=== PATIENT | male | born 1930 ===

== ENCOUNTER 2017-10-15 14:21 | Inpatient (IN) | payer MEDICARE ==
[2017-10-15 14:31] VITALS: BMI 28.7
[2017-10-15] MEDS ORDERED: Sodium Chloride 0.9% 500 ML IV ONE (14:47)
--- NOTE | 2017-10-15 14:53 | C.PDOC ---
History Of Present Illness 87 yr old male with PMhx of HTN and diabetes, brought in via EMS, presents to the ER for evaluation of abdominal pain worsening for the past 3 days. Patient states the pain is diffuse and associated with nausea. Denies fever, vomiting, diarrhea, constipation, dysuria, weakness or numbness. Time Seen by Provider: 10/15/17 14:37 Chief Complaint (Nursing): Abdominal Pain History Per: Patient History/Exam Limitations: no limitations Onset/Duration Of Symptoms: Days (3) Past Medical History Reviewed: Historical Data, Nursing Documentation, Vital Signs Vital Signs: Last Vital Signs Temp 97.7 F 10/15/17 20:09 Pulse 68 10/15/17 20:09 Resp 20 10/15/17 20:09 BP 118/74 10/15/17 20:09 Pulse Ox 95 10/15/17 20:09 - Medical History PMH: Anemia, Arthritis (l knee jt), Benign Prostatic Hyperplasia, Diabetes, HTN , Hypercholesterolemia, Peripheral Edema Surgical History: Endoscopy, Hernia Repair - [facility] Procedures CYSTOSCOPY NEC (02/08/15) ING HERNIA REP-GRAFT NOS (06/16/14) INSERT INDWELLING CATH (02/05/15) TRANSURETHRAL PROSTATECTOMY ([place]) (03/30/15) Family History: States: No Known Family Hx - Social History Hx Tobacco Use: No Hx Alcohol Use: No Hx Substance Use: No - Immunization History Hx Tetanus Toxoid Vaccination: Yes Hx Influenza Vaccination: Yes Hx Pneumococcal Vaccination: Yes Review Of Systems Except As Marked, All Systems Reviewed And Found Negative. Constitutional: Negative for: Fever Gastrointestinal: Positive for: Nausea, Abdominal Pain (diffuse). Negative for : Vomiting, Diarrhea, Constipation Genitourinary: Negative for: Dysuria Neurological: Negative for: Weakness, Numbness Physical Exam - Physical Exam Appears: Non-toxic, No Acute Distress Skin: Warm, Dry, No Rash Head: Atraumatic, Normacephalic Oral Mucosa: Moist Respiratory: Normal Breath Sounds, No Rales, No Rhonchi, No Stridor, No Wheezing Gastrointestinal/Abdominal: Soft, Tenderness (mild non focal tenderness), No Guarding, No Rebound Extremity: Normal ROM, No Swelling Neurological/Psych: Oriented x3, Normal Speech, Normal Motor ED Course And Treatment - Laboratory Results Result Diagrams: 10/15/17 14:50 10/15/17 14:50 O2 Sat by Pulse Oximetry: 98 (RA) Pulse Ox Interpretation: Normal Medical Decision Making Medical Decision Making: ro colitis, gastrits, obstruciotn PLAN: * EKG * Troponin * CBC * CMP * Urinalsysi * Protonix IVP * Zofran IVP * Sodium Chloride IV ekg nsr [address] t wave changes normal interval.s 630 ct shows large right sided effusion and retrocrural mass. cxr later shows large right sided opacity ?mass vs infiltrate. will cover emprically although infectious etiology less likely given hsitory. discussed with dr ambrose, accepts for admission. Disposition - Disposition Disposition: HOSPITALIZED Disposition Time: 07:00 Condition: FAIR - Clinical Impression Clinical Impression: Pleural effusion, Opacity of lung on imaging study - Scribe Statement The provider has reviewed the documentation as recorded by the Scribe Sanna Farias Provider Attestation: All medical record entries made by the Scribe were at my direction and personally dictated by me. I have reviewed the chart and agree that the record accurately reflects my personal performance of the history, physical exam, medical decision making, and the department course for this patient. I have also personally directed, reviewed, and agree with the discharge instructions and disposition. Decision To Admit - Pt Status Changed To: Hospital Disposition Of: Inpatient - Admit Certification Admit to Inpatient:: After my assessment, the patient will require hospitalization for at least two midnights. This is because of the severity of symptoms shown, intensity of services needed, and/or the medical risk in this patient being treated as an outpatient. - InPatient: Physician Admission Certification:: pleural effusion, needs tap. - . Bed Request Type: Regular Admitting Physician: Fausto Tilley Patient Diagnosis: Pleural effusion, Opacity of lung on imaging study
[2017-10-15 15:06] LABS: BASO # 0.1 K/uL (0.0-0.2); BASO % 1.4 % (0.0-2.0); EOS # 0.5 K/uL (0.0-0.7); EOS % 6.3 % (0.0-4.0); HEMOGLOBIN 11.7 g/dL (12.0-18.0); LYMPH # 1.2 K/uL (1.0-4.3); LYMPH % 17.1 % (20.0-40.0); MEAN CELL VOLUME 84.5 fL (80.0-94.0); MEAN CORPUSCULAR HEMOGLOBIN 28.4 pg (27.0-31.0); MEAN CORPUSCULAR HGB CONC 33.7 g/dL (33.0-37.0); MEAN PLATELET VOLUME 7.6 fL (7.2-11.7); MONO # 0.7 K/uL (0.0-0.8); MONO % 10.4 % (0.0-10.0); NEUT # 4.6 K/uL (1.8-7.0); NEUT % 64.8 % (50.0-75.0); RBC 4.1 Mil/uL (4.40-5.90); RED CELL DISTRIBUTION WIDTH 14.2 % (11.5-14.5); WHITE BLOOD COUNT 7.1 K/uL (4.8-10.8)
[2017-10-15 15:14] LABS: ALB/GLOB RATIO 0.9 (1.0-2.1); ALBUMIN 3.5 g/dL (3.5-5.0); ALT/SGPT 33 U/L (21-72); AST/SGOT 33 U/L (17-59); BLOOD UREA NITROGEN 28 mg/dL (9-20); CALCIUM 10.1 mg/dl (8.6-10.4); GFR AFRICAN-AMERICAN 41; GFR NON-AFRICAN AMERICAN 34; LIPASE 188 U/L (23-300)
[2017-10-15 15:16] LABS: INR 1.3
[2017-10-15] MEDS ORDERED: Iohexol 240 (50 ml) PO STA (15:23)
[2017-10-15] MEDS ORDERED: Iohexol 240 (50 ml) ONE (15:46)
--- NOTE | 2017-10-15 17:37 | CT ---
PROCEDURE: CT Abdomen and Pelvis with contrast HISTORY: abd pain COMPARISON: 02/10/2015. TECHNIQUE: Contrast dose: Oral contrast only. Radiation dose: Total exam DLP = 876.41 mGy-cm. This CT exam was performed using one or more of the following dose reduction techniques: Automated exposure control, adjustment of the mA and/or kV according to patient size, and/or use of iterative reconstruction technique. FINDINGS: LOWER THORAX: Large right pleural effusion incompletely visualize. Fluid tracks along the minor fissure. Compressive atelectasis identified right lower lobe. Subcentimeter pulmonary nodule right middle lobe 5 x 6 mm. LIVER: Unremarkable. No gross lesion or ductal dilatation. GALLBLADDER AND BILE DUCTS: Unremarkable. PANCREAS: Unremarkable. No gross lesion or ductal dilatation. SPLEEN: Unremarkable. ADRENALS: Unremarkable. No mass. KIDNEYS AND URETERS: Unremarkable. No hydronephrosis. No solid mass. VASCULATURE: Unremarkable. No aortic aneurysm. BOWEL: Constipation without fecal impaction or obstruction. APPENDIX: Normal appendix. PERITONEUM: Unremarkable. No free fluid. No free air. LYMPH NODES: Retrocrural soft tissue mass or masses the confluence measures 3.3 x 6.3 cm. Please refer to series 3, image 29. BLADDER: No focal bladder abnormalities. Multiple small bladder diverticulum. REPRODUCTIVE: Unremarkable. BONES: No acute fracture. OTHER FINDINGS: Stable postoperative findings related to left herniorrhaphy. IMPRESSION: 1. Large right pleural effusion which is incompletely visualized, compressive atelectasis right lower lobe. 2. 5 x 6 mm solid nodule right middle lobe. Follow-up recommendations: CT scan of the entire thorax to determine the presence or absence of additional pulmonary nodules. 3. Retrocrural soft tissue mass or masses perhaps lymphadenopathy. This appears separate from the adjacent liver, aorta, IVC which may be compressing. Contiguity with pericardium also noted. Follow-up CT scan of the thorax for assessment of pulmonary nodules should also included upper abdomen for further clarification of this finding and I would recommend a study be performed with intravenous contrast.
[2017-10-15] MEDS ORDERED: Azithromycin 500 MG in Sodium Chloride 0.9% 250 ML IVPB STA (17:59)
[2017-10-15] MEDS ORDERED: cefTRIAXone 2 GM in Sodium Chloride 0.9% 100 ML IVPB STA (17:59)
--- NOTE | 2017-10-15 19:09 | CP.PCM.HP ---
<Sarai Marcelino - Last Filed: 10/15/17 21:35> History of Present Illness - History of Present Illness History of Present Illness: Medicine Note for Hospitalist Service CC: abdominal pain HPI: 87 yo M with PMHx of HTN, T2DM, HLD, Alzheimer's Dementia, CKD ( baseline creatine 2.0s), BPH, and urinary incontinence (wears diapers) presents to the ED with abdominal pain x 3 days. History retrieved from Daughter, Seven. Patient was seen per patient's urologist in September for UTI symptoms. was placed on Cipro initially, this was changed to Bactrim (7 day course) after the results of urine culture sensitivities. Bactrim was started on 10/11/17. Patient started to have abdominal pain x 3 days ago. He has a decrease in appetite, only tolerating liquids. Patient is a poor historian and cannot recall his last bowel movement but as per daughter he does not suffer from constipation. Last BM as per daughter was 3-5 days ago. Patient admitted to abdominal pain, nausea , constipation, and urinary frequency. Denied fever, chills, cough, or chest pain. As per daughter, patient was seen by PMD in September for routine follow up - patient was fine at the time. Patient ambulates with walker but needs assistance with ADLs and requires diapers due to urinary incontinence. Person of contact: Daughter - SEVEN ([phone]) - should be called to update on patient's progress and for consent PMHx: HTN, T2DM, HLD, Alzheimer's Dementia, CKD (baseline creatine 2.0s), BPH PSHx: TURP 1996, work related accident amputated 2.5 fingers of left hand, bilateral eye cataract surgery, inguinal hernia repair Meds: As per NOV. Reviewed and confirmed All: NKDA SHx: Smoked 1 PPD for 40 years, quit 20 years ago, used to drink heavily during his youth, denied any illicit drug use FHx: Unremarkable, patient at the age 89, 89 HCM: received flu and pneumonia shot PMD: Jonathon URO: Chantell Present on Admission - Present on Admission Any Indicators Present on Admission: No History of Uncontrolled Diabetes: No Past Patient History - Infectious Disease Hx of Infectious Diseases: None - Past Medical History & Family History Past Medical History?: Yes - Past Social History Smoking Status: Never Smoked - CARDIAC Hx Hypercholesterolemia: Yes Hx Hypertension: Yes Hx Peripheral Edema: Yes - PULMONARY Hx Respiratory Disorders: No - NEUROLOGICAL Hx Neurological Disorder: No - HEENT Hx HEENT Problems: Yes Hx Cataracts: Yes (bilat iol) - RENAL Hx Chronic Kidney Disease: No - ENDOCRINE/METABOLIC Hx Endocrine Disorders: Yes Hx Diabetes Mellitus Type 2: Yes - HEMATOLOGICAL/ONCOLOGICAL Hx Anemia: Yes - INTEGUMENTARY Hx Dermatological Problems: No - MUSCULOSKELETAL/RHEUMATOLOGICAL Hx Arthritis: Yes (l knee j) - GASTROINTESTINAL Hx Gastrointestinal Disorders: No - GENITOURINARY/GYNECOLOGICAL Hx Genitourinary Disorders: Yes Hx Prostate Problems: Yes (tur1996) - PSYCHIATRIC Hx Substance Use: No - SURGICAL HISTORY Hx Surgeries: Yes Hx Amputation: Yes (fingers left hand work related) Hx Arthroscopy: Yes (left knee) Hx Cataract Extraction: Yes (bilat) Hx Herniorrhaphy: Yes (LEFT INGUINAL HERNIA REPAIR 06/2014) Other/Comment: LEFT HAND 3 DIGIT AMPUTATION( ACCIDENT ) - ANESTHESIA Hx Anesthesia: Yes Hx Anesthesia Reactions: No Hx Malignant Hyperthermia: No Meds Allergies/Adverse Reactions: Allergies Allergy/AdvReac Type Severity Reaction Status Date / Time No Known Allergies Allergy Verified 10/15/17 14:30 Physical Exam - Constitutional Appears: No Acute Distress - Head Exam Head Exam: NORMAL INSPECTION, NORMOCEPHALIC - Eye Exam Eye Exam: EOMI, Normal appearance, PERRL Pupil Exam: NORMAL ACCOMODATION - ENT Exam ENT Exam: Mucous Membranes Moist - Neck Exam Neck exam: Positive for: Normal Inspection - Respiratory Exam Respiratory Exam: Decreased Breath Sounds, NORMAL BREATHING PATTERN. absent: Rales, Rhonchi, Wheezes, Respiratory Distress, Stridor - Cardiovascular Exam Cardiovascular Exam: REGULAR RHYTHM, RRR, +S1, +S2 - GI/Abdominal Exam GI & Abdominal Exam: Normal Bowel Sounds, Soft, Tenderness (Tender to deep Palpation LUQ, RLQ, LLQ) - Extremities Exam Extremities exam: Positive for: normal inspection, pedal pulses present. Negative for: pedal edema, tenderness Additional comments: left hand missing 3 digits - Back Exam Back exam: NORMAL INSPECTION - Neurological Exam Neurological exam: Alert - Psychiatric Exam Psychiatric exam: Normal Affect, Normal Mood - Skin Skin Exam: Dry, Intact, Normal Color, Warm Results - Vital Signs Recent Vital Signs: Last Vital Signs Temp 98.4 F 10/15/17 14:36 Pulse 78 10/15/17 14:36 Resp 20 10/15/17 14:36 BP 117/68 10/15/17 14:36 Pulse Ox 98 10/15/17 18:34 - Labs Result Diagrams: 10/15/17 14:50 10/15/17 14:50 Labs: Laboratory Results - last 24 hr 10/15/17 10/15/17 10/15/17 14:50 14:50 14:50 WBC 7.1 RBC 4.10 L Hgb 11.7 L D Hct 34.6 L MCV 84.5 D MCH 28.4 MCHC 33.7 RDW 14.2 Plt Count 431 H D MPV 7.6 Neut % (Auto) 64.8 Lymph % (Auto) 17.1 L Clare % (Auto) 10.4 H Eos % (Auto) 6.3 H Baso % (Auto) 1.4 Neut # 4.6 Lymph # 1.2 Clare # 0.7 Eos # 0.5 Baso # 0.1 PT 15.0 H INR 1.3 APTT 28 Sodium 127 L Potassium 4.4 Chloride 92 L Carbon Dioxide 29 Anion Gap 11 BUN 28 H Creatinine 1.9 H Est GFR ( Amer) 41 Est GFR (Non-Af Amer) 34 Random Glucose 186 H Calcium 10.1 Total Bilirubin 0.7 AST 33 ALT 33 Alkaline Phosphatase 78 Troponin I < 0.0120 Total Protein 7.4 Albumin 3.5 D Globulin 3.8 Albumin/Globulin Ratio 0.9 L Lipase 188 Influenza Typ A,B (EIA) 10/15/17 18:10 WBC RBC Hgb Hct MCV MCH MCHC RDW Plt Count MPV Neut % (Auto) Lymph % (Auto) Clare % (Auto) Eos % (Auto) Baso % (Auto) Neut # Lymph # Clare # Eos # Baso # PT INR APTT Sodium Potassium Chloride Carbon Dioxide Anion Gap BUN Creatinine Est GFR ( Amer) Est GFR (Non-Af Amer) Random Glucose Calcium Total Bilirubin AST ALT Alkaline Phosphatase Troponin I Total Protein Albumin Globulin Albumin/Globulin Ratio Lipase Influenza Typ A,B (EIA) Negative for flu a/b Assessment & Plan - Assessment and Plan (Free Text) Assessment: 87 yo M with PMHx of HTN, T2DM, HLD, Alzheimer's Dementia, CKD ( baseline creatine 2.0s), BPH, and urinary incontinence (wears diapers) with abdominal pain, with incidental finding of RLL lung mass - being worked up for malignancy. Plan: RLL Mass, pleural effusion History of Tobacco Use Unlikely Pneumonia Vitals stable, no leukocytosis, clinically patient does not appear toxic - will refrain from ABX at this time Pulmonology consulted- Dr. Richmond - help appreciated IR consulted - for CT guided biopsy - Dr. Lin - help appreciated Pending path results - Heme/Onc will need to be consulted Imaging: Pending CT Chest w/o Contrast CT Scan abdomen, pelvis with PO: Large right pleural effusion which is incompletely visualized, compressive atelectasis right lower lobe. 5 x 6 mm solid nodule right middle lobe. Follow-up recommendations: CT scan of the entire thorax to determine the presence or absence of additional pulmonary nodules. Retrocrural soft tissue mass or masses perhaps lymphadenopathy. This appears separate from the adjacent liver, aorta, IVC which may be compressing. Contiguity with pericardium also noted. Follow-up CT scan of the thorax for assessment of pulmonary nodules should also included upper abdomen for further clarification of this finding and I would recommend a study be performed with intravenous contrast. 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) Baseline BUN/ CRE: 30-40s/2 -2.5 On Admission: 28/1.9 Started on gentle fluids NS @ 80cc/hr - clinically patient does not appear dehydrated Continue to monitor UTI Patient was being treated as outpatient with Bactrim 7 day course -Labs UA, UC -Meds Bactrim Q12 last dose 10/18/17 to complete 7 day course HTN Coreg 6.25mg PO BID T2DM Accuchecks Consistent Carb Diet -Labs F/U A1C Last A1C - 5.6 (2014) -Meds: Held home medications of Metformin and Januvia ISS- low HLD F/U Lipid panel Alzheimer's Dementia Aricept 10mg PO QHS BPH Hx of TURP (1996) Urinary Incontinence Informed nurses to place patient on diapers Prophylactic Measures GI PPX: Pepcid 20mg PO BID DVT PPX: SCDs, Heparin Q12 PT EVAL - patient ambulates with walker at baseline Case Management - for home 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 Pending Reccs from Pulm and IR for possible biopsy. Person of contact: Daughter - SEVEN ([phone]) - should be called to update on patient's progress and for any consent DW Sarai King DO, PGY-1 <Fausto Tilley P - Last Filed: 10/16/17 06:49> Results - Vital Signs Recent Vital Signs: Last Vital Signs Temp 98.8 F 10/16/17 04:45 Pulse 69 10/16/17 04:45 Resp 20 10/16/17 04:45 BP 119/73 10/16/17 04:45 Pulse Ox 96 10/16/17 04:45 - Labs Result Diagrams: 10/16/17 06:10 10/16/17 06:10 Labs: Laboratory Results - last 24 hr 10/15/17 10/15/17 10/15/17 14:50 14:50 14:50 WBC 7.1 RBC 4.10 L Hgb 11.7 L D Hct 34.6 L MCV 84.5 D MCH 28.4 MCHC 33.7 RDW 14.2 Plt Count 431 H D MPV 7.6 Neut % (Auto) 64.8 Lymph % (Auto) 17.1 L Clare % (Auto) 10.4 H Eos % (Auto) 6.3 H Baso % (Auto) 1.4 Neut # 4.6 Lymph # 1.2 Clare # 0.7 Eos # 0.5 Baso # 0.1 PT 15.0 H INR 1.3 APTT 28 Sodium 127 L Potassium 4.4 Chloride 92 L Carbon Dioxide 29 Anion Gap 11 BUN 28 H Creatinine 1.9 H Est GFR ( Amer) 41 Est GFR (Non-Af Amer) 34 POC Glucose (mg/dL) Random Glucose 186 H Calcium 10.1 Total Bilirubin 0.7 AST 33 ALT 33 Alkaline Phosphatase 78 Troponin I < 0.0120 NT-Pro-B Natriuret Pep Total Protein 7.4 Albumin 3.5 D Globulin 3.8 Albumin/Globulin Ratio 0.9 L Triglycerides Cholesterol HDL Cholesterol Lipase 188 Influenza Typ A,B (EIA) 10/15/17 10/15/17 10/15/17 18:10 18:35 22:38 WBC RBC Hgb Hct MCV MCH MCHC RDW Plt Count MPV Neut % (Auto) Lymph % (Auto) Clare % (Auto) Eos % (Auto) Baso % (Auto) Neut # Lymph # Clare # Eos # Baso # PT INR APTT Sodium Potassium Chloride Carbon Dioxide Anion Gap BUN Creatinine Est GFR ( Amer) Est GFR (Non-Af Amer) POC Glucose (mg/dL) 123 H Random Glucose Calcium Total Bilirubin AST ALT Alkaline Phosphatase Troponin I NT-Pro-B Natriuret Pep 493 Total Protein Albumin Globulin Albumin/Globulin Ratio Triglycerides Cholesterol HDL Cholesterol Lipase Influenza Typ A,B (EIA) Negative for flu a/b 10/16/17 10/16/17 06:10 06:10 WBC 7.1 RBC 3.69 L Hgb 10.7 L Hct 31.1 L MCV 84.4 MCH 29.0 MCHC 34.4 RDW 14.2 Plt Count 404 H MPV 7.6 Neut % (Auto) 63.1 Lymph % (Auto) 20.8 Clare % (Auto) 9.1 Eos % (Auto) 6.1 H Baso % (Auto) 0.9 Neut # 4.5 Lymph # 1.5 Clare # 0.6 Eos # 0.4 Baso # 0.1 PT INR APTT Sodium 126 L Potassium 4.4 Chloride 93 L Carbon Dioxide 28 Anion Gap 10 BUN 24 H Creatinine 1.8 H Est GFR ( Amer) 43 Est GFR (Non-Af Amer) 36 POC Glucose (mg/dL) Random Glucose 125 H Calcium 9.5 Total Bilirubin 0.7 AST 32 ALT 26 Alkaline Phosphatase 76 Troponin I NT-Pro-B Natriuret Pep Total Protein 6.8 Albumin 3.3 L Globulin 3.6 Albumin/Globulin Ratio 0.9 L Triglycerides 184 H Cholesterol 147 HDL Cholesterol 25 L Lipase Influenza Typ A,B (EIA) Attending/Attestation - Attestation I have personally seen and examined this patient.: Yes I have fully participated in the care of the patient.: Yes I have reviewed all pertinent clinical information: Yes Notes (Text): Assessment * Right malignant effusion, 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
[2017-10-15] MEDS ORDERED: Sodium Chloride 0.9% 1,000 ML ONE (21:40)
[2017-10-15] MEDS: Sodium Chloride 0.9% 1,000 ML IV SCH (21:41)
--- NOTE | 2017-10-15 21:51 | CT ---
EXAM: CT Chest Without Intravenous Contrast CLINICAL HISTORY: 87 years old, male; Signs and symptoms; Mass, lump, or swelling in the chest; Additional info: Questionable lung mass rll TECHNIQUE: Axial computed tomography images of the chest without intravenous contrast. All CT scans at this facility use one or more dose reduction techniques, viz.: automated exposure control; ma/kV adjustment per patient size (including targeted exams where dose is matched to indication; i.e. head); or iterative reconstruction technique. Coronal and sagittal reformatted images were created and reviewed. COMPARISON: No relevant prior studies available. FINDINGS: Lungs: Mild to moderate centrilobular emphysema. Multiple right lung masses. Thick walled cavitary lesion right upper lobe measuring 5.5 x 5.3 CM. Right lower lobe consolidation. Left lung is unremarkable. Pleural space: Multiple right sided pleural based soft tissue masses. Partially loculated right pleural effusion. No pneumothorax. Heart: No cardiomegaly. No significant pericardial effusion. Bones/joints: Kyphosis. Diffuse spinal degenerative changes. No acute fracture. No dislocation. Soft tissues: Unremarkable. Vasculature: Atherosclerotic vascular disease. No thoracic aortic aneurysm. Lymph nodes: Mediastinal adenopathy. Right paratracheal lymph node measures 2.5 CM. IMPRESSION: 1. Multiple right lung masses, multiple right-sided pleural-based masses, and probable malignant effusion. 2. Mediastinal adenopathy. 3. Remainder of findings as above.
[2017-10-15] MEDS: (Novolin R) Insulin Human Regular 100 units/ml vial SC SCH (22:42)
[2017-10-16 06:18] LABS: BASO # 0.1 K/uL (0.0-0.2); BASO % 0.9 % (0.0-2.0); EOS # 0.4 K/uL (0.0-0.7); EOS % 6.1 % (0.0-4.0); HEMOGLOBIN 10.7 g/dL (12.0-18.0); LYMPH # 1.5 K/uL (1.0-4.3); LYMPH % 20.8 % (20.0-40.0); MEAN CELL VOLUME 84.4 fL (80.0-94.0); MEAN CORPUSCULAR HGB CONC 34.4 g/dL (33.0-37.0); MEAN PLATELET VOLUME 7.6 fL (7.2-11.7); MONO # 0.6 K/uL (0.0-0.8); MONO % 9.1 % (0.0-10.0); NEUT # 4.5 K/uL (1.8-7.0); NEUT % 63.1 % (50.0-75.0); RBC 3.69 Mil/uL (4.40-5.90); RED CELL DISTRIBUTION WIDTH 14.2 % (11.5-14.5); WHITE BLOOD COUNT 7.1 K/uL (4.8-10.8)
[2017-10-16 06:42] LABS: ALB/GLOB RATIO 0.9 (1.0-2.1); ALBUMIN 3.3 g/dL (3.5-5.0); CALCIUM 9.5 mg/dl (8.6-10.4)
[2017-10-16 08:26] LABS: SQUAMOUS EPITHIAL < 1 /hpf (0-5); URINE BACTERIA RARE (<OCC); URINE BILIRUBIN NEGATIVE (NEGATIVE); URINE BLOOD NEGATIVE (NEGATIVE); URINE CLARITY Clear (Clear); URINE COLOR Yellow (YELLOW); URINE GLUCOSE (UA) NORMAL (Normal); URINE LEUKOCYTE ESTERASE TRACE Leu/uL (Negative); URINE NITRATE NEGATIVE (NEGATIVE); URINE PROTEIN NEGATIVE (NEGATIVE); URINE UROBILINOGEN NORMAL mg/dL (0.2-1.0)
[2017-10-16] MEDS: (Novolin R) Insulin Human Regular 100 units/ml vial SC SCH ×4 (08:27→21:45)
--- NOTE | 2017-10-16 08:50 | RAD ---
Chest x-ray two views History: Chest pain Comparison: None available. Findings: Large masslike consolidative changes seen within the right mid to lower lung zone with additional lobular masslike opacities seen more inferiorly in the right lung. Right hilar prominence. Tortuous aorta. Degenerative changes in the spine with paravertebral osteophytes. Impression: Large masslike consolidative changes seen within the right mid to lower lung zone with additional lobular masslike opacities seen more inferiorly in the right lung. Underlying neoplasm cannot be excluded. Right hilar prominence. Correlation with chest CT is recommended for further evaluation if clinically indicated.
--- NOTE | 2017-10-16 08:53 | CP.PCM.PN ---
<Gayle Canales - Last Filed: 10/16/17 15:56> Subjective - Date & Time of Evaluation Date of Evaluation: 10/16/17 Time of Evaluation: 07:00 - Subjective Subjective: Medicine Progress Note: Patient was seen and examined at bedside in the AM. Patient denies shortness of breath, chest pain, palpitations, nausea, vomiting, fever, or other complaints at this time. Objective - Vital Signs/Intake and Output Vital Signs (last 24 hours): Temp Pulse Resp BP Pulse Ox 98.1 F 73 20 134/64 96 10/16/17 08:03 10/16/17 08:03 10/16/17 08:03 10/16/17 08:03 10/16/17 08:03 Intake and Output: 10/16/17 10/16/17 06:59 18:59 Intake Total 0 Balance 0 - Medications Medications: Current Medications Bisacodyl (Dulcolax) 5 mg PO DAILY [facility] Stop: 10/16/17 10:01 Carvedilol (Coreg) 6.25 mg PO BID [facility] Docusate Sodium (Colace) 100 mg PO TID [facility] Donepezil HCl (Aricept) 10 mg PO HS [facility] Last Admin: 10/15/17 22:24 Dose: 10 mg Famotidine (Pepcid) 20 mg PO BID [facility] Heparin Sodium (Porcine) (Heparin) 5,000 units SC Q12 [facility] Last Admin: 10/15/17 22:24 Dose: 5,000 units Sodium Chloride (Sodium Chloride 0.9%) 1,000 mls @ 80 mls/hr IV .[id number] [facility] Last Admin: 10/15/17 21:41 Dose: 80 mls/hr Insulin Human Regular (Novolin R) 0 unit SC ACHS [facility] PRN Reason: Protocol Last Admin: 10/16/17 08:27 Dose: Not Given Ondansetron HCl (Zofran Inj) 4 mg IVP Q6 PRN PRN Reason: Nausea/Vomiting Trimethoprim/Sulfamethoxazole (Bactrim Ss Tab) 1 tab PO Q12H [facility] Stop: 10/19/17 10:01 - Labs Labs: 10/16/17 06:10 10/16/17 06:10 PT 15.0 SECONDS (9.7-12.2) H 01/14/18 14:50 INR 1.3 10/15/17 14:50 APTT 28 SECONDS (21-34) 10/15/17 14:50 - Constitutional Appears: No Acute Distress - Head Exam Head Exam: ATRAUMATIC, NORMAL INSPECTION - Eye Exam Eye Exam: EOMI, Normal appearance - ENT Exam ENT Exam: Mucous Membranes Moist - Respiratory Exam Respiratory Exam: Clear to Ausculation Bilateral, NORMAL BREATHING PATTERN - Cardiovascular Exam Cardiovascular Exam: REGULAR RHYTHM, +S1, +S2 - GI/Abdominal Exam GI & Abdominal Exam: Soft, Normal Bowel Sounds. absent: Tenderness - Extremities Exam Extremities Exam: Normal Inspection - Neurological Exam Neurological Exam: Alert, Awake. absent: Oriented x3 (oriented to person and place) - Psychiatric Exam Psychiatric exam: Normal Affect, Normal Mood - Skin Skin Exam: Normal Color, Warm Assessment and Plan - Assessment and Plan (Free Text) Assessment: 87 yo M with PMHx of HTN, T2DM, HLD, Alzheimer's Dementia, CKD ( baseline creatine 2.0s), BPH, and urinary incontinence (wears diapers) with abdominal pain, with incidental finding of RLL lung mass. 1.) RLL Mass, pleural effusion - History of Tobacco Use - Unlikely Pneumonia - Vitals stable, no leukocytosis - Pulmonology consulted- Dr. Deutsch --> help appreciated - IR consulted: Dr. Lin --> help appreciated - CT guided core biopsy of right lung pleural-based mass - f/u pathology results - f/u chest x-ray s/p right lung mass biopsy - US guided right thoracentesis: 600cc serosanguinous fluid removed - Imaging: - CT Chest w/o Contrast: Multiple right lung masses, multiple right-sided pleural-based masses, and probable malignant effusion. Mediastinal adenopathy. Thick walled cavitary lesion right upper lobe measuring 5.5 x 5.3 CM. - CT Scan abdomen, pelvis with PO: Large right pleural effusion which is incompletely visualized, compressive atelectasis right lower lobe. 5 x 6 mm solid nodule right middle lobe. Follow-up recommendations: CT scan of the entire thorax to determine the presence or absence of additional pulmonary nodules. Retrocrural soft tissue mass or masses perhaps lymphadenopathy. This appears separate from the adjacent liver, aorta, IVC which may be compressing. Contiguity with pericardium also noted. Follow-up CT scan of the thorax for assessment of pulmonary nodules should also included upper abdomen for further clarification of this finding and I would recommend a study be performed with intravenous contrast. 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) - Baseline BUN/ Cre: 30-40s/2 -2.5 - On Admission: 28/1.9 - Started on gentle fluids NS @ 80cc/hr - Continue to monitor 4.) History of UTI - Patient was being treated as outpatient with Bactrim 7 day course - UA: Negative - f/u urine culture - Continue Bactrim Q12 last dose until 10/18/17 (to complete 7 day course) 5.) History of Hypertension - Coreg 6.25mg PO BID 6.) History of Type 2 Diabetes - Accuchecks - ISS - Consistent Carb Diet - Last A1C - 5.6 (2014) - A1C: 7.5 7.) History of Hyperlipidemia - Total Cholesterol 147; LDL 66; HDL 25 8.) History of Alzheimer's Dementia - Aricept 10mg PO QHS 9.) History of BPH - Hx of TURP (1996) 10.) History of Urinary Incontinence - Nursing communication: To place patient on diapers 11.) Prophylaxis - GI PPX: Pepcid 20mg PO BID - DVT PPX: SCDs, Heparin Q12 (hold for procedure; will restart 10/17/17) Case Management - 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 Aliza Canales PGY-1 <Maura Abrams - Last Filed: 10/16/17 17:50> Objective - Vital Signs/Intake and Output Vital Signs (last 24 hours): Temp Pulse Resp BP Pulse Ox 98.0 F 71 20 144/70 95 10/16/17 15:00 10/16/17 15:00 10/16/17 15:00 10/16/17 15:00 10/16/17 15:00 Intake and Output: 10/16/17 10/16/17 06:59 18:59 Intake Total 0 Balance 0 - Medications Medications: Current Medications Acetaminophen (Tylenol 325mg Tab) 650 mg PO Q6 PRN PRN Reason: Pain, moderate (4-7) Carvedilol (Coreg) 6.25 mg PO BID [facility] Last Admin: 10/16/17 09:46 Dose: 6.25 mg Docusate Sodium (Colace) 100 mg PO TID [facility] Last Admin: 10/16/17 13:32 Dose: Not Given Donepezil HCl (Aricept) 10 mg PO HS [facility] Last Admin: 10/15/17 22:24 Dose: 10 mg Famotidine (Pepcid) 20 mg PO DAILY [facility] Heparin Sodium (Porcine) (Heparin) 5,000 units SC Q12 [facility] Last Admin: 10/15/17 22:24 Dose: 5,000 units Sodium Chloride (Sodium Chloride 0.9%) 1,000 mls @ 80 mls/hr IV .[id number] [facility] Last Admin: 10/16/17 09:47 Dose: Not Given Insulin Human Regular (Novolin R) 0 unit SC ACHS [facility] PRN Reason: Protocol Last Admin: 10/16/17 12:31 Dose: Not Given Ondansetron HCl (Zofran Inj) 4 mg IVP Q6 PRN PRN Reason: Nausea/Vomiting Trimethoprim/Sulfamethoxazole (Bactrim Ss Tab) 1 tab PO Q12H [facility] Stop: 10/19/17 10:01 Last Admin: 10/16/17 09:44 Dose: Not Given - Labs Labs: 10/16/17 06:10 10/16/17 06:10 PT 15.0 SECONDS (9.7-12.2) H 10/15/17 14:50 INR 1.3 10/15/17 14:50 APTT 28 SECONDS (21-34) 10/15/17 14:50 Attending/Attestation - Attestation I have personally seen and examined this patient.: Yes I have fully participated in the care of the patient.: Yes I have reviewed all pertinent clinical information, including history, physical exam and plan: Yes Notes (Text): Patient was seen and examined Lying comfortable ,complaining of right upper quadrant abdominal pain D/W daughter at bedside s/p Right lung biopsy and thoracentesis D/w the day time resident I agree with the documentation of the assessment and plan
[2017-10-16] MEDS: Sodium Chloride 0.9% 1,000 ML IV SCH ×2 (09:47→23:09)
[2017-10-16] MEDS ORDERED: Bisacodyl 5mg EC Tab PO SCH (10:00)
[2017-10-16] MEDS ORDERED: Tmp-Smz 400 mg-80 mg SS Tab PO SCH (10:00)
[2017-10-16] MEDS ORDERED: Midazolam 2 MG/2 ML VIAL ONE (12:46)
[2017-10-16] MEDS ORDERED: Etomidate 20 mg/10ml Inj IV ONE (12:46)
--- NOTE | 2017-10-16 13:31 | PCM.SURG1 ---
Surgeon's Initial Post Op Note - Surgeon's Notes Surgeon: Nahum Lin MD Stone Decorator: NONE Type of Anesthesia: IV Sedation Pre-Operative Diagnosis: Lung masses, pleural effusion Operative Findings: CT showed multiple right lung pleural base mass and a cavitary mass RLL. Also present is moderate pleural effusion. Post-Operative Diagnosis: Lung masses, pleural effusion Operation Performed: CT guided right lung mass biopsy. Two 20 g core specimen removed. US guided right thoracentesis; 600 cc of serosanguinous fluid removed. Specimen/Specimens Removed: 600 cc of slight serosanguinous fluid,. 20 gauge core x 2 from lung mass Estimated Blood Loss: EBL {In ML}: 0 Drains Used: No Drains Post-Op Condition: Fair Date of Surgery/Procedure: 10/16/17 Time of Surgery/Procedure: 13:25
--- NOTE | 2017-10-16 13:51 | CT ---
PROCEDURE: Date of procedure: 10/16/2017 Procedure: 1. CT-guided lung mass biopsy, CPT [address] Guidance for biopsy, [address] Medications: The patient was sedated by anesthesiologist along with physiologic monitoring. HISTORY: Right lung masses, pleural effusion TECHNIQUE: Following informed consent, the Pt's chest was marked. The Pt was placed in a left lateral position on the CT table and procedure time out was performed. A noncontrast CT scan was performed. Noncontrast CT scan confirmed the presence of multiple pleural-based masses along with a moderate effusion. A skin localizer was placed on the patient's right back and a repeat CT scan was performed. The skin was marked, prepped, and draped in the usual sterile fashion. After the skin was anesthetized with lidocaine and the patient sedated by the anesthesiologist, a 20 gauge core needle was advanced percutaneously under direct CT guidance into the mass. Upon confirmation of needle position, two 20-gauge core specimens were obtained and sent for routine pathology. The needle was removed and a xeroform dressing was applied. A post biopsy CT scan showed no pneumothorax. IMPRESSION: CT guided core biopsy right lung pleural-based mass.
--- NOTE | 2017-10-16 14:08 | US ---
PROCEDURE: Date of procedure: 10/16/2017 Procedure: 1. Ultrasound-guided Right thoracentesis, CPT 44569 Medications: 6cc 1% Lidocaine HISTORY: Right pleural effusion, lung masses TECHNIQUE: Following informed consent ,the Patients' right chest was marked. Procedure time-out was called, and the patient was placed in a left lateral position and limited ultrasound showed a moderate right effusion. The patient's right back was prepped and draped in the usual sterile fashion. After the skin was anesthetized with lidocaine, a drainage catheter was advanced under ultrasound guidance into the pleural space. Ultrasound-guided thoracentesis was performed. A total of 600 cubic centimeters of serosanguinous-colored fluid removed without complication. A Xeroform dressing was applied. IMPRESSION: Ultrasound guided Right thoracentesis. There were no immediate complications.
--- NOTE | 2017-10-16 15:32 | CP.PCM.PCO ---
Physician Communication Note - Physician Communication Note Physician Communication Note: Unable to reach daughter X 4,for fam. meeting. number is not working
--- NOTE | 2017-10-16 17:04 | RAD ---
PROCEDURE: CHEST RADIOGRAPH, 1 VIEW HISTORY: Status post right lung mass biopsy. COMPARISON: 10/15/2017 FINDINGS: LUNGS: Previously identified mass in the mid right lung is again evident. There is increasing opacity at the right lung base. This may be due to consolidation or pleural effusion. There is no pneumothorax. There is no left pleural effusion. PLEURA: Possible right pleural effusion. Pleural-based density is noted along the lateral chest wall in the upper right marcos thorax. CARDIOVASCULAR: Normal. OSSEOUS STRUCTURES: No significant abnormalities. VISUALIZED UPPER ABDOMEN: Normal. OTHER FINDINGS: None. IMPRESSION: No evidence of pneumothorax. Increasing opacity at right lung base status post percutaneous right lung biopsy. Consolidation versus pleural effusion.
--- NOTE | 2017-10-16 17:13 | CP.PCM.CON ---
History of Present Illness - History of Present Illness History of Present Illness: Palliative consult requested for End of life care discussion Patient is a 87 yo male admitted from home with abdominal pain X 3 days. Pain was diffused with nausea. Prior to this patient was treated for UTI with Bactrim. The CT abdomen and pelvis was significant for right lung mass . The CT chest confirmed multiple masses to right lung. patient is S/P thoracentesis today and lung Bx as well. 600 cc of fluid taken out. PMH: HTN, dementia, anemia, DM, Alzheimer's, incontinent, uses diappers, knee pain, in WC Soc. Hx: , 18 years ago from DM complications, lives with daughter at home Fam. hx: DM runs in family Review of Systems - Review of Systems All systems: reviewed and no additional remarkable complaints except Review of Systems: ROS obtained from nursing. patient is post IR procedure in no acute distress. Past Patient History - Infectious Disease Hx of Infectious Diseases: None - Past Medical History & Family History Past Medical History?: Yes - Past Social History Smoking Status: Never Smoked - CARDIAC Hx Hypercholesterolemia: Yes Hx Hypertension: Yes - PULMONARY Hx Respiratory Disorders: No - NEUROLOGICAL Hx Neurological Disorder: No - HEENT Hx HEENT Problems: Yes Hx Cataracts: Yes (bilateral) - RENAL Hx Chronic Kidney Disease: No - ENDOCRINE/METABOLIC Hx Diabetes Mellitus Type 2: Yes - HEMATOLOGICAL/ONCOLOGICAL Hx Blood Disorders: Yes Hx Anemia: Yes - INTEGUMENTARY Hx Dermatological Problems: No - MUSCULOSKELETAL/RHEUMATOLOGICAL Hx Arthritis: Yes - GASTROINTESTINAL Hx Gastrointestinal Disorders: No - GENITOURINARY/GYNECOLOGICAL Hx Genitourinary Disorders: Yes Hx Prostate Problems: Yes (TURP 1996) - PSYCHIATRIC Hx Psychophysiologic Disorder: No Hx Substance Use: No - SURGICAL HISTORY Hx Surgeries: Yes Hx Amputation: Yes (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- work related) Hx Arthroscopy: Yes (left knee) Hx Cataract Extraction: Yes (bilat) Hx Herniorrhaphy: Yes (LEFT INGUINAL HERNIA REPAIR 06/2014) Other/Comment: LEFT HAND 3 DIGIT AMPUTATION( ACCIDENT ) - ANESTHESIA Hx Anesthesia: Yes Hx Anesthesia Reactions: No Hx Malignant Hyperthermia: No Meds Allergies/Adverse Reactions: Allergies Allergy/AdvReac Type Severity Reaction Status Date / Time No Known Allergies Allergy Verified 10/15/17 14:30 - Medications Medications: Current Medications Carvedilol (Coreg) 6.25 mg PO BID [facility] Last Admin: 10/16/17 09:46 Dose: 6.25 mg Docusate Sodium (Colace) 100 mg PO TID [facility] Last Admin: 10/16/17 13:32 Dose: Not Given Donepezil HCl (Aricept) 10 mg PO HS [facility] Last Admin: 10/15/17 22:24 Dose: 10 mg Famotidine (Pepcid) 20 mg PO DAILY [facility] Heparin Sodium (Porcine) (Heparin) 5,000 units SC Q12 [facility] Last Admin: 10/15/17 22:24 Dose: 5,000 units Sodium Chloride (Sodium Chloride 0.9%) 1,000 mls @ 80 mls/hr IV .[id number] [facility] Last Admin: 10/16/17 09:47 Dose: Not Given Insulin Human Regular (Novolin R) 0 unit SC ACHS [facility] PRN Reason: Protocol Last Admin: 10/16/17 12:31 Dose: Not Given Ondansetron HCl (Zofran Inj) 4 mg IVP Q6 PRN PRN Reason: Nausea/Vomiting Trimethoprim/Sulfamethoxazole (Bactrim Ss Tab) 1 tab PO Q12H [facility] Stop: 10/19/17 10:01 Last Admin: 10/16/17 09:44 Dose: Not Given Physical Exam - Constitutional Appears: No Acute Distress - Head Exam Head Exam: ATRAUMATIC, NORMAL INSPECTION, NORMOCEPHALIC - Eye Exam Eye Exam: EOMI, Normal appearance, PERRL Pupil Exam: NORMAL ACCOMODATION, PERRL - ENT Exam ENT Exam: Mucous Membranes Moist, Normal Exam - Neck Exam Neck exam: Positive for: Normal Inspection - Respiratory Exam Respiratory Exam: Decreased Breath Sounds, NORMAL BREATHING PATTERN - Cardiovascular Exam Cardiovascular Exam: REGULAR RHYTHM - GI/Abdominal Exam GI & Abdominal Exam: Diminished Bowel Sounds, Soft - Rectal Exam Rectal Exam: Deferred - Exam Exam: absent: Circumcision, NORMAL INSPECTION, Scrotal Swelling, Testicular Tenderness, Uretheral Discharge, Testicular Vertical Lie, Bladder Distension External exam: NORMAL EXTERNAL EXAM - Extremities Exam Extremities exam: Positive for: normal inspection - Back Exam Back exam: NORMAL INSPECTION - Neurological Exam Neurological exam: Alert, Altered - Psychiatric Exam Psychiatric exam: Flat Affect - Skin Skin Exam: Dry, Intact, Normal Color, Warm Results - Vital Signs Recent Vital Signs: Last Vital Signs Temp 98.0 F 10/16/17 15:00 Pulse 71 10/16/17 15:00 Resp 20 10/16/17 15:00 BP 144/70 10/16/17 15:00 Pulse Ox 95 10/16/17 15:00 - Labs Result Diagrams: 10/16/17 06:10 10/16/17 06:10 Labs: Laboratory Results - last 24 hr 10/15/17 10/15/17 10/15/17 18:10 18:35 22:38 WBC RBC Hgb Hct MCV MCH MCHC RDW Plt Count MPV Neut % (Auto) Lymph % (Auto) [place] % (Auto) Eos % (Auto) Baso % (Auto) Neut # Lymph # [place] # Eos # Baso # Sodium Potassium Chloride Carbon Dioxide Anion Gap BUN Creatinine Est GFR ( Amer) Est GFR (Non-Af Amer) POC Glucose (mg/dL) 123 H Random Glucose Hemoglobin A1c Calcium Total Bilirubin AST ALT Alkaline Phosphatase NT-Pro-B Natriuret Pep 493 Total Protein Albumin Globulin Albumin/Globulin Ratio Triglycerides Cholesterol LDL Cholesterol Direct HDL Cholesterol Urine Color Urine Clarity Urine pH Ur Specific [place] Urine Protein Urine Glucose (UA) Urine Ketones Urine Blood Urine Nitrate Urine Bilirubin Urine Urobilinogen Ur Leukocyte Esterase Urine WBC (Auto) Urine RBC (Auto) Ur Squamous Epith Cells Urine Bacteria Influenza Typ A,B (EIA) Negative for flu a/b 10/16/17 10/16/17 10/16/17 06:10 06:10 06:10 WBC 7.1 RBC 3.69 L Hgb 10.7 L Hct 31.1 L MCV 84.4 MCH 29.0 MCHC 34.4 RDW 14.2 Plt Count 404 H MPV 7.6 Neut % (Auto) 63.1 Lymph % (Auto) 20.8 [place] % (Auto) 9.1 Eos % (Auto) 6.1 H Baso % (Auto) 0.9 Neut # 4.5 Lymph # 1.5 [place] # 0.6 Eos # 0.4 Baso # 0.1 Sodium 126 L Potassium 4.4 Chloride 93 L Carbon Dioxide 28 Anion Gap 10 BUN 24 H Creatinine 1.8 H Est GFR ( Amer) 43 Est GFR (Non-Af Amer) 36 POC Glucose (mg/dL) Random Glucose 125 H Hemoglobin A1c 7.5 H D Calcium 9.5 Total Bilirubin 0.7 AST 32 ALT 26 Alkaline Phosphatase 76 NT-Pro-B Natriuret Pep Total Protein 6.8 Albumin 3.3 L Globulin 3.6 Albumin/Globulin Ratio 0.9 L Triglycerides 184 H Cholesterol 147 LDL Cholesterol Direct 66 HDL Cholesterol 25 L Urine Color Urine Clarity Urine pH Ur Specific [place] Urine Protein Urine Glucose (UA) Urine Ketones Urine Blood Urine Nitrate Urine Bilirubin Urine Urobilinogen Ur Leukocyte Esterase Urine WBC (Auto) Urine RBC (Auto) Ur Squamous Epith Cells Urine Bacteria Influenza Typ A,B (EIA) 10/16/17 10/16/17 10/16/17 06:13 07:26 16:16 WBC RBC Hgb Hct MCV MCH MCHC RDW Plt Count MPV Neut % (Auto) Lymph % (Auto) [place] % (Auto) Eos % (Auto) Baso % (Auto) Neut # Lymph # [place] # Eos # Baso # Sodium Potassium Chloride Carbon Dioxide Anion Gap BUN Creatinine Est GFR ( Amer) Est GFR (Non-Af Amer) POC Glucose (mg/dL) 115 H 134 H Random Glucose Hemoglobin A1c Calcium Total Bilirubin AST ALT Alkaline Phosphatase NT-Pro-B Natriuret Pep Total Protein Albumin Globulin Albumin/Globulin Ratio Triglycerides Cholesterol LDL Cholesterol Direct HDL Cholesterol Urine Color Yellow Urine Clarity Clear Urine pH 5.0 Ur Specific [place] 1.012 Urine Protein Negative Urine Glucose (UA) Normal Urine Ketones Negative Urine Blood Negative Urine Nitrate Negative Urine Bilirubin Negative Urine Urobilinogen Normal Ur Leukocyte Esterase Trace Urine WBC (Auto) 8 H Urine RBC (Auto) 1 Ur Squamous Epith Cells < 1 Urine Bacteria Rare Influenza Typ A,B (EIA) Assessment & Plan - Assessment and Plan (Free Text) Assessment: Palliative consult There was no Advanced directive on the chart, PPS 30%. I reviewed medical records, all diagnostic studies, examined patient in the bed. Goals of care discussed with pineda Nair Patient is alert, post thoracentesis, in no acute distress. Patient able to fallow simple commends in [place]. Breath sounds regular, non labored. No cough noted. Post thoracentesis site intact. Denies pain. Abdomen large and soft. Patient unable to provide info on bowel routine, incontinent of bladder, uses diaper. Assisted with lunch and tolerated it well. BP 144/70, HR 71, O2Sat 95 % RA. Hb 10.7, WBC 7.1, Na 126, BUN 24, Architectural Design Professor 1.8. Goals of care discussed with daughter Mrs. Nair . She could be reached at [phone] or [phone]. She admitted being made aware last night of her father's studies result. Mrs. Nair talked very emotionally about the way her mother . Now, when her father was given the terminal diagnosis, she is expressing the flash backs. Mrs. Nair understands the severity of diagnosis and poor prognosis and was very clear that she would not want her father to suffer. She would want all ordinary measures to be applied to promote comfort and quality of life for her father. The daughter discussed [facility] insurance status with Michelle DASILVA and was instructed on further steps. We discussed possible side effects of chemo, if it becomes suggested Tx. She understood. Code status discussed. POLST reviewed. Mrs. Nair choose DNR/DNI with limited interventions to antibiotics, IV fluids, non invasive G2mmodvspeks and chemo Tx. I supported her decision. This was shared with Doctor Denisse. Impression * Newly diagnosed lung cancer, staging is pending * Elderly man with need for max assistance at home even prior to diagnosis * Patient unable to advocate for him self due to confusion , secondary to dementia and Alzheimer's * Patient's daughter advocates for him * Daughter is concerned with comfort and quality of life and would only go for chemo tx if offered * Daughter choose DNR/DNI * Daughter prefers discharge home when stable Suggestion * Agree with DNR/DNI * Assist patient with ADLs * Discharge planing to home Time spent in Advance Care discussion is 45 min. I will fallow up with this patient as needed. Thank you for consulting Palliative care
--- NOTE | 2017-10-16 18:49 | CARD ---
APPROVED REPORT EXAM: Two-dimensional and M-mode echocardiogram with Doppler and color Doppler. Other Information Quality : GoodRhythm : Technically limited study due to UNCOOPERATIVE INDICATION CARDIAC EVALUATION 2D DIMENSIONS IVSd0.9 (0.7-1.1cm)LVDd4.4 (3.9-5.9cm) PWd0.9 (0.7-1.1cm)LVDs3.0 (2.5-4.0cm) FS (%) 31.7 %LVEF (%)59.9 (>50%) M-Mode DIMENSIONS Left Atrium (MM)3.20 (2.5-4.0cm)Aortic Root3.44 (2.2-3.7cm) Aortic Cusp Exc.2.27 (1.5-2.0cm) Mitral Valve MV E Ehkuhats03.0cm/sMV A Pqfnzrvk98.8cm/sE/A ratio0.6 TDI E/Lateral E'0.0E/Medial E'0.0 Tricuspid Valve TR Peak [id number]/sTR Peak [id number] LEFT VENTRICLE The left ventricular systolic function is normal. The left ventricular ejection fraction is within the normal range. There is normal LV segmental wall motion. Transmitral Doppler flow pattern is Grade I-abnormal relaxation pattern. RIGHT VENTRICLE The right ventricular systolic function is normal. AORTIC VALVE The aortic valve is not well visualized. MITRAL VALVE The mitral valve is normal in structure. TRICUSPID VALVE The tricuspid valve is not well visualized. There is mild tricuspid regurgitation. Right ventricular systolic pressure is estimated at - 37 mmHg. PULMONIC VALVE The pulmonic valve is not well visualized. GREAT VESSELS The IVC is normal in size and collapses >50% with inspiration. PERICARDIAL EFFUSION There is a trace pericardial effusion. <Conclusion> SUBOPTIMAL STUDY DUE TO POOR ACOUSTIC WINDOWS The left ventricular systolic function is normal. Diastolic dysfunction Grade I-abnormal relaxation pattern. The right ventricular systolic function is normal. There is mild tricuspid regurgitation. Right ventricular systolic pressure is estimated at - 37 mmHg. There is a trace pericardial effusion.
[2017-10-16] MEDS ORDERED: Azithromycin 500 MG in Sodium Chloride 0.9% 250 ML IVPB SCH (19:00)
[2017-10-16] MEDS: Azithromycin 500mg/250ML NS 500 MG/250 ML BAG IVPB SCH (19:57)
--- NOTE | 2017-10-16 22:32 | CARD ---
APPROVED REPORT EKG Measurement Heart [id number] <Conclusion> Normal sinus rhythm Normal ECG BASELINE ARTIFACT-LIMB LEADS
[2017-10-17 06:48] LABS: ALB/GLOB RATIO 0.9 (1.0-2.1); ALBUMIN 3.1 g/dL (3.5-5.0); CALCIUM 9.3 mg/dl (8.6-10.4); MAGNESIUM 1.7 mg/dL (1.6-2.3)
--- NOTE | 2017-10-17 06:56 | CP.PCM.PN ---
Subjective - Date & Time of Evaluation Date of Evaluation: 10/17/17 Time of Evaluation: 07:00 - Subjective Subjective: Medicine Progress Note: Patient was seen and examined at bedside in the AM. Patient denies shortness of breath, chest pain, palpitations, nausea, vomiting, fever, or other complaints at this time. Objective - Vital Signs/Intake and Output Vital Signs (last 24 hours): Temp Pulse Resp BP Pulse Ox 98.4 F 68 20 136/75 95 10/16/17 23:10 10/16/17 23:10 10/16/17 23:10 10/16/17 23:10 10/16/17 23:10 Intake and Output: 10/16/17 10/17/17 18:59 06:59 Intake Total 690 Balance 690 - Medications Medications: Current Medications Acetaminophen (Tylenol 325mg Tab) 650 mg PO Q6 PRN PRN Reason: Pain, moderate (4-7) Last Admin: 10/16/17 18:27 Dose: 650 mg Carvedilol (Coreg) 6.25 mg PO BID [facility] Last Admin: 10/16/17 17:50 Dose: 6.25 mg Docusate Sodium (Colace) 100 mg PO TID [facility] Last Admin: 10/16/17 17:50 Dose: 100 mg Donepezil HCl (Aricept) 10 mg PO HS [facility] Last Admin: 10/16/17 21:16 Dose: 10 mg Famotidine (Pepcid) 20 mg PO DAILY [facility] Heparin Sodium (Porcine) (Heparin) 5,000 units SC Q12 [facility] Last Admin: 10/15/17 22:24 Dose: 5,000 units Sodium Chloride (Sodium Chloride 0.9%) 1,000 mls @ 80 mls/hr IV .[id number] [facility] Last Admin: 10/16/17 23:09 Dose: 80 mls/hr Ceftriaxone Sodium 1 gm/ (Sodium Chloride) 100 mls @ 100 mls/hr IVPB DAILY@ 1800 [facility] Last Admin: 10/16/17 18:53 Dose: 100 mls/hr Azithromycin (Zithromax 500mg In Ns Addvantage) 500 mg in 250 mls @ 167 mls/hr IVPB Q24H [facility] Last Admin: 10/16/17 19:57 Dose: 167 mls/hr Insulin Human Regular (Novolin R) 0 unit SC ACHS [facility] PRN Reason: Protocol Last Admin: 10/16/17 21:45 Dose: Not Given Ondansetron HCl (Zofran Inj) 4 mg IVP Q6 PRN PRN Reason: Nausea/Vomiting - Labs Labs: 10/16/17 06:10 10/17/17 06:11 PT 15.0 SECONDS (9.7-12.2) H 10/15/17 14:50 INR 1.3 10/15/17 14:50 APTT 28 SECONDS (21-34) 10/15/17 14:50 - Constitutional Appears: No Acute Distress, Confused - Head Exam Head Exam: ATRAUMATIC, NORMAL INSPECTION - Eye Exam Eye Exam: EOMI, Normal appearance - ENT Exam ENT Exam: Mucous Membranes Moist - Respiratory Exam Respiratory Exam: Clear to Ausculation Bilateral, NORMAL BREATHING PATTERN - Cardiovascular Exam Cardiovascular Exam: REGULAR RHYTHM, +S1, +S2 - GI/Abdominal Exam GI & Abdominal Exam: Soft, Normal Bowel Sounds. absent: Tenderness - Extremities Exam Extremities Exam: Normal Inspection - Neurological Exam Neurological Exam: Alert, Awake - Psychiatric Exam Psychiatric exam: Normal Affect - Skin Skin Exam: Normal Color, Warm Assessment and Plan - Assessment and Plan (Free Text) Assessment: 87 yo M with PMHx of HTN, T2DM, HLD, Alzheimer's Dementia, CKD ( baseline creatine 2.0s), BPH, and urinary incontinence (wears diapers) with abdominal pain, with incidental finding of RLL lung mass. 1.) RLL Mass, pleural effusion - History of Tobacco Use - Unlikely Pneumonia - Vitals stable, no leukocytosis - Pulmonology consulted- Dr. Deutsch --> help appreciated - Hem/Onc Consult: Dr. Green --> help appreciated - IR consulted: Dr. Lin --> help appreciated - CT guided core biopsy of right lung pleural-based mass - f/u pathology results - f/u chest x-ray s/p right lung mass biopsy - US guided right thoracentesis: 600cc serosanguinous fluid removed - Imaging: - CT Chest w/o Contrast: Multiple right lung masses, multiple right-sided pleural-based masses, and probable malignant effusion. Mediastinal adenopathy. Thick walled cavitary lesion right upper lobe measuring 5.5 x 5.3 CM. - CT Scan abdomen, pelvis with PO: Large right pleural effusion which is incompletely visualized, compressive atelectasis right lower lobe. 5 x 6 mm solid nodule right middle lobe. Follow-up recommendations: CT scan of the entire thorax to determine the presence or absence of additional pulmonary nodules. Retrocrural soft tissue mass or masses perhaps lymphadenopathy. This appears separate from the adjacent liver, aorta, IVC which may be compressing. Contiguity with pericardium also noted. Follow-up CT scan of the thorax for assessment of pulmonary nodules should also included upper abdomen for further clarification of this finding and I would recommend a study be performed with intravenous contrast. 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) - Baseline BUN/ Cre: 30-40s/2 -2.5 - On Admission: 28/1.9 - Started on gentle fluids NS @ 80cc/hr - Continue to monitor 4.) History of UTI - Patient was being treated as outpatient with Bactrim 7 day course - UA: Negative - Urine culture: No growth - Bactrim Discontinued 10/17/17 5.) History of Hypertension - Coreg 6.25mg PO BID 6.) History of Type 2 Diabetes - Accuchecks - ISS - Consistent Carb Diet - Last A1C - 5.6 (2014) - A1C: 7.5 7.) History of Hyperlipidemia - Total Cholesterol 147; LDL 66; HDL 25 8.) History of Alzheimer's Dementia - Aricept 10mg PO QHS 9.) History of BPH - Hx of TURP (1996) 10.) History of Urinary Incontinence - Nursing communication: To place patient on diapers 11.) Prophylaxis - GI PPX: Pepcid 20mg PO BID - DVT PPX: SCDs, Heparin Q12 (hold for procedure; will restart 10/17/17) Case Management - 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 Aliza Canales PGY-1
[2017-10-17] MEDS: (Novolin R) Insulin Human Regular 100 units/ml vial SC SCH ×3 (07:20→17:30)
[2017-10-17 07:26] LABS: HEMOGLOBIN 10.8 g/dL (12.0-18.0); MEAN CELL VOLUME 83.8 fL (80.0-94.0); MEAN CORPUSCULAR HEMOGLOBIN 29.4 pg (27.0-31.0); RBC 3.68 Mil/uL (4.40-5.90); RED CELL DISTRIBUTION WIDTH 13.7 % (11.5-14.5)
[2017-10-17 09:55] LABS: EOS # 0.3 K/uL (0.0-0.7); LYMPH # 1.5 K/uL (1.0-4.3); MONO # 0.7 K/uL (0.0-0.8); NEUT # 6.5 K/uL (1.8-7.0)
--- NOTE | 2017-10-17 11:04 | CP.PCM.CON ---
<Columba Barraza - Last Filed: 10/17/17 15:07> History of Present Illness - History of Present Illness History of Present Illness: Heme/Onc Consult for Dr. Facundo Green Reason for consult: Right lung mass 87 year old male with PMHx of DM, HTN, HLD, CKD, BPH, Alzheimer's dementia admitted on 10/15/17 for abdominal pain. On imaging, patient was found to have large right pleural effusion and right LL soft tissue mass/masses. Patient has a history of tobacco abuse (40 pack years). Quit more than 10 years ago. Patient had thoracentesis done yesterday 10/16/[address] guided lung mass core biopsy. Patient's chief complaint of abdominal pain has resolved since admission. He admits to normal BM's and denies nausea, vomiting. He denies fevers, weight loss, headaches or fatigue. He denies chest pain, RUGGIERO or trouble breathing. Denies prior history of malignancy in him or his family. He lives with his daughter Eden Nair, who patient states is in charge of his care. Past medical history: HTN, DM2, HLD, Alzheimer's Dementia, CKD, BPH Past surgical history: TURP 1996, work related accident amputated 2 and a half fingers of left hand, cataract surgery, inguinal hernia repair, left knee surgery. Family history: questionable Diabetes Social history: Smoked 1 PPD for 40 years, quit 10-20 years ago, denies ETOH, denies any illicit drug use Allergies: NKDA Review of systems: All remaining review of systems including HEENT, cardiovascular, respiratory, gastrointestinal, genitourinary, musculoskeletal, dermatologic, neurologic, and psychiatric are negative unless mentioned in the HPI. Review of Systems - Constitutional Constitutional: absent: Chills, Fatigue, Fever - EENT Eyes: absent: Blurred Vision, Change in Vision - Cardiovascular Cardiovascular: absent: Chest Pain, Dyspnea, Leg Edema, Palpitations - Respiratory Respiratory: absent: Cough, Dyspnea - Gastrointestinal Gastrointestinal: absent: Abdominal Pain, Constipation, Diarrhea, Nausea, Vomiting - Genitourinary Genitourinary: absent: Difficulty Urinating, Dysuria - Musculoskeletal Musculoskeletal: absent: Numbness, Tingling - Integumentary Integumentary: absent: Swelling, Wounds - Neurological Neurological: absent: Dizziness, Numbness, Headaches, Tingling, Weakness - Endocrine Endocrine: absent: Fatigue, Palpitations - Hematologic/Lymphatic Hematologic: absent: Lymphadenopathy Past Patient History - Infectious Disease Hx of Infectious Diseases: None - Past Medical History & Family History Past Medical History?: Yes - Past Social History Smoking Status: Never Smoked - CARDIAC Hx Hypercholesterolemia: Yes Hx Hypertension: Yes - PULMONARY Hx Respiratory Disorders: No - NEUROLOGICAL Hx Neurological Disorder: No - HEENT Hx HEENT Problems: Yes Hx Cataracts: Yes (bilateral) - RENAL Hx Chronic Kidney Disease: No - ENDOCRINE/METABOLIC Hx Diabetes Mellitus Type 2: Yes - HEMATOLOGICAL/ONCOLOGICAL Hx Blood Disorders: Yes Hx Anemia: Yes - INTEGUMENTARY Hx Dermatological Problems: No - MUSCULOSKELETAL/RHEUMATOLOGICAL Hx Arthritis: Yes - GASTROINTESTINAL Hx Gastrointestinal Disorders: No - GENITOURINARY/GYNECOLOGICAL Hx Genitourinary Disorders: Yes Hx Prostate Problems: Yes (TURP 1996) - PSYCHIATRIC Hx Psychophysiologic Disorder: No Hx Substance Use: No - SURGICAL HISTORY Hx Surgeries: Yes Hx Amputation: Yes (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- work related) Hx Arthroscopy: Yes (left knee) Hx Cataract Extraction: Yes (bilat) Hx Herniorrhaphy: Yes (LEFT INGUINAL HERNIA REPAIR 06/2014) Other/Comment: LEFT HAND 3 DIGIT AMPUTATION( ACCIDENT ) - ANESTHESIA Hx Anesthesia: Yes Hx Anesthesia Reactions: No Hx Malignant Hyperthermia: No Meds Allergies/Adverse Reactions: Allergies Allergy/AdvReac Type Severity Reaction Status Date / Time No Known Allergies Allergy Verified 10/15/17 14:30 - Medications Medications: Current Medications Acetaminophen (Tylenol 325mg Tab) 650 mg PO Q6 PRN PRN Reason: Pain, moderate (4-7) Last Admin: 10/16/17 18:27 Dose: 650 mg Carvedilol (Coreg) 6.25 mg PO BID [facility] Last Admin: 10/17/17 09:25 Dose: 6.25 mg Docusate Sodium (Colace) 100 mg PO TID [facility] Last Admin: 10/17/17 09:25 Dose: 100 mg Donepezil HCl (Aricept) 10 mg PO HS [facility] Last Admin: 10/16/17 21:16 Dose: 10 mg Famotidine (Pepcid) 20 mg PO DAILY [facility] Last Admin: 10/17/17 09:25 Dose: 20 mg Heparin Sodium (Porcine) (Heparin) 5,000 units SC Q12 [facility] Last Admin: 10/15/17 22:24 Dose: 5,000 units Sodium Chloride (Sodium Chloride 0.9%) 1,000 mls @ 80 mls/hr IV .[id number] [facility] Last Admin: 10/16/17 23:09 Dose: 80 mls/hr Ceftriaxone Sodium 1 gm/ (Sodium Chloride) 100 mls @ 100 mls/hr IVPB DAILY@ 1800 [facility] Last Admin: 10/16/17 18:53 Dose: 100 mls/hr Azithromycin (Zithromax 500mg In Ns Addvantage) 500 mg in 250 mls @ 167 mls/hr IVPB Q24H [facility] Last Admin: 10/16/17 19:57 Dose: 167 mls/hr Insulin Human Regular (Novolin R) 0 unit SC ACHS [facility] PRN Reason: Protocol Last Admin: 10/17/17 07:20 Dose: Not Given Ondansetron HCl (Zofran Inj) 4 mg IVP Q6 PRN PRN Reason: Nausea/Vomiting Physical Exam - Constitutional Appears: No Acute Distress - Head Exam Head Exam: NORMAL INSPECTION, NORMOCEPHALIC - Eye Exam Eye Exam: EOMI, Normal appearance - ENT Exam ENT Exam: Mucous Membranes Moist - Respiratory Exam Respiratory Exam: Decreased Breath Sounds (on right ), Clear to Auscultation Bilateral, NORMAL BREATHING PATTERN - Cardiovascular Exam Cardiovascular Exam: REGULAR RHYTHM, +S1, +S2 - GI/Abdominal Exam GI & Abdominal Exam: Distended, Normal Bowel Sounds, Soft. absent: Firm, Guarding, Tenderness - Extremities Exam Extremities exam: Positive for: normal inspection. Negative for: pedal edema - Neurological Exam Neurological exam: Alert, Oriented x3 (Able to tell me he's in the hospital, it' s 2018 and full name ) - Psychiatric Exam Psychiatric exam: Normal Affect, Normal Mood - Skin Skin Exam: Normal Color, Warm Results - Vital Signs Recent Vital Signs: Last Vital Signs Temp 98.0 F 10/17/17 07:15 Pulse 76 10/17/17 09:26 Resp 20 10/17/17 07:15 BP 130/78 10/17/17 09:26 Pulse Ox 99 10/17/17 07:15 - Labs Result Diagrams: 10/17/17 06:11 10/17/17 06:11 Labs: Laboratory Results - last 24 hr 10/16/17 10/16/17 10/17/17 16:16 21:32 06:10 WBC RBC Hgb Hct MCV MCH MCHC RDW Plt Count MPV Neut % (Auto) Lymph % (Auto) [place] % (Auto) Eos % (Auto) Baso % (Auto) Neut # Lymph # [place] # Eos # Baso # Sodium Potassium Chloride Carbon Dioxide Anion Gap BUN Creatinine Est GFR ( Amer) Est GFR (Non-Af Amer) POC Glucose (mg/dL) 134 H 167 H 136 H Random Glucose Calcium Phosphorus Magnesium Total Bilirubin AST ALT Alkaline Phosphatase Total Protein Albumin Globulin Albumin/Globulin Ratio 10/17/17 10/17/17 06:11 06:11 WBC 9.0 RBC 3.68 L Hgb 10.8 L Hct 30.9 L MCV 83.8 MCH 29.4 MCHC 35.0 RDW 13.7 Plt Count 387 MPV 8.0 Neut % (Auto) 72.0 Lymph % (Auto) 17.0 L [place] % (Auto) 8.0 Eos % (Auto) 3.0 Baso % (Auto) 0.0 Neut # 6.5 Lymph # 1.5 [place] # 0.7 Eos # 0.3 Baso # 0.0 Sodium 127 L Potassium 4.5 Chloride 96 L Carbon Dioxide 25 Anion Gap 11 BUN 24 H Creatinine 1.5 Est GFR ( Amer) 53 Est GFR (Non-Af Amer) 44 POC Glucose (mg/dL) Random Glucose 131 H Calcium 9.3 Phosphorus 3.2 Magnesium 1.7 Total Bilirubin 0.6 AST 33 ALT 23 Alkaline Phosphatase 70 Total Protein 6.5 Albumin 3.1 L Globulin 3.4 Albumin/Globulin Ratio 0.9 L Assessment & Plan (1) Right lower lobe lung mass Assessment and Plan: Abd/pelvis/chest CT reviewed. Recommend Brain MRI with IV contrast for staging. If patient unable to complete MRI, recommend head CT with IV contrast. s/p right thoracentesis and right lung mass CT guided biopsy F/u fluid studies F/u biopsy report Status: Acute (2) Anemia Assessment and Plan: Patient with low iron and normal ferritin as per 2015 studies. Will check ferritin, retic count, B12, folate and stool OB. Monitor H/H. Status: Acute - Assessment and Plan (Free Text) Assessment: Patient seen during rounds with Dr. Green. Recommendations above as per attending. Charis Barraza DO- PGY 3 <Facundo Green - Last Filed: 10/17/17 17:32> Meds - Medications Medications: Current Medications Acetaminophen (Tylenol 325mg Tab) 650 mg PO Q6 PRN PRN Reason: Pain, moderate (4-7) Last Admin: 10/16/17 18:27 Dose: 650 mg Carvedilol (Coreg) 6.25 mg PO BID [facility] Last Admin: 10/17/17 09:25 Dose: 6.25 mg Docusate Sodium (Colace) 100 mg PO TID [facility] Last Admin: 10/17/17 13:35 Dose: 100 mg Donepezil HCl (Aricept) 10 mg PO HS [facility] Last Admin: 10/16/17 21:16 Dose: 10 mg Famotidine (Pepcid) 20 mg PO DAILY [facility] Last Admin: 10/17/17 09:25 Dose: 20 mg Heparin Sodium (Porcine) (Heparin) 5,000 units SC Q12 [facility] Last Admin: 10/15/17 22:24 Dose: 5,000 units Sodium Chloride (Sodium Chloride 0.9%) 1,000 mls @ 80 mls/hr IV .[id number] [facility] Last Admin: 10/16/17 23:09 Dose: 80 mls/hr Ceftriaxone Sodium 1 gm/ (Sodium Chloride) 100 mls @ 100 mls/hr IVPB DAILY@ 1800 [facility] Last Admin: 10/16/17 18:53 Dose: 100 mls/hr Azithromycin (Zithromax 500mg In Ns Addvantage) 500 mg in 250 mls @ 167 mls/hr IVPB Q24H [facility] Last Admin: 10/16/17 19:57 Dose: 167 mls/hr Insulin Human Regular (Novolin R) 0 unit SC ACHS [facility] PRN Reason: Protocol Last Admin: 10/17/17 12:23 Dose: 1 unit Ondansetron HCl (Zofran Inj) 4 mg IVP Q6 PRN PRN Reason: Nausea/Vomiting Results - Vital Signs Recent Vital Signs: Last Vital Signs Temp 98.4 F 10/17/17 15:00 Pulse 66 10/17/17 15:00 Resp 20 10/17/17 15:00 BP 143/69 10/17/17 15:00 Pulse Ox 99 10/17/17 15:00 - Labs Result Diagrams: 10/17/17 06:11 10/17/17 06:11 Labs: Laboratory Results - last 24 hr 10/16/17 10/17/17 10/17/17 21:32 06:10 06:11 WBC 9.0 RBC 3.68 L Hgb 10.8 L Hct 30.9 L MCV 83.8 MCH 29.4 MCHC 35.0 RDW 13.7 Plt Count 387 MPV 8.0 Neut % (Auto) 72.0 Lymph % (Auto) 17.0 L [place] % (Auto) 8.0 Eos % (Auto) 3.0 Baso % (Auto) 0.0 Neut # 6.5 Lymph # 1.5 [place] # 0.7 Eos # 0.3 Baso # 0.0 Sodium Potassium Chloride Carbon Dioxide Anion Gap BUN Creatinine Est GFR ( Amer) Est GFR (Non-Af Amer) POC Glucose (mg/dL) 167 H 136 H Random Glucose Calcium Phosphorus Magnesium Total Bilirubin AST ALT Alkaline Phosphatase Total Protein Albumin Globulin Albumin/Globulin Ratio 10/17/17 10/17/17 10/17/17 06:11 11:00 16:15 WBC RBC Hgb Hct MCV MCH MCHC RDW Plt Count MPV Neut % (Auto) Lymph % (Auto) [place] % (Auto) Eos % (Auto) Baso % (Auto) Neut # Lymph # [place] # Eos # Baso # Sodium 127 L Potassium 4.5 Chloride 96 L Carbon Dioxide 25 Anion Gap 11 BUN 24 H Creatinine 1.5 Est GFR ( Amer) 53 Est GFR (Non-Af Amer) 44 POC Glucose (mg/dL) 162 H 161 H Random Glucose 131 H Calcium 9.3 Phosphorus 3.2 Magnesium 1.7 Total Bilirubin 0.6 AST 33 ALT 23 Alkaline Phosphatase 70 Total Protein 6.5 Albumin 3.1 L Globulin 3.4 Albumin/Globulin Ratio 0.9 L Assessment & Plan - Assessment and Plan (Free Text) Assessment: Pt seen and examined, agree with Dr. Barraza's consult. 87 year old male with a history of former tobacco abuse, found to have B/L lung lesions, effusion s/p biopsy and thoracentesis, concerning for malignancy. Recommend MRI brain with IV contrast to complete staging and f/u path reports. Further treatment recommendations based on pathology. Thank you for this interesting consult.
--- NOTE | 2017-10-17 18:10 | CP.PCM.CON ---
History of Present Illness - History of Present Illness History of Present Illness: Pt is a 87 year old male with PMHx of HTN, DM2, CKD, arthritis, Alzeimer's Dementia, BPH who presented to the ED on 10/15/17 for R pleural effusion, R lung masses, and abdominal pain. Pt states he presented to the hospital for approximately one week of generalized abdominal pain associated with constipation. Pain worsened with walking and after eating. Not associated with fevers, chills, nausea, vomiting, diarrhea, dysuria, chest pain, shortness of breath. Upon imaging in ED, pt was found to have multiple R lung masses and R pleural effusion and was admitted. Pt is status post Ct guided core biopsy of R lung-pleural mass and thoracentsis of 600cc of fluid performed yesterday (). Today, pt is in NAD. On 3L NC. Afebrile. Has no acute complaints at this time. Denies chest pain, shortness of breath, cough, fever, chills, and abdominal pain. Complains of some chronic R shoulder pain. Pt is a former smoker , admits to smoking 1ppd for nearly 30 years, quit in his 40s Pt notes in the last few years has been experiencing moderate shortness of breath with exertion. Pt does not recall any pulmonary diagnosis or work up. PMHx: HTN, DM2, CKD, HLD, arthritis, Alzeimer's Dementia, Arthritis, BPH PSHx: TURP, 2.5 digits amputated L hand, bilateral cataract surgery, inguinal hernial repair Meds: Metformin 500 mg PO daily, sitagliptin 100mg PO daily, coreg 6.25 mg PO BID, sulfamethoxazole 2 tab PO daily, vascepa 1 gm PO BID, Lasix 20mg PO daily, Donepezil 10mg PO QHS Allergies: NKDA Family Hx: DM Social: former smoker, 1ppd for 30 years, quit in his 40s. Denies alcohol use. Denies illicit drug use. Lives with daughter. . Exam: Diminished breath sounds bilaterally, especially in RLL. A/P: Lung mass and Pleural Effusion Pt s/p biopsy and thoracentesis 10/16/17- R lung biopsy: non-diagnostic, necrotic tissue only. AFB stain is negative for acid fast mycobacteria. Repeat biopsy is recommended if clinically appropriate. Follow up pleural fluid studies -awaiting fuid study result and family wishes prior to considering repeat biopsy Past Patient History - Infectious Disease Hx of Infectious Diseases: None - Past Medical History & Family History Past Medical History?: Yes - Past Social History Smoking Status: Never Smoked - CARDIAC Hx Hypercholesterolemia: Yes Hx Hypertension: Yes - PULMONARY Hx Respiratory Disorders: No - NEUROLOGICAL Hx Neurological Disorder: No - HEENT Hx HEENT Problems: Yes Hx Cataracts: Yes (bilateral) - RENAL Hx Chronic Kidney Disease: No - ENDOCRINE/METABOLIC Hx Diabetes Mellitus Type 2: Yes - HEMATOLOGICAL/ONCOLOGICAL Hx Blood Disorders: Yes Hx Anemia: Yes - INTEGUMENTARY Hx Dermatological Problems: No - MUSCULOSKELETAL/RHEUMATOLOGICAL Hx Arthritis: Yes - GASTROINTESTINAL Hx Gastrointestinal Disorders: No - GENITOURINARY/GYNECOLOGICAL Hx Genitourinary Disorders: Yes Hx Prostate Problems: Yes (TURP 1996) - PSYCHIATRIC Hx Psychophysiologic Disorder: No Hx Substance Use: No - SURGICAL HISTORY Hx Surgeries: Yes Hx Amputation: Yes (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- work related) Hx Arthroscopy: Yes (left knee) Hx Cataract Extraction: Yes (bilat) Hx Herniorrhaphy: Yes (LEFT INGUINAL HERNIA REPAIR 06/2014) Other/Comment: LEFT HAND 3 DIGIT AMPUTATION( ACCIDENT ) - ANESTHESIA Hx Anesthesia: Yes Hx Anesthesia Reactions: No Hx Malignant Hyperthermia: No Meds Allergies/Adverse Reactions: Allergies Allergy/AdvReac Type Severity Reaction Status Date / Time No Known Allergies Allergy Verified 10/15/17 14:30 - Medications Medications: Current Medications Acetaminophen (Tylenol 325mg Tab) 650 mg PO Q6 PRN PRN Reason: Pain, moderate (4-7) Last Admin: 10/16/17 18:27 Dose: 650 mg Carvedilol (Coreg) 6.25 mg PO BID [facility] Last Admin: 10/17/17 17:58 Dose: 6.25 mg Docusate Sodium (Colace) 100 mg PO TID [facility] Last Admin: 10/17/17 17:58 Dose: 100 mg Donepezil HCl (Aricept) 10 mg PO HS [facility] Last Admin: 10/16/17 21:16 Dose: 10 mg Famotidine (Pepcid) 20 mg PO DAILY [facility] Last Admin: 10/17/17 09:25 Dose: 20 mg Heparin Sodium (Porcine) (Heparin) 5,000 units SC Q12 [facility] Last Admin: 10/15/17 22:24 Dose: 5,000 units Sodium Chloride (Sodium Chloride 0.9%) 1,000 mls @ 80 mls/hr IV .[id number] [facility] Last Admin: 10/16/17 23:09 Dose: 80 mls/hr Ceftriaxone Sodium 1 gm/ (Sodium Chloride) 100 mls @ 100 mls/hr IVPB DAILY@ 1800 [facility] Last Admin: 10/17/17 17:57 Dose: 100 mls/hr Azithromycin (Zithromax 500mg In Ns Addvantage) 500 mg in 250 mls @ 167 mls/hr IVPB Q24H [facility] Last Admin: 10/16/17 19:57 Dose: 167 mls/hr Insulin Human Regular (Novolin R) 0 unit SC ACHS [facility] PRN Reason: Protocol Last Admin: 10/17/17 17:30 Dose: 1 unit Ondansetron HCl (Zofran Inj) 4 mg IVP Q6 PRN PRN Reason: Nausea/Vomiting Results - Vital Signs Recent Vital Signs: Last Vital Signs Temp 98.4 F 10/17/17 15:00 Pulse 66 10/17/17 15:00 Resp 20 10/17/17 15:00 BP 143/69 10/17/17 15:00 Pulse Ox 99 10/17/17 15:00 - Labs Result Diagrams: 10/17/17 06:11 10/17/17 06:11 Labs: Laboratory Results - last 24 hr 10/16/17 10/17/17 10/17/17 21:32 06:10 06:11 WBC 9.0 RBC 3.68 L Hgb 10.8 L Hct 30.9 L MCV 83.8 MCH 29.4 MCHC 35.0 RDW 13.7 Plt Count 387 MPV 8.0 Neut % (Auto) 72.0 Lymph % (Auto) 17.0 L [place] % (Auto) 8.0 Eos % (Auto) 3.0 Baso % (Auto) 0.0 Neut # 6.5 Lymph # 1.5 [place] # 0.7 Eos # 0.3 Baso # 0.0 Sodium Potassium Chloride Carbon Dioxide Anion Gap BUN Creatinine Est GFR ( Amer) Est GFR (Non-Af Amer) POC Glucose (mg/dL) 167 H 136 H Random Glucose Calcium Phosphorus Magnesium Total Bilirubin AST ALT Alkaline Phosphatase Total Protein Albumin Globulin Albumin/Globulin Ratio 10/17/17 10/17/1710/17/18 06:11 11:00 16:15 WBC RBC Hgb Hct MCV MCH MCHC RDW Plt Count MPV Neut % (Auto) Lymph % (Auto) [place] % (Auto) Eos % (Auto) Baso % (Auto) Neut # Lymph # [place] # Eos # Baso # Sodium 127 L Potassium 4.5 Chloride 96 L Carbon Dioxide 25 Anion Gap 11 BUN 24 H Creatinine 1.5 Est GFR ( Amer) 53 Est GFR (Non-Af Amer) 44 POC Glucose (mg/dL) 162 H 161 H Random Glucose 131 H Calcium 9.3 Phosphorus 3.2 Magnesium 1.7 Total Bilirubin 0.6 AST 33 ALT 23 Alkaline Phosphatase 70 Total Protein 6.5 Albumin 3.1 L Globulin 3.4 Albumin/Globulin Ratio 0.9 L
[2017-10-17] MEDS: Azithromycin 500mg/250ML NS 500 MG/250 ML BAG IVPB SCH (19:44)
--- NOTE | 2017-10-18 06:53 | CP.PCM.PN ---
<Gayle Canales - Last Filed: 10/18/17 18:03> Subjective - Date & Time of Evaluation Date of Evaluation: 10/18/17 Time of Evaluation: 07:00 - Subjective Subjective: Medicine Progress Note: Patient was seen and examined at bedside in the AM. Per nurse no acute events overnight. Patient states he is feeling well and denies any complaints. The patient was again seen in the afternoon. He then complained of chest pain and difficulty breathing. Objective - Vital Signs/Intake and Output Vital Signs (last 24 hours): Temp Pulse Resp BP Pulse Ox 98.2 F 72 20 138/61 97 10/17/17 23:10 10/17/17 23:10 10/17/17 23:10 10/17/17 23:10 10/17/17 23:10 Intake and Output: 10/17/17 10/18/17 18:59 06:59 Intake Total 790 1330 Output Total 1000 2000 Balance -210 -670 - Medications Medications: Current Medications Acetaminophen (Tylenol 325mg Tab) 650 mg PO Q6 PRN PRN Reason: Pain, moderate (4-7) Last Admin: 10/16/17 18:27 Dose: 650 mg Carvedilol (Coreg) 6.25 mg PO BID [facility] Last Admin: 10/17/17 17:58 Dose: 6.25 mg Docusate Sodium (Colace) 100 mg PO TID [facility] Last Admin: 10/17/17 17:58 Dose: 100 mg Donepezil HCl (Aricept) 10 mg PO HS [facility] Last Admin: 10/17/17 21:32 Dose: 10 mg Famotidine (Pepcid) 20 mg PO DAILY [facility] Last Admin: 10/17/17 09:25 Dose: 20 mg Heparin Sodium (Porcine) (Heparin) 5,000 units SC Q12 [facility] Last Admin: 10/15/17 22:24 Dose: 5,000 units Sodium Chloride (Sodium Chloride 0.9%) 1,000 mls @ 80 mls/hr IV .[id number] [facility] Last Admin: 10/16/17 23:09 Dose: 80 mls/hr Ceftriaxone Sodium 1 gm/ (Sodium Chloride) 100 mls @ 100 mls/hr IVPB DAILY@ 1800 [facility] Last Admin: 10/17/17 17:57 Dose: 100 mls/hr Azithromycin (Zithromax 500mg In Ns Addvantage) 500 mg in 250 mls @ 167 mls/hr IVPB Q24H [facility] Last Admin: 10/17/17 19:44 Dose: 167 mls/hr Insulin Human Regular (Novolin R) 0 unit SC ACHS [facility] PRN Reason: Protocol Last Admin: 10/17/17 17:30 Dose: 1 unit Ondansetron HCl (Zofran Inj) 4 mg IVP Q6 PRN PRN Reason: Nausea/Vomiting - Labs Labs: 10/17/17 06:11 10/17/17 06:11 PT 15.0 SECONDS (9.7-12.2) H 10/15/17 14:50 INR 1.3 10/15/17 14:50 APTT 28 SECONDS (21-34) 10/15/17 14:50 - Constitutional Appears: No Acute Distress - Head Exam Head Exam: ATRAUMATIC, NORMAL INSPECTION - Eye Exam Eye Exam: EOMI, Normal appearance - ENT Exam ENT Exam: Mucous Membranes Moist - Respiratory Exam Respiratory Exam: Clear to Ausculation Bilateral, NORMAL BREATHING PATTERN - Cardiovascular Exam Cardiovascular Exam: REGULAR RHYTHM, +S1, +S2 - GI/Abdominal Exam GI & Abdominal Exam: Soft, Normal Bowel Sounds. absent: Tenderness - Extremities Exam Extremities Exam: Normal Inspection - Neurological Exam Neurological Exam: Alert, Awake. absent: Oriented x3 - Psychiatric Exam Psychiatric exam: Normal Affect, Normal Mood - Skin Skin Exam: Normal Color, Warm Assessment and Plan - Assessment and Plan (Free Text) Assessment: 87 yo M with PMHx of HTN, T2DM, HLD, Alzheimer's Dementia, CKD ( baseline creatine 2.0s), BPH, and urinary incontinence (wears diapers) with abdominal pain, with incidental finding of RLL lung mass. 1.) RLL Mass, pleural effusion - History of Tobacco Use - Unlikely Pneumonia - Vitals stable, no leukocytosis - Pulmonology consulted- Dr. Deutsch --> help appreciated - Hem/Onc Consult: Dr. Green --> help appreciated - IR consulted: Dr. Lin --> help appreciated - CT guided core biopsy of right lung pleural-based mass - pathology results: Non-diagnostic; necrotic tissue only; an AFB stain is negative for acid-fast mycobacteria; a repeat biopsy is recommended if clinically appropriate. - chest x-ray s/p right lung mass biopsy (10/16): No evidence of pneumothroax. Increasing opacity at right lung base s/p percutaneous right lung biopsy. - US guided right thoracentesis: 600cc serosanguinous fluid removed - f/u pleural fluid studies - Imaging: - CT Chest w/o Contrast: Multiple right lung masses, multiple right-sided pleural-based masses, and probable malignant effusion. Mediastinal adenopathy. Thick walled cavitary lesion right upper lobe measuring 5.5 x 5.3 CM. - CT Scan abdomen, pelvis with PO: Large right pleural effusion which is incompletely visualized, compressive atelectasis right lower lobe. 5 x 6 mm solid nodule right middle lobe. Follow-up recommendations: CT scan of the entire thorax to determine the presence or absence of additional pulmonary nodules. Retrocrural soft tissue mass or masses perhaps lymphadenopathy. This appears separate from the adjacent liver, aorta, IVC which may be compressing. Contiguity with pericardium also noted. Follow-up CT scan of the thorax for assessment of pulmonary nodules should also included upper abdomen for further clarification of this finding and I would recommend a study be performed with intravenous contrast. - f/u MRI of brain with contrast 2.) Chest Pain - resolved - Troponin negative x1 - EKG: NSR - Chest X-ray: Right Lung mass re-identified. suspected right layering pleural effusion and or consolidation. 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) - Baseline BUN/ Cre: 30-40s/2 -2.5 - On Admission: 28/1.9 - Started on gentle fluids NS @ 80cc/hr - discontinued 10/18/17 - Continue to monitor 5.) History of UTI - Patient was being treated as outpatient with Bactrim 7 day course - UA: Negative - Urine culture: No growth - Bactrim Discontinued 10/17/17 6.) History of Hypertension - Coreg 6.25mg PO BID - Norvasc 5mg PO daily 7.) History of Type 2 Diabetes - Accuchecks - ISS - Consistent Carb Diet - Last A1C - 5.6 (2014) - A1C: 7.5 8.) History of Hyperlipidemia - Total Cholesterol 147; LDL 66; HDL 25 9.) History of Alzheimer's Dementia - Aricept 10mg PO QHS 10.) History of BPH - Hx of TURP (1996) 11.) History of Urinary Incontinence - Nursing communication: To place patient on diapers 12.) Prophylaxis - GI PPX: Pepcid 20mg PO BID - DVT PPX: SCDs, Heparin Q12 (hold for procedure; will restart 10/17/17) Case Management - 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 Aliza Canales PGY-1 <Maura Abrams - Last Filed: 10/18/17 19:03> Objective - Vital Signs/Intake and Output Vital Signs (last 24 hours): Temp Pulse Resp BP Pulse Ox 97.9 F 71 20 156/78 H 95 10/18/17 15:00 10/18/17 15:00 10/18/17 15:00 10/18/17 15:00 10/18/17 15:00 Intake and Output: 10/18/17 10/18/17 06:59 18:59 Intake Total 1330 Output Total 1999 830 Balance -670 -830 - Medications Medications: Current Medications Acetaminophen (Tylenol 325mg Tab) 650 mg PO Q6 PRN PRN Reason: Pain, moderate (4-7) Last Admin: 10/16/17 18:27 Dose: 650 mg Albuterol/Ipratropium (Duoneb 3 Mg/0.5 Mg (3 Ml) Ud) 3 ml INH RQ6 [facility] Last Admin: 10/18/17 13:13 Dose: 3 ml Amlodipine Besylate (Norvasc) 5 mg PO DAILY [facility] Last Admin: 10/18/17 13:00 Dose: 5 mg Carvedilol (Coreg) 6.25 mg PO BID [facility] Last Admin: 10/18/17 17:25 Dose: 6.25 mg Docusate Sodium (Colace) 100 mg PO TID [facility] Last Admin: 10/18/17 17:25 Dose: 100 mg Donepezil HCl (Aricept) 10 mg PO HS [facility] Last Admin: 10/17/17 21:32 Dose: 10 mg Famotidine (Pepcid) 20 mg PO DAILY [facility] Last Admin: 10/18/17 09:12 Dose: 20 mg Heparin Sodium (Porcine) (Heparin) 5,000 units SC Q12 [facility] Last Admin: 10/18/17 09:12 Dose: 5,000 units Ceftriaxone Sodium 1 gm/ (Sodium Chloride) 100 mls @ 100 mls/hr IVPB DAILY@ 1800 [facility] Last Admin: 10/18/17 17:29 Dose: 100 mls/hr Azithromycin (Zithromax 500mg In Ns Addvantage) 500 mg in 250 mls @ 167 mls/hr IVPB Q24H [facility] Last Admin: 10/17/17 19:44 Dose: 167 mls/hr Insulin Human Regular (Novolin R) 0 unit SC ACHS [facility] PRN Reason: Protocol Last Admin: 10/18/17 16:30 Dose: Not Given Methylprednisolone (Solu-Medrol) 40 mg IVP Q8 [facility] Last Admin: 10/18/17 15:00 Dose: 40 mg Ondansetron HCl (Zofran Inj) 4 mg IVP Q6 PRN PRN Reason: Nausea/Vomiting - Labs Labs: 10/18/17 07:15 10/18/17 07:15 PT 15.0 SECONDS (9.7-12.2) H 10/15/17 14:50 INR 1.3 10/15/17 14:50 APTT 28 SECONDS (21-34) 10/15/17 14:50 Attending/Attestation - Attestation I have personally seen and examined this patient.: Yes I have fully participated in the care of the patient.: Yes I have reviewed all pertinent clinical information, including history, physical exam and plan: Yes Notes (Text): patient was seen this afternoon. No complain.Noted having sob, States that his breathing is getting worse Repeat chest xray done today. Dr Deutsch's f/u appreciated. started on steroid and duoneb I agree with the resident's documentation Biopsy report-necrotic tissue,nondiagnostic and recommended repeat biopsy we will d/w Dr Lin 10/18/17 19:02
[2017-10-18] MEDS: (Novolin R) Insulin Human Regular 100 units/ml vial SC SCH ×4 (07:30→21:56)
[2017-10-18 07:49] LABS: BASO % 0.6 % (0.0-2.0); EOS # 0.4 K/uL (0.0-0.7); EOS % 5.3 % (0.0-4.0); HEMOGLOBIN 10.8 g/dL (12.0-18.0); LYMPH # 1.4 K/uL (1.0-4.3); LYMPH % 18.1 % (20.0-40.0); MEAN CELL VOLUME 83.4 fL (80.0-94.0); MEAN CORPUSCULAR HGB CONC 34.8 g/dL (33.0-37.0); MEAN PLATELET VOLUME 7.6 fL (7.2-11.7); MONO # 0.8 K/uL (0.0-0.8); MONO % 9.9 % (0.0-10.0); NEUT # 5.2 K/uL (1.8-7.0); NEUT % 66.1 % (50.0-75.0); RBC 3.73 Mil/uL (4.40-5.90); RED CELL DISTRIBUTION WIDTH 13.7 % (11.5-14.5); WHITE BLOOD COUNT 7.8 K/uL (4.8-10.8)
[2017-10-18] MEDS: Sodium Chloride 0.9% 1,000 ML IV SCH ×2 (07:59→11:45)
[2017-10-18 08:11] LABS: ALB/GLOB RATIO 0.9 (1.0-2.1); ALBUMIN 3.1 g/dL (3.5-5.0); CALCIUM 9.6 mg/dl (8.6-10.4); MAGNESIUM 1.8 mg/dL (1.6-2.3)
[2017-10-18 09:02] LABS: FOLATE 4.6 ng/mL
[2017-10-18] MEDS: Albuterol-Ipratrop 3 mg / 0.5 (3 ml) UD INH SCH ×2 (13:13→19:31)
[2017-10-18] MEDS: MethylPREDNISolone 40 mg Vial IVP SCH ×2 (15:00→22:01)
--- NOTE | 2017-10-18 15:23 | RAD ---
HISTORY: difficulty breathing COMPARISON: Chest x-ray performed 10/16/17 TECHNIQUE: Chest, one view. FINDINGS: LUNGS: Right lung mass re-identified. Suspect right layering pleural effusion and/or consolidation. No definite pneumothorax. CARDIOVASCULAR: Borderline cardiomegaly. Ectatic aorta. OSSEOUS STRUCTURES: Degenerative changes of the spine. VISUALIZED UPPER ABDOMEN: Unremarkable. OTHER FINDINGS: None. IMPRESSION: Right lung mass re-identified. Suspect right layering pleural effusion and/or consolidation. Cardiomegaly. Ectatic aorta.
--- NOTE | 2017-10-18 17:05 | CP.PCM.PN ---
Subjective - Date & Time of Evaluation Date of Evaluation: 10/18/17 Time of Evaluation: 15:00 - Subjective Subjective: Pt was seen and evaluated at bedside. Pt noted to have labored breathing. SpO2 95% on 3L NC. Afebrile. Complains of increased shortness of breath that began at rest and mild chest pain in the center of his chest. No radiation of pain. Denies dizziness, nausea, vomiting, diaphoresis, fever, chills. Exam: Pt is in mild respiratory distress Lungs: Wheezing and diminsihed breath sounds bilaterally. A/P: Lung mass Pt s/p biopsy and thoracentesis 10/16/17- R lung biopsy: non-diagnostic, necrotic tissue only. AFB stain is negative for acid fast mycobacteria. Repeat biopsy is recommended if clinically appropriate. Follow up pleural fluid studies -awaiting fuid study result and family wishes prior to considering repeat biopsy COPD Stat Duoneb treatment and start scheduled treatment Q6H Start steroids- Methylprednisolone 40mg IVP Q8H Consider PFTs if patient can tolerate 10/16/17 CXR-No evidence of pneumothorax. Increasing opacity at right lung base status post percutaneous right lung biopsy. Consolidation versus pleural effusion. 10/15/17 CT chest without contrast- 1. Multiple right lung masses, multiple right -sided pleural-based masses, and probable malignant effusion. 2. Mediastinal adenopathy. 3. remainder of findings as above. 10/15/17 CXR- Large masslike consolidative changes seen within the right mid to lower lung zone with additional lobular masslike opacities seen more inferiorly in the right lung. Underlying neoplasm cannot be excluded. Right hilar prominence. Correlation with chest CT is recommended for further evaluation if clinically indicated. 10/15/17 Echo- Suboptimal study due to poor acoustic windows. LVEF: 59.9%. Diastolic dysfunction Grade I-abnormal relaxation pattern. RV systolic function is normal. Mild TR. RV systolic pressure estimated at ~37mmgHg. Trace pericardial effusion. Objective - Vital Signs/Intake and Output Vital Signs (last 24 hours): Temp Pulse Resp BP Pulse Ox 97.9 F 71 20 156/78 H 95 10/18/17 15:00 10/18/17 15:00 10/18/17 15:00 10/18/17 15:00 10/18/17 15:00 Intake and Output: 10/18/17 10/18/17 06:59 18:59 Intake Total 1330 Output Total 1999 830 Balance -670 -830 - Medications Medications: Current Medications Acetaminophen (Tylenol 325mg Tab) 650 mg PO Q6 PRN PRN Reason: Pain, moderate (4-7) Last Admin: 10/16/17 18:27 Dose: 650 mg Albuterol/Ipratropium (Duoneb 3 Mg/0.5 Mg (3 Ml) Ud) 3 ml INH RQ6 [facility] Last Admin: 10/18/17 13:13 Dose: 3 ml Amlodipine Besylate (Norvasc) 5 mg PO DAILY [facility] Last Admin: 10/18/17 13:00 Dose: 5 mg Carvedilol (Coreg) 6.25 mg PO BID [facility] Last Admin: 10/18/17 09:12 Dose: 6.25 mg Docusate Sodium (Colace) 100 mg PO TID [facility] Last Admin: 10/18/17 13:00 Dose: 100 mg Donepezil HCl (Aricept) 10 mg PO HS [facility] Last Admin: 10/17/17 21:32 Dose: 10 mg Famotidine (Pepcid) 20 mg PO DAILY [facility] Last Admin: 10/18/17 09:12 Dose: 20 mg Heparin Sodium (Porcine) (Heparin) 5,000 units SC Q12 [facility] Last Admin: 10/18/17 09:12 Dose: 5,000 units Ceftriaxone Sodium 1 gm/ (Sodium Chloride) 100 mls @ 100 mls/hr IVPB DAILY@ 1800 [facility] Last Admin: 10/17/17 17:57 Dose: 100 mls/hr Azithromycin (Zithromax 500mg In Ns Addvantage) 500 mg in 250 mls @ 167 mls/hr IVPB Q24H [facility] Last Admin: 10/17/17 19:44 Dose: 167 mls/hr Insulin Human Regular (Novolin R) 0 unit SC ACHS [facility] PRN Reason: Protocol Last Admin: 10/18/17 16:30 Dose: Not Given Methylprednisolone (Solu-Medrol) 40 mg IVP Q8 [facility] Ondansetron HCl (Zofran Inj) 4 mg IVP Q6 PRN PRN Reason: Nausea/Vomiting - Labs Labs: 10/18/17 07:15 10/18/17 07:15 PT 15.0 SECONDS (9.7-12.2) H 10/15/17 14:50 INR 1.3 10/15/17 14:50 APTT 28 SECONDS (21-34) 10/15/17 14:50
--- NOTE | 2017-10-18 18:33 | MRI ---
PROCEDURE: MRI BRAIN WITHOUT CONTRAST HISTORY: lung malignancy; cancer staging COMPARISON: None. TECHNIQUE: Multiplanar, multisequence MR images of the brain were obtained without intravenous contrast enhancement. Administration gadolinium was withheld due to patient's low GFR. FINDINGS: HEMORRHAGE: None DWI: No evidence of an acute or early subacute infarction. BRAIN PARENCHYMA: Good corticomedullary differentiation is seen. Diffuse expansion of the ventriculosulcal and cisternal spaces is appreciated with white matter signal changes compatible with diffuse cerebral atrophy and chronic microangiopathy. No suspicious extra-axial fluid collection is identified and the midline brain anatomy appears grossly nonfocal as imaged. There is no mass effect throughout. 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 No definite pattern of lobar brain infarction is small chronic lacune is also seen at the right frontal opercular region superiorly. VENTRICLES: Unremarkable. No hydrocephalus. CRANIUM: Unremarkable. ORBITS: Grossly unremarkable. PARANASAL SINUSES/MASTOIDS: Clear VASCULAR SYSTEM: Skull base flow voids intact. OTHER FINDINGS: None. IMPRESSION: Diffuse cerebral atrophy and chronic microangiopathy are identified which appear age-appropriate. The lack images contrast limits the evaluation however the patient's GFR precludes administering gadolinium to this patient intravenously. No large intracranial mass is appreciable at this time.
[2017-10-18] MEDS: Azithromycin 500mg/250ML NS 500 MG/250 ML BAG IVPB SCH (20:30)
[2017-10-19] MEDS: Albuterol-Ipratrop 3 mg / 0.5 (3 ml) UD INH SCH ×4 (02:31→20:15)
[2017-10-19] MEDS: MethylPREDNISolone 40 mg Vial IVP SCH ×3 (05:16→21:33)
--- NOTE | 2017-10-19 06:55 | CP.PCM.PN ---
<Gayle Canales - Last Filed: 10/19/17 20:41> Subjective - Date & Time of Evaluation Date of Evaluation: 10/19/17 Time of Evaluation: 07:00 - Subjective Subjective: Medicine Progress Note: Patient was seen and examined at bedside in the AM. Per nurse no acute events overnight. Patient denies chest pain, shortness of breath, nausea, vomiting, fever, diarrhea or constipation. Objective - Vital Signs/Intake and Output Vital Signs (last 24 hours): Temp Pulse Resp BP Pulse Ox 99.4 F 76 18 159/84 H 96 10/18/17 23:00 10/19/17 05:21 10/19/17 05:21 10/19/17 05:21 10/19/17 05:21 Intake and Output: 10/18/17 10/19/17 18:59 06:59 Intake Total 650 Output Total 830 1100 Balance -830 -450 - Medications Medications: Current Medications Acetaminophen (Tylenol 325mg Tab) 650 mg PO Q6 PRN PRN Reason: Pain, moderate (4-7) Last Admin: 10/16/17 18:27 Dose: 650 mg Albuterol/Ipratropium (Duoneb 3 Mg/0.5 Mg (3 Ml) Ud) 3 ml INH RQ6 [facility] Last Admin: 10/19/17 02:31 Dose: 3 ml Amlodipine Besylate (Norvasc) 5 mg PO DAILY [facility] Last Admin: 10/18/17 13:00 Dose: 5 mg Budesonide (Pulmicort Respules) 0.5 mg INH ONCE ONE Stop: 10/19/17 21:01 Carvedilol (Coreg) 6.25 mg PO BID [facility] Last Admin: 10/18/17 17:25 Dose: 6.25 mg Docusate Sodium (Colace) 100 mg PO TID [facility] Last Admin: 10/18/17 17:25 Dose: 100 mg Donepezil HCl (Aricept) 10 mg PO HS [facility] Last Admin: 10/18/17 22:01 Dose: 10 mg Famotidine (Pepcid) 20 mg PO DAILY [facility] Last Admin: 10/18/17 09:12 Dose: 20 mg Heparin Sodium (Porcine) (Heparin) 5,000 units SC Q12 [facility] Last Admin: 10/18/17 22:01 Dose: 5,000 units Ceftriaxone Sodium 1 gm/ (Sodium Chloride) 100 mls @ 100 mls/hr IVPB DAILY@ 1800 [facility] Last Admin: 10/18/17 17:29 Dose: 100 mls/hr Azithromycin (Zithromax 500mg In Ns Addvantage) 500 mg in 250 mls @ 167 mls/hr IVPB Q24H [facility] Last Admin: 10/18/17 20:30 Dose: 167 mls/hr Insulin Human Regular (Novolin R) 0 unit SC ACHS [facility] PRN Reason: Protocol Last Admin: 10/18/17 21:56 Dose: Not Given Methylprednisolone (Solu-Medrol) 40 mg IVP Q8 [facility] Last Admin: 10/19/17 05:16 Dose: 40 mg Ondansetron HCl (Zofran Inj) 4 mg IVP Q6 PRN PRN Reason: Nausea/Vomiting - Labs Labs: 10/18/17 07:15 10/18/17 07:15 PT 15.0 SECONDS (9.7-12.2) H 10/15/17 14:50 INR 1.3 10/15/17 14:50 APTT 28 SECONDS (21-34) 10/15/17 14:50 - Constitutional Appears: No Acute Distress - Head Exam Head Exam: ATRAUMATIC, NORMAL INSPECTION - Eye Exam Eye Exam: EOMI, Normal appearance - ENT Exam ENT Exam: Mucous Membranes Moist - Respiratory Exam Respiratory Exam: Clear to Ausculation Bilateral, NORMAL BREATHING PATTERN - Cardiovascular Exam Cardiovascular Exam: REGULAR RHYTHM, +S1, +S2 - GI/Abdominal Exam GI & Abdominal Exam: Soft, Normal Bowel Sounds. absent: Tenderness - Extremities Exam Extremities Exam: Normal Inspection - Neurological Exam Neurological Exam: Alert, Awake - Psychiatric Exam Psychiatric exam: Normal Affect, Normal Mood - Skin Skin Exam: Normal Color, Warm Assessment and Plan - Assessment and Plan (Free Text) Assessment: 87 yo M with PMHx of HTN, T2DM, HLD, Alzheimer's Dementia, CKD ( baseline creatine 2.0s), BPH, and urinary incontinence (wears diapers) with abdominal pain, with incidental finding of RLL lung mass. 1.) RLL Mass, pleural effusion - History of Tobacco Use - Unlikely Pneumonia - Vitals stable, no leukocytosis - Pulmonology consulted- Dr. Deutsch --> help appreciated - Hem/Onc Consult: Dr. Green --> help appreciated - IR consulted: Dr. Lin --> help appreciated - CT guided core biopsy of right lung pleural-based mass - pathology results: Non-diagnostic; necrotic tissue only; an AFB stain is negative for acid-fast mycobacteria; a repeat biopsy is recommended if clinically appropriate. - chest x-ray s/p right lung mass biopsy (10/16): No evidence of pneumothroax. Increasing opacity at right lung base s/p percutaneous right lung biopsy. - US guided right thoracentesis: 600cc serosanguinous fluid removed - f/u pleural fluid studies - After my attending Dr. Abrams spoke with the lab and Dr. Lin the sample was not received in the lab - possibility of re-biopsy of the lung mass on Monday 10/23 - Imaging: - CT Chest w/o Contrast: Multiple right lung masses, multiple right-sided pleural-based masses, and probable malignant effusion. Mediastinal adenopathy. Thick walled cavitary lesion right upper lobe measuring 5.5 x 5.3 CM. - CT Scan abdomen, pelvis with PO: Large right pleural effusion which is incompletely visualized, compressive atelectasis right lower lobe. 5 x 6 mm solid nodule right middle lobe. Follow-up recommendations: CT scan of the entire thorax to determine the presence or absence of additional pulmonary nodules. Retrocrural soft tissue mass or masses perhaps lymphadenopathy. This appears separate from the adjacent liver, aorta, IVC which may be compressing. Contiguity with pericardium also noted. Follow-up CT scan of the thorax for assessment of pulmonary nodules should also included upper abdomen for further clarification of this finding and I would recommend a study be performed with intravenous contrast. - MRI of brain with contrast: Diffuse cerebral atrophy and chronic microangiopathy are identified which appear age-appropriate. The lack images contrast limits the evaluation however the patient's GFR precludes administering gadolinium to this patient intravenously. No large intracranial mass is appreciable at this time. - Chest X-ray (10/18/17): Right lung mass re-identified. Suspect right layering pleural effusion and/or consolidation. 2.) Chest Pain - resolved - Troponin negative x1 - EKG: NSR - Chest X-ray: Right Lung mass re-identified. suspected right layering pleural effusion and or consolidation. 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) - Baseline BUN/ Cre: 30-40s/2 -2.5 - On Admission: 1.9 - Started on gentle fluids NS @ 80cc/hr - discontinued 10/18/17 - Continue to monitor 5.) History of UTI - Patient was being treated as outpatient with Bactrim 7 day course - UA: Negative - Urine culture: No growth - Bactrim Discontinued 10/17/17 6.) History of Hypertension - Coreg 6.25mg PO BID - Norvasc 5mg PO daily 7.) History of Type 2 Diabetes - Accuchecks - ISS - Consistent Carb Diet - Last A1C - 5.6 (2014) - A1C: 7.5 8.) History of Hyperlipidemia - Total Cholesterol 147; LDL 66; HDL 25 9.) History of Alzheimer's Dementia - Aricept 10mg PO QHS 10.) History of BPH - Hx of TURP (1996) 11.) History of Urinary Incontinence - Nursing communication: To place patient on diapers 12.) Prophylaxis - GI PPX: Pepcid 20mg PO BID - DVT PPX: SCDs, Heparin Q12 (hold for procedure; will restart 10/17/17) 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 Aliza Canales PGY-1 <Maura Abrams - Last Filed: 10/20/17 19:33> Objective - Vital Signs/Intake and Output Vital Signs (last 24 hours): Temp Pulse Resp BP Pulse Ox 97.8 F 80 20 133/73 98 10/20/17 15:05 10/20/17 15:05 10/20/17 15:05 10/20/17 15:05 10/20/17 15:05 Intake and Output: 10/20/17 10/21/17 18:59 06:59 Intake Total 300 Output Total 400 Balance -100 - Medications Medications: Current Medications Acetaminophen (Tylenol 325mg Tab) 650 mg PO Q6 PRN PRN Reason: Pain, moderate (4-7) Last Admin: 10/16/17 18:27 Dose: 650 mg Albuterol/Ipratropium (Duoneb 3 Mg/0.5 Mg (3 Ml) Ud) 3 ml INH RQ6 [facility] Last Admin: 10/20/17 13:41 Dose: 3 ml Amlodipine Besylate (Norvasc) 5 mg PO DAILY [facility] Last Admin: 10/20/17 09:40 Dose: 5 mg Carvedilol (Coreg) 6.25 mg PO BID [facility] Last Admin: 10/20/17 17:33 Dose: 6.25 mg Docusate Sodium (Colace) 100 mg PO TID PRN PRN Reason: Constipation Donepezil HCl (Aricept) 10 mg PO HS [facility] Last Admin: 10/19/17 23:00 Dose: 10 mg Famotidine (Pepcid) 20 mg PO DAILY [facility] Last Admin: 10/20/17 09:40 Dose: 20 mg Heparin Sodium (Porcine) (Heparin) 5,000 units SC Q12 [facility] Last Admin: 10/20/17 09:40 Dose: 5,000 units Ceftriaxone Sodium 1 gm/ (Sodium Chloride) 100 mls @ 100 mls/hr IVPB DAILY@ 1800 [facility] Last Admin: 10/20/17 17:33 Dose: 100 mls/hr Insulin Human Regular (Novolin R) 0 unit SC ACHS [facility] PRN Reason: Protocol Last Admin: 10/20/17 17:37 Dose: 3 unit Methylprednisolone (Solu-Medrol) 40 mg IVP Q8 [facility] Last Admin: 10/20/17 13:45 Dose: 40 mg Ondansetron HCl (Zofran Inj) 4 mg IVP Q6 PRN PRN Reason: Nausea/Vomiting - Labs Labs: 10/20/17 06:23 10/20/17 06:23 PT 15.0 SECONDS (9.7-12.2) H 10/15/17 14:50 INR 1.3 10/15/17 14:50 APTT 28 SECONDS (21-34) 10/15/17 14:50 Attending/Attestation - Attestation I have personally seen and examined this patient.: Yes I have fully participated in the care of the patient.: Yes I have reviewed all pertinent clinical information, including history, physical exam and plan: Yes Notes (Text): Patient was seen and examined His breathing is better,continue IV solumedrol Patient needs repeat lung biopsy d/w Dr Lin d/w The resident I agree with the documentation of the resident's assessment and the plan
[2017-10-19 07:23] LABS: BASO % 0.3 % (0.0-2.0); EOS % 0.1 % (0.0-4.0); HEMOGLOBIN 11.3 g/dL (12.0-18.0); LYMPH # 0.7 K/uL (1.0-4.3); LYMPH % 11.3 % (20.0-40.0); MEAN CELL VOLUME 82.9 fL (80.0-94.0); MEAN CORPUSCULAR HEMOGLOBIN 29.2 pg (27.0-31.0); MEAN CORPUSCULAR HGB CONC 35.2 g/dL (33.0-37.0); MEAN PLATELET VOLUME 7.4 fL (7.2-11.7); MONO # 0.1 K/uL (0.0-0.8); MONO % 1.3 % (0.0-10.0); NEUT # 5.2 K/uL (1.8-7.0); RBC 3.87 Mil/uL (4.40-5.90); RED CELL DISTRIBUTION WIDTH 13.9 % (11.5-14.5)
[2017-10-19 07:43] LABS: ALBUMIN 3.5 g/dL (3.5-5.0); ALT/SGPT 32 U/L (21-72); AST/SGOT 35 U/L (17-59); BLOOD UREA NITROGEN 22 mg/dL (9-20); CALCIUM 10.3 mg/dl (8.6-10.4); GFR AFRICAN-AMERICAN > 60; GFR NON-AFRICAN AMERICAN 57; MAGNESIUM 1.8 mg/dL (1.6-2.3)
[2017-10-19] MEDS: (Novolin R) Insulin Human Regular 100 units/ml vial SC SCH ×5 (08:02→22:00)
[2017-10-19] MEDS: Budesonide 0.5 mg/2 ml Inhal Susp UD INH ONE ×2 (08:32→20:15)
--- NOTE | 2017-10-19 12:00 | CARD ---
APPROVED REPORT EKG Measurement Heart [id number] <Conclusion> Normal sinus rhythm Normal ECG
--- NOTE | 2017-10-19 17:14 | CP.PCM.PN ---
Subjective - Date & Time of Evaluation Date of Evaluation: 10/18/17 Time of Evaluation: 19:00 - Subjective Subjective: Slightly more short of breath Objective - Vital Signs/Intake and Output Vital Signs (last 24 hours): Temp Pulse Resp BP Pulse Ox 97.5 F L 98 H 20 150/74 97 10/19/17 15:40 10/19/17 15:40 10/19/17 15:40 10/19/17 15:40 10/19/17 15:40 Intake and Output: 10/19/17 10/19/17 06:59 18:59 Intake Total 650 200 Output Total 1100 500 Balance -450 -300 - Medications Medications: Current Medications Acetaminophen (Tylenol 325mg Tab) 650 mg PO Q6 PRN PRN Reason: Pain, moderate (4-7) Last Admin: 10/16/17 18:27 Dose: 650 mg Albuterol/Ipratropium (Duoneb 3 Mg/0.5 Mg (3 Ml) Ud) 3 ml INH RQ6 [facility] Last Admin: 10/19/17 14:16 Dose: 3 ml Amlodipine Besylate (Norvasc) 5 mg PO DAILY [facility] Last Admin: 10/19/17 09:36 Dose: 5 mg Budesonide (Pulmicort Respules) 0.5 mg INH ONCE ONE Stop: 10/19/17 21:01 Last Admin: 10/19/17 08:32 Dose: 0.5 mg Carvedilol (Coreg) 6.25 mg PO BID [facility] Last Admin: 10/19/17 09:36 Dose: 6.25 mg Docusate Sodium (Colace) 100 mg PO TID [facility] Last Admin: 10/19/17 13:54 Dose: 100 mg Donepezil HCl (Aricept) 10 mg PO HS [facility] Last Admin: 10/18/17 22:01 Dose: 10 mg Famotidine (Pepcid) 20 mg PO DAILY [facility] Last Admin: 10/19/17 09:36 Dose: 20 mg Heparin Sodium (Porcine) (Heparin) 5,000 units SC Q12 [facility] Last Admin: 10/19/17 09:36 Dose: 5,000 units Ceftriaxone Sodium 1 gm/ (Sodium Chloride) 100 mls @ 100 mls/hr IVPB DAILY@ 1800 [facility] Last Admin: 10/18/17 17:29 Dose: 100 mls/hr Azithromycin 500 mg/ Dextrose 250 mls @ 167 mls/hr IVPB Q24H [facility] Stop: 10/19/17 20:30 Insulin Human Regular (Novolin R) 0 unit SC ACHS [facility] PRN Reason: Protocol Last Admin: 10/19/17 16:59 Dose: 3 unit Methylprednisolone (Solu-Medrol) 40 mg IVP Q8 [facility] Last Admin: 10/19/17 13:54 Dose: 40 mg Ondansetron HCl (Zofran Inj) 4 mg IVP Q6 PRN PRN Reason: Nausea/Vomiting - Labs Labs: 10/19/17 07:10 10/19/17 07:10 PT 15.0 SECONDS (9.7-12.2) H 10/15/17 14:50 INR 1.3 10/15/17 14:50 APTT 28 SECONDS (21-34) 10/15/17 14:50 - Head Exam Head Exam: ATRAUMATIC - Eye Exam Eye Exam: Normal appearance - ENT Exam ENT Exam: Mucous Membranes Dry - Respiratory Exam Respiratory Exam: Decreased Breath Sounds - Cardiovascular Exam Cardiovascular Exam: +S1, +S2 - GI/Abdominal Exam GI & Abdominal Exam: Normal Bowel Sounds Assessment and Plan (1) Lung mass Assessment & Plan: non diagnostic biopsy f/u pleural fluid cytology will need repeat biopsy if pleural fluid cytology negative Status: Acute
--- NOTE | 2017-10-19 17:15 | CP.PCM.PN ---
Subjective - Date & Time of Evaluation Date of Evaluation: 10/19/17 Time of Evaluation: 16:25 - Subjective Subjective: Breathing better today. Objective - Vital Signs/Intake and Output Vital Signs (last 24 hours): Temp Pulse Resp BP Pulse Ox 97.5 F L 98 H 20 150/74 97 10/19/17 15:40 10/19/17 15:40 10/19/17 15:40 10/19/17 15:40 10/19/17 15:40 Intake and Output: 10/19/17 10/19/17 06:59 18:59 Intake Total 650 200 Output Total 1100 500 Balance -450 -300 - Medications Medications: Current Medications Acetaminophen (Tylenol 325mg Tab) 650 mg PO Q6 PRN PRN Reason: Pain, moderate (4-7) Last Admin: 10/16/17 18:27 Dose: 650 mg Albuterol/Ipratropium (Duoneb 3 Mg/0.5 Mg (3 Ml) Ud) 3 ml INH RQ6 [facility] Last Admin: 10/19/17 14:16 Dose: 3 ml Amlodipine Besylate (Norvasc) 5 mg PO DAILY [facility] Last Admin: 10/19/17 09:36 Dose: 5 mg Budesonide (Pulmicort Respules) 0.5 mg INH ONCE ONE Stop: 10/19/17 21:01 Last Admin: 10/19/17 08:32 Dose: 0.5 mg Carvedilol (Coreg) 6.25 mg PO BID [facility] Last Admin: 10/19/17 09:36 Dose: 6.25 mg Docusate Sodium (Colace) 100 mg PO TID [facility] Last Admin: 10/19/17 13:54 Dose: 100 mg Donepezil HCl (Aricept) 10 mg PO HS [facility] Last Admin: 10/18/17 22:01 Dose: 10 mg Famotidine (Pepcid) 20 mg PO DAILY [facility] Last Admin: 10/19/17 09:36 Dose: 20 mg Heparin Sodium (Porcine) (Heparin) 5,000 units SC Q12 [facility] Last Admin: 10/19/17 09:36 Dose: 5,000 units Ceftriaxone Sodium 1 gm/ (Sodium Chloride) 100 mls @ 100 mls/hr IVPB DAILY@ 1800 [facility] Last Admin: 10/18/17 17:29 Dose: 100 mls/hr Azithromycin 500 mg/ Dextrose 250 mls @ 167 mls/hr IVPB Q24H [facility] Stop: 10/19/17 20:30 Insulin Human Regular (Novolin R) 0 unit SC ACHS [facility] PRN Reason: Protocol Last Admin: 10/19/17 16:59 Dose: 3 unit Methylprednisolone (Solu-Medrol) 40 mg IVP Q8 [facility] Last Admin: 10/19/17 13:54 Dose: 40 mg Ondansetron HCl (Zofran Inj) 4 mg IVP Q6 PRN PRN Reason: Nausea/Vomiting - Labs Labs: 10/19/17 07:10 10/19/17 07:10 PT 15.0 SECONDS (9.7-12.2) H 10/15/17 14:50 INR 1.3 10/15/17 14:50 APTT 28 SECONDS (21-34) 10/15/17 14:50 - Head Exam Head Exam: ATRAUMATIC - Eye Exam Eye Exam: Normal appearance - ENT Exam ENT Exam: Mucous Membranes Dry - Respiratory Exam Respiratory Exam: NORMAL BREATHING PATTERN - Cardiovascular Exam Cardiovascular Exam: +S1, +S2 - GI/Abdominal Exam GI & Abdominal Exam: Normal Bowel Sounds Assessment and Plan (1) Lung mass Assessment & Plan: non diagnostic biopsy awaiting pleural fluid cytology Status: Acute
--- NOTE | 2017-10-19 17:20 | CP.PCM.PN ---
Subjective - Date & Time of Evaluation Date of Evaluation: 10/19/17 Time of Evaluation: 11:00 - Subjective Subjective: Pt was seen and evaluated at bedside. Pt resting comfortably in bed. SpO2 96% on 2L NC. Afebrile. States he feels much better and breathing has improved. No complaints at this time. Denies shortness of breath, cough, hemopytsis, fever, chills. Exam: Pt in NAD Lungs: diminsihed breath sounds RLL. A/P: Lung mass Pt s/p biopsy and thoracentesis 10/16/17- R lung biopsy: non-diagnostic, necrotic tissue only. AFB stain is negative for acid fast mycobacteria. Repeat biopsy is recommended if clinically appropriate. Follow up pleural fluid studies -awaiting fluid study result and family wishes prior to considering repeat biopsy COPD Continue Duoneb treatment Q6H Continue steroids- Methylprednisolone 40mg IVP Q8H Consider PFTs if patient can tolerate 10/18/17 CXR- R lung mass re-identified. Suspected R layering pleural effusion and/ or consolidation. 10/16/17 CXR-No evidence of pneumothorax. Increasing opacity at right lung base status post percutaneous right lung biopsy. Consolidation versus pleural effusion. 10/15/17 CT chest without contrast- 1. Multiple right lung masses, multiple right -sided pleural-based masses, and probable malignant effusion. 2. Mediastinal adenopathy. 3. remainder of findings as above. 10/15/17 CXR- Large masslike consolidative changes seen within the right mid to lower lung zone with additional lobular masslike opacities seen more inferiorly in the right lung. Underlying neoplasm cannot be excluded. Right hilar prominence. Correlation with chest CT is recommended for further evaluation if clinically indicated. 10/15/17 Echo- Suboptimal study due to poor acoustic windows. LVEF: 59.9%. Diastolic dysfunction Grade I-abnormal relaxation pattern. RV systolic function is normal. Mild TR. RV systolic pressure estimated at ~37mmgHg. Trace pericardial effusion. Objective - Vital Signs/Intake and Output Vital Signs (last 24 hours): Temp Pulse Resp BP Pulse Ox 97.5 F L 98 H 20 150/74 97 10/19/17 15:40 10/19/17 15:40 10/19/17 15:40 10/19/17 15:40 01/18/18 15:40 Intake and Output: 10/19/17 10/19/17 06:59 18:59 Intake Total 650 200 Output Total 1100 500 Balance -450 -300 - Medications Medications: Current Medications Acetaminophen (Tylenol 325mg Tab) 650 mg PO Q6 PRN PRN Reason: Pain, moderate (4-7) Last Admin: 10/16/17 18:27 Dose: 650 mg Albuterol/Ipratropium (Duoneb 3 Mg/0.5 Mg (3 Ml) Ud) 3 ml INH RQ6 [facility] Last Admin: 10/19/17 14:16 Dose: 3 ml Amlodipine Besylate (Norvasc) 5 mg PO DAILY [facility] Last Admin: 10/19/17 09:36 Dose: 5 mg Budesonide (Pulmicort Respules) 0.5 mg INH ONCE ONE Stop: 10/19/17 21:01 Last Admin: 10/19/17 08:32 Dose: 0.5 mg Carvedilol (Coreg) 6.25 mg PO BID [facility] Last Admin: 10/19/17 09:36 Dose: 6.25 mg Docusate Sodium (Colace) 100 mg PO TID [facility] Last Admin: 10/19/17 13:54 Dose: 100 mg Donepezil HCl (Aricept) 10 mg PO HS [facility] Last Admin: 10/18/17 22:01 Dose: 10 mg Famotidine (Pepcid) 20 mg PO DAILY [facility] Last Admin: 10/19/17 09:36 Dose: 20 mg Heparin Sodium (Porcine) (Heparin) 5,000 units SC Q12 [facility] Last Admin: 10/19/17 09:36 Dose: 5,000 units Ceftriaxone Sodium 1 gm/ (Sodium Chloride) 100 mls @ 100 mls/hr IVPB DAILY@ 1800 [facility] Last Admin: 10/18/17 17:29 Dose: 100 mls/hr Azithromycin 500 mg/ Dextrose 250 mls @ 167 mls/hr IVPB Q24H [facility] Stop: 10/19/17 20:30 Insulin Human Regular (Novolin R) 0 unit SC ACHS [facility] PRN Reason: Protocol Last Admin: 10/19/17 16:59 Dose: 3 unit Methylprednisolone (Solu-Medrol) 40 mg IVP Q8 [facility] Last Admin: 10/19/17 13:54 Dose: 40 mg Ondansetron HCl (Zofran Inj) 4 mg IVP Q6 PRN PRN Reason: Nausea/Vomiting - Labs Labs: 10/19/17 07:10 10/19/17 07:10 PT 15.0 SECONDS (9.7-12.2) H 10/15/17 14:50 INR 1.3 10/15/17 14:50 APTT 28 SECONDS (21-34) 10/15/17 14:50
[2017-10-19 20:42] LABS: CK-MB 2.85 ng/mL (0.0-3.38)
[2017-10-19 20:45] LABS: TROPONIN I 0.019 ng/mL (0.00-0.120)
[2017-10-20 06:31] LABS: BASO % 0.1 % (0.0-2.0); HEMOGLOBIN 10.9 g/dL (12.0-18.0); LYMPH # 0.8 K/uL (1.0-4.3); LYMPH % 7.4 % (20.0-40.0); MEAN CELL VOLUME 82.7 fL (80.0-94.0); MEAN CORPUSCULAR HEMOGLOBIN 29.1 pg (27.0-31.0); MEAN CORPUSCULAR HGB CONC 35.2 g/dL (33.0-37.0); MEAN PLATELET VOLUME 7.4 fL (7.2-11.7); MONO # 0.4 K/uL (0.0-0.8); MONO % 3.5 % (0.0-10.0); NEUT # 9.2 K/uL (1.8-7.0); PLATELET COUNT 477 K/uL (130-400); RBC 3.72 Mil/uL (4.40-5.90); RED CELL DISTRIBUTION WIDTH 14.1 % (11.5-14.5); WHITE BLOOD COUNT 10.4 K/uL (4.8-10.8)
[2017-10-20] MEDS: MethylPREDNISolone 40 mg Vial IVP SCH ×3 (06:34→21:30)
[2017-10-20] MEDS: (Novolin R) Insulin Human Regular 100 units/ml vial SC SCH ×4 (07:45→21:30)
[2017-10-20 07:48] LABS: ALB/GLOB RATIO 0.9 (1.0-2.1); ALBUMIN 3.3 g/dL (3.5-5.0); CALCIUM 10.2 mg/dl (8.6-10.4); MAGNESIUM 1.9 mg/dL (1.6-2.3)
[2017-10-20] MEDS: Albuterol-Ipratrop 3 mg / 0.5 (3 ml) UD INH SCH ×3 (07:50→21:09)
[2017-10-20 09:19] LABS: ANISOCYTOSIS SLIGHT; BANDS 1 % (0-2); HYPOCHROMIC SLIGHT; LYMPHOCYTE 7 % (20-40); MONOCYTE 3 % (0-10); NEUTROPHIL 89 % (50-75); PLATELET ESTIMATE INCREASED (NORMAL); POLYCHROMIC SLIGHT; TOTAL CELLS COUNTED 100; TOXIC GRANULATION PRESENT
[2017-10-20 09:20] LABS: LARGE PLATELETS PRESENT
--- NOTE | 2017-10-20 11:16 | CARD ---
APPROVED REPORT EKG Measurement Heart [id number] <Conclusion> Normal sinus rhythm Normal ECG
--- NOTE | 2017-10-20 11:24 | CP.PCM.PN ---
<Columba Barraza - Last Filed: 10/20/17 14:02> Subjective - Date & Time of Evaluation Date of Evaluation: 10/20/17 Time of Evaluation: 09:00 - Subjective Subjective: Heme/Onc Progress Note -Dr. Mita Green's Service: Patient seen and examined at bedside this AM. Patient states he is breathing better and is in no acute distress. Denies fevers, chills, cough. This AM is alert and oriented to self and place. Objective - Vital Signs/Intake and Output Vital Signs (last 24 hours): Temp Pulse Resp BP Pulse Ox 97.4 F L 72 20 122/74 94 L 10/20/17 08:23 10/20/17 08:23 10/20/17 08:23 10/20/17 08:23 10/20/17 08:23 Intake and Output: 10/20/17 10/20/17 06:59 18:59 Intake Total 670 Output Total 800 Balance -130 - Medications Medications: Current Medications Acetaminophen (Tylenol 325mg Tab) 650 mg PO Q6 PRN PRN Reason: Pain, moderate (4-7) Last Admin: 10/16/17 18:27 Dose: 650 mg Albuterol/Ipratropium (Duoneb 3 Mg/0.5 Mg (3 Ml) Ud) 3 ml INH RQ6 [facility] Last Admin: 10/20/17 07:50 Dose: 3 ml Amlodipine Besylate (Norvasc) 5 mg PO DAILY [facility] Last Admin: 10/20/17 09:40 Dose: 5 mg Carvedilol (Coreg) 6.25 mg PO BID [facility] Last Admin: 10/20/17 09:40 Dose: 6.25 mg Docusate Sodium (Colace) 100 mg PO TID [facility] Last Admin: 10/20/17 09:40 Dose: 100 mg Donepezil HCl (Aricept) 10 mg PO HS [facility] Last Admin: 10/19/17 23:00 Dose: 10 mg Famotidine (Pepcid) 20 mg PO DAILY [facility] Last Admin: 10/20/17 09:40 Dose: 20 mg Heparin Sodium (Porcine) (Heparin) 5,000 units SC Q12 [facility] Last Admin: 10/20/17 09:40 Dose: 5,000 units Ceftriaxone Sodium 1 gm/ (Sodium Chloride) 100 mls @ 100 mls/hr IVPB DAILY@ 1800 [facility] Last Admin: 10/19/17 17:43 Dose: 100 mls/hr Insulin Human Regular (Novolin R) 0 unit SC ACHS [facility] PRN Reason: Protocol Last Admin: 10/20/17 07:45 Dose: 1 unit Methylprednisolone (Solu-Medrol) 40 mg IVP Q8 [facility] Last Admin: 10/20/17 06:34 Dose: 40 mg Ondansetron HCl (Zofran Inj) 4 mg IVP Q6 PRN PRN Reason: Nausea/Vomiting - Labs Labs: 10/20/17 06:23 10/20/17 06:23 PT 15.0 SECONDS (9.7-12.2) H 10/15/17 14:50 INR 1.3 10/15/17 14:50 APTT 28 SECONDS (21-34) 10/15/17 14:50 - Constitutional Appears: No Acute Distress - Head Exam Head Exam: NORMAL INSPECTION - Eye Exam Eye Exam: EOMI, Normal appearance - ENT Exam ENT Exam: Mucous Membranes Moist - Respiratory Exam Respiratory Exam: Clear to Ausculation Bilateral, NORMAL BREATHING PATTERN - Cardiovascular Exam Cardiovascular Exam: REGULAR RHYTHM, +S1 - GI/Abdominal Exam GI & Abdominal Exam: Distended, Soft. absent: Tenderness - Exam Additional comments: +[place] cath in place - Extremities Exam Extremities Exam: Normal Inspection. absent: Pedal Edema - Back Exam Back Exam: NORMAL INSPECTION - Neurological Exam Neurological Exam: Alert, Awake. absent: Oriented x3 - Psychiatric Exam Psychiatric exam: Normal Affect - Skin Skin Exam: Dry, Normal Color, Warm Assessment and Plan (1) Right lower lobe lung mass Assessment & Plan: Lung biopsy was non diagnostic As per discussion between Dr. Green and pathologist Dr. Mackay today- prelim results of fluid cytology shows atypical cells. Recommend repeat biopsy. Patient for possible re-biopsy on 10/23/17 f/u pathology Status: Acute (2) Anemia Assessment & Plan: Hgb 10.9, Hct 30.8 this AM. retic index 0.7% Ferritin, stool OB, B12, Folate all normal. Likely anemia of chronic disease. Status: Acute - Assessment and Plan (Free Text) Assessment: Patient seen and examined during rounds with Dr. Green. Recommendations above as per attending. <Facundo Green - Last Filed: 10/20/17 21:25> Objective - Vital Signs/Intake and Output Vital Signs (last 24 hours): Temp Pulse Resp BP Pulse Ox 97.8 F 80 20 133/73 98 10/20/17 15:05 10/20/17 15:05 10/20/17 15:05 10/20/17 15:05 10/20/17 15:05 Intake and Output: 10/20/17 10/21/17 18:59 06:59 Intake Total 300 Output Total 400 Balance -100 - Medications Medications: Current Medications Acetaminophen (Tylenol 325mg Tab) 650 mg PO Q6 PRN PRN Reason: Pain, moderate (4-7) Last Admin: 10/16/17 18:27 Dose: 650 mg Albuterol/Ipratropium (Duoneb 3 Mg/0.5 Mg (3 Ml) Ud) 3 ml INH RQ6 [facility] Last Admin: 10/20/17 21:09 Dose: 3 ml Amlodipine Besylate (Norvasc) 5 mg PO DAILY [facility] Last Admin: 10/20/17 09:40 Dose: 5 mg Carvedilol (Coreg) 6.25 mg PO BID [facility] Last Admin: 10/20/17 17:33 Dose: 6.25 mg Docusate Sodium (Colace) 100 mg PO TID PRN PRN Reason: Constipation Donepezil HCl (Aricept) 10 mg PO HS [facility] Last Admin: 10/19/17 23:00 Dose: 10 mg Famotidine (Pepcid) 20 mg PO DAILY [facility] Last Admin: 10/20/17 09:40 Dose: 20 mg Heparin Sodium (Porcine) (Heparin) 5,000 units SC Q12 [facility] Last Admin: 10/20/17 09:40 Dose: 5,000 units Ceftriaxone Sodium 1 gm/ (Sodium Chloride) 100 mls @ 100 mls/hr IVPB DAILY@ 1800 [facility] Last Admin: 10/20/17 17:33 Dose: 100 mls/hr Insulin Human Regular (Novolin R) 0 unit SC ACHS [facility] PRN Reason: Protocol Last Admin: 10/20/17 17:37 Dose: 3 unit Methylprednisolone (Solu-Medrol) 40 mg IVP Q8 [facility] Last Admin: 10/20/17 13:45 Dose: 40 mg Ondansetron HCl (Zofran Inj) 4 mg IVP Q6 PRN PRN Reason: Nausea/Vomiting - Labs Labs: 10/20/17 06:23 01/19/18 06:23 PT 15.0 SECONDS (9.7-12.2) H 10/15/17 14:50 INR 1.3 10/15/17 14:50 APTT 28 SECONDS (21-34) 10/15/17 14:50 Assessment and Plan (1) Lung mass Status: Acute - Assessment and Plan (Free Text) Assessment: Pt seen and examined, agree with residents note.
--- NOTE | 2017-10-20 12:23 | CP.PCM.PN ---
Subjective - Date & Time of Evaluation Date of Evaluation: 10/20/17 Time of Evaluation: 08:30 - Subjective Subjective: The patient seen and examined Lying comfortably breathing much improved Afebrile For repeat lung biopsy On Monday Continue nebulizer treatment Continue IV steroids Objective - Vital Signs/Intake and Output Vital Signs (last 24 hours): Temp Pulse Resp BP Pulse Ox 97.4 F L 72 20 122/74 94 L 10/20/17 08:23 10/20/17 08:23 10/20/17 08:23 10/20/17 08:23 10/20/17 08:23 Intake and Output: 10/20/17 10/20/17 06:59 18:59 Intake Total 670 Output Total 800 Balance -130 - Medications Medications: Current Medications Acetaminophen (Tylenol 325mg Tab) 650 mg PO Q6 PRN PRN Reason: Pain, moderate (4-7) Last Admin: 10/16/17 18:27 Dose: 650 mg Albuterol/Ipratropium (Duoneb 3 Mg/0.5 Mg (3 Ml) Ud) 3 ml INH RQ6 [facility] Last Admin: 10/20/17 07:50 Dose: 3 ml Amlodipine Besylate (Norvasc) 5 mg PO DAILY [facility] Last Admin: 10/20/17 09:40 Dose: 5 mg Carvedilol (Coreg) 6.25 mg PO BID [facility] Last Admin: 10/20/17 09:40 Dose: 6.25 mg Docusate Sodium (Colace) 100 mg PO TID PRN PRN Reason: Constipation Donepezil HCl (Aricept) 10 mg PO HS [facility] Last Admin: 10/19/17 23:00 Dose: 10 mg Famotidine (Pepcid) 20 mg PO DAILY [facility] Last Admin: 10/20/17 09:40 Dose: 20 mg Heparin Sodium (Porcine) (Heparin) 5,000 units SC Q12 [facility] Last Admin: 10/20/17 09:40 Dose: 5,000 units Ceftriaxone Sodium 1 gm/ (Sodium Chloride) 100 mls @ 100 mls/hr IVPB DAILY@ 1800 [facility] Last Admin: 10/19/17 17:43 Dose: 100 mls/hr Insulin Human Regular (Novolin R) 0 unit SC ACHS [facility] PRN Reason: Protocol Last Admin: 10/20/17 12:04 Dose: 4 unit Methylprednisolone (Solu-Medrol) 40 mg IVP Q8 [facility] Last Admin: 10/20/17 06:34 Dose: 40 mg Ondansetron HCl (Zofran Inj) 4 mg IVP Q6 PRN PRN Reason: Nausea/Vomiting - Labs Labs: 10/20/17 06:23 10/20/17 06:23 PT 15.0 SECONDS (9.7-12.2) H 10/15/17 14:50 INR 1.3 10/15/17 14:50 APTT 28 SECONDS (21-34) 10/15/17 14:50
--- NOTE | 2017-10-20 16:22 | CP.PCM.DIS ---
Provider - Provider Date of Admission: 10/15/17 18:24 Attending physician: Maura Abrams MD Time Spent in preparation of Discharge (in minutes): 40 Hospital Course - Lab Results Lab Results: Micro Results 10/15/17 18:50 Blood Blood Culture - Preliminary NO GROWTH AFTER 4 DAYS 10/15/17 18:30 Blood Blood Culture - Preliminary NO GROWTH AFTER 4 DAYS 10/16/17 00:20 Urine,Catheterized Urine Culture - Final No Growth (<1,000 CFU/ML) Most Recent Lab Values WBC 10.4 K/uL (4.8-10.8) D 10/20/17 06:23 RBC 3.72 Mil/uL (4.40-5.90) L 10/20/17 06:23 Hgb 10.9 g/dL (12.0-18.0) L 10/20/17 06:23 Hct 30.8 % (35.0-51.0) L 10/20/17 06:23 MCV 82.7 fL (80.0-94.0) 10/20/17 06:23 MCH 29.1 pg (27.0-31.0) 10/20/17 06:23 MCHC 35.2 g/dL (33.0-37.0) 10/20/17 06:23 RDW 14.1 % (11.5-14.5) 10/20/17 06:23 Plt Count 477 K/uL (130-400) H 10/20/17 06:23 MPV 7.4 fL (7.2-11.7) 10/20/17 06:23 Neut % (Auto) 89.0 % (50.0-75.0) H 10/20/17 06:23 Lymph % (Auto) 7.4 % (20.0-40.0) L 10/20/17 06:23 [place] % (Auto) 3.5 % (0.0-10.0) 10/20/17 06:23 Eos % (Auto) 0.0 % (0.0-4.0) 10/20/17 06:23 Baso % (Auto) 0.1 % (0.0-2.0) 10/20/17 06:23 Neut # 9.2 K/uL (1.8-7.0) H 10/20/17 06:23 Lymph # 0.8 K/uL (1.0-4.3) L 10/20/17 06:23 [place] # 0.4 K/uL (0.0-0.8) 10/20/17 06:23 Eos # 0.0 K/uL (0.0-0.7) 10/20/17 06:23 Baso # 0.0 K/uL (0.0-0.2) 10/20/17 06:23 Neutrophils % (Manual) 89 % (50-75) H 10/20/17 06:23 Band Neutrophils % 1 % (0-2) 10/20/17 06:23 Lymphocytes % (Manual) 7 % (20-40) L 10/20/17 06:23 Monocytes % (Manual) 3 % (0-10) 10/20/17 06:23 Toxic Granulation Present 10/20/17 06:23 Platelet Estimate Increased (NORMAL) H 10/20/17 06:23 Large Platelets Present 10/20/17 06:23 Polychromasia Slight 10/20/17 06:23 Hypochromasia (manual) Slight 10/20/17 06:23 Basophilic Stippling Slight 10/20/17 06:23 Anisocytosis (manual) Slight 10/20/17 06:23 Retic Count 1.6 % (0.5-1.5) H 10/18/17 07:15 PT 15.0 SECONDS (9.7-12.2) H 10/15/17 14:50 INR 1.3 10/15/17 14:50 APTT 28 SECONDS (21-34) 10/15/17 14:50 Sodium 126 mmol/L (132-148) L 10/20/17 06:23 Potassium 4.9 mmol/L (3.6-5.2) 10/20/17 06:23 Chloride 94 mmol/L (98-107) L 10/20/17 06:23 Carbon Dioxide 27 mmol/L (22-30) 10/20/17 06:23 Anion Gap 10 (10-20) 10/20/17 06:23 BUN 31 mg/dL (9-20) H 10/20/17 06:23 Creatinine 1.4 mg/dL (0.8-1.5) 10/20/17 06:23 Est GFR ( Amer) 58 01/19/18 06:23 Est GFR (Non-Af Amer) 48 10/20/17 06:23 POC Glucose (mg/dL) 290 mg/dL (65-110) H 10/20/17 11:04 Random Glucose 187 mg/dL (75-110) H 10/20/17 06:23 Hemoglobin A1c 7.5 % (4.2-6.5) H D 10/16/17 06:10 Calcium 10.2 mg/dl (8.6-10.4) 10/20/17 06:23 Phosphorus 2.8 mg/dL (2.5-4.5) 10/20/17 06:23 Magnesium 1.9 mg/dL (1.6-2.3) 10/20/17 06:23 Total Bilirubin 0.4 mg/dL (0.2-1.3) 10/20/17 06:23 AST 30 U/L (17-59) 10/20/17 06:23 ALT 33 U/L (21-72) 10/20/17 06:23 Alkaline Phosphatase 73 U/L (38-126) 10/20/17 06:23 Total Creatine Kinase 61 U/L (55-170) 10/19/17 20:18 CK-MB (Mass) 2.85 ng/mL (0.0-3.38) 10/19/17 20:18 Troponin I 0.0190 ng/mL (0.00-0.120) 10/19/17 20:18 NT-Pro-B Natriuret Pep 493 pg/mL (0-900) 10/15/17 18:35 Total Protein 6.8 g/dL (6.3-8.3) 10/20/17 06:23 Albumin 3.3 g/dL (3.5-5.0) L 10/20/17 06:23 Globulin 3.6 gm/dL (2.2-3.9) 10/20/17 06:23 Albumin/Globulin Ratio 0.9 (1.0-2.1) L 10/20/17 06:23 Triglycerides 184 mg/dL (0-149) H 10/16/17 06:10 Cholesterol 147 mg/dL (0-199) 10/16/17 06:10 LDL Cholesterol Direct 66 mg/dL (0-129) 10/16/17 06:10 HDL Cholesterol 25 mg/dL (30-70) L 10/16/17 06:10 Lipase 188 U/L (23-300) 10/15/17 14:50 Vitamin B12 399 pg/mL (239-931) 10/18/17 07:15 Folate 4.6 ng/mL 10/18/17 07:15 Urine Color Yellow (YELLOW) 10/16/17 07:26 Urine Clarity Clear (Clear) 10/16/17 07:26 Urine pH 5.0 (5.0-8.0) 10/16/17 07:26 Ur Specific [place] 1.012 (1.003-1.030) 10/16/17 07:26 Urine Protein Negative mg/dL (NEGATIVE) 10/16/17 07:26 Urine Glucose (UA) Normal mg/dL (Normal) 10/16/17 07:26 Urine Ketones Negative mg/dL (NEGATIVE) 10/16/17 07:26 Urine Blood Negative (NEGATIVE) 10/16/17 07:26 Urine Nitrate Negative (NEGATIVE) 10/16/17 07:26 Urine Bilirubin Negative (NEGATIVE) 10/16/17 07:26 Urine Urobilinogen Normal mg/dL (0.2-1.0) 10/16/17 07:26 Ur Leukocyte Esterase Trace Adrián/uL (Negative) 10/16/17 07:26 Urine WBC (Auto) 8 /hpf (0-5) H 10/16/17 07:26 Urine RBC (Auto) 1 /hpf (0-3) 10/16/17 07:26 Ur Squamous Epith Cells < 1 /hpf (0-5) 10/16/17 07:26 Urine Bacteria Rare (<OCC) 10/16/17 07:26 Stool Occult Blood Negative (NEGATIVE) 10/19/17 01:43 Influenza Typ A,B (EIA) Negative for flu a/b (NEGATIVE) 10/15/17 18:10 - Hospital Course Hospital Course: HPI: 87 yo M with PMHx of HTN, T2DM, HLD, Alzheimer's Dementia, CKD ( baseline creatine 2.0s), BPH, and urinary incontinence (wears diapers) presents to the ED with abdominal pain x 3 days. History retrieved from Daughter, Seven. Patient was seen per patient's urologist in September for UTI symptoms. was placed on Cipro initially, this was changed to Bactrim (7 day course) after the results of urine culture sensitivities. Bactrim was started on 10/11/17. Patient started to have abdominal pain x 3 days ago. He has a decrease in appetite, only tolerating liquids. Patient is a poor historian and cannot recall his last bowel movement but as per daughter he does not suffer from constipation. Last BM as per daughter was 3-5 days ago. Patient admitted to abdominal pain, nausea , constipation, and urinary frequency. Denied fever, chills, cough, or chest pain. As per daughter, patient was seen by PMD in September for routine follow up - patient was fine at the time. Patient ambulates with walker but needs assistance with ADLs and requires diapers due to urinary incontinence. Person of contact: Daughter - SEVEN ([phone]) - should be called to update on patient's progress and for consent PMD: Jonathon URO: [facility] PMHx: HTN, T2DM, HLD, Alzheimer's Dementia, CKD (baseline creatine 2.0s), BPH PSHx: TURP 1996, work related accident amputated 2.5 fingers of left hand, bilateral eye cataract surgery, inguinal hernia repair Meds: As per NOV. Reviewed and confirmed All: NKDA SHx: Smoked 1 PPD for 40 years, quit 20 years ago, used to drink heavily during his youth, denied any illicit drug use FHx: Unremarkable, patient at the age 89, 89 HCM: received flu and pneumonia shot Hospital Course: IR consulted: Dr. Lin completed a CT guided core biopsy of right lung pleural- based mass. Pathology results: Non-diagnostic; necrotic tissue only; an AFB stain is negative for acid-fast mycobacteria; a repeat biopsy is recommended if clinically appropriate. Chest x-ray s/p right lung mass biopsy (10/16): No evidence of pneumothroax. Increasing opacity at right lung base s/p percutaneous right lung. US guided right thoracentesis: 600cc serosanguinous fluid removed. 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 Mediastinal adenopathy. Thick walled cavitary lesion right upper lobe measuring 5.5 x 5.3 CM. - CT Scan abdomen, pelvis with PO: Large right pleural effusion which is incompletely visualized, compressive atelectasis right lower lobe. 5 x 6 mm solid nodule right middle lobe. Follow-up recommendations: CT scan of the entire thorax to determine the presence or absence of additional pulmonary nodules. Retrocrural soft tissue mass or masses perhaps lymphadenopathy. This appears separate from the adjacent liver, aorta, IVC which may be compressing. Contiguity with pericardium also noted. Follow-up CT scan of the thorax for assessment of pulmonary nodules should also included upper abdomen for further clarification of this finding and I would recommend a study be performed with intravenous contrast. - MRI of brain with contrast: Diffuse cerebral atrophy and chronic microangiopathy are identified which appear age-appropriate. The lack images contrast limits the evaluation however the patient's GFR precludes administering gadolinium to this patient intravenously. No large intracranial mass is appreciable at this time. - Chest X-ray (10/18/17): Right lung mass re-identified. Suspect right layering pleural effusion and/or consolidation. Patient was also treated as an outpatient prior to admission for a UTI. During hospitalization UA and urine culture were negative. Patient was seen and examined at bedside in the AM. Per nurse no acute events overnight. Patient states he is feeling much better. He denies shortness of breath, chest pain, palpitations, nausea, vomiting, diarrhea a or constipation. Patient to return as an outpatient with Dr. Lin for biospy of lung mass on Monday10/24/17. Patient stable for discharge to rehab per Dr. Abrams and Dr. Lin. Patient to continue home medications, steroid, antibiotics at the rehab facility. Patient to return as an outpatient with Dr. Lin for biospy of lung mass on Monday10/24/17. Patient to follow up with PMD Dr. Holt Patient to follow up with oncologist Dr. Green. Patient to follow up with ambulance driver Dr. Deutsch. This is a summary of patient's hospital course, please see chart for full details. Discharge Exam - Head Exam Head Exam: NORMAL INSPECTION - Eye Exam Eye Exam: EOMI, Normal appearance - ENT Exam ENT Exam: Mucous Membranes Moist - Respiratory Exam Respiratory Exam: Clear to PA & Lateral, NORMAL BREATHING PATTERN - Cardiovascular Exam Cardiovascular Exam: REGULAR RHYTHM, +S1, +S2 - GI/Abdominal Exam GI & Abdominal Exam: Normal Bowel Sounds, Soft. absent: Tenderness - Exam Additional comments: condom catheter in place - Extremities Exam Extremities exam: normal inspection - Neurological Exam Neurological exam: Alert - Psychiatric Exam Psychiatric exam: Normal Affect, Normal Mood - Skin Skin Exam: Normal Color, Warm Discharge Plan - Discharge Medications Prescriptions: amLODIPine [Norvasc] 5 mg PO DAILY #30 tab Moxifloxacin [Avelox] 400 mg PO DAILY #7 tab Prednisone 40 mg PO DAILY #4 tablet - Follow Up Plan Condition: FAIR Disposition: REHAB FACILITY/REHAB UNIT Instructions: Diabetic Foot Care (DC), Pleural Effusion (DC), Basic Carbohydrate Counting (DC), Meal Planning with the Plate Method (DC), Meal Planning with Diabetes Exchanges (DC), Needle Biopsy of the Lung (DC), Hypertension (DC)
[2017-10-20 18:00] LABS: OSMOLALITY,URINE 497 mosm/kg (300-1000); SQUAMOUS EPITHIAL < 1 /hpf (0-5); URINE BACTERIA RARE (<OCC); URINE BILIRUBIN NEGATIVE (NEGATIVE); URINE BLOOD NEGATIVE (NEGATIVE); URINE CLARITY Clear (Clear); URINE COLOR Yellow (YELLOW); URINE GLUCOSE (UA) 3+ mg/dL (Normal); URINE HYALINE CAST 0-2 /lpf (0-2); URINE LEUKOCYTE ESTERASE NEG Leu/uL (Negative); URINE NITRATE NEGATIVE (NEGATIVE); URINE PROTEIN NEGATIVE (NEGATIVE); URINE UROBILINOGEN NORMAL mg/dL (0.2-1.0)
[2017-10-21] MEDS: Albuterol-Ipratrop 3 mg / 0.5 (3 ml) UD INH SCH ×3 (01:09→13:40)
[2017-10-21] MEDS: MethylPREDNISolone 40 mg Vial IVP SCH ×2 (05:31→13:39)
[2017-10-21 08:14] VITALS: BP 135/71; PULSE 80; RESP 18; TEMP 98.1; O2SAT 98
[2017-10-21] MEDS: (Novolin R) Insulin Human Regular 100 units/ml vial SC SCH ×2 (08:30→12:15)
[2017-10-21 08:31] LABS: BASO % 0.1 % (0.0-2.0); HEMOGLOBIN 11.4 g/dL (12.0-18.0); LYMPH # 0.6 K/uL (1.0-4.3); LYMPH % 5.3 % (20.0-40.0); MEAN CELL VOLUME 82.6 fL (80.0-94.0); MEAN CORPUSCULAR HEMOGLOBIN 28.5 pg (27.0-31.0); MEAN CORPUSCULAR HGB CONC 34.5 g/dL (33.0-37.0); MEAN PLATELET VOLUME 7.2 fL (7.2-11.7); MONO # 0.4 K/uL (0.0-0.8); MONO % 3.4 % (0.0-10.0); NEUT # 9.5 K/uL (1.8-7.0); NEUT % 91.2 % (50.0-75.0); PLATELET COUNT 526 K/uL (130-400); WHITE BLOOD COUNT 10.4 K/uL (4.8-10.8)
[2017-10-21 08:54] LABS: ALBUMIN 3.4 g/dL (3.5-5.0); ALT/SGPT 28 U/L (21-72); AST/SGOT 33 U/L (17-59); BLOOD UREA NITROGEN 33 mg/dL (9-20); CALCIUM 10.2 mg/dl (8.6-10.4); GFR AFRICAN-AMERICAN > 60; GFR NON-AFRICAN AMERICAN 57
[2017-10-21 08:57] LABS: ALB/GLOB RATIO 0.9 (1.0-2.1)
[2017-10-21 10:51] LABS: LYMPHOCYTE 4 % (20-40); MONOCYTE 5 % (0-10); NEUTROPHIL 91 % (50-75); TOTAL CELLS COUNTED 100
[2017-10-21 10:54] LABS: ANISOCYTOSIS SLIGHT; PLATELET ESTIMATE INCREASED (NORMAL); POIKILOCYTOSIS SLIGHT
== END 2017-10-21 15:18 | DRG 181 ==
LOC: C.ER 14:21 → C.9E 18:24 → C.6T 21:44
PROVIDERS: ADMIT Internal Medicine; ATTEND Internal Medicine
PROC: 0B9K3ZX Drainage of Right Lung, Percutaneous Approach, Diagnostic (ICD-10-PCS; principal; 2017-10-16)
PROC: 0W993ZX Drainage of Right Pleural Cavity, Percutaneous Approach, Diagnostic (ICD-10-PCS; 2017-10-16)
DX: C34.91 Malignant neoplasm of unspecified part of right bronchus or lung (principal); J91.0 Malignant pleural effusion; N17.9 Acute kidney failure, unspecified; J98.11 Atelectasis; E11.22 Type 2 diabetes mellitus with diabetic chronic kidney disease; E11.51 Type 2 diabetes mellitus with diabetic peripheral angiopathy without gangrene; D64.9 Anemia, unspecified; E78.00 Pure hypercholesterolemia, unspecified; E78.5 Hyperlipidemia, unspecified; G30.9 Alzheimer's disease, unspecified; G89.29 Other chronic pain; I12.9 Hypertensive chronic kidney disease with stage 1 through stage 4 chronic kidney disease, or unspecified chronic kidney disease; K59.00 Constipation, unspecified; M17.12 Unilateral primary osteoarthritis, left knee; N18.9 Chronic kidney disease, unspecified; N40.1 Benign prostatic hyperplasia with lower urinary tract symptoms; R32 Unspecified urinary incontinence; F02.80 Dementia in other diseases classified elsewhere, unspecified severity, without behavioral disturbance, psychotic disturbance, mood disturbance, and anxiety; Z66 Do not resuscitate; Z79.84 Long term (current) use of oral hypoglycemic drugs; Z83.3 Family history of diabetes mellitus; Z87.891 Personal history of nicotine dependence; Z87.440 Personal history of urinary (tract) infections

== ENCOUNTER 2017-10-24 10:31 | Day surgery (SDC) | payer MEDICARE ==
[2017-10-24] MEDS ORDERED: Etomidate 20 mg/10ml Inj IV ONE (12:34)
[2017-10-24] MEDS ORDERED: Midazolam 2 MG/2 ML VIAL ONE (12:35)
--- NOTE | 2017-10-24 13:22 | CP.SDSHP ---
Same Day Surgery H & P - History Proposed Procedure: CT guided lung mass biopsy Pre-Op Diagnosis: Lung masses - Allergies Allergies: Allergies No Known Allergies Allergy (Verified 10/15/17 14:30) - Physical Exam Vital Signs: Vital Signs 10/24/17 11:09 Temperature 97.9 F Pulse Rate 87 Respiratory 18 Rate Blood Pressure 132/86 O2 Sat by Pulse 96 Oximetry - Impression Impression: PT with multiple lung masses. Plan CT guided core biopsy of right lung mass. Informed consent obtained from Pt and daughter. Pt. Evaluated Today:Candidate for Anesthesia & Procedure: Yes (ASA 3 Malampati 3 ) Short Stay Discharge - Short Stay Discharge Admitting Diagnosis/Reason for Visit: LUNG MASS Disposition: HOME/ ROUTINE
--- NOTE | 2017-10-24 13:24 | PCM.SURG1 ---
Surgeon's Initial Post Op Note - Surgeon's Notes Surgeon: Nahum Lin MD Triple Valve Tester: NONE Type of Anesthesia: IV Sedation Pre-Operative Diagnosis: Lung masses Operative Findings: CT showed multiple pleural base lung masses Post-Operative Diagnosis: Lung masses Operation Performed: CT guided core bx of right lower lobe lung mass ( medial basal segment). 3 x 20 gauge core obtained. Specimen/Specimens Removed: 20 g core x 3 Estimated Blood Loss: EBL {In ML}: 0 Blood Products Given: N/A Drains Used: No Drains Post-Op Condition: Fair Date of Surgery/Procedure: 10/24/17 Time of Surgery/Procedure: 13:20
[2017-10-24 14:48] VITALS: PULSE 91
--- NOTE | 2017-10-24 15:00 | RAD ---
PROCEDURE: CHEST RADIOGRAPH, 1 VIEW HISTORY: Status post right lung mass biopsy. COMPARISON: None available. FINDINGS: LUNGS: Moderate right pleural effusion.Right lung masses not well appreciated. Please see CT chest from today. PLEURA: No pneumothorax . CARDIOVASCULAR: Borderline cardiomegaly OSSEOUS STRUCTURES: No significant abnormalities. VISUALIZED UPPER ABDOMEN: Normal. OTHER FINDINGS: None. IMPRESSION: No pneumothorax following right lung mass biopsy.
[2017-10-24 15:26] VITALS: BP 137/74; RESP 20; TEMP 98.7; O2SAT 92
== END 2017-10-24 16:50 ==
LOC: C.SDS 10:31
PROVIDERS: ATTEND Radiology Vascular & Interventional Radiology
DX: C34.91 Malignant neoplasm of unspecified part of right bronchus or lung (principal)
CPT/HCPCS: 32405; 71045; 82948; 88305; J2250

== ENCOUNTER 2017-10-27 19:04 | Inpatient (IN) | payer MEDICARE ==
[2017-10-27 19:05] VITALS: BMI 28.7
--- NOTE | 2017-10-27 20:20 | C.PDOC ---
History Of Present Illness Patient is an 87 y/o male who presents to the ED with a complaint of progressive SOB. Patient has a hx of multiple lung masses and malignant effusions; was recently seen in ED and discharged on 10/15/17 for similar complaints. Denies any CP or palpitations. Patient previously had O2 saturation of 84-86% on room air. No other physical complaints at this time. Time Seen by Provider: 10/27/17 20:07 Chief Complaint (Nursing): Shortness Of Breath History Per: Patient History/Exam Limitations: no limitations Onset/Duration Of Symptoms: Gradual Current Symptoms Are (Timing): Still Present Severity: Moderate Pain Scale Rating Of: 5 Associated Symptoms: Other (denies palpitations). denies: Chest Pain Reports Recently: Seen In ED (discharged on 10/15/17) Recent travel outside of the [place]: No Additional History Per: Patient Past Medical History Reviewed: Historical Data, Nursing Documentation, Vital Signs Vital Signs: Last Vital Signs Temp Pulse 86 10/27/17 19:22 Resp 17 10/27/17 19:30 BP 104/57 L 10/27/17 19:22 Pulse Ox 92 L 10/27/17 21:08 - Medical History PMH: Alzheimer's Disease, Anemia, Arthritis, Benign Prostatic Hyperplasia, Dementia, Diabetes, HTN, Hypercholesterolemia, Peripheral Edema, Chronic Kidney Disease (PER MD'S NOTES(BASELINE CREAT.2.0'S)) Denies: HIV Surgical History: Endoscopy, Hernia Repair Other Surgeries: DRAINAGE OF RIGHT LUNG, PERCUTANEOUS APPROACH, DIAGNOSTIC (). DRAINAGE OF RIGHT PLEURAL CAVITY, PERC APPROACH, DIAGN (10/15/17) - [facility] Procedures CYSTOSCOPY NEC (02/08/15) DRAINAGE OF RIGHT LUNG, PERCUTANEOUS APPROACH, DIAGNOSTIC (10/15/17) DRAINAGE OF RIGHT PLEURAL CAVITY, PERC APPROACH, DIAGN (10/15/17) ING HERNIA REP-GRAFT NOS (06/16/14) INSERT INDWELLING CATH (02/05/15) TRANSURETHRAL PROSTATECTOMY ([place]) (03/30/15) Family History: States: Unknown Family Hx - Social History Hx Tobacco Use: No Hx Alcohol Use: No Hx Substance Use: No - Immunization History Hx Tetanus Toxoid Vaccination: Yes Hx Influenza Vaccination: Yes Hx Pneumococcal Vaccination: Yes Review Of Systems Cardiovascular: Negative for: Chest Pain, Palpitations Respiratory: Positive for: Shortness of Breath (progressive) Physical Exam - Physical Exam Appears: Well, Non-toxic Skin: Warm, Dry Head: Normacephalic Oral Mucosa: Dry Chest: Symmetrical Cardiovascular: Rhythm Regular, No Murmur Respiratory: Decreased Breath Sounds (right lung), No Accessory Muscle Use, No Rales, Rhonchi (bilateral), No Wheezing, Other (speaking in full sentences) Gastrointestinal/Abdominal: Soft, No Tenderness, Distention, No Guarding, No Rebound, Other (tympanic to percussion) Neurological/Psych: Oriented x3, Other (no focal deficits) ED Course And Treatment ECG: Interpreted By Me, Viewed By Me O2 Sat by Pulse Oximetry: 92 (room air) Pulse Ox Interpretation: Normal - Radiology CXR: Interpreted by Me, Viewed By Me CXR Interpretation: Yes: Cardiomegaly, Other (large right pleural effusion , worse since ). No: Fracture Progress Note: Plan: EKG, CXR, UA, and blood work ordered. Disposition Discussed With DrLow: Fausto Tilley Comment: accepted the pt on his service and took over the care at 9:21 PM Doctor Will See Patient In The: ED Counseled Patient/Family Regarding: Studies Performed, Diagnosis - Disposition Disposition: HOSPITALIZED Disposition Time: 20:20 Condition: FAIR Forms: [facility] (Georgian) - POA Present On Arrival: Poor Glycemic Control - Clinical Impression Clinical Impression: Pleural effusion, Dyspnea - Scribe Statement The provider has reviewed the documentation as recorded by the Scribe Zo Villanueva All medical record entries made by the Scribe were at my direction and personally dictated by me. I have reviewed the chart and agree that the record accurately reflects my personal performance of the history, physical exam, medical decision making, and the department course for this patient. I have also personally directed, reviewed, and agree with the discharge instructions and disposition.
[2017-10-27 22:12] LABS: VENOUS BLOOD GAS PCO2 48 mmHg (40-60); VENOUS BLOOD GAS PO2 128 mm/Hg (30-55); VENOUS BLOOD PH 7.17 (7.32-7.43)
[2017-10-27 22:26] LABS: BASO % 0.2 % (0.0-2.0); HEMOGLOBIN 11.6 g/dL (12.0-18.0); LYMPH # 0.8 K/uL (1.0-4.3); LYMPH % 4.7 % (20.0-40.0); MEAN CELL VOLUME 83.6 fL (80.0-94.0); MEAN CORPUSCULAR HEMOGLOBIN 27.9 pg (27.0-31.0); MEAN CORPUSCULAR HGB CONC 33.4 g/dL (33.0-37.0); MEAN PLATELET VOLUME 7.1 fL (7.2-11.7); MONO # 1.8 K/uL (0.0-0.8); MONO % 10.4 % (0.0-10.0); NEUT # 14.6 K/uL (1.8-7.0); NEUT % 84.7 % (50.0-75.0); PLATELET COUNT 535 K/uL (130-400); RBC 4.17 Mil/uL (4.40-5.90); RED CELL DISTRIBUTION WIDTH 14.6 % (11.5-14.5); WHITE BLOOD COUNT 17.2 K/uL (4.8-10.8)
[2017-10-27 22:32] LABS: INR 1.4; PROTHROMBIN TIME 15.9 SECONDS (9.7-12.2)
[2017-10-27 22:40] LABS: ALBUMIN 3.3 g/dL (3.5-5.0); CALCIUM 10.2 mg/dl (8.6-10.4); MAGNESIUM 2.1 mg/dL (1.6-2.3)
[2017-10-27] MEDS ORDERED: Piperacillin/Tazobact 3.375 gm 100 ML IVPB STA (22:47)
[2017-10-27] MEDS ORDERED: Piperacill/Tazo 3.375gm in Dex 3.375 GM/50 ML BAG IVPB ONE (23:00)
--- NOTE | 2017-10-27 23:32 | CP.PCM.HP ---
<Salty León - Last Filed: 10/28/17 02:47> History of Present Illness - History of Present Illness History of Present Illness: PGY-1 H&P for Dr. Tilley CC: Dyspnea This is an 87 year old male with PMHx of HTN, DM, HLD, Alzheimer's Dementia, CKD (baseline creatine 2.0s), BPH, and urinary incontinence (wears diapers) presents to the ED for worsening dyspnea. This was first noticed by the daughter yesterday. Patient has known history of multiple lung and abdominal masses discovered on previous admission. Patient underwent a CT guided core bx of right lower lobe lung mass on 10/24/[address] Lin. We are awaiting the results. When questioned, patient states that he feels well at the moment on his non- rebreather mask. He denies shortness of breath despite witnessed labored breathing minutes earlier. Patient is a poor historian at baseline secondary to dementia. Further ROS unable to be ascertained. 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 Vinson Home meds: Per [facility] Code status: DNR/DNI Health Care Proxy: Eden (daughter) [phone] Present on Admission - Present on Admission Any Indicators Present on Admission: No Review of Systems - Review of Systems Systems not reviewed;Unavailable: Dementia Past Patient History - Infectious Disease Hx of Infectious Diseases: None - Past Medical History & Family History Past Medical History?: Yes - Past Social History Smoking Status: Former Smoker - CARDIAC Hx Hypercholesterolemia: Yes Hx Hypertension: Yes Hx Peripheral Edema: Yes - PULMONARY Hx Respiratory Disorders: Yes Other/Comment: HX: LUNG MASS(RIGHT) - NEUROLOGICAL Hx Alzheimer's Disease: Yes Hx Dementia: Yes - HEENT Hx HEENT Problems: Yes Hx Cataracts: Yes (bilateral) - RENAL Hx Chronic Kidney Disease: Yes (PER MD'S NOTES(BASELINE CREAT.2.0'S)) - ENDOCRINE/METABOLIC Hx Endocrine Disorders: Yes Hx Diabetes Mellitus Type 2: Yes - HEMATOLOGICAL/ONCOLOGICAL Hx Anemia: Yes Hx Human Immunodeficiency Virus (HIV): No - INTEGUMENTARY Hx Dermatological Problems: No - MUSCULOSKELETAL/RHEUMATOLOGICAL Hx Arthritis: Yes - GASTROINTESTINAL Hx Gastrointestinal Disorders: No - GENITOURINARY/GYNECOLOGICAL Hx Genitourinary Disorders: Yes Hx Incontinence: Yes ((PT. WEARS A DIAPER)) Hx Prostate Problems: Yes (TURP 1996) - PSYCHIATRIC Hx Substance Use: No - SURGICAL HISTORY Hx Surgeries: Yes Hx Amputation: Yes (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- work related) Hx Arthroscopy: Yes (left knee) Hx Cataract Extraction: Yes (bilat) Hx Herniorrhaphy: Yes (LEFT INGUINAL HERNIA REPAIR 06/2014) Other/Comment: HX:LEFT HAND 3 DIGIT AMPUTATION( ACCIDENT ). HX: CYSTOSCOPY INTERNAL OPTICAL URETROTOMY 11/02/16. HX: RIGHT LUNG BIOPSY AND THORACENTISIS 10/15/17 - ANESTHESIA Hx Anesthesia: Yes Hx Anesthesia Reactions: No Hx Malignant Hyperthermia: No Meds Allergies/Adverse Reactions: Allergies Allergy/AdvReac Type Severity Reaction Status Date / Time No Known Allergies Allergy Verified 10/15/17 14:30 Physical Exam - Constitutional Appears: No Acute Distress - Head Exam Head Exam: ATRAUMATIC, NORMOCEPHALIC - Eye Exam Eye Exam: EOMI, Normal appearance - ENT Exam ENT Exam: Mucous Membranes Moist - Respiratory Exam Respiratory Exam: Decreased Breath Sounds Additional comments: Coarse breath sounds. At times, it was noticed that patient's breathing was labored as we were conversing with daughter at bedside. - Cardiovascular Exam Cardiovascular Exam: REGULAR RHYTHM, +S1, +S2 - GI/Abdominal Exam GI & Abdominal Exam: Distended, Normal Bowel Sounds, Soft, Tenderness (left lower quadrant, (per daughter, this is the same area as last time)). absent: Guarding, Rigid - Extremities Exam Extremities exam: Positive for: pedal pulses present. Negative for: tenderness - Neurological Exam Neurological exam: Alert - Skin Skin Exam: Dry, Warm Results - Vital Signs Recent Vital Signs: Last Vital Signs Temp Pulse 85 10/27/17 19:30 Resp 14 10/27/17 19:30 BP 110/60 10/27/17 19:30 Pulse Ox 92 L 10/27/17 21:22 - Labs Result Diagrams: 10/27/17 22:08 10/27/17 22:08 Labs: Laboratory Results - last 24 hr 10/27/17 10/27/17 10/27/17 19:46 22:05 22:08 WBC 17.2 H D RBC 4.17 L Hgb 11.6 L Hct 34.9 L MCV 83.6 MCH 27.9 MCHC 33.4 RDW 14.6 H Plt Count 535 H MPV 7.1 L Neut % (Auto) 84.7 H Lymph % (Auto) 4.7 L Nobles % (Auto) 10.4 H Eos % (Auto) 0.0 Baso % (Auto) 0.2 Neut # 14.6 H Lymph # 0.8 L Nobles # 1.8 H Eos # 0.0 Baso # 0.0 PT INR APTT pO2 128 H VBG pH 7.17 L* VBG pCO2 48 VBG HCO3 16.4 VBG Total CO2 19.0 L VBG O2 Sat (Calc) 98.6 H VBG Base Excess -11.0 L Sodium 169.0 H* Chloride 117.0 H Glucose 124 H Lactate 3.4 H Crit Value Called To Dr. tilley Crit Value Called By Lori roach Crit Value Read Back Y Blood Gas Notified Time 2212 Potassium Carbon Dioxide Anion Gap BUN Creatinine Est GFR ( Amer) Est GFR (Non-Af Amer) POC Glucose (mg/dL) 201 H Random Glucose Calcium Magnesium Total Bilirubin AST ALT Alkaline Phosphatase NT-Pro-B Natriuret Pep Total Protein Albumin Globulin Albumin/Globulin Ratio 10/27/17 10/27/17 22:08 22:08 WBC RBC Hgb Hct MCV MCH MCHC RDW Plt Count MPV Neut % (Auto) Lymph % (Auto) Nobles % (Auto) Eos % (Auto) Baso % (Auto) Neut # Lymph # Nobles # Eos # Baso # PT 15.9 H INR 1.4 APTT 27 pO2 VBG pH VBG pCO2 VBG HCO3 VBG Total CO2 VBG O2 Sat (Calc) VBG Base Excess Sodium 129 L Chloride 94 L Glucose Lactate Crit Value Called To Crit Value Called By Crit Value Read Back Blood Gas Notified Time Potassium 5.7 H Carbon Dioxide 26 Anion Gap 16 BUN 68 H Creatinine 2.3 H Est GFR ( Amer) 33 Est GFR (Non-Af Amer) 27 POC Glucose (mg/dL) Random Glucose 160 H Calcium 10.2 Magnesium 2.1 Total Bilirubin 0.4 AST 38 ALT 44 Alkaline Phosphatase 77 NT-Pro-B Natriuret Pep 1910 H Total Protein 6.7 Albumin 3.3 L Globulin 3.4 Albumin/Globulin Ratio 1.0 Assessment & Plan - Assessment and Plan (Free Text) Plan: Dyspnea with Recurrence of Pleural Effusion 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 Treva León PGY-1 <Fausto Tilley P - Last Filed: 10/28/17 06:50> Results - Vital Signs Recent Vital Signs: Last Vital Signs Temp 98 F 10/27/17 23:00 Pulse 79 10/28/17 01:00 Resp 20 10/28/17 01:00 BP 100/70 10/27/17 23:00 Pulse Ox 95 10/28/17 01:00 - Labs Result Diagrams: 10/27/17 22:08 10/27/17 22:08 Labs: Laboratory Results - last 24 hr 10/27/17 10/27/17 10/27/17 19:46 22:05 22:08 WBC 17.2 H D RBC 4.17 L Hgb 11.6 L Hct 34.9 L MCV 83.6 MCH 27.9 MCHC 33.4 RDW 14.6 H Plt Count 535 H MPV 7.1 L Neut % (Auto) 84.7 H Lymph % (Auto) 4.7 L Nobles % (Auto) 10.4 H Eos % (Auto) 0.0 Baso % (Auto) 0.2 Neut # 14.6 H Lymph # 0.8 L Nobles # 1.8 H Eos # 0.0 Baso # 0.0 Neutrophils % (Manual) 84 H Lymphocytes % (Manual) 6 L Monocytes % (Manual) 10 Platelet Estimate Slightly increased H PT INR APTT Puncture Site pO2 128 H Gregor Test VBG pH 7.17 L* VBG pCO2 48 VBG HCO3 16.4 VBG Total CO2 19.0 L VBG O2 Sat (Calc) 98.6 H VBG Base Excess -11.0 L Sodium 169.0 H* Chloride 117.0 H Glucose 124 H Lactate 3.4 H Crit Value Called To Dr. tilley Crit Value Called By Lori roach Crit Value Read Back Y Blood Gas Notified Time 2212 Potassium Carbon Dioxide Anion Gap BUN Creatinine Est GFR ( Amer) Est GFR (Non-Af Amer) POC Glucose (mg/dL) 201 H Random Glucose Calcium Magnesium Total Bilirubin AST ALT Alkaline Phosphatase NT-Pro-B Natriuret Pep Total Protein Albumin Globulin Albumin/Globulin Ratio 10/27/17 10/27/17 10/28/17 22:08 22:08 00:49 WBC RBC Hgb Hct MCV MCH MCHC RDW Plt Count MPV Neut % (Auto) Lymph % (Auto) Nobles % (Auto) Eos % (Auto) Baso % (Auto) Neut # Lymph # Nobles # Eos # Baso # Neutrophils % (Manual) Lymphocytes % (Manual) Monocytes % (Manual) Platelet Estimate PT 15.9 H INR 1.4 APTT 27 Puncture Site Na pO2 41 Gregor Test Na VBG pH 7.36 VBG pCO2 45 VBG HCO3 24.0 VBG Total CO2 VBG O2 Sat (Calc) 80.0 H VBG Base Excess -0.4 L Sodium 129 L Chloride 94 L Glucose Lactate Crit Value Called To Dr tilley Crit Value Called By Mikaela wang rt Crit Value Read Back Y Blood Gas Notified Time 54 Potassium 5.7 H Carbon Dioxide 26 Anion Gap 16 BUN 68 H Creatinine 2.3 H Est GFR ( Amer) 33 Est GFR (Non-Af Amer) 27 POC Glucose (mg/dL) Random Glucose 160 H Calcium 10.2 Magnesium 2.1 Total Bilirubin 0.4 AST 38 ALT 44 Alkaline Phosphatase 77 NT-Pro-B Natriuret Pep 1910 H Total Protein 6.7 Albumin 3.3 L Globulin 3.4 Albumin/Globulin Ratio 1.0 10/28/17 02:49 WBC RBC Hgb Hct MCV MCH MCHC RDW Plt Count MPV Neut % (Auto) Lymph % (Auto) Nobles % (Auto) Eos % (Auto) Baso % (Auto) Neut # Lymph # Nobles # Eos # Baso # Neutrophils % (Manual) Lymphocytes % (Manual) Monocytes % (Manual) Platelet Estimate PT INR APTT Puncture Site pO2 Gregor Test VBG pH VBG pCO2 VBG HCO3 VBG Total CO2 VBG O2 Sat (Calc) VBG Base Excess Sodium Chloride Glucose Lactate Crit Value Called To Crit Value Called By Crit Value Read Back Blood Gas Notified Time Potassium Carbon Dioxide Anion Gap BUN Creatinine Est GFR ( Amer) Est GFR (Non-Af Amer) POC Glucose (mg/dL) 147 H Random Glucose Calcium Magnesium Total Bilirubin AST ALT Alkaline Phosphatase NT-Pro-B Natriuret Pep Total Protein Albumin Globulin Albumin/Globulin Ratio Attending/Attestation - Attestation I have personally seen and examined this patient.: Yes I have fully participated in the care of the patient.: Yes I have reviewed all pertinent clinical information: Yes Notes (Text): Assessment * Symptomatic recurrent malignant effusion * KIMBERLEE from poor intake, hypekalemia and metabolic acidosis * Pending biopsy reports * DNR/DNI, but family cannot decide about comfort care, request drainage of pl effusion meanwhile * DM * Dementia without behavioral changes * Lower abd pain bladder scan ordered, jarrett CT as well * D/w daughter/grandaughter who is nurse about poor prognosis, and recommended comfort care, due to rapid progress and organ system affection. Plan * Bicarb control K, and metabolic acidosis * Bipap * Bladder scan * Jarrett CT * IR, pulm, hem-onc, palliative care consult * GI/DVT prophylaxis
[2017-10-27 23:37] LABS: LYMPHOCYTE 6 % (20-40); MONOCYTE 10 % (0-10); NEUTROPHIL 84 % (50-75); PLATELET ESTIMATE SLIGHTLY INCREASED (NORMAL); TOTAL CELLS COUNTED 100
[2017-10-28 00:54] LABS: VENOUS BLOOD GAS BASE EXCESS -0.4 mmol/L (0.0-2.0); VENOUS BLOOD GAS PCO2 45 mmHg (40-60); VENOUS BLOOD GAS PO2 41 mm/Hg (30-55); VENOUS BLOOD PH 7.36 (7.32-7.43)
[2017-10-28] MEDS: Sodium Bicarbonate 8.4% 150 MEQ in Dextrose 5% In Water 1,000 ML IV SCH ×2 (03:23→16:05)
--- NOTE | 2017-10-28 06:41 | RAD ---
Chest x-ray single frontal view History: Shortness of breath. Comparison: 10/15/2017 Findings: New complete opacification of the right marcos thorax consistent with large pleural effusion. Cardiomegaly. Impression: New complete opacification of the right marcos thorax consistent with large pleural effusion. Cardiomegaly.
--- NOTE | 2017-10-28 08:34 | PCM.SEPTIC ---
Sepsis Progress Note - Reassessment Type Date of Evaluation: 10/27/17 Time of Evaluation: 10:50 Reassessment Type: Non-invasive reassessment - Non Invasive Reassessment Were the most recent vital sign reviewed: Yes Vital Sign (Latest): Temp Pulse Resp BP Pulse Ox 98 F 79 20 100/70 95 10/27/17 23:00 10/28/17 01:00 10/28/17 01:00 10/27/17 23:00 10/28/17 01:00 Cardiovascular: Yes: Regular Rate, Rhythm Respiratory: Yes: Decreased Breath Sounds, Other (Coarse breath sounds) Capillary Refill: Normal (Less than 2 sec) Skin: Dry - Invasive Reassessment (complete 2 of 4) Was a Central Venous Pressure Measurement obtained within 6 Hours after the presentation of septic shock: No Was a central venous oxygen measurement obtained within 6 hours after the presentation of septic shock: No Was a bedside cardiovascular ultrasound performed within 6 hours after the presentation of septic shock: No Was a passive leg raise performed or was a fluid challenge performed within 6 hrs of the initial fluid bolus: No Passive Leg Raise Result: Not Applicable Fluid Challenge performed: No
[2017-10-28] MEDS: (Novolin R) Insulin Human Regular 100 units/ml vial SC SCH ×4 (08:36→22:12)
[2017-10-28] MEDS: Piperacill/Tazo 2.25gm in Dex 2.25 GM/50 ML BAG IVPB SCH ×3 (08:42→18:37)
[2017-10-28] MEDS ORDERED: Glucagon Recombinant 1 mg Inj IM PRN (09:27)
[2017-10-28] MEDS ORDERED: Dextrose 50% SYRINGE Inj (50 ml) IV PRN (09:27)
--- NOTE | 2017-10-28 09:50 | CP.PCM.PN ---
Subjective - Date & Time of Evaluation Date of Evaluation: 10/28/17 Time of Evaluation: 09:30 - Subjective Subjective: Hospitalist Progress Note Patient was seen and examined at 9:30 AM 663 B 10/28/17. 87 year old male (Right Lung Masses, CKD Stage 3B, HTN, DM 2, HLD, Dementia, BPH /Incontinence, Chronic Anemia, Hyponatremia) who was brought into [facility] ER on evening of 10/27/17 for worsening dyspnea. He was admitted to this institution from 10/15/17 through 10/21/17. He has a history of multiple Right Lung Masses. He underwent CT Guided FNA Biopsy of the Right Lung 10/16/17 and 600 ml of Pleural Fluid was also drained at that time. FNA Biopsy results showed necrotic nondiagnostic material. He underwent another CT Guided FNA Biopsy of the Right Lung by IR Dr. Nahum Lin on 10/24/17 and pathology report is still pending at this time. Please see individual Assessment and Plans below for further details. ROS NOT possible secondary to patient dementia. Exam: General: He looks uncomfortable on 100% NON rebreather and appears to have increased work of breathing. HEENT: NCA, Pupils are constricted/equal/reactive to light, NO cervical lymphadenopathy, NO thyromegaly Cardio: NS1 and NS2, NO M/R/G Resp: Decreased breath sounds on the Right Lung. Left Lung CTA GI: BSx4, Soft, Central Obesity, Liver and Spleen could not be adequately palpated, NO guarding/rebound tenderness Ext: Pulses are strong and equal, NO edema, Capillary Refill is 2 seconds Neuro: NOT possible Assessment and Plan: 1). Right Lung Masses/Effusion S/P CT Guided FNA Biopsy Right Lung with 600 ml Pleural Fluid removed 10/16/17: nondiagnostic necrotic material S/P CT Guided FNA Biopsy Right Lung 10/24/17: pathology is still pending CT Chest w/o Contrast 10/15/17: Multiple right lung masses, multiple right-sided pleural-based masses, and probable malignant effusion. Mediastinal adenopathy. Thick walled cavitary lesion right upper lobe measuring 5.[address] Scan Abdomen/Pelvis 10/15/17: Large right pleural effusion which is incompletely visualized, compressive atelectasis right lower lobe. 5 x 6 mm solid nodule right middle lobe. Follow-up recommendations: CT scan of the entire thorax to determine the presence or absence of additional pulmonary nodules. Retrocrural soft tissue mass or masses perhaps lymphadenopathy. This appears separate from the adjacent liver, aorta, IVC which may be compressing. Contiguity with pericardium also noted. Follow-up CT scan of the thorax for assessment of pulmonary nodules should also included upper abdomen for further clarification of this finding and I would recommend a study be performed with intravenous contrast. MRI of brain with contrast 10/18/17: Diffuse cerebral atrophy and chronic microangiopathy are identified which appear age-appropriate. The lack images contrast limits the evaluation however the patient's GFR precludes administering gadolinium to this patient intravenously. No large intracranial mass is appreciable at this time. Chest X-ray 10/18/17: Right lung mass re-identified. Suspect right layering pleural effusion and/or consolidation. Chest X-ray 10/27/17: Complete Opacification of Right Lung/Large Pleural Effusion F/U CT Chest/Abdomen/Pelvis 10/27/17 The Right Pleural Fluid needs to be drained to improve patient breathing status. I spoke with [employer] Dr. Deutsch and he will perform bedside Thoracentesis: consent obtained from patient Daughter Mrs. Nair [phone] and placed in chart. Ordered BiPAP 09/06 with FiO2 60% until Thoracentesis can be performed. Patient is DNR/DNI and Mrs. Nair met with Palliative Care Nurse Gilda and POLST completed on 10/16/17. Nurse Gilda has been reconsulted. 2). Leukocytosis with Left Shift Secondary to Sepsis Secondary to possible unerlying Pneumonia ? Considering recent admission and patient being on antibiotics within past 3 months (for UTI, see below), we have to consider Health Care Associated Pneumonia that is possibly Multidrug Resistant. Therefore placed on anti-psuedomonal quinolone (Avelox 400 mg IV Q24H), anti- psuedomonal beta lactam renally dosed (Zosyn 2.24 gm IV Q6H) and Vancomycin 1 gm IV Q24H. F/U Vancomycin Trough 9:30 AM Monday10/31/17 F/U Rapid Influenza F/U Urine Legionella Ag F/U Urine Strep pneumoniae Ag F/U Mycoplasma IgG and IgM F/U Blood Culture F/U Urine Culture Elevated Lactic Acid on admission and STAT level ordered. F/U further recommendations from CLARA Fallon 3). Acute on Chronic Renal Failure (CKD Stage 3B) Base line BUN/Cr is 30-40/2-2.5 Currently BUN/Cr is 68/2.[address] Martínez has been consulted for further recommendation if any at this point 4). Hyponatremia On discharge 10/21/17 Na was 126 Currently stable at 129 5). Hyperkalemia Secondary to CKD? On discharge on 10/21/17 K was 4.8 F/U STAT Potassium level and give Kexalate if needed 6). Elevated ProBNP Has Cardiomegaly on Chest X Ray Echo 10/15/17: LVSF is normal, Diastolic Grade I Dysfunction, Trace Percardial Effusion Could this be secondary to CKD Stage 3B? Large Right Pleural Effusion? 7). Hx UTI Treated with Bactrim for 7 days with last dose on 10/17/17 8). Hx HTN HOLD Coreg 6.25 mg PO 1x/day and HOLD Norvasc 5 mg PO 1x/day as blood pressure is low side of normal 9). Hx DM 2 HgBA1C on 10/16/17 was 7.5 RISS for now ACHS Hypoglycemic Protocol 10). Hx HLD On 10/16/17 LDL 66, Triglycerides 184, Total Cholesterol 147, and HDL 25 NO medications for now 11). Hx Dementia Aricept 10 mg PO HS 12). Hx BPH/Urinary Incontinence S/P TURP 1996 Spoke with Nurse Galarza to provide Adult Diapers 13). Prophylaxis Heparin 5,000 SC Q8H Pepcid 20 mg PO 1x/day Florastor 250 mg PO 2x/day Natan Metzger D.O. Objective - Vital Signs/Intake and Output Vital Signs (last 24 hours): Temp Pulse Resp BP Pulse Ox 97 F L 83 20 111/75 96 10/28/17 07:00 10/28/17 07:00 10/28/17 07:00 10/28/17 07:00 10/28/17 07:00 Intake and Output: 10/28/17 10/28/17 06:59 18:59 Intake Total 300 Output Total 0 Balance 300 - Medications Medications: Current Medications Dextrose (Dextrose 50% Inj) 0 ml IV STAT PRN; Protocol PRN Reason: Hypoglycemia Protocol Dextrose (Glutose 15) 0 gm PO ONCE PRN; Protocol PRN Reason: Hypoglycemia Protocol Donepezil HCl (Aricept) 10 mg PO HS HERB Glucagon (Glucagen Diagnostic Kit) 0 mg IM STAT PRN; Protocol PRN Reason: Hypoglycemia Protocol Heparin Sodium (Porcine) (Heparin) 5,000 units SC Q8 [facility] Last Admin: 10/28/17 05:19 Dose: 5,000 units Sodium Bicarbonate 150 meq/ (Dextrose) 1,150 mls @ 75 mls/hr IV .[id number] [facility] Last Admin: 10/28/17 03:23 Dose: 75 mls/hr Piperacillin Sod/Tazobactam Sod (Zosyn 2.25 Gm Iv Premix) 2.25 gm in 50 mls @ 100 mls/hr IVPB Q6H [facility] Last Admin: 10/28/17 08:42 Dose: 100 mls/hr Moxifloxacin HCl (Avelox Iv 400mg/250ml Ns) 400 mg in 250 mls @ 167 mls/hr IVPB DAILY [facility] Vancomycin HCl 1 gm/ Sodium (Chloride) 200 mls @ 133.333 mls/hr IVPB Q24H [facility] Dextrose (Dextrose 5% In Water 1000 Ml) 1,000 mls @ 0 mls/hr IV .Q0M PRN; Protocol; Per Protocol PRN Reason: Hypoglycemia Protocol Insulin Human Regular (Novolin R) 0 unit SC ACHS [facility] PRN Reason: Protocol Last Admin: 10/28/17 08:36 Dose: 2 unit Pneumococcal Polyvalent Vaccine (Pneumovax 23 Vaccine) 0.5 ml IM .ONCE ONE Stop: 10/31/17 08:01 Saccharomyces Boulardii (Florastor) 250 mg PO BID HERB - Labs Labs: 10/27/17 22:08 10/27/17 22:08 PT 15.9 SECONDS (9.7-12.2) H 10/27/17 22:08 INR 1.4 10/27/17 22:08 APTT 27 SECONDS (21-34) 10/27/17 22:08
[2017-10-28] MEDS: Saccharomyces Boulardi 250 mg Cap PO SCH ×3 (11:10→18:27)
[2017-10-28 12:44] LABS: ALBUMIN 3.2 g/dL (3.5-5.0)
[2017-10-28] MEDS: Moxifloxacin IV 400mg/250ml NS 400 MG/250 ML BAG IVPB SCH (13:03)
--- NOTE | 2017-10-28 15:11 | CP.PCM.CON ---
History of Present Illness - History of Present Illness History of Present Illness: Reason for consultation: large right pleural effusion 87-year-old male who was recently admitted for right pleural effusion and lung mass status post thoracentesis and lung biopsy. Patient presented with worsening shortness of breath and large right-sided pleural effusion. Patient placed on BiPAP.. 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 Vinson Home meds: Per [facility] Review of Systems - Review of Systems All systems: reviewed and no additional remarkable complaints except (shortness of breath) Past Patient History - Infectious Disease Hx of Infectious Diseases: None - Past Medical History & Family History Past Medical History?: Yes - Past Social History Smoking Status: Former Smoker - CARDIAC Hx Hypercholesterolemia: Yes Hx Hypertension: Yes Hx Peripheral Edema: Yes - PULMONARY Hx Respiratory Disorders: Yes Other/Comment: HX: LUNG MASS(RIGHT) - NEUROLOGICAL Hx Alzheimer's Disease: Yes Hx Dementia: Yes - HEENT Hx HEENT Problems: Yes Hx Cataracts: Yes (bilateral) - RENAL Hx Chronic Kidney Disease: Yes (PER MD'S NOTES(BASELINE CREAT.2.0'S)) - ENDOCRINE/METABOLIC Hx Endocrine Disorders: Yes Hx Diabetes Mellitus Type 2: Yes - HEMATOLOGICAL/ONCOLOGICAL Hx Anemia: Yes Hx Human Immunodeficiency Virus (HIV): No - INTEGUMENTARY Hx Dermatological Problems: No - MUSCULOSKELETAL/RHEUMATOLOGICAL Hx Arthritis: Yes - GASTROINTESTINAL Hx Gastrointestinal Disorders: No - GENITOURINARY/GYNECOLOGICAL Hx Genitourinary Disorders: Yes Hx Incontinence: Yes ((PT. WEARS A DIAPER)) Hx Prostate Problems: Yes (TURP 1996) - PSYCHIATRIC Hx Substance Use: No - SURGICAL HISTORY Hx Surgeries: Yes Hx Amputation: Yes (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- work related) Hx Arthroscopy: Yes (left knee) Hx Cataract Extraction: Yes (bilat) Hx Herniorrhaphy: Yes (LEFT INGUINAL HERNIA REPAIR 06/2014) Other/Comment: HX:LEFT HAND 3 DIGIT AMPUTATION( ACCIDENT ). HX: CYSTOSCOPY INTERNAL OPTICAL URETROTOMY 11/02/16. HX: RIGHT LUNG BIOPSY AND THORACENTISIS 10/15/17 - ANESTHESIA Hx Anesthesia: Yes Hx Anesthesia Reactions: No Hx Malignant Hyperthermia: No Meds Allergies/Adverse Reactions: Allergies Allergy/AdvReac Type Severity Reaction Status Date / Time No Known Allergies Allergy Verified 10/15/17 14:30 - Medications Medications: Current Medications Acetaminophen (Tylenol 325mg Tab) 650 mg PO Q6 [facility] Stop: 10/29/17 18:00 Dextrose (Dextrose 50% Inj) 0 ml IV STAT PRN; Protocol PRN Reason: Hypoglycemia Protocol Dextrose (Glutose 15) 0 gm PO ONCE PRN; Protocol PRN Reason: Hypoglycemia Protocol Donepezil HCl (Aricept) 10 mg PO HS [facility] Famotidine (Pepcid) 20 mg PO DAILY [facility] Last Admin: 10/28/17 12:40 Dose: 20 mg Glucagon (Glucagen Diagnostic Kit) 0 mg IM STAT PRN; Protocol PRN Reason: Hypoglycemia Protocol Heparin Sodium (Porcine) (Heparin) 5,000 units SC Q8 [facility] Last Admin: 10/28/17 13:42 Dose: 5,000 units Sodium Bicarbonate 150 meq/ (Dextrose) 1,150 mls @ 75 mls/hr IV .[id number] [facility] Last Admin: 10/28/17 03:23 Dose: 75 mls/hr Piperacillin Sod/Tazobactam Sod (Zosyn 2.25 Gm Iv Premix) 2.25 gm in 50 mls @ 100 mls/hr IVPB Q6H [facility] Last Admin: 10/28/17 15:00 Dose: 100 mls/hr Moxifloxacin HCl (Avelox Iv 400mg/250ml Ns) 400 mg in 250 mls @ 167 mls/hr IVPB DAILY [facility] Last Admin: 10/28/17 13:03 Dose: 167 mls/hr Vancomycin HCl 1 gm/ Sodium (Chloride) 200 mls @ 133.333 mls/hr IVPB Q24H [facility] Dextrose (Dextrose 5% In Water 1000 Ml) 1,000 mls @ 0 mls/hr IV .Q0M PRN; Protocol; Per Protocol PRN Reason: Hypoglycemia Protocol Insulin Human Regular (Novolin R) 0 unit SC ACHS [facility] PRN Reason: Protocol Last Admin: 10/28/17 12:40 Dose: 2 unit Pneumococcal Polyvalent Vaccine (Pneumovax 23 Vaccine) 0.5 ml IM .ONCE ONE Stop: 10/31/17 08:01 Saccharomyces Boulardii (Florastor) 250 mg PO BID [facility] Last Admin: 10/28/17 11:10 Dose: 250 mg Results - Vital Signs Recent Vital Signs: Last Vital Signs Temp 97 F L 10/28/17 07:00 Pulse 90 10/28/17 14:34 Resp 20 10/28/17 07:00 BP 111/75 10/28/17 07:00 Pulse Ox 96 10/28/17 07:00 - Labs Result Diagrams: 10/27/17 22:08 10/28/17 11:42 Labs: Laboratory Results - last 24 hr 10/27/17 10/27/17 10/27/17 19:46 22:05 22:08 WBC 17.2 H D RBC 4.17 L Hgb 11.6 L Hct 34.9 L MCV 83.6 MCH 27.9 MCHC 33.4 RDW 14.6 H Plt Count 535 H MPV 7.1 L Neut % (Auto) 84.7 H Lymph % (Auto) 4.7 L [place] % (Auto) 10.4 H Eos % (Auto) 0.0 Baso % (Auto) 0.2 Neut # 14.6 H Lymph # 0.8 L [place] # 1.8 H Eos # 0.0 Baso # 0.0 Neutrophils % (Manual) 84 H Lymphocytes % (Manual) 6 L Monocytes % (Manual) 10 Platelet Estimate Slightly increased H PT INR APTT Puncture Site pO2 128 H Gregor Test VBG pH 7.17 L* VBG pCO2 48 VBG HCO3 16.4 VBG Total CO2 19.0 L VBG O2 Sat (Calc) 98.6 H VBG Base Excess -11.0 L Sodium 169.0 H* Chloride 117.0 H Glucose 124 H Lactate 3.4 H Crit Value Called To Dr. hartman Crit Value Called By Lori roach Crit Value Read Back Y Blood Gas Notified Time 221 Potassium Carbon Dioxide Anion Gap BUN Creatinine Est GFR ( Amer) Est GFR (Non-Af Amer) POC Glucose (mg/dL) 201 H Random Glucose Lactic Acid Calcium Magnesium Total Bilirubin AST ALT Alkaline Phosphatase NT-Pro-B Natriuret Pep Total Protein Albumin Globulin Albumin/Globulin Ratio Influenza Typ A,B (EIA) 10/27/17 10/27/17 10/28/17 22:08 22:08 00:49 WBC RBC Hgb Hct MCV MCH MCHC RDW Plt Count MPV Neut % (Auto) Lymph % (Auto) [place] % (Auto) Eos % (Auto) Baso % (Auto) Neut # Lymph # [place] # Eos # Baso # Neutrophils % (Manual) Lymphocytes % (Manual) Monocytes % (Manual) Platelet Estimate PT 15.9 H INR 1.4 APTT 27 Puncture Site Na pO2 41 Gregor Test Na VBG pH 7.36 VBG pCO2 45 VBG HCO3 24.0 VBG Total CO2 VBG O2 Sat (Calc) 80.0 H VBG Base Excess -0.4 L Sodium 129 L Chloride 94 L Glucose Lactate Crit Value Called To Dr hartman Crit Value Called By Mikaela wang rt Crit Value Read Back Y Blood Gas Notified Time 54 Potassium 5.7 H Carbon Dioxide 26 Anion Gap 16 BUN 68 H Creatinine 2.3 H Est GFR ( Amer) 33 Est GFR (Non-Af Amer) 27 POC Glucose (mg/dL) Random Glucose 160 H Lactic Acid Calcium 10.2 Magnesium 2.1 Total Bilirubin 0.4 AST 38 ALT 44 Alkaline Phosphatase 77 NT-Pro-B Natriuret Pep 1910 H Total Protein 6.7 Albumin 3.3 L Globulin 3.4 Albumin/Globulin Ratio 1.0 Influenza Typ A,B (EIA) 10/28/17 10/28/17 10/28/17 02:49 06:46 09:12 WBC RBC Hgb Hct MCV MCH MCHC RDW Plt Count MPV Neut % (Auto) Lymph % (Auto) [place] % (Auto) Eos % (Auto) Baso % (Auto) Neut # Lymph # [place] # Eos # Baso # Neutrophils % (Manual) Lymphocytes % (Manual) Monocytes % (Manual) Platelet Estimate PT INR APTT Puncture Site pO2 Gregor Test VBG pH VBG pCO2 VBG HCO3 VBG Total CO2 VBG O2 Sat (Calc) VBG Base Excess Sodium Chloride Glucose Lactate Crit Value Called To Crit Value Called By Crit Value Read Back Blood Gas Notified Time Potassium Carbon Dioxide Anion Gap BUN Creatinine Est GFR ( Amer) Est GFR (Non-Af Amer) POC Glucose (mg/dL) 147 H 178 H Random Glucose Lactic Acid Calcium Magnesium Total Bilirubin AST ALT Alkaline Phosphatase NT-Pro-B Natriuret Pep Total Protein Albumin Globulin Albumin/Globulin Ratio Influenza Typ A,B (EIA) Negative for flu a/b 10/28/17 10/28/17 10/28/17 11:42 11:42 11:43 WBC RBC Hgb Hct MCV MCH MCHC RDW Plt Count MPV Neut % (Auto) Lymph % (Auto) [place] % (Auto) Eos % (Auto) Baso % (Auto) Neut # Lymph # [place] # Eos # Baso # Neutrophils % (Manual) Lymphocytes % (Manual) Monocytes % (Manual) Platelet Estimate PT INR APTT Puncture Site pO2 Gregor Test VBG pH VBG pCO2 VBG HCO3 VBG Total CO2 VBG O2 Sat (Calc) VBG Base Excess Sodium 126 L Chloride 92 L Glucose Lactate Crit Value Called To Crit Value Called By Crit Value Read Back Blood Gas Notified Time Potassium 5.0 Carbon Dioxide 28 Anion Gap 11 BUN 67 H Creatinine 2.2 H Est GFR ( Amer) 34 Est GFR (Non-Af Amer) 28 POC Glucose (mg/dL) 179 H Random Glucose 193 H Lactic Acid 2.3 H Calcium 10.0 Magnesium Total Bilirubin 0.7 AST 40 ALT 36 Alkaline Phosphatase 72 NT-Pro-B Natriuret Pep Total Protein 6.3 Albumin 3.2 L Globulin 3.1 Albumin/Globulin Ratio 1.0 Influenza Typ A,B (EIA) Assessment & Plan (1) Pleural effusion Status: Acute Comment: recurrent pleural effusion. status postpigtail catheter insertion
--- NOTE | 2017-10-28 15:13 | PCM.PROC ---
Procedures Attestation:: I certify that I have explained the specified Operation(s) or Procedure(s), risks, benefits and reasonable alternatives to the Patient and/or other person responsible. The opportunity was given to ask questions and all questions answered - Chest Tube Chest Tube Location: Mid-Axillary Right Size of Tube (cm): 12 Chest Tube Procedure: Chlorhexidine Tube Sutured to Skin: Yes Sterile Dressing Applied: Yes Anesthesia: Lidocaine 2% Volume Anesthetic (mls): 5 Incision Made With: #10 blade Post Procedure: sutured to skin Tube Drainage: fluid Amount of Initial Drainage: 1,000 Post Procedure CXR?: Yes Patient Tolerated Procedure: Yes
[2017-10-28] MEDS ORDERED: Sodium Chloride 0.9% 1,000 ML IV ONE (15:32)
[2017-10-28] MEDS: Vancomycin 1 GM in Sodium Chloride 0.9% 200 ML IVPB SCH (15:58)
--- NOTE | 2017-10-28 16:51 | RAD ---
Chest x-ray single frontal view History: Chest tube placement. Comparison: 10/27/2017 Findings: Right pleural drain in place. Decreased now moderate right sided pleural effusion with possible new small hydro pneumothorax. Right sided opacification in the mid to lower lung zone. Enlarged ectatic aorta. Cardiomegaly. Degenerative changes in the spine with paravertebral osteophytes. Impression: Right pleural drain in place. Decreased now moderate right sided pleural effusion with possible new small hydro pneumothorax. Right sided opacification in the mid to lower lung zone. Enlarged ectatic aorta. Cardiomegaly.
[2017-10-28 17:36] LABS: SQUAMOUS EPITHIAL < 1 /hpf (0-5); URINE BACTERIA RARE (<OCC); URINE BILIRUBIN NEGATIVE (NEGATIVE); URINE BLOOD NEGATIVE (NEGATIVE); URINE CLARITY Clear (Clear); URINE COLOR Yellow (YELLOW); URINE GLUCOSE (UA) NORMAL (Normal); URINE NITRATE NEGATIVE (NEGATIVE); URINE PROTEIN 1+ mg/dL (NEGATIVE); URINE UROBILINOGEN NORMAL mg/dL (0.2-1.0)
[2017-10-28 17:40] LABS: URINE LEUKOCYTE ESTERASE NEGATIVE Leu/uL (Negative)
[2017-10-28 18:01] LABS: CREATININE, RANDOM URINE 84.6 mg/dL
[2017-10-28 19:38] LABS: COMPLEMENT C4 38.1 mg/dL (14.0-44.0)
[2017-10-28 19:47] LABS: CALCIUM 8.7 mg/dl (8.6-10.4)
[2017-10-29] MEDS ORDERED: Sodium Chloride 0.9% 1,000 ML IV SCH (00:30)
[2017-10-29] MEDS ORDERED: Dextrose 5%/0.9% NS 1,000 ML IV SCH (00:30)
[2017-10-29] MEDS: Piperacill/Tazo 2.25gm in Dex 2.25 GM/50 ML BAG IVPB SCH ×4 (00:31→18:45)
--- NOTE | 2017-10-29 00:59 | CT ---
EXAM: CT Chest Without Intravenous Contrast CLINICAL HISTORY: 87 years old, male; Pain; Abdominal pain; Generalized; Chest pain; Type not specified; lung cancer TECHNIQUE: Axial computed tomography images of the chest without intravenous contrast. All CT scans at this facility use one or more dose reduction techniques, viz.: automated exposure control; ma/kV adjustment per patient size (including targeted exams where dose is matched to indication; i.e. head); or iterative reconstruction technique. Coronal and sagittal reformatted images were created and reviewed. COMPARISON: CT chest 10/15/17 FINDINGS: Lungs and pleural spaces: Trachea and main bronchi are patent. A right chest tube is in place. There is been partial evacuation of the right pleural effusion. There are multiple pleural-based masses throughout the right hemithorax. There continues to be right lower lobe consolidation. There is new airspace disease in the right middle lobe. There are centrilobular emphysematous changes in the right upper lobe, unchanged. Cavitary mass now appears solid and measures approximately 6.9 x 6.8 cm, image 78 series 601. There are emphysematous changes on the left, unchanged. There is minimal atelectasis at the left base. Heart and vasculature: Heart size is normal. There are coronary artery calcifications. Aorta and main pulmonary artery are normal in caliber. Mediastinum: There is mediastinal adenopathy. There is a 3 x 2.3 cm right paratracheal node. There are additional enlarged mediastinal nodes. Fullness of the right hilum suggesting right hilar adenopathy. Bladder contrast limits evaluation of the tereza Esophagus is unremarkable. Thyroid: Thyroid is unremarkable Bones/joints: Bony structures are osteopenic with degenerative change Soft tissues: unremarkable Upper abdomen: Refer to bowel report for abdominal findings IMPRESSION: Interval decrease in size of the right effusion with right chest tube; multiple pleural-based masses throughout the right hemithorax, too numerous to count, right lung mass and adenopathy consistent with malignancy; emphysema; new right middle lobe infiltrate Additional nonemergent findings as described above. EXAM: CT Abdomen and Pelvis Without Intravenous Contrast EXAM DATE/TIME: 10/27/2017 11:30 PM CLINICAL HISTORY: 87 years old, male; Pain; Abdominal pain; Generalized; Chest pain; Type not specified; lung cancer TECHNIQUE: Axial computed tomography images of the abdomen and pelvis without intravenous contrast. All CT scans at this facility use one or more dose reduction techniques, viz.: automated exposure control; ma/kV adjustment per patient size (including targeted exams where dose is matched to indication; i.e. head); or iterative reconstruction technique. Coronal and sagittal reformatted images were created and reviewed. COMPARISON: Prior images are not available for review. FINDINGS: Limitations: Evaluation of the abdomen is limited by lack of intravenous contrast Lower thorax: Refer to prior report for chest findings ABDOMEN: Liver: unremarkable Gallbladder and bile ducts: Gallbladder is incompletely distended. Common duct is unremarkable. Pancreas: Pancreas is mildly atrophic. Spleen: unremarkable Adrenals: Right adrenal is unremarkable. There is a fatty left adrenal nodule. Kidneys and ureters: unremarkable Stomach and bowel: Stomach is incompletely distended. Rotation is normal. There is fluid and air throughout the small bowel. There is no obstruction. Ileocecal region is unremarkable. There is moderate stool in the colon. There is scattered diverticulosis. Appendix: See stomach and bowel PELVIS: Bladder: Bladder is partially distended. There is bladder wall thickening and trabeculation. Reproductive: A Mandujano catheter is in place. Catheter balloon and tip are in the prosthetic urethra. Seminal vesicles are unremarkable. ABDOMEN and PELVIS: Intraperitoneal space:There is no free air or free fluid. Bones/joints: Bony structures are osteopenic with degenerative change. Soft tissues: There is a small fat containing umbilical hernia. There are injection sites in the abdominal wall. There are postsurgical changes in the left inguinal region. Vasculature: Aorta is tortuous. There atherosclerotic calcifications in the aortic wall. Lymph nodes: There are no pathologically enlarged nodes in the abdomen or pelvis. IMPRESSION: No acute solid visceral or bowel abnormality; no CT findings of appendicitis or diverticulitis; Mandujano catheter balloon and catheter tip in the prosthetic urethra Additional nonemergent findings as described above.
--- NOTE | 2017-10-29 01:07 | CON ---
DATE: NEPHROLOGY CONSULTATION HISTORY OF PRESENT ILLNESS: Patient is an 87-year-old male with past medical history of hypertension, diabetes, hyperlipidemia, Alzheimer's dementia, CKD stage 3, BPH/neurogenic bladder, presenting to the ED for worsening dyspnea; found to have acute kidney injury. Nephrology was therefore consulted. Patient with history of lung and abdominal masses, discovered on recent admission for dyspnea, during which patient underwent right-sided thoracentesis as well as right lung mass biopsy. History was taken mainly from family, as patient is very lethargic. Per family, patient has been very lethargic at home, not having much of a p.o. intake. Denied any vomiting or diarrhea. Patient has been taking his medications, which include Furosemide 20 mg daily as well as metformin, Janumet, Coreg. Patient is with history of multiple UTIs, last one being at the beginning of the month, for which he was prescribed Bactrim, but has not been taking Bactrim lately. Patient just a short while ago underwent right-sided chest tube placement and is still draining with 2 L already drained of bloody fluid and continues to drain more. PAST MEDICAL HISTORY: As above. Follows with urologist. Reportedly gets urinary retention when he gets UTI. Otherwise with dribbling of urine at baseline. SOCIAL HISTORY: Previous smoker, quit 20 years ago. FAMILY HISTORY: Noncontributory. REVIEW OF SYSTEMS: CONSTITUTIONAL: Poor p.o. intake lately. HEENT: History of cataract surgery. RESPIRATORY: With marked dyspnea. GASTROINTESTINAL: Per HPI. GENITOURINARY: Per HPI. NEUROLOGIC: Reported dementia. MUSCULOSKELETAL: Reported arthritis. PHYSICAL EXAMINATION: VITAL SIGNS: From this morning; blood pressure 111/75, heart rate 83, respirations 20, temperature 97.0, O2 saturation 96%. GENERAL: Lethargic, on BiPAP. HEENT: Moist mucous membranes, nonicteric. RESPIRATORY: Diminished breath sounds on right. No respiratory distress. CARDIOVASCULAR: Heart sounds S1 and S2 normal. No murmurs, no gallops, no rubs, (but faint heart sounds). GASTROINTESTINAL: Abdomen is soft, mildly distended, tender on light palpation. GENITOURINARY: Mandujano in place. EXTREMITIES: No leg edema. Faint bilateral DT pulses. SKIN: No ulcers of feet. PSYCHIATRIC: Not agitated. LABORATORY DATA: From last night; CBC; WBC 17.2, hemoglobin 11.6, hematocrit 34.9, platelets 535. Chemistry panel this morning, sodium 126, potassium 5.0, chloride 92, bicarb 28, BUN 67, creatinine 2.2, glucose 193, calcium 10.0. Albumin 3.2, lactate 2.3. VBG done last night, pH 7.36, pCO2 45. Chest x-ray done right after chest tube placed shows much improved clearing of effusion, large right-sided mass is still present. ASSESSMENT AND PLAN: 1. Acute kidney injury. Serum creatinine increased from 1.2 on previous admission up to 2.2 currently. No significant improvement after starting IV fluids, which has been running since early this morning. No obvious nephrotoxic medications identified. History is most consistent with prerenal etiology in the setting of being on diuretic and with decreased p.o. intake; however, should have expected some improvement in renal function. We will await result of abdominal and pelvic CT to look for possible obstructive cause. Continue IV fluid NS at 75 cc/hr. We will check creatine kinase. We will bolus 1 L NS to run over 4 hours and then check bmp, continue with gentle IVF thereafter. 2. Lactic acidosis, likely due to being on metformin in the setting of acute renal failure. Otherwise, patient has increased anion gap metabolic acidosis superimposed on metabolic alkalosis which was likely due to contraction alkalosis from diuretics. Should correct with IV fluids and holding metformin. 3. Hypercalcemia. Corrected calcium 10.6, relatively mild, possibly due to malignancy. We will check vitamin D 25-hydroxy, PTH, and PTHrP levels. 4. Hyponatremia. Etiology is unclear at this point, as urine study is not available. Not improved with volume repletion thus far; however, we are only giving gentle IV fluids. IV fluid bolus should help assess whether this is due to volume depletion. If sodium continues to drop, we will consider dose of tolvaptan 15 mg. 5. Hyperkalemia, improved with IV fluids. Continue to monitor. Check creatine kinase level. 6. Systemic inflammatory response syndrome/sepsis. Patient is with marked leukocytosis. Currently on Zosyn 2.25 g q. 6 hours, Avelox 400 mg daily, and vancomycin 1 g daily. Should dose these for creatinine clearance less than 10, as at this point patient has oligo-anuric renal failure. Check vancomycin level in morning before re-dosing tomorrow's dose. Thank you for this consult. We will be following up closely. Manjit Martínez MD [facility]
--- NOTE | 2017-10-29 06:44 | CP.PCM.PN ---
Subjective - Date & Time of Evaluation Date of Evaluation: 10/29/17 Time of Evaluation: 02:00 - Subjective Subjective: I was informed about ct report that manzo cuff within prostatic urethera, upon notice patient was not in distress, urine out put in manzo bag noticed, and CT reviewed by me as well. The Cuff deflated contained 7ml of fluid, tried to advance he catheter, with not luck as the tip will not pass the prostatic urethera, the catheter removed, the cuff never inflated by me as the catheter could not be advanced. Bladder scan ordered every 6 hrs for checking for retention. Will consult urology Dr. Ozuna who has operated on him in the past. Objective - Vital Signs/Intake and Output Vital Signs (last 24 hours): Temp Pulse Resp BP Pulse Ox 97.4 F L 87 20 117/75 99 10/29/17 04:50 10/29/17 05:53 10/29/17 04:50 10/29/17 04:50 10/29/17 04:50 Intake and Output: 10/28/17 10/29/17 18:59 06:59 Intake Total 300 1280 Output Total 0 1110 Balance 300 170 - Medications Medications: Current Medications Acetaminophen (Tylenol 325mg Tab) 650 mg PO Q6 [facility] Stop: 10/29/17 18:00 Last Admin: 10/29/17 00:19 Dose: 650 mg Dextrose (Dextrose 50% Inj) 0 ml IV STAT PRN; Protocol PRN Reason: Hypoglycemia Protocol Dextrose (Glutose 15) 0 gm PO ONCE PRN; Protocol PRN Reason: Hypoglycemia Protocol Donepezil HCl (Aricept) 10 mg PO HS [facility] Last Admin: 10/28/17 21:10 Dose: 10 mg Famotidine (Pepcid) 20 mg PO DAILY [facility] Last Admin: 10/28/17 12:40 Dose: 20 mg Glucagon (Glucagen Diagnostic Kit) 0 mg IM STAT PRN; Protocol PRN Reason: Hypoglycemia Protocol Heparin Sodium (Porcine) (Heparin) 5,000 units SC Q8 [facility] Last Admin: 10/28/17 21:10 Dose: 5,000 units Sodium Bicarbonate 150 meq/ (Dextrose) 1,150 mls @ 75 mls/hr IV .[id number] [facility] Last Admin: 10/28/17 16:05 Dose: Not Given Piperacillin Sod/Tazobactam Sod (Zosyn 2.25 Gm Iv Premix) 2.25 gm in 50 mls @ 100 mls/hr IVPB Q6H [facility] Last Admin: 10/29/17 00:31 Dose: 100 mls/hr Moxifloxacin HCl (Avelox Iv 400mg/250ml Ns) 400 mg in 250 mls @ 167 mls/hr IVPB DAILY [facility] Last Admin: 10/28/17 13:03 Dose: 167 mls/hr Vancomycin HCl 1 gm/ Sodium (Chloride) 200 mls @ 133.333 mls/hr IVPB Q24H [facility] Last Admin: 10/28/17 15:58 Dose: 133.333 mls/hr Dextrose (Dextrose 5% In Water 1000 Ml) 1,000 mls @ 0 mls/hr IV .Q0M PRN; Protocol; Per Protocol PRN Reason: Hypoglycemia Protocol Sodium Chloride (Sodium Chloride 0.9%) 1,000 mls @ 75 mls/hr IV .[id number] [facility] Last Admin: 10/29/17 00:39 Dose: 75 mls/hr Insulin Human Regular (Novolin R) 0 unit SC ACHS [facility] PRN Reason: Protocol Last Admin: 10/28/17 22:12 Dose: Not Given Pneumococcal Polyvalent Vaccine (Pneumovax 23 Vaccine) 0.5 ml IM .ONCE ONE Stop: 10/31/17 08:01 Saccharomyces Boulardii (Florastor) 250 mg PO BID [facility] Last Admin: 10/28/17 18:27 Dose: 250 mg - Labs Labs: 10/27/17 22:08 10/28/17 19:15 PT 15.9 SECONDS (9.7-12.2) H 10/27/17 22:08 INR 1.4 10/27/17 22:08 APTT 27 SECONDS (21-34) 10/27/17 22:08
[2017-10-29 06:47] LABS: ABG ALLEN TEST POS; ARTERIAL BLOOD GAS HCO3 27.2 mmol/L (21-28); ARTERIAL BLOOD GAS O2 SAT 99.6 % (95-98); ARTERIAL BLOOD GAS PCO2 43 mm/Hg (35-45); ARTERIAL BLOOD GAS PH 7.42 (7.35-7.45); ARTERIAL BLOOD GAS PO2 140 mm/Hg (80-100); ARTERIAL BLOOD GAS TCO2 29.2 mmol/L (22-28)
[2017-10-29] MEDS: (Novolin R) Insulin Human Regular 100 units/ml vial SC SCH ×4 (07:42→22:38)
[2017-10-29 08:53] LABS: BASO % 0.2 % (0.0-2.0); EOS # 0.1 K/uL (0.0-0.7); EOS % 0.5 % (0.0-4.0); HEMOGLOBIN 10.7 g/dL (12.0-18.0); LYMPH # 0.8 K/uL (1.0-4.3); LYMPH % 7.4 % (20.0-40.0); MEAN CELL VOLUME 85.2 fL (80.0-94.0); MEAN CORPUSCULAR HEMOGLOBIN 28.3 pg (27.0-31.0); MEAN CORPUSCULAR HGB CONC 33.2 g/dL (33.0-37.0); MEAN PLATELET VOLUME 7.4 fL (7.2-11.7); MONO # 1.5 K/uL (0.0-0.8); MONO % 14.9 % (0.0-10.0); RBC 3.76 Mil/uL (4.40-5.90); RED CELL DISTRIBUTION WIDTH 14.9 % (11.5-14.5); WHITE BLOOD COUNT 10.3 K/uL (4.8-10.8)
[2017-10-29 08:56] LABS: PLATELET COUNT 383 K/uL (130-400)
[2017-10-29 09:12] LABS: ALB/GLOB RATIO 0.9 (1.0-2.1); ALBUMIN 2.7 g/dL (3.5-5.0); CALCIUM 8.7 mg/dl (8.6-10.4); MAGNESIUM 1.8 mg/dL (1.6-2.3)
[2017-10-29] MEDS: Saccharomyces Boulardi 250 mg Cap PO SCH ×2 (09:38→18:29)
[2017-10-29] MEDS: Moxifloxacin IV 400mg/250ml NS 400 MG/250 ML BAG IVPB SCH (09:39)
--- NOTE | 2017-10-29 10:48 | CP.PCM.PN ---
Subjective - Date & Time of Evaluation Date of Evaluation: 10/29/17 Time of Evaluation: 10:30 - Subjective Subjective: Hospitalist Progress Note Patient was seen and examined at 10:30 AM 663 B 10/28/17. 87 year old male (Right Lung Masses, CKD Stage 3B, HTN, DM 2, HLD, Dementia, BPH /Incontinence, Chronic Anemia, Hyponatremia) who was brought into [facility] ER on evening of 10/27/17 for worsening dyspnea. He was admitted to this institution from 10/15/17 through 10/21/17. He has a history of multiple Right Lung Masses. He underwent CT Guided FNA Biopsy of the Right Lung 10/16/17 and 600 ml of Pleural Fluid was also drained at that time. FNA Biopsy results showed necrotic nondiagnostic material. He underwent another CT Guided FNA Biopsy of the Right Lung by IR Dr. Nahum Lin on 10/24/17 and pathology report is still pending at this time. Please see individual Assessment and Plans below for further details. Patient more receptive to questioning and following commands today: NO chest pain except for site of chest tube insertion on the right Breathing better and more comfortable on BiPAP NO soreness in throat NO abdominal pain NO n/v/d Has NOT moved bowels since admission Feels like he has to urinate at the time of exam NO headache NO new changes in vision NO new changes in hearing NO paresthesias Exam: General: AA, NAD, Looks very comfortable on BiPAP HEENT: NCA, Pupils are constricted/equal/reactive to light, EOMI, NO cervical lymphadenopathy, NO thyromegaly Cardio: NS1 and NS2, NO M/R/G Resp: Decreased breath sounds on the Right Lung. Left Lung CTA GI: BSx4, Soft, Central Obesity, Liver and Spleen could not be adequately palpated, NO guarding/rebound tenderness, Pain with palpation in the Right Lower Quadrant at the site of Heparin Injection Ext: Pulses are strong and equal, NO edema, Capillary Refill is 2 seconds Neuro: CN II Through XII are grossly intact Assessment and Plan: 1). Right Lung Masses/Effusion S/P CT Guided FNA Biopsy Right Lung with 600 ml Pleural Fluid removed 10/16/17: nondiagnostic necrotic material S/P CT Guided FNA Biopsy Right Lung 10/24/17: pathology is still pending CT Chest w/o Contrast 10/15/17: Multiple right lung masses, multiple right-sided pleural-based masses, and probable malignant effusion. Mediastinal adenopathy. Thick walled cavitary lesion right upper lobe measuring 5.[address] Scan Abdomen/Pelvis 10/15/17: Large right pleural effusion which is incompletely visualized, compressive atelectasis right lower lobe. 5 x 6 mm solid nodule right middle lobe. Follow-up recommendations: CT scan of the entire thorax to determine the presence or absence of additional pulmonary nodules. Retrocrural soft tissue mass or masses perhaps lymphadenopathy. This appears separate from the adjacent liver, aorta, IVC which may be compressing. Contiguity with pericardium also noted. Follow-up CT scan of the thorax for assessment of pulmonary nodules should also included upper abdomen for further clarification of this finding and I would recommend a study be performed with intravenous contrast. MRI of brain with contrast 10/18/17: Diffuse cerebral atrophy and chronic microangiopathy are identified which appear age-appropriate. The lack images contrast limits the evaluation however the patient's GFR precludes administering gadolinium to this patient intravenously. No large intracranial mass is appreciable at this time. Chest X-ray 10/18/17: Right lung mass re-identified. Suspect right layering pleural effusion and/or consolidation. 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 Deutsch placed Right Chest Tube 10/28/17 and roughly 2+ liters were drained BiPAP 09/06 with FiO2 60%. Patient is DNR/DNI and Mrs. Nair met with Palliative Care Nurse Gilda and POLST completed on 10/16/17. Nurse Gilda has been reconsulted. 2). Leukocytosis with Left Shift Secondary to Sepsis Secondary to possible unerlying Pneumonia ? Considering recent admission and patient being on antibiotics within past 3 months (for UTI, see below), we have to consider Health Care Associated Pneumonia that is possibly Multidrug Resistant. Therefore placed on anti-psuedomonal quinolone (Avelox 400 mg IV Q24H), anti- psuedomonal beta lactam renally dosed (Zosyn 2.24 gm IV Q6H) and Vancomycin 1 gm IV Q24H starting on 10/28/17 CT Chest/Abdomen/Pelvis confirmed New Right Lobe Infiltrate F/U Vancomycin Trough 9:30 AM Monday10/31/17 Rapid Influenza is negative Urine Legionella Ag is negative F/U Urine Strep pneumoniae Ag F/U Mycoplasma IgG and IgM F/U Blood Culture F/U Urine Culture Elevated Lactic Acid on admission and is declining: follow up Lactic Acid level 10/30/[address] Fallon 3). Acute on Chronic Renal Failure (CKD Stage 3B) Base line BUN/Cr is 30-40/2-2.5 Currently BUN/Cr is 68/2.[address] Out[address] Surgery Rn Dr. Martínez C3 and C4 are WNL F/U Urine Cr F/U Urine Microalbumin F/U Urine Total Protein Random F/U PTH Intact, Ca ionized, PTH related protein 4). Hyponatremia On discharge 10/21/17 Na was 126 Currently stable at 132 5). Hyperkalemia Secondary to CKD? On discharge on 10/21/17 K was 4.8 Resolved 6). Elevated ProBNP Has Cardiomegaly on Chest X Ray Echo 10/15/17: LVSF is normal, Diastolic Grade I Dysfunction, Trace Percardial Effusion Could this be secondary to CKD Stage 3B? Large Right Pleural Effusion? 7). Hx UTI Treated with Bactrim for 7 days with last dose on 10/17/17 8). Hx HTN HOLD Coreg 6.25 mg PO 1x/day and HOLD Norvasc 5 mg PO 1x/day as blood pressure is low side of normal 9). Hx DM 2 HgBA1C on 10/16/17 was 7.5 Blood Glucose under control RISS for now [facility] Hypoglycemic Protocol 10). Hx HLD On 10/16/17 LDL 66, Triglycerides 184, Total Cholesterol 147, and HDL 25 NO medications for now 11). Anemia Likely Secondary to CKD/Lung CA HgB/Hct are stable 12). Hx Dementia Aricept 10 mg PO HS 13). Hx BPH/Urinary Incontinence S/P TURP 1996 CT Chest/Abdomen/Pelvis showed tip of manzo in prosthetic urethra and therefore Overnight Hospitalist Dr. Keswanit removed it 10/28/17 Bladder Scan Q6H and Straight Cath if urine >200 ml F/U further recommendations from Urologist Dr. Teixeira who follows patient outpatient 14). Prophylaxis Heparin 5,000 SC Q8H Pepcid 20 mg PO 1x/day Florastor 250 mg PO 2x/day Colace 100 mg PO 2x/day Multiple calls placed to Gutierrezhelio Chowo [phone] to update on patient condition, however phone line busy and no voicemail could be left Natan Metzger D.O. Objective - Vital Signs/Intake and Output Vital Signs (last 24 hours): Temp Pulse Resp BP Pulse Ox 97.9 F 82 20 106/69 98 10/29/17 07:15 10/29/17 07:58 10/29/17 07:15 10/29/17 07:15 10/29/17 07:15 Intake and Output: 10/29/17 10/29/17 06:59 18:59 Intake Total 1280 Output Total 1110 Balance 170 - Medications Medications: Current Medications Acetaminophen (Tylenol 325mg Tab) 650 mg PO Q6 [facility] Stop: 10/29/17 18:00 Last Admin: 10/29/17 06:40 Dose: 650 mg Dextrose (Dextrose 50% Inj) 0 ml IV STAT PRN; Protocol PRN Reason: Hypoglycemia Protocol Dextrose (Glutose 15) 0 gm PO ONCE PRN; Protocol PRN Reason: Hypoglycemia Protocol Docusate Sodium (Colace) 100 mg PO BID [facility] Donepezil HCl (Aricept) 10 mg PO HS [facility] Last Admin: 10/28/17 21:10 Dose: 10 mg Famotidine (Pepcid) 20 mg PO DAILY [facility] Last Admin: 10/29/17 09:38 Dose: 20 mg Glucagon (Glucagen Diagnostic Kit) 0 mg IM STAT PRN; Protocol PRN Reason: Hypoglycemia Protocol Heparin Sodium (Porcine) (Heparin) 5,000 units SC Q8 [facility] Last Admin: 10/29/17 06:40 Dose: 5,000 units Piperacillin Sod/Tazobactam Sod (Zosyn 2.25 Gm Iv Premix) 2.25 gm in 50 mls @ 100 mls/hr IVPB Q6H [facility] Last Admin: 10/29/17 06:40 Dose: 100 mls/hr Moxifloxacin HCl (Avelox Iv 400mg/250ml Ns) 400 mg in 250 mls @ 167 mls/hr IVPB DAILY [facility] Last Admin: 10/29/17 09:39 Dose: 167 mls/hr Vancomycin HCl 1 gm/ Sodium (Chloride) 200 mls @ 133.333 mls/hr IVPB Q24H [facility] Last Admin: 10/28/17 15:58 Dose: 133.333 mls/hr Dextrose (Dextrose 5% In Water 1000 Ml) 1,000 mls @ 0 mls/hr IV .Q0M PRN; Protocol; Per Protocol PRN Reason: Hypoglycemia Protocol Sodium Chloride (Sodium Chloride 0.9%) 1,000 mls @ 75 mls/hr IV .[id number] [facility] Last Admin: 10/29/17 00:39 Dose: 75 mls/hr Insulin Human Regular (Novolin R) 0 unit SC ACHS [facility] PRN Reason: Protocol Last Admin: 10/29/17 07:42 Dose: Not Given Pneumococcal Polyvalent Vaccine (Pneumovax 23 Vaccine) 0.5 ml IM .ONCE ONE Stop: 10/31/17 08:01 Saccharomyces Boulardii (Florastor) 250 mg PO BID [facility] Last Admin: 10/29/17 09:38 Dose: 250 mg - Labs Labs: 10/29/17 08:43 10/29/17 08:43 PT 15.9 SECONDS (9.7-12.2) H 10/27/17 22:08 INR 1.4 10/27/17 22:08 APTT 27 SECONDS (21-34) 10/27/17 22:08
[2017-10-29 11:26] LABS: EOSINOPHIL 1 % (0-4); LYMPHOCYTE 9 % (20-40); MONOCYTE 16 % (0-10); NEUTROPHIL 74 % (50-75); PLATELET ESTIMATE NORMAL (NORMAL); TOTAL CELLS COUNTED 100
[2017-10-29 11:27] LABS: ANISOCYTOSIS SLIGHT; LARGE PLATELETS PRESENT; OVALOCYTES SLIGHT; POIKILOCYTOSIS SLIGHT; POLYCHROMIC SLIGHT; TOXIC GRANULATION PRESENT
[2017-10-29] MEDS: Sodium Chloride 0.9% 1,000 ML IV SCH (12:56)
[2017-10-29] MEDS: Vancomycin 1 GM in Sodium Chloride 0.9% 200 ML IVPB SCH (13:03)
--- NOTE | 2017-10-29 16:42 | CP.PCM.CON ---
History of Present Illness - History of Present Illness History of Present Illness: 87 year old male with PMHx of HTN, DM, HLD, Alzheimer's Dementia, CKD (baseline creatine 2.0s), BPH, and urinary incontinence (wears diapers) presents to the ED for worsening dyspnea. This was first noticed by the daughter yesterday. Patient has known history of multiple lung and abdominal masses discovered on previous admission. Patient underwent a CT guided core bx of right lower lobe lung mass on 10/24/[address] Lin. We are awaiting the results. When questioned, patient states that he feels well at the moment on his non- rebreather mask. He denies shortness of breath despite witnessed labored breathing minutes earlier. Patient is a poor historian at baseline secondary to dementia. Further ROS unable to be ascertained. 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 Vinson [place] meds: Per MAR Code status: DNR/DNI Review of Systems - Review of Systems Systems not reviewed;Unavailable: Altered Mental Status - Constitutional Constitutional: As Per HPI - EENT Eyes: absent: As Per HPI, Blind Spots, Blurred Vision, Change in Vision, Decreased Night Vision, Diplopia, Discharge, Dry Eye, Exophthalmos, Floaters, Irritation, Itchy Eyes, Loss of Peripheral Vision, Pain, Photophobia, Requires Corrective Lenses, Sees Flashes, Spots in Vision, Tunnel Vision, Other Visual Disturbances, Loss of Vision, Other Ears: absent: As Per HPI, Decreased Hearing, Ear Discharge, Ear Pain, Tinnitus, Abnormal Hearing, Disequilibrium, Dizziness, Other Nose/Mouth/Throat: absent: As Per HPI, Epistaxis, Nasal Congestion, Nasal Discharge, Nasal Obstruction, Nasal Trauma, Nose Pain, Post Nasal Drip, Sinus Pain, Sinus Pressure, Bleeding Gums, Change in Voice, Dental Pain, Dry Mouth, Dysphagia, Halitosis, Hoarsness, Lip Swelling, Mouth Lesions, Mouth Pain, Odynophagia, Sore Throat, Throat Swelling, Tongue Swelling, Facial Pain, Neck Pain, Neck Mass, Other - Cardiovascular Cardiovascular: absent: As Per HPI, Acrocyanosis, Chest Pain, Chest Pain at Rest , Chest Pain with Activity, Claudication, Diaphoresis, Dyspnea, Dyspnea on Exertion, Edema, Irregular Heart Rhythm, Pain Radiating to Arm/Neck/Jaw, Leg Edema, Leg Ulcers, Lightheadedness, Orthopnea, Palpitations, Paroxysmal Nocturnal Dyspnea, Pedal Edema, Radiating Pain, Rapid Heart Rate, Slow Heart Rate, Syncope, Other - Respiratory Respiratory: As Per HPI, Cough, Dyspnea - Gastrointestinal Gastrointestinal: As Per HPI, Abdominal Pain - Genitourinary Genitourinary: absent: As Per HPI, Change in Urinary Stream, Difficulty Urinating, Dysuria, Flank Pain, Hematuria, Pyuria, Nocturia, Urinary Incontinence, Urinary Frequency, Urinary Hesitance, Urinary Urgency, Voiding Freq/Small Amts, Freq UTI, Hx Renal/Bladder Calculi, Hx /Renal Surgery, Bladder Distension, Other - Musculoskeletal Musculoskeletal: absent: As Per HPI, Abnormal Gait, Arthralgias, Atrophy, Back Pain, Deformity, Joint Swelling, Limited Range of Motion, Loss of Height, Muscle Cramps, Muscle Weakness, Myalgias, Neck Pain, Numbness, Radiating Pain into Limb, Stiffness, Tingling, Other - Integumentary Integumentary: absent: As Per HPI, Acne, Alopecia, Bleeding Lesions, Change in Hair, Change in Nails, Change in Pigmentation, Changing Lesions, Dry Skin, Erythema, Furuncle, Hirsutism, Lesions, New Lesions, Non-Healing Lesions, Photosensitivity, Pruritus, Rash, Skin Pain, Skin Ulcer, Sores, Striae, Swelling , Unusual Bruising, Wounds, Jaundice, Other - Neurological Neurological: absent: As Per HPI, Abnormal Gait, Abnormal Hearing, Abnormal Movements, Abnormal Speech, Behavioral Changes, Burning Sensations, Confusion, Convulsions, Disequilibrium, Dizziness, Numbness, Focal Weakness, Frequent Falls , Headaches, Lack of Coordination, Loss of Vision, Memory Loss, Paresthesias, Radicular Pain, Restless Legs, Sensory Deficit, Syncope, Tingling, Tremor, Vertigo, Weakness, Other Visual Disturbances, Other - Psychiatric Psychiatric: absent: As Per HPI, Abnormal Sleep Pattern, Anhedonia, Anxiety, Auditory Hallucinations, Behavioral Changes, Change in Appetite, Change in Libido, Confusion, Depression, Difficulty Concentrating, Hallucinations, Homicidal Ideation, Hopelessness, Irritability, Memory Loss, Mood Swings, Panic Attacks, Paranoia, Suicidal Ideation, Visual Hallucinations, Tactile Hallucinations, Other - Endocrine Endocrine: absent: As Per HPI, Change in Body Appearance, Change in Libido, Cold Intolorance, Deepening of Voice, Excessive Sweating, Fatigue, Flushing, Heat Intolorance, Increase in Ring/Shoe/Hat Size, Palpitations, Polydipsia, Polyphagia, Polyuria, Other - Hematologic/Lymphatic Hematologic: absent: As Per HPI, Easy Bleeding, Easy Bruising, Lymphadenopathy, Other Past Patient History - Infectious Disease Hx of Infectious Diseases: None - Past Medical History & Family History Past Medical History?: Yes - Past Social History Smoking Status: Former Smoker - CARDIAC Hx Hypercholesterolemia: Yes Hx Hypertension: Yes Hx Peripheral Edema: Yes - PULMONARY Hx Respiratory Disorders: Yes Other/Comment: HX: LUNG MASS(RIGHT) - NEUROLOGICAL Hx Alzheimer's Disease: Yes Hx Dementia: Yes - HEENT Hx HEENT Problems: Yes Hx Cataracts: Yes (bilateral) - RENAL Hx Chronic Kidney Disease: Yes (PER MD'S NOTES(BASELINE CREAT.2.0'S)) - ENDOCRINE/METABOLIC Hx Endocrine Disorders: Yes Hx Diabetes Mellitus Type 2: Yes - HEMATOLOGICAL/ONCOLOGICAL Hx Anemia: Yes Hx Human Immunodeficiency Virus (HIV): No - INTEGUMENTARY Hx Dermatological Problems: No - MUSCULOSKELETAL/RHEUMATOLOGICAL Hx Arthritis: Yes - GASTROINTESTINAL Hx Gastrointestinal Disorders: No - GENITOURINARY/GYNECOLOGICAL Hx Genitourinary Disorders: Yes Hx Incontinence: Yes ((PT. WEARS A DIAPER)) Hx Prostate Problems: Yes (TURP 1996) - PSYCHIATRIC Hx Substance Use: No - SURGICAL HISTORY Hx Surgeries: Yes Hx Amputation: Yes (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- work related) Hx Arthroscopy: Yes (left knee) Hx Cataract Extraction: Yes (bilat) Hx Herniorrhaphy: Yes (LEFT INGUINAL HERNIA REPAIR 06/2014) Other/Comment: HX:LEFT HAND 3 DIGIT AMPUTATION( ACCIDENT ). HX: CYSTOSCOPY INTERNAL OPTICAL URETROTOMY 11/02/16. HX: RIGHT LUNG BIOPSY AND THORACENTISIS 10/15/17 - ANESTHESIA Hx Anesthesia: Yes Hx Anesthesia Reactions: No Hx Malignant Hyperthermia: No Meds Allergies/Adverse Reactions: Allergies Allergy/AdvReac Type Severity Reaction Status Date / Time No Known Allergies Allergy Verified 10/15/17 14:30 - Medications Medications: Current Medications Acetaminophen (Tylenol 325mg Tab) 650 mg PO Q6 [facility] Stop: 10/29/17 18:00 Last Admin: 10/29/17 12:53 Dose: 650 mg Dextrose (Dextrose 50% Inj) 0 ml IV STAT PRN; Protocol PRN Reason: Hypoglycemia Protocol Dextrose (Glutose 15) 0 gm PO ONCE PRN; Protocol PRN Reason: Hypoglycemia Protocol Docusate Sodium (Colace) 100 mg PO BID [facility] Last Admin: 10/29/17 12:47 Dose: 100 mg Donepezil HCl (Aricept) 10 mg PO HS [facility] Last Admin: 10/28/17 21:10 Dose: 10 mg Famotidine (Pepcid) 20 mg PO DAILY [facility] Last Admin: 10/29/17 09:38 Dose: 20 mg Glucagon (Glucagen Diagnostic Kit) 0 mg IM STAT PRN; Protocol PRN Reason: Hypoglycemia Protocol Heparin Sodium (Porcine) (Heparin) 5,000 units SC Q8 [facility] Last Admin: 10/29/17 13:38 Dose: 5,000 units Piperacillin Sod/Tazobactam Sod (Zosyn 2.25 Gm Iv Premix) 2.25 gm in 50 mls @ 100 mls/hr IVPB Q6H [facility] Last Admin: 10/29/17 13:03 Dose: 100 mls/hr Moxifloxacin HCl (Avelox Iv 400mg/250ml Ns) 400 mg in 250 mls @ 167 mls/hr IVPB DAILY [facility] Last Admin: 10/29/17 09:39 Dose: 167 mls/hr Vancomycin HCl 1 gm/ Sodium (Chloride) 200 mls @ 133.333 mls/hr IVPB Q24H [facility] Last Admin: 10/29/17 13:03 Dose: 133.333 mls/hr Dextrose (Dextrose 5% In Water 1000 Ml) 1,000 mls @ 0 mls/hr IV .Q0M PRN; Protocol; Per Protocol PRN Reason: Hypoglycemia Protocol Sodium Chloride (Sodium Chloride 0.9%) 1,000 mls @ 75 mls/hr IV .[id number] [facility] Last Admin: 10/29/17 00:39 Dose: 75 mls/hr Sodium Chloride (Sodium Chloride 0.9%) 1,000 mls @ 80 mls/hr IV .[id number] [facility] Last Admin: 10/29/17 12:56 Dose: Not Given Insulin Human Regular (Novolin R) 0 unit SC ACHS [facility] PRN Reason: Protocol Last Admin: 10/29/17 12:11 Dose: Not Given Saccharomyces Boulardii (Florastor) 250 mg PO BID [facility] Last Admin: 10/29/17 09:38 Dose: 250 mg Physical Exam - Constitutional Appears: Non-toxic, Confused, Cachectic, Chronically Ill - Head Exam Head Exam: ATRAUMATIC, NORMAL INSPECTION, NORMOCEPHALIC - Eye Exam Eye Exam: EOMI, PERRL. absent: Scleral icterus - ENT Exam ENT Exam: Mucous Membranes Dry, Normal External Ear Exam - Neck Exam Neck exam: Negative for: Lymphadenopathy - Respiratory Exam Respiratory Exam: Decreased Breath Sounds, Prolonged Expiratory Phase, Rales, Rhonchi - Cardiovascular Exam Cardiovascular Exam: Tachycardia, REGULAR RHYTHM, +S1, +S2 - GI/Abdominal Exam GI & Abdominal Exam: Diminished Bowel Sounds, Distended, Guarding, Rebound, Soft , Tenderness. absent: Rigid - Rectal Exam Rectal Exam: Deferred - Exam Exam: NORMAL INSPECTION - Extremities Exam Extremities exam: Negative for: pedal edema - Back Exam Back exam: absent: CVA tenderness (L), CVA tenderness (R), paraspinal tenderness - Neurological Exam Neurological exam: Alert, Altered, CN II-XII Intact, Motor Sensory Deficit - Psychiatric Exam Psychiatric exam: Depressed - Skin Skin Exam: Dry Results - Vital Signs Recent Vital Signs: Last Vital Signs Temp 97.9 F 10/29/17 07:15 Pulse 89 10/29/17 16:17 Resp 20 10/29/17 07:15 BP 106/69 10/29/17 07:15 Pulse Ox 98 10/29/17 07:15 - Labs Result Diagrams: 10/29/17 08:43 10/29/17 08:43 Labs: Laboratory Results - last 24 hr 10/28/17 10/28/17 10/28/17 09:12 17:01 17:24 WBC RBC Hgb Hct MCV MCH MCHC RDW Plt Count MPV Neut % (Auto) Lymph % (Auto) [place] % (Auto) Eos % (Auto) Baso % (Auto) Neut # Lymph # [place] # Eos # Baso # Neutrophils % (Manual) Lymphocytes % (Manual) Monocytes % (Manual) Eosinophils % (Manual) Toxic Granulation Platelet Estimate Large Platelets Polychromasia Poikilocytosis (manual Basophilic Stippling Anisocytosis (manual) Ovalocytes Puncture Site pCO2 pO2 HCO3 ABG pH ABG Total CO2 ABG O2 Saturation ABG Base Excess Gregor Test ABG Potassium A-a O2 Difference Respiratory Index Glucose Lactate FiO2 Sodium Potassium Chloride Carbon Dioxide Anion Gap BUN Creatinine Est GFR ( Amer) Est GFR (Non-Af Amer) POC Glucose (mg/dL) Random Glucose Calcium Phosphorus Magnesium Total Bilirubin AST ALT Alkaline Phosphatase Total Creatine Kinase Total Protein Albumin Globulin Albumin/Globulin Ratio Arterial Blood Potassium Urine Color Yellow Urine Clarity Clear Urine pH 5.0 Ur Specific [place] 1.017 Urine Protein 1+ H Urine Glucose (UA) Normal Urine Ketones Negative Urine Blood Negative Urine Nitrate Negative Urine Bilirubin Negative Urine Urobilinogen Normal Ur Leukocyte Esterase Negative Urine WBC (Auto) 3 Urine RBC (Auto) 2 Ur Squamous Epith Cells < 1 Urine Bacteria Rare Urine Osmolality 562 Ur Random Creatinine 84.6 Ur Random Sodium 32 Random Vancomycin Complement C3 Complement C4 Ur L.pneumophila Ag Negative 10/28/17 10/28/17 10/28/17 19:15 19:15 21:24 WBC RBC Hgb Hct MCV MCH MCHC RDW Plt Count MPV Neut % (Auto) Lymph % (Auto) [place] % (Auto) Eos % (Auto) Baso % (Auto) Neut # Lymph # [place] # Eos # Baso # Neutrophils % (Manual) Lymphocytes % (Manual) Monocytes % (Manual) Eosinophils % (Manual) Toxic Granulation Platelet Estimate Large Platelets Polychromasia Poikilocytosis (manual Basophilic Stippling Anisocytosis (manual) Ovalocytes Puncture Site pCO2 pO2 HCO3 ABG pH ABG Total CO2 ABG O2 Saturation ABG Base Excess Gregor Test ABG Potassium A-a O2 Difference Respiratory Index Glucose Lactate FiO2 Sodium 129 L Potassium 5.0 Chloride 96 L Carbon Dioxide 30 Anion Gap 8 L BUN 63 H Creatinine 2.2 H Est GFR ( Amer) 34 Est GFR (Non-Af Amer) 28 POC Glucose (mg/dL) 155 H Random Glucose 140 H Calcium 8.7 Phosphorus Magnesium Total Bilirubin AST ALT Alkaline Phosphatase Total Creatine Kinase 25 L Total Protein Albumin Globulin Albumin/Globulin Ratio Arterial Blood Potassium Urine Color Urine Clarity Urine pH Ur Specific [place] Urine Protein Urine Glucose (UA) Urine Ketones Urine Blood Urine Nitrate Urine Bilirubin Urine Urobilinogen Ur Leukocyte Esterase Urine WBC (Auto) Urine RBC (Auto) Ur Squamous Epith Cells Urine Bacteria Urine Osmolality Ur Random Creatinine Ur Random Sodium Random Vancomycin Complement C3 101.0 Complement C4 38.1 Ur L.pneumophila Ag 10/29/17 10/29/17 10/29/17 06:25 06:41 08:43 WBC 10.3 RBC 3.76 L Hgb 10.7 L Hct 32.1 L MCV 85.2 MCH 28.3 MCHC 33.2 RDW 14.9 H Plt Count 383 D MPV 7.4 Neut % (Auto) 77.0 H Lymph % (Auto) 7.4 L [place] % (Auto) 14.9 H Eos % (Auto) 0.5 Baso % (Auto) 0.2 Neut # 8.0 H Lymph # 0.8 L [place] # 1.5 H Eos # 0.1 Baso # 0.0 Neutrophils % (Manual) 74 Lymphocytes % (Manual) 9 L Monocytes % (Manual) 16 H Eosinophils % (Manual) 1 Toxic Granulation Present Platelet Estimate Normal Large Platelets Present Polychromasia Slight Poikilocytosis (manual Slight Basophilic Stippling Slight Anisocytosis (manual) Slight Ovalocytes Slight Puncture Site Rr pCO2 43 pO2 140 H HCO3 27.2 ABG pH 7.42 ABG Total CO2 29.2 H ABG O2 Saturation 99.6 H ABG Base Excess 2.9 Gregor Test Pos ABG Potassium 4.3 A-a O2 Difference 305.0 Respiratory Index 2.2 Glucose 141 H Lactate 2.1 FiO2 70.0 Sodium 136.0 Potassium Chloride 102.0 Carbon Dioxide Anion Gap BUN Creatinine Est GFR ( Amer) Est GFR (Non-Af Amer) POC Glucose (mg/dL) 130 H Random Glucose Calcium Phosphorus Magnesium Total Bilirubin AST ALT Alkaline Phosphatase Total Creatine Kinase Total Protein Albumin Globulin Albumin/Globulin Ratio Arterial Blood Potassium 4.3 Urine Color Urine Clarity Urine pH Ur Specific [place] Urine Protein Urine Glucose (UA) Urine Ketones Urine Blood Urine Nitrate Urine Bilirubin Urine Urobilinogen Ur Leukocyte Esterase Urine WBC (Auto) Urine RBC (Auto) Ur Squamous Epith Cells Urine Bacteria Urine Osmolality Ur Random Creatinine Ur Random Sodium Random Vancomycin Complement C3 Complement C4 Ur L.pneumophila Ag 10/29/17 10/29/17 10/29/17 08:43 08:43 11:41 WBC RBC Hgb Hct MCV MCH MCHC RDW Plt Count MPV Neut % (Auto) Lymph % (Auto) [place] % (Auto) Eos % (Auto) Baso % (Auto) Neut # Lymph # [place] # Eos # Baso # Neutrophils % (Manual) Lymphocytes % (Manual) Monocytes % (Manual) Eosinophils % (Manual) Toxic Granulation Platelet Estimate Large Platelets Polychromasia Poikilocytosis (manual Basophilic Stippling Anisocytosis (manual) Ovalocytes Puncture Site pCO2 pO2 HCO3 ABG pH ABG Total CO2 ABG O2 Saturation ABG Base Excess Gregor Test ABG Potassium A-a O2 Difference Respiratory Index Glucose Lactate FiO2 Sodium 132 Potassium 4.6 Chloride 97 L Carbon Dioxide 27 Anion Gap 13 BUN 55 H Creatinine 2.0 H Est GFR ( Amer) 38 Est GFR (Non-Af Amer) 32 POC Glucose (mg/dL) 130 H Random Glucose 138 H Calcium 8.7 Phosphorus 4.4 Magnesium 1.8 Total Bilirubin 0.7 AST 40 ALT 29 Alkaline Phosphatase 65 Total Creatine Kinase Total Protein 5.6 L Albumin 2.7 L Globulin 2.9 Albumin/Globulin Ratio 0.9 L Arterial Blood Potassium Urine Color Urine Clarity Urine pH Ur Specific [place] Urine Protein Urine Glucose (UA) Urine Ketones Urine Blood Urine Nitrate Urine Bilirubin Urine Urobilinogen Ur Leukocyte Esterase Urine WBC (Auto) Urine RBC (Auto) Ur Squamous Epith Cells Urine Bacteria Urine Osmolality Ur Random Creatinine Ur Random Sodium Random Vancomycin 8.12 Complement C3 Complement C4 Ur L.pneumophila Ag Assessment & Plan (1) Dyspnea Status: Acute (2) Pleural effusion Status: Acute (3) Acute chest pain Status: Acute (4) Anemia Status: Acute (5) Chronic kidney disease (CKD), stage III (moderate) Status: Acute (6) Diabetes Status: Acute (7) Lung mass Status: Acute (8) Opacity of lung on imaging study Status: Acute (9) Pyelonephritis due to Escherichia coli Status: Acute (10) Renal insufficiency Status: Acute (11) Right lower lobe lung mass Status: Acute (12) Hypotonic bladder Status: Chronic Priority: Low (13) Urinary retention Status: Chronic - Assessment and Plan (Free Text) Assessment: admitted with resp insuff/ pleural effusion/ lung mass s/p pigtail drainage r/o metastatic effusion and or infection await cultures cont IV antibiotics
--- NOTE | 2017-10-29 19:26 | CP.PCM.PN ---
Subjective - Date & Time of Evaluation Date of Evaluation: 10/29/17 Time of Evaluation: 16:15 - Subjective Subjective: the patient seen and examined Minimal drainage from chest tube Breathing improved but remains on BiPAP saturation 98% Afebrile Objective - Vital Signs/Intake and Output Vital Signs (last 24 hours): Temp Pulse Resp BP Pulse Ox 97.8 F 89 20 107/67 98 10/29/17 15:26 10/29/17 16:17 10/29/17 15:26 10/29/17 15:26 10/29/17 15:26 - Medications Medications: Current Medications Dextrose (Dextrose 50% Inj) 0 ml IV STAT PRN; Protocol PRN Reason: Hypoglycemia Protocol Dextrose (Glutose 15) 0 gm PO ONCE PRN; Protocol PRN Reason: Hypoglycemia Protocol Docusate Sodium (Colace) 100 mg PO BID [facility] Last Admin: 10/29/17 18:52 Dose: 100 mg Donepezil HCl (Aricept) 10 mg PO HS [facility] Last Admin: 10/28/17 21:10 Dose: 10 mg Famotidine (Pepcid) 20 mg PO DAILY [facility] Last Admin: 10/29/17 09:38 Dose: 20 mg Glucagon (Glucagen Diagnostic Kit) 0 mg IM STAT PRN; Protocol PRN Reason: Hypoglycemia Protocol Heparin Sodium (Porcine) (Heparin) 5,000 units SC Q8 [facility] Last Admin: 10/29/17 13:38 Dose: 5,000 units Piperacillin Sod/Tazobactam Sod (Zosyn 2.25 Gm Iv Premix) 2.25 gm in 50 mls @ 100 mls/hr IVPB Q6H [facility] Last Admin: 10/29/17 18:45 Dose: 100 mls/hr Moxifloxacin HCl (Avelox Iv 400mg/250ml Ns) 400 mg in 250 mls @ 167 mls/hr IVPB DAILY [facility] Last Admin: 10/29/17 09:39 Dose: 167 mls/hr Vancomycin HCl 1 gm/ Sodium (Chloride) 200 mls @ 133.333 mls/hr IVPB Q24H [facility] Last Admin: 10/29/17 13:03 Dose: 133.333 mls/hr Dextrose (Dextrose 5% In Water 1000 Ml) 1,000 mls @ 0 mls/hr IV .Q0M PRN; Protocol; Per Protocol PRN Reason: Hypoglycemia Protocol Sodium Chloride (Sodium Chloride 0.9%) 1,000 mls @ 75 mls/hr IV .[id number] [facility] Last Admin: 10/29/17 00:39 Dose: 75 mls/hr Sodium Chloride (Sodium Chloride 0.9%) 1,000 mls @ 80 mls/hr IV .[id number] [facility] Last Admin: 10/29/17 12:56 Dose: Not Given Insulin Human Regular (Novolin R) 0 unit SC ACHS [facility] PRN Reason: Protocol Last Admin: 10/29/17 18:38 Dose: Not Given Saccharomyces Boulardii (Florastor) 250 mg PO BID [facility] Last Admin: 10/29/17 18:29 Dose: 250 mg - Labs Labs: 10/29/17 08:43 10/29/17 08:43 PT 15.9 SECONDS (9.7-12.2) H 10/27/17 22:08 INR 1.4 10/27/17 22:08 APTT 27 SECONDS (21-34) 10/27/17 22:08 - Constitutional Appears: No Acute Distress - Head Exam Head Exam: ATRAUMATIC, NORMOCEPHALIC - ENT Exam ENT Exam: Mucous Membranes Moist - Neck Exam Neck Exam: Normal Inspection - Respiratory Exam Respiratory Exam: Decreased Breath Sounds - Cardiovascular Exam Cardiovascular Exam: REGULAR RHYTHM - GI/Abdominal Exam GI & Abdominal Exam: Soft Assessment and Plan (1) Pleural effusion Assessment & Plan: Status post chest tube insertion with minimal drainage now Remains on BiPAP Continue antibiotics Nebulizer treatment Followup pathology report Status: Acute
--- NOTE | 2017-10-29 22:38 | CP.PCM.PN ---
Subjective - Date & Time of Evaluation Date of Evaluation: 10/29/17 Time of Evaluation: 12:00 Objective - Vital Signs/Intake and Output Vital Signs (last 24 hours): Temp Pulse Resp BP Pulse Ox 97.8 F 89 20 107/67 98 10/29/17 15:26 10/29/17 16:17 10/29/17 15:26 10/29/17 15:26 10/29/17 15:26 - Medications Medications: Current Medications Dextrose (Dextrose 50% Inj) 0 ml IV STAT PRN; Protocol PRN Reason: Hypoglycemia Protocol Dextrose (Glutose 15) 0 gm PO ONCE PRN; Protocol PRN Reason: Hypoglycemia Protocol Docusate Sodium (Colace) 100 mg PO BID [facility] Last Admin: 10/29/17 18:52 Dose: 100 mg Donepezil HCl (Aricept) 10 mg PO HS [facility] Last Admin: 10/29/17 21:13 Dose: 10 mg Famotidine (Pepcid) 20 mg PO DAILY [facility] Last Admin: 10/29/17 09:38 Dose: 20 mg Glucagon (Glucagen Diagnostic Kit) 0 mg IM STAT PRN; Protocol PRN Reason: Hypoglycemia Protocol Heparin Sodium (Porcine) (Heparin) 5,000 units SC Q8 [facility] Last Admin: 10/29/17 21:07 Dose: 5,000 units Piperacillin Sod/Tazobactam Sod (Zosyn 2.25 Gm Iv Premix) 2.25 gm in 50 mls @ 100 mls/hr IVPB Q6H [facility] Last Admin: 10/29/17 18:45 Dose: 100 mls/hr Moxifloxacin HCl (Avelox Iv 400mg/250ml Ns) 400 mg in 250 mls @ 167 mls/hr IVPB DAILY [facility] Last Admin: 10/29/17 09:39 Dose: 167 mls/hr Vancomycin HCl 1 gm/ Sodium (Chloride) 200 mls @ 133.333 mls/hr IVPB Q24H [facility] Last Admin: 10/29/17 13:03 Dose: 133.333 mls/hr Dextrose (Dextrose 5% In Water 1000 Ml) 1,000 mls @ 0 mls/hr IV .Q0M PRN; Protocol; Per Protocol PRN Reason: Hypoglycemia Protocol Sodium Chloride (Sodium Chloride 0.9%) 1,000 mls @ 75 mls/hr IV .[id number] [facility] Last Admin: 10/29/17 00:39 Dose: 75 mls/hr Sodium Chloride (Sodium Chloride 0.9%) 1,000 mls @ 80 mls/hr IV .[id number] [facility] Last Admin: 10/29/17 12:56 Dose: Not Given Insulin Human Regular (Novolin R) 0 unit SC ACHS [facility] PRN Reason: Protocol Last Admin: 10/29/17 18:38 Dose: Not Given Saccharomyces Boulardii (Florastor) 250 mg PO BID [facility] Last Admin: 10/29/17 18:29 Dose: 250 mg - Labs Labs: 10/29/17 08:43 10/29/17 08:43 PT 15.9 SECONDS (9.7-12.2) H 10/27/17 22:08 INR 1.4 10/27/17 22:08 APTT 27 SECONDS (21-34) 10/27/17 22:08 Assessment and Plan (1) KIMBERLEE (acute kidney injury) Assessment & Plan: Improving slowly with IVF; urine lytes consistent with pre-renal etiology; continue NS at 80 cc/hr; Status: Acute (2) Hyponatremia Assessment & Plan: Improved after IVF (including 1L bolus yesterday evening); continue IVF as above ; Status: Acute (3) Urinary retention Assessment & Plan: Has history of retention with UTI (though no pyuria currently); manzo unable to be placed properly; awaiting urology to attempt manzo re-insertion; continue periodic bladder scans to check post-void residual; Status: Chronic
[2017-10-30] MEDS: Piperacill/Tazo 2.25gm in Dex 2.25 GM/50 ML BAG IVPB SCH ×4 (01:03→19:52)
[2017-10-30 07:21] LABS: BASO % 0.2 % (0.0-2.0); EOS # 0.1 K/uL (0.0-0.7); EOS % 0.5 % (0.0-4.0); HEMOGLOBIN 10.3 g/dL (12.0-18.0); LYMPH # 0.8 K/uL (1.0-4.3); LYMPH % 6.1 % (20.0-40.0); MEAN CELL VOLUME 85.4 fL (80.0-94.0); MEAN CORPUSCULAR HEMOGLOBIN 28.3 pg (27.0-31.0); MEAN CORPUSCULAR HGB CONC 33.2 g/dL (33.0-37.0); MEAN PLATELET VOLUME 7.6 fL (7.2-11.7); MONO # 1.5 K/uL (0.0-0.8); MONO % 11.7 % (0.0-10.0); NEUT # 10.2 K/uL (1.8-7.0); NEUT % 81.5 % (50.0-75.0); PLATELET COUNT 344 K/uL (130-400); RBC 3.64 Mil/uL (4.40-5.90); RED CELL DISTRIBUTION WIDTH 15.1 % (11.5-14.5); WHITE BLOOD COUNT 12.4 K/uL (4.8-10.8)
[2017-10-30] MEDS: (Novolin R) Insulin Human Regular 100 units/ml vial SC SCH ×4 (07:43→21:49)
--- NOTE | 2017-10-30 07:50 | CP.PCM.PN ---
<Gayle Canales - Last Filed: 10/30/17 18:05> Subjective - Date & Time of Evaluation Date of Evaluation: 10/30/17 Time of Evaluation: 07:00 - Subjective Subjective: Medicine Progress Note: Patient was seen and examined at bedside in the AM. Per nurse no acute events. Patient denies chest pain, shortness of breath, nausea, or vomiting. Objective - Vital Signs/Intake and Output Vital Signs (last 24 hours): Temp Pulse Resp BP Pulse Ox 98.6 F 83 20 102/66 96 10/30/17 04:29 10/30/17 04:35 10/30/17 04:29 10/30/17 04:29 10/30/17 04:29 Intake and Output: 10/30/17 10/30/17 06:59 18:59 Intake Total 1620 Output Total 350 Balance 1270 - Medications Medications: Current Medications Acetaminophen (Tylenol 325mg Tab) 650 mg PO Q6 PRN PRN Reason: Pain, Mild (1-3) Last Admin: 10/30/17 02:48 Dose: 650 mg Dextrose (Dextrose 50% Inj) 0 ml IV STAT PRN; Protocol PRN Reason: Hypoglycemia Protocol Dextrose (Glutose 15) 0 gm PO ONCE PRN; Protocol PRN Reason: Hypoglycemia Protocol Docusate Sodium (Colace) 100 mg PO BID [facility] Last Admin: 10/29/17 18:52 Dose: 100 mg Donepezil HCl (Aricept) 10 mg PO HS [facility] Last Admin: 10/29/17 21:13 Dose: 10 mg Famotidine (Pepcid) 20 mg PO DAILY [facility] Last Admin: 10/29/17 09:38 Dose: 20 mg Glucagon (Glucagen Diagnostic Kit) 0 mg IM STAT PRN; Protocol PRN Reason: Hypoglycemia Protocol Heparin Sodium (Porcine) (Heparin) 5,000 units SC Q8 [facility] Last Admin: 10/30/17 06:12 Dose: 5,000 units Piperacillin Sod/Tazobactam Sod (Zosyn 2.25 Gm Iv Premix) 2.25 gm in 50 mls @ 100 mls/hr IVPB Q6H [facility] Last Admin: 10/30/17 06:41 Dose: 100 mls/hr Moxifloxacin HCl (Avelox Iv 400mg/250ml Ns) 400 mg in 250 mls @ 167 mls/hr IVPB DAILY [facility] Last Admin: 10/29/17 09:39 Dose: 167 mls/hr Vancomycin HCl 1 gm/ Sodium (Chloride) 200 mls @ 133.333 mls/hr IVPB Q24H [facility] Last Admin: 10/29/17 13:03 Dose: 133.333 mls/hr Dextrose (Dextrose 5% In Water 1000 Ml) 1,000 mls @ 0 mls/hr IV .Q0M PRN; Protocol; Per Protocol PRN Reason: Hypoglycemia Protocol Sodium Chloride (Sodium Chloride 0.9%) 1,000 mls @ 75 mls/hr IV .[id number] [facility] Last Admin: 10/29/17 00:39 Dose: 75 mls/hr Sodium Chloride (Sodium Chloride 0.9%) 1,000 mls @ 80 mls/hr IV .[id number] [facility] Last Admin: 10/29/17 12:56 Dose: Not Given Insulin Human Regular (Novolin R) 0 unit SC ACHS [facility] PRN Reason: Protocol Last Admin: 10/30/17 07:43 Dose: Not Given Saccharomyces Boulardii (Florastor) 250 mg PO BID [facility] Last Admin: 10/29/17 18:29 Dose: 250 mg - Labs Labs: 10/30/17 06:47 10/29/17 08:43 PT 15.9 SECONDS (9.7-12.2) H 10/27/17 22:08 INR 1.4 10/27/17 22:08 APTT 27 SECONDS (21-34) 10/27/17 22:08 - Constitutional Appears: No Acute Distress - Head Exam Head Exam: ATRAUMATIC, NORMAL INSPECTION - Eye Exam Eye Exam: EOMI, Normal appearance - ENT Exam ENT Exam: Mucous Membranes Moist - Respiratory Exam Respiratory Exam: Clear to Ausculation Bilateral, NORMAL BREATHING PATTERN - Cardiovascular Exam Cardiovascular Exam: REGULAR RHYTHM, +S1, +S2 - GI/Abdominal Exam GI & Abdominal Exam: Soft, Normal Bowel Sounds. absent: Tenderness - Extremities Exam Extremities Exam: Normal Inspection - Neurological Exam Neurological Exam: Alert, Awake - Psychiatric Exam Psychiatric exam: Normal Affect, Normal Mood - Skin Skin Exam: Normal Color, Warm Assessment and Plan - Assessment and Plan (Free Text) Assessment: 87 yo M with PMHx of HTN, T2DM, HLD, Alzheimer's Dementia, CKD ( baseline creatine 2.0s), BPH, and urinary incontinence (wears diapers), RLL lung mass who presented to the ED for worsening dyspnea. 1.) RLL Mass, pleural effusion - History of Tobacco Use - Pulmonology consulted- Dr. Deutsch --> help appreciated - Hem/Onc Consult: Dr. Green --> help appreciated - CT guided core biopsy of right lung pleural-based mass - pathology results: Small Cell Carcinoma - Full Report in the Chart - Imaging from previous admission (10/15/17): * CT Chest w/o Contrast: Multiple right lung masses, multiple right-sided pleural-based masses, and probable malignant effusion. Mediastinal adenopathy. Thick walled cavitary lesion right upper lobe measuring 5.5 x 5.3 CM. * MRI of brain with contrast: Diffuse cerebral atrophy and chronic microangiopathy are identified which appear age-appropriate. The lack images contrast limits the evaluation however the patient's GFR precludes administering gadolinium to this patient intravenously. No large intracranial mass is appreciable at this time. - Current Imaging * Chest X-ray 10/27/17: Complete Opacification of Right Lung/Large Pleural Effusion * CT Chest/Abdomen/Pelvis 10/28/17: interval increase in size of the right effusion with right chest tube, multiple pleural based masses throughout the right hemithorax, right lung mass and adenopathy consistent with malignancy, emphysema, new right lobe infiltrate, NO acute solid visceral or bowel abnormality, NO appendicitis, NO diverticulitis, Mandujano catheter balloon and catheter tip in prosthetic urethra 2.) Leukocystosis - WBC: 17.2 --> 10.3 --> 12.4 - ID consult: Dr. 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 Martínez --> help appreciated - Continue to monitor 4.) History of UTI - Patient was being treated as outpatient with Bactrim 7 day course - urine culture: no growth 5.) History of Hypertension - Coreg 6.25mg PO BID - held due to low blood pressure - Norvasc 5mg PO daily - held due to low blood pressure 6.) History of Type 2 Diabetes - Accuchecks - ISS - Consistent Carb Diet - A1C (10/16/17): 7.5 - Hypoglycemic protocol 7.) History of Hyperlipidemia - Lipid Panel (10/16/17): Total Cholesterol 147; LDL 66; HDL 25 8.) History of Alzheimer's Dementia - Aricept 10mg PO QHS 9.) History of BPH - Hx of TURP (1996) 10.) History of Urinary Incontinence - Nursing communication: To place patient on diapers 11.) Prophylaxis - Heparin 5,000 SC Q8H - Pepcid 20 mg PO 1x/day - Florastor 250 mg PO 2x/day - Colace 100 mg PO 2x/day From previous admission: Patient is DNR/DNI POLST completed on 10/16/17. Nurse Gilda has been reconsulted. Case discussed with Dr. Denisse Canales PGY-1 <Chloe Salcedo V - Last Filed: 11/01/17 18:35> Objective - Vital Signs/Intake and Output Vital Signs (last 24 hours): Temp Pulse Resp BP Pulse Ox 97.5 F L 96 H 20 121/73 97 11/01/17 15:20 11/01/17 16:18 11/01/17 15:20 11/01/17 15:20 11/01/17 15:20 Intake and Output: 11/01/17 11/01/17 06:59 18:59 Intake Total 790 Output Total 0 Balance 790 - Medications Medications: Current Medications Acetaminophen (Tylenol 325mg Tab) 650 mg PO Q6 PRN PRN Reason: Pain, Mild (1-3) Last Admin: 10/30/17 02:48 Dose: 650 mg Dextrose (Dextrose 50% Inj) 0 ml IV STAT PRN; Protocol PRN Reason: Hypoglycemia Protocol Dextrose (Glutose 15) 0 gm PO ONCE PRN; Protocol PRN Reason: Hypoglycemia Protocol Docusate Sodium (Colace) 100 mg PO BID [facility] Last Admin: 11/01/17 17:28 Dose: 100 mg Donepezil HCl (Aricept) 10 mg PO HS [facility] Last Admin: 10/31/17 21:49 Dose: 10 mg Famotidine (Pepcid) 20 mg PO DAILY [facility] Last Admin: 11/01/17 10:49 Dose: 20 mg Glucagon (Glucagen Diagnostic Kit) 0 mg IM STAT PRN; Protocol PRN Reason: Hypoglycemia Protocol Heparin Sodium (Porcine) (Heparin) 5,000 units SC Q8 [facility] Last Admin: 11/01/17 13:49 Dose: 5,000 units Piperacillin Sod/Tazobactam Sod (Zosyn 2.25 Gm Iv Premix) 2.25 gm in 50 mls @ 100 mls/hr IVPB Q6H [facility] Last Admin: 11/01/17 13:24 Dose: 100 mls/hr Moxifloxacin HCl (Avelox Iv 400mg/250ml Ns) 400 mg in 250 mls @ 167 mls/hr IVPB DAILY [facility] Last Admin: 11/01/17 10:48 Dose: 167 mls/hr Vancomycin HCl 1 gm/ Sodium (Chloride) 200 mls @ 133.333 mls/hr IVPB Q24H [facility] Last Admin: 11/01/17 13:49 Dose: 133.333 mls/hr Sodium Chloride (Sodium Chloride 0.9%) 1,000 mls @ 75 mls/hr IV .[id number] [facility] Last Admin: 10/29/17 00:39 Dose: 75 mls/hr Insulin Human Regular (Novolin R) 0 unit SC ACHS [facility] PRN Reason: Protocol Last Admin: 11/01/17 17:28 Dose: 2 unit Saccharomyces Boulardii (Florastor) 250 mg PO BID [facility] Last Admin: 11/01/17 17:28 Dose: 250 mg - Labs Labs: 11/01/17 06:43 11/01/17 06:43 PT 15.9 SECONDS (9.7-12.2) H 10/27/17 22:08 INR 1.4 10/27/17 22:08 APTT 27 SECONDS (21-34) 10/27/17 22:08 Attending/Attestation - Attestation I have personally seen and examined this patient.: Yes I have fully participated in the care of the patient.: Yes I have reviewed all pertinent clinical information, including history, physical exam and plan: Yes Notes (Text): 87 yo M with PMHx of HTN, T2DM, HLD, Alzheimer's Dementia, CKD ( baseline creatine 2.0s), BPH, and urinary incontinence (wears diapers), RLL lung mass who presented to the ED for worsening dyspnea. 1.) RLL Mass, pleural effusion - History of Tobacco Use - Pulmonology consulted- Dr. Deutsch --> help appreciated - Hem/Onc Consult: Dr. Green --> help appreciated - CT guided core biopsy of right lung pleural-based mass - pathology results: Small Cell Carcinoma - Full Report in the Chart - Imaging from previous admission (10/15/17): * CT Chest w/o Contrast: Multiple right lung masses, multiple right-sided pleural-based masses, and probable malignant effusion. Mediastinal adenopathy. Thick walled cavitary lesion right upper lobe measuring 5.5 x 5.3 CM. * MRI of brain with contrast: Diffuse cerebral atrophy and chronic microangiopathy are identified which appear age-appropriate. The lack images contrast limits the evaluation however the patient's GFR precludes administering gadolinium to this patient intravenously. No large intracranial mass is appreciable at this time. - Current Imaging * Chest X-ray 10/27/17: Complete Opacification of Right Lung/Large Pleural Effusion * CT Chest/Abdomen/Pelvis 10/28/17: interval increase in size of the right effusion with right chest tube, multiple pleural based masses throughout the right hemithorax, right lung mass and adenopathy consistent with malignancy, emphysema, new right lobe infiltrate, NO acute solid visceral or bowel abnormality, NO appendicitis, NO diverticulitis, Mandujano catheter balloon and catheter tip in prosthetic urethra 2.) Leukocystosis - WBC: 17.2 --> 10.3 --> 12.4 - ID consult: Dr. 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 Martínez --> help appreciated - Continue to monitor 4.) History of UTI - Patient was being treated as outpatient with Bactrim 7 day course - urine culture: no growth 5.) History of Hypertension - Coreg 6.25mg PO BID - held due to low blood pressure - Norvasc 5mg PO daily - held due to low blood pressure 6.) History of Type 2 Diabetes - Accuchecks - ISS - Consistent Carb Diet - A1C (10/16/17): 7.5 - Hypoglycemic protocol 7.) History of Hyperlipidemia - Lipid Panel (10/16/17): Total Cholesterol 147; LDL 66; HDL 25 8.) History of Alzheimer's Dementia - Aricept 10mg PO QHS 9.) History of BPH - Hx of TURP (1996) 10.) History of Urinary Incontinence - Nursing communication: To place patient on diapers 11.) Prophylaxis - Heparin 5,000 SC Q8H - Pepcid 20 mg PO 1x/day - Florastor 250 mg PO 2x/day - Colace 100 mg PO 2x/day From previous admission: Patient is DNR/DNI POLST completed on 10/16/17. Nurse Gilda has been reconsulted. Case discussed with Dr. Denisse Canales PGY-1
[2017-10-30 07:58] LABS: ALBUMIN 2.6 g/dL (3.5-5.0); CALCIUM 8.3 mg/dl (8.6-10.4); MAGNESIUM 1.8 mg/dL (1.6-2.3)
[2017-10-30 07:59] LABS: ALB/GLOB RATIO 0.9 (1.0-2.1)
[2017-10-30 09:43] LABS: BANDS 2 % (0-2); LYMPHOCYTE 9 % (20-40); MONOCYTE 12 % (0-10); NEUTROPHIL 77 % (50-75); TOTAL CELLS COUNTED 100
[2017-10-30 09:44] LABS: PLATELET ESTIMATE NORMAL (NORMAL)
[2017-10-30 09:46] LABS: ANISOCYTOSIS SLIGHT; OVALOCYTES SLIGHT
[2017-10-30] MEDS: Moxifloxacin IV 400mg/250ml NS 400 MG/250 ML BAG IVPB SCH (09:48)
[2017-10-30] MEDS: Saccharomyces Boulardi 250 mg Cap PO SCH ×2 (09:50→18:10)
--- NOTE | 2017-10-30 13:01 | CP.PCM.PN ---
Subjective - Date & Time of Evaluation Date of Evaluation: 10/30/17 Time of Evaluation: 07:00 - Subjective Subjective: seen on rounds nad afeb at present Objective - Vital Signs/Intake and Output Vital Signs (last 24 hours): Temp Pulse Resp BP Pulse Ox 98.4 F 95 H 21 118/72 99 10/30/17 08:00 10/30/17 11:48 10/30/17 08:00 10/30/17 08:00 10/30/17 08:00 Intake and Output: 10/30/17 10/30/17 06:59 18:59 Intake Total 1620 Output Total 368 Balance 1252 - Medications Medications: Current Medications Acetaminophen (Tylenol 325mg Tab) 650 mg PO Q6 PRN PRN Reason: Pain, Mild (1-3) Last Admin: 10/30/17 02:48 Dose: 650 mg Dextrose (Dextrose 50% Inj) 0 ml IV STAT PRN; Protocol PRN Reason: Hypoglycemia Protocol Dextrose (Glutose 15) 0 gm PO ONCE PRN; Protocol PRN Reason: Hypoglycemia Protocol Docusate Sodium (Colace) 100 mg PO BID [facility] Last Admin: 10/30/17 09:50 Dose: 100 mg Donepezil HCl (Aricept) 10 mg PO HS [facility] Last Admin: 10/29/17 21:13 Dose: 10 mg Famotidine (Pepcid) 20 mg PO DAILY [facility] Last Admin: 10/30/17 09:50 Dose: 20 mg Glucagon (Glucagen Diagnostic Kit) 0 mg IM STAT PRN; Protocol PRN Reason: Hypoglycemia Protocol Heparin Sodium (Porcine) (Heparin) 5,000 units SC Q8 [facility] Last Admin: 10/30/17 06:12 Dose: 5,000 units Piperacillin Sod/Tazobactam Sod (Zosyn 2.25 Gm Iv Premix) 2.25 gm in 50 mls @ 100 mls/hr IVPB Q6H [facility] Last Admin: 10/30/17 12:37 Dose: 100 mls/hr Moxifloxacin HCl (Avelox Iv 400mg/250ml Ns) 400 mg in 250 mls @ 167 mls/hr IVPB DAILY [facility] Last Admin: 10/30/17 09:48 Dose: 167 mls/hr Vancomycin HCl 1 gm/ Sodium (Chloride) 200 mls @ 133.333 mls/hr IVPB Q24H [facility] Last Admin: 10/29/17 13:03 Dose: 133.333 mls/hr Dextrose (Dextrose 5% In Water 1000 Ml) 1,000 mls @ 0 mls/hr IV .Q0M PRN; Protocol; Per Protocol PRN Reason: Hypoglycemia Protocol Sodium Chloride (Sodium Chloride 0.9%) 1,000 mls @ 75 mls/hr IV .[id number] [facility] Last Admin: 10/29/17 00:39 Dose: 75 mls/hr Sodium Chloride (Sodium Chloride 0.9%) 1,000 mls @ 80 mls/hr IV .[id number] [facility] Last Admin: 10/29/17 12:56 Dose: Not Given Insulin Human Regular (Novolin R) 0 unit SC ACHS [facility] PRN Reason: Protocol Last Admin: 10/30/17 07:43 Dose: Not Given Saccharomyces Boulardii (Florastor) 250 mg PO BID [facility] Last Admin: 10/30/17 09:50 Dose: 250 mg - Labs Labs: 10/30/17 06:47 10/30/17 06:47 PT 15.9 SECONDS (9.7-12.2) H 10/27/17 22:08 INR 1.4 10/27/17 22:08 APTT 27 SECONDS (21-34) 10/27/17 22:08 - Constitutional Appears: Non-toxic, Chronically Ill - Head Exam Head Exam: NORMOCEPHALIC - Eye Exam Eye Exam: PERRL - ENT Exam ENT Exam: Mucous Membranes Dry - Neck Exam Neck Exam: absent: Lymphadenopathy - Respiratory Exam Respiratory Exam: Decreased Breath Sounds, Rales Assessment and Plan (1) Dyspnea Status: Acute (2) Pleural effusion Status: Acute (3) Acute chest pain Status: Acute (4) Anemia Status: Acute (5) Chronic kidney disease (CKD), stage III (moderate) Status: Acute (6) Diabetes Status: Acute (7) Lung mass Status: Acute (8) Opacity of lung on imaging study Status: Acute (9) Pyelonephritis due to Escherichia coli Status: Acute (10) Renal insufficiency Status: Acute (11) Right lower lobe lung mass Status: Acute (12) Hypotonic bladder Status: Chronic (13) Urinary retention Status: Chronic - Assessment and Plan (Free Text) Assessment: iv rx renewed
[2017-10-30] MEDS: Vancomycin 1 GM in Sodium Chloride 0.9% 200 ML IVPB SCH (13:23)
--- NOTE | 2017-10-30 16:24 | CP.PCM.PN ---
Subjective - Date & Time of Evaluation Date of Evaluation: 10/30/17 Time of Evaluation: 08:00 - Subjective Subjective: Patient seen and examined at bedside. 2L of serosanguinous fluid collected from chest tube. Breathing has improved and the patient remains on BiPap. Pathology report of RLL biopsy showed Small Cell Lung CA. Patient is resting comfortably. Objective - Vital Signs/Intake and Output Vital Signs (last 24 hours): Temp Pulse Resp BP Pulse Ox 98.4 F 95 H 21 118/72 99 10/30/17 08:00 10/30/17 11:48 10/30/17 08:00 10/30/17 08:00 10/30/17 08:00 Intake and Output: 10/30/17 10/30/17 06:59 18:59 Intake Total 1620 Output Total 368 Balance 1252 - Medications Medications: Current Medications Acetaminophen (Tylenol 325mg Tab) 650 mg PO Q6 PRN PRN Reason: Pain, Mild (1-3) Last Admin: 10/30/17 02:48 Dose: 650 mg Dextrose (Dextrose 50% Inj) 0 ml IV STAT PRN; Protocol PRN Reason: Hypoglycemia Protocol Dextrose (Glutose 15) 0 gm PO ONCE PRN; Protocol PRN Reason: Hypoglycemia Protocol Docusate Sodium (Colace) 100 mg PO BID [facility] Last Admin: 10/30/17 09:50 Dose: 100 mg Donepezil HCl (Aricept) 10 mg PO HS [facility] Last Admin: 10/29/17 21:13 Dose: 10 mg Famotidine (Pepcid) 20 mg PO DAILY [facility] Last Admin: 10/30/17 09:50 Dose: 20 mg Glucagon (Glucagen Diagnostic Kit) 0 mg IM STAT PRN; Protocol PRN Reason: Hypoglycemia Protocol Heparin Sodium (Porcine) (Heparin) 5,000 units SC Q8 [facility] Last Admin: 10/30/17 13:24 Dose: 5,000 units Piperacillin Sod/Tazobactam Sod (Zosyn 2.25 Gm Iv Premix) 2.25 gm in 50 mls @ 100 mls/hr IVPB Q6H [facility] Last Admin: 10/30/17 12:37 Dose: 100 mls/hr Moxifloxacin HCl (Avelox Iv 400mg/250ml Ns) 400 mg in 250 mls @ 167 mls/hr IVPB DAILY [facility] Last Admin: 10/30/17 09:48 Dose: 167 mls/hr Vancomycin HCl 1 gm/ Sodium (Chloride) 200 mls @ 133.333 mls/hr IVPB Q24H [facility] Last Admin: 10/30/17 13:23 Dose: 133.333 mls/hr Dextrose (Dextrose 5% In Water 1000 Ml) 1,000 mls @ 0 mls/hr IV .Q0M PRN; Protocol; Per Protocol PRN Reason: Hypoglycemia Protocol Sodium Chloride (Sodium Chloride 0.9%) 1,000 mls @ 75 mls/hr IV .[id number] [facility] Last Admin: 10/29/17 00:39 Dose: 75 mls/hr Sodium Chloride (Sodium Chloride 0.9%) 1,000 mls @ 80 mls/hr IV .[id number] [facility] Last Admin: 10/29/17 12:56 Dose: Not Given Insulin Human Regular (Novolin R) 0 unit SC ACHS [facility] PRN Reason: Protocol Last Admin: 10/30/17 13:32 Dose: 4 unit Saccharomyces Boulardii (Florastor) 250 mg PO BID [facility] Last Admin: 10/30/17 09:50 Dose: 250 mg - Labs Labs: 10/30/17 06:47 10/30/17 06:47 PT 15.9 SECONDS (9.7-12.2) H 10/27/17 22:08 INR 1.4 10/27/17 22:08 APTT 27 SECONDS (21-34) 10/27/17 22:08 - Head Exam Head Exam: ATRAUMATIC, NORMOCEPHALIC - Eye Exam Eye Exam: Normal appearance - ENT Exam ENT Exam: Mucous Membranes Moist - Respiratory Exam Respiratory Exam: Decreased Breath Sounds - Cardiovascular Exam Cardiovascular Exam: REGULAR RHYTHM - GI/Abdominal Exam GI & Abdominal Exam: Soft, Normal Bowel Sounds Assessment and Plan (1) Pleural effusion Assessment & Plan: - Biopsy study showed Small Cell lung CA - follow up with Heme-Onc - Resend pleural fluid cultures -Pigtail catheter in place ddraining minimal fluid - continue IV antibiotics - continue patient on BiPAP - palliative consult Status: Acute
--- NOTE | 2017-10-30 19:13 | CP.PCM.PN ---
Subjective - Date & Time of Evaluation Date of Evaluation: 10/30/17 Time of Evaluation: 13:00 - Subjective Subjective: Patient reports breathing improved, on BIPAP; tolerating diet; Objective - Vital Signs/Intake and Output Vital Signs (last 24 hours): Temp Pulse Resp BP Pulse Ox 97.1 F L 89 20 129/77 100 10/30/17 15:00 10/30/17 15:07 10/30/17 15:00 10/30/17 15:00 10/30/17 15:00 Intake and Output: 10/30/17 10/31/17 18:59 06:59 Intake Total 1200 Output Total 0 Balance 1200 - Medications Medications: Current Medications Acetaminophen (Tylenol 325mg Tab) 650 mg PO Q6 PRN PRN Reason: Pain, Mild (1-3) Last Admin: 10/30/17 02:48 Dose: 650 mg Dextrose (Dextrose 50% Inj) 0 ml IV STAT PRN; Protocol PRN Reason: Hypoglycemia Protocol Dextrose (Glutose 15) 0 gm PO ONCE PRN; Protocol PRN Reason: Hypoglycemia Protocol Docusate Sodium (Colace) 100 mg PO BID [facility] Last Admin: 10/30/17 18:10 Dose: 100 mg Donepezil HCl (Aricept) 10 mg PO HS [facility] Last Admin: 10/29/17 21:13 Dose: 10 mg Famotidine (Pepcid) 20 mg PO DAILY [facility] Last Admin: 10/30/17 09:50 Dose: 20 mg Glucagon (Glucagen Diagnostic Kit) 0 mg IM STAT PRN; Protocol PRN Reason: Hypoglycemia Protocol Heparin Sodium (Porcine) (Heparin) 5,000 units SC Q8 [facility] Last Admin: 10/30/17 13:24 Dose: 5,000 units Piperacillin Sod/Tazobactam Sod (Zosyn 2.25 Gm Iv Premix) 2.25 gm in 50 mls @ 100 mls/hr IVPB Q6H [facility] Last Admin: 10/30/17 12:37 Dose: 100 mls/hr Moxifloxacin HCl (Avelox Iv 400mg/250ml Ns) 400 mg in 250 mls @ 167 mls/hr IVPB DAILY [facility] Last Admin: 10/30/17 09:48 Dose: 167 mls/hr Vancomycin HCl 1 gm/ Sodium (Chloride) 200 mls @ 133.333 mls/hr IVPB Q24H [facility] Last Admin: 10/30/17 13:23 Dose: 133.333 mls/hr Dextrose (Dextrose 5% In Water 1000 Ml) 1,000 mls @ 0 mls/hr IV .Q0M PRN; Protocol; Per Protocol PRN Reason: Hypoglycemia Protocol Sodium Chloride (Sodium Chloride 0.9%) 1,000 mls @ 75 mls/hr IV .[id number] [facility] Last Admin: 10/29/17 00:39 Dose: 75 mls/hr Sodium Chloride (Sodium Chloride 0.9%) 1,000 mls @ 80 mls/hr IV .[id number] [facility] Last Admin: 10/29/17 12:56 Dose: Not Given Insulin Human Regular (Novolin R) 0 unit SC ACHS [facility] PRN Reason: Protocol Last Admin: 10/30/17 16:30 Dose: Not Given Saccharomyces Boulardii (Florastor) 250 mg PO BID [facility] Last Admin: 10/30/17 18:10 Dose: 250 mg - Labs Labs: 10/30/17 06:47 10/30/17 06:47 PT 15.9 SECONDS (9.7-12.2) H 10/27/17 22:08 INR 1.4 10/27/17 22:08 APTT 27 SECONDS (21-34) 10/27/17 22:08 - Constitutional Appears: Non-toxic, No Acute Distress - Eye Exam Eye Exam: absent: Scleral icterus - ENT Exam ENT Exam: Mucous Membranes Moist - Respiratory Exam Respiratory Exam: Clear to Ausculation Bilateral. absent: Respiratory Distress - Cardiovascular Exam Cardiovascular Exam: REGULAR RHYTHM, +S1, +S2 - GI/Abdominal Exam GI & Abdominal Exam: Soft. absent: Distended, Tenderness - Extremities Exam Additional comments: no leg edema; - Neurological Exam Neurological Exam: Alert, Awake - Psychiatric Exam Psychiatric exam: Normal Affect, Normal Mood. absent: Agitated - Skin Skin Exam: Warm. absent: Cyanosis Assessment and Plan (1) KIMBERLEE (acute kidney injury) Assessment & Plan: KIMBERLEE, likely pre-renal etiology but may have extension to ATN as renal improving slowly with IVF; non-oliguric renal failure; concern for superimposed obstructive nephropathy; continue periodic bladder scans to assess post-void residuals; awaiting urology to insert manzo catheter; -continue NS at 80 cc/hr; -avoid nephrotoxic agents (NSAIDS, fleets phosphate enema); Status: Acute (2) Hyponatremia Assessment & Plan: Mildly worsened after having improved; continue 1L PO fluid restriction; Status: Acute (3) Urinary retention Assessment & Plan: See above; no UTI; Status: Chronic (4) SIRS (systemic inflammatory response syndrome) Assessment & Plan: On abx for HCAP with avelox, zosyn and vanco; being dosed for CrCl < 40 ml/min; obtain vanco trough before 4th dose; Status: Acute
--- NOTE | 2017-10-30 22:38 | CP.PCM.CON ---
History of Present Illness - History of Present Illness History of Present Illness: 87 year old male with a history of Alzheimer disease, HTN, DM, HL, CKD, extensive stage small cell lung cancer diagnosed 10/2017, admitted with worsening dyspnea. The patient is currently on bipap and appears comfortable. Past medical history: Alzheimer disease, HTN, DM, HL, CKD Past surgical history: None Family history: Denies hematologic and oncologic problems Social history: Denies tobacco, alcohol, and illicit drug use. Allergies: NKA Review of systems: All remaining review of systems including HEENT, cardiovascular, respiratory, gastrointestinal, genitourinary, musculoskeletal, dermatologic neurologic, and psychiatric are negative unless mentioned in the HPI. Past Patient History - Infectious Disease Hx of Infectious Diseases: None - Past Medical History & Family History Past Medical History?: Yes - Past Social History Smoking Status: Former Smoker - CARDIAC Hx Hypercholesterolemia: Yes Hx Hypertension: Yes - PULMONARY Hx Respiratory Disorders: Yes Other/Comment: HX: LUNG MASS(RIGHT) - NEUROLOGICAL Hx Alzheimer's Disease: Yes Hx Dementia: Yes - HEENT Hx HEENT Problems: Yes Hx Cataracts: Yes (bilateral) - RENAL Hx Chronic Kidney Disease: Yes (PER MD'S NOTES(BASELINE CREAT.2.0'S)) - ENDOCRINE/METABOLIC Hx Diabetes Mellitus Type 2: Yes - HEMATOLOGICAL/ONCOLOGICAL Hx Anemia: Yes Hx Human Immunodeficiency Virus (HIV): No - INTEGUMENTARY Hx Dermatological Problems: No - MUSCULOSKELETAL/RHEUMATOLOGICAL Hx Arthritis: Yes - GASTROINTESTINAL Hx Gastrointestinal Disorders: No - GENITOURINARY/GYNECOLOGICAL Hx Genitourinary Disorders: Yes Hx Incontinence: Yes ((PT. WEARS A DIAPER)) Hx Prostate Problems: Yes (TUR1996) - PSYCHIATRIC Hx Substance Use: No - SURGICAL HISTORY Hx Surgeries: Yes Hx Amputation: Yes (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- work related) Hx Arthroscopy: Yes (left knee) Hx Cataract Extraction: Yes (bilat) Hx Herniorrhaphy: Yes (LEFT INGUINAL HERNIA REPAIR 06/2014) Other/Comment: HX:LEFT HAND 3 DIGIT AMPUTATION( ACCIDENT ). HX: CYSTOSCOPY INTERNAL OPTICAL URETROTOMY 11/02/16. HX: RIGHT LUNG BIOPSY AND THORACENTISIS 10/15/17 - ANESTHESIA Hx Anesthesia: Yes Hx Anesthesia Reactions: No Hx Malignant Hyperthermia: No Meds Allergies/Adverse Reactions: Allergies Allergy/AdvReac Type Severity Reaction Status Date / Time No Known Allergies Allergy Verified 10/15/17 14:30 - Medications Medications: Current Medications Acetaminophen (Tylenol 325mg Tab) 650 mg PO Q6 PRN PRN Reason: Pain, Mild (1-3) Last Admin: 10/30/17 02:48 Dose: 650 mg Dextrose (Dextrose 50% Inj) 0 ml IV STAT PRN; Protocol PRN Reason: Hypoglycemia Protocol Dextrose (Glutose 15) 0 gm PO ONCE PRN; Protocol PRN Reason: Hypoglycemia Protocol Docusate Sodium (Colace) 100 mg PO BID [facility] Last Admin: 10/30/17 18:10 Dose: 100 mg Donepezil HCl (Aricept) 10 mg PO HS [facility] Last Admin: 10/30/17 21:46 Dose: 10 mg Famotidine (Pepcid) 20 mg PO DAILY [facility] Last Admin: 10/30/17 09:50 Dose: 20 mg Glucagon (Glucagen Diagnostic Kit) 0 mg IM STAT PRN; Protocol PRN Reason: Hypoglycemia Protocol Heparin Sodium (Porcine) (Heparin) 5,000 units SC Q8 [facility] Last Admin: 10/30/17 21:49 Dose: 5,000 units Piperacillin Sod/Tazobactam Sod (Zosyn 2.25 Gm Iv Premix) 2.25 gm in 50 mls @ 100 mls/hr IVPB Q6H [facility] Last Admin: 10/30/17 19:52 Dose: 100 mls/hr Moxifloxacin HCl (Avelox Iv 400mg/250ml Ns) 400 mg in 250 mls @ 167 mls/hr IVPB DAILY [facility] Last Admin: 10/30/17 09:48 Dose: 167 mls/hr Vancomycin HCl 1 gm/ Sodium (Chloride) 200 mls @ 133.333 mls/hr IVPB Q24H [facility] Last Admin: 10/30/17 13:23 Dose: 133.333 mls/hr Dextrose (Dextrose 5% In Water 1000 Ml) 1,000 mls @ 0 mls/hr IV .Q0M PRN; Protocol; Per Protocol PRN Reason: Hypoglycemia Protocol Sodium Chloride (Sodium Chloride 0.9%) 1,000 mls @ 75 mls/hr IV .[id number] [facility] Last Admin: 10/29/17 00:39 Dose: 75 mls/hr Sodium Chloride (Sodium Chloride 0.9%) 1,000 mls @ 80 mls/hr IV .[id number] [facility] Last Admin: 10/29/17 12:56 Dose: Not Given Insulin Human Regular (Novolin R) 0 unit SC ACHS [facility] PRN Reason: Protocol Last Admin: 10/30/17 21:49 Dose: 6 unit Saccharomyces Boalexandrdii (Florastor) 250 mg PO BID [facility] Last Admin: 10/30/17 18:10 Dose: 250 mg Physical Exam - Head Exam Head Exam: ATRAUMATIC - Eye Exam Eye Exam: Normal appearance - ENT Exam ENT Exam: Mucous Membranes Dry - Respiratory Exam Respiratory Exam: Decreased Breath Sounds - Cardiovascular Exam Cardiovascular Exam: +S1, +S2 - GI/Abdominal Exam GI & Abdominal Exam: Normal Bowel Sounds - Extremities Exam Extremities exam: Positive for: pedal edema Results - Vital Signs Recent Vital Signs: Last Vital Signs Temp 97.1 F L 10/30/17 15:00 Pulse 100 H 10/30/17 20:42 Resp 20 10/30/17 15:00 BP 129/77 10/30/17 15:00 Pulse Ox 100 10/30/17 15:00 - Labs Result Diagrams: 10/30/17 06:47 10/30/17 06:47 Labs: Laboratory Results - last 24 hr 10/29/17 10/30/17 10/30/17 11:10 06:47 06:47 WBC 12.4 H RBC 3.64 L Hgb 10.3 L Hct 31.1 L MCV 85.4 MCH 28.3 MCHC 33.2 RDW 15.1 H Plt Count 344 MPV 7.6 Neut % (Auto) 81.5 H Lymph % (Auto) 6.1 L [place] % (Auto) 11.7 H Eos % (Auto) 0.5 Baso % (Auto) 0.2 Neut # 10.2 H Lymph # 0.8 L [place] # 1.5 H Eos # 0.1 Baso # 0.0 Neutrophils % (Manual) 77 H Band Neutrophils % 2 Lymphocytes % (Manual) 9 L Monocytes % (Manual) 12 H Platelet Estimate Normal Anisocytosis (manual) Slight Ovalocytes Slight Sodium 130 L Potassium 4.5 Chloride 99 Carbon Dioxide 29 Anion Gap 7 L BUN 46 H Creatinine 1.8 H Est GFR ( Amer) 43 Est GFR (Non-Af Amer) 36 POC Glucose (mg/dL) Random Glucose 147 H Lactic Acid Calcium 8.3 L Phosphorus 3.6 Magnesium 1.8 Total Bilirubin 0.7 AST 46 ALT 30 Alkaline Phosphatase 59 Total Protein 5.4 L Albumin 2.6 L Globulin 2.8 Albumin/Globulin Ratio 0.9 L Procalcitonin Calcium (PTH Intact) 8.4 L PTH w/Ion &Tot Calcium 72 H Ur Random Creatinine Urine Microalbumin 10/30/17 10/30/17 10/30/17 06:47 06:48 06:49 WBC RBC Hgb Hct MCV MCH MCHC RDW Plt Count MPV Neut % (Auto) Lymph % (Auto) [place] % (Auto) Eos % (Auto) Baso % (Auto) Neut # Lymph # [place] # Eos # Baso # Neutrophils % (Manual) Band Neutrophils % Lymphocytes % (Manual) Monocytes % (Manual) Platelet Estimate Anisocytosis (manual) Ovalocytes Sodium Potassium Chloride Carbon Dioxide Anion Gap BUN Creatinine Est GFR ( Amer) Est GFR (Non-Af Amer) POC Glucose (mg/dL) 149 H Random Glucose Lactic Acid 2.1 Calcium Phosphorus Magnesium Total Bilirubin AST ALT Alkaline Phosphatase Total Protein Albumin Globulin Albumin/Globulin Ratio Procalcitonin 0.28 Calcium (PTH Intact) PTH w/Ion &Tot Calcium Ur Random Creatinine Urine Microalbumin 10/30/17 10/30/17 10/30/17 07:46 07:48 11:37 WBC RBC Hgb Hct MCV MCH MCHC RDW Plt Count MPV Neut % (Auto) Lymph % (Auto) [place] % (Auto) Eos % (Auto) Baso % (Auto) Neut # Lymph # [place] # Eos # Baso # Neutrophils % (Manual) Band Neutrophils % Lymphocytes % (Manual) Monocytes % (Manual) Platelet Estimate Anisocytosis (manual) Ovalocytes Sodium Potassium Chloride Carbon Dioxide Anion Gap BUN Creatinine Est GFR ( Amer) Est GFR (Non-Af Amer) POC Glucose (mg/dL) 216 H Random Glucose Lactic Acid Calcium Phosphorus Magnesium Total Bilirubin AST ALT Alkaline Phosphatase Total Protein Albumin Globulin Albumin/Globulin Ratio Procalcitonin Calcium (PTH Intact) PTH w/Ion &Tot Calcium Ur Random Creatinine 99.7 Urine Microalbumin 286.3 H 10/30/17 10/30/17 16:16 21:11 WBC RBC Hgb Hct MCV MCH MCHC RDW Plt Count MPV Neut % (Auto) Lymph % (Auto) [place] % (Auto) Eos % (Auto) Baso % (Auto) Neut # Lymph # [place] # Eos # Baso # Neutrophils % (Manual) Band Neutrophils % Lymphocytes % (Manual) Monocytes % (Manual) Platelet Estimate Anisocytosis (manual) Ovalocytes Sodium Potassium Chloride Carbon Dioxide Anion Gap BUN Creatinine Est GFR ( Amer) Est GFR (Non-Af Amer) POC Glucose (mg/dL) 145 H 280 H Random Glucose Lactic Acid Calcium Phosphorus Magnesium Total Bilirubin AST ALT Alkaline Phosphatase Total Protein Albumin Globulin Albumin/Globulin Ratio Procalcitonin Calcium (PTH Intact) PTH w/Ion &Tot Calcium Ur Random Creatinine Urine Microalbumin Assessment & Plan (1) Small cell lung cancer Assessment and Plan: extensive stage 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 Status: Acute
[2017-10-31] MEDS: Piperacill/Tazo 2.25gm in Dex 2.25 GM/50 ML BAG IVPB SCH ×4 (00:31→19:57)
[2017-10-31] MEDS: Sodium Chloride 0.9% 1,000 ML IV SCH ×4 (01:00→23:25)
[2017-10-31 06:35] LABS: BASO % 0.3 % (0.0-2.0); EOS # 0.1 K/uL (0.0-0.7); EOS % 0.5 % (0.0-4.0); HEMOGLOBIN 10.2 g/dL (12.0-18.0); LYMPH # 0.8 K/uL (1.0-4.3); LYMPH % 4.8 % (20.0-40.0); MEAN CELL VOLUME 84.9 fL (80.0-94.0); MEAN CORPUSCULAR HEMOGLOBIN 28.2 pg (27.0-31.0); MEAN CORPUSCULAR HGB CONC 33.2 g/dL (33.0-37.0); MEAN PLATELET VOLUME 7.2 fL (7.2-11.7); MONO # 1.7 K/uL (0.0-0.8); MONO % 10.4 % (0.0-10.0); NEUT # 13.8 K/uL (1.8-7.0); PLATELET COUNT 330 K/uL (130-400); RBC 3.62 Mil/uL (4.40-5.90); WHITE BLOOD COUNT 16.4 K/uL (4.8-10.8)
[2017-10-31 06:51] LABS: ALB/GLOB RATIO 0.9 (1.0-2.1); ALBUMIN 2.4 g/dL (3.5-5.0); CALCIUM 8.3 mg/dl (8.6-10.4); MAGNESIUM 1.8 mg/dL (1.6-2.3)
--- NOTE | 2017-10-31 07:22 | CP.PCM.PN ---
Subjective - Date & Time of Evaluation Date of Evaluation: 10/31/17 Time of Evaluation: 07:00 - Subjective Subjective: Medicine Progress Note: Patient was seen and examined at bedside in the AM. Per nurse no acute events. Patient denies chest pain, shortness of breath, nausea, or vomiting. Objective - Vital Signs/Intake and Output Vital Signs (last 24 hours): Temp Pulse Resp BP Pulse Ox 97.4 F L 88 20 138/76 96 10/30/17 23:38 10/31/17 05:05 10/30/17 23:38 10/30/17 23:38 10/30/17 23:38 Intake and Output: 10/31/17 10/31/17 06:59 18:59 Intake Total 630 Output Total 0 Balance 630 - Medications Medications: Current Medications Acetaminophen (Tylenol 325mg Tab) 650 mg PO Q6 PRN PRN Reason: Pain, Mild (1-3) Last Admin: 10/30/17 02:48 Dose: 650 mg Dextrose (Dextrose 50% Inj) 0 ml IV STAT PRN; Protocol PRN Reason: Hypoglycemia Protocol Dextrose (Glutose 15) 0 gm PO ONCE PRN; Protocol PRN Reason: Hypoglycemia Protocol Docusate Sodium (Colace) 100 mg PO BID [facility] Last Admin: 10/30/17 18:10 Dose: 100 mg Donepezil HCl (Aricept) 10 mg PO HS [facility] Last Admin: 10/30/17 21:46 Dose: 10 mg Famotidine (Pepcid) 20 mg PO DAILY [facility] Last Admin: 10/30/17 09:50 Dose: 20 mg Glucagon (Glucagen Diagnostic Kit) 0 mg IM STAT PRN; Protocol PRN Reason: Hypoglycemia Protocol Heparin Sodium (Porcine) (Heparin) 5,000 units SC Q8 [facility] Last Admin: 10/31/17 06:30 Dose: 5,000 units Piperacillin Sod/Tazobactam Sod (Zosyn 2.25 Gm Iv Premix) 2.25 gm in 50 mls @ 100 mls/hr IVPB Q6H [facility] Last Admin: 10/31/17 06:30 Dose: 100 mls/hr Moxifloxacin HCl (Avelox Iv 400mg/250ml Ns) 400 mg in 250 mls @ 167 mls/hr IVPB DAILY [facility] Last Admin: 10/30/17 09:48 Dose: 167 mls/hr Vancomycin HCl 1 gm/ Sodium (Chloride) 200 mls @ 133.333 mls/hr IVPB Q24H [facility] Last Admin: 10/30/17 13:23 Dose: 133.333 mls/hr Dextrose (Dextrose 5% In Water 1000 Ml) 1,000 mls @ 0 mls/hr IV .Q0M PRN; Protocol; Per Protocol PRN Reason: Hypoglycemia Protocol Sodium Chloride (Sodium Chloride 0.9%) 1,000 mls @ 75 mls/hr IV .[id number] [facility] Last Admin: 10/29/17 00:39 Dose: 75 mls/hr Sodium Chloride (Sodium Chloride 0.9%) 1,000 mls @ 80 mls/hr IV .[id number] [facility] Last Admin: 10/31/17 06:39 Dose: 80 mls/hr Insulin Human Regular (Novolin R) 0 unit SC ACHS [facility] PRN Reason: Protocol Last Admin: 10/30/17 21:49 Dose: 6 unit Saccharomyces Boulardii (Florastor) 250 mg PO BID [facility] Last Admin: 10/30/17 18:10 Dose: 250 mg - Labs Labs: 10/31/17 06:25 10/31/17 06:25 PT 15.9 SECONDS (9.7-12.2) H 10/27/17 22:08 INR 1.4 10/27/17 22:08 APTT 27 SECONDS (21-34) 10/27/17 22:08 - Constitutional Appears: No Acute Distress, Chronically Ill - Head Exam Head Exam: ATRAUMATIC, NORMAL INSPECTION - Eye Exam Eye Exam: EOMI, Normal appearance - ENT Exam ENT Exam: Mucous Membranes Moist - Respiratory Exam Respiratory Exam: Clear to Ausculation Bilateral, NORMAL BREATHING PATTERN ( bipap ) Additional comments: Chest Tube in place 40ml seen in the AM removed - Cardiovascular Exam Cardiovascular Exam: REGULAR RHYTHM, +S1, +S2 - GI/Abdominal Exam GI & Abdominal Exam: Soft, Normal Bowel Sounds. absent: Tenderness - Extremities Exam Extremities Exam: Normal Inspection - Neurological Exam Neurological Exam: Alert, Awake - Psychiatric Exam Psychiatric exam: Normal Affect, Normal Mood - Skin Skin Exam: Normal Color, Warm Assessment and Plan - Assessment and Plan (Free Text) Assessment: 87 yo M with PMHx of HTN, T2DM, HLD, Alzheimer's Dementia, CKD ( baseline creatine 2.0s), BPH, and urinary incontinence (wears diapers), RLL lung mass who presented to the ED for worsening dyspnea. 1.) Small Cell Lung Cancer/Pleural Effusion - History of Tobacco Use - Pulmonology consulted- Dr. Deutsch --> help appreciated - Chest Tube in place - Bipap - Hem/Onc Consult: Dr. Green --> help appreciated - CT guided core biopsy of right lung pleural-based mass - pathology results: Small Cell Carcinoma - Full Report in the Chart - Imaging from previous admission (10/15/17): * CT Chest w/o Contrast: Multiple right lung masses, multiple right-sided pleural-based masses, and probable malignant effusion. Mediastinal adenopathy. Thick walled cavitary lesion right upper lobe measuring 5.5 x 5.3 CM. * MRI of brain with contrast: Diffuse cerebral atrophy and chronic microangiopathy are identified which appear age-appropriate. The lack images contrast limits the evaluation however the patient's GFR precludes administering gadolinium to this patient intravenously. No large intracranial mass is appreciable at this time. - Current Imaging * Chest X-ray 10/27/17: Complete Opacification of Right Lung/Large Pleural Effusion * CT Chest/Abdomen/Pelvis 10/28/17: interval increase in size of the right effusion with right chest tube, multiple pleural based masses throughout the right hemithorax, right lung mass and adenopathy consistent with malignancy, emphysema, new right lobe infiltrate, NO acute solid visceral or bowel abnormality, NO appendicitis, NO diverticulitis, Mandujano catheter balloon and catheter tip in prosthetic urethra 2.) Leukocystosis - WBC: 17.2 --> 10.3 --> 12.4 - ID consult: Dr. Fallon --> help appreciated - Vancomycin 1 gm IV Q24H starting on 10/28/17 - Vancomycin Trough 9:30 AM Monday10/31/17: 9.5 - Rapid Influenza is negative - Urine Legionella Ag is negative - F/U Urine Strep pneumoniae Ag - F/U Mycoplasma IgG - Mycoplasm IgM: Negative - Blood Culture: no growth - preliminary - Urine Culture: No growth - Procalcitonin: 0.28 3.) FREDERIC on CKD (Stage 3B) - Baseline BUN/ Cre: 30-40s/2 -2.5 - Currently BUN/Cr: 30/1.6 - Intelligence Intern Dr. Martínez --> help appreciated - Continue to monitor 4.) History of UTI - Patient was being treated as outpatient with Bactrim 7 day course - urine culture: no growth 5.) History of Hypertension - Coreg 6.25mg PO BID - held due to low blood pressure - Norvasc 5mg PO daily - held due to low blood pressure 6.) History of Type 2 Diabetes - Accuchecks - ISS - Consistent Carb Diet - A1C (10/16/17): 7.5 - Hypoglycemic protocol 7.) History of Hyperlipidemia - Lipid Panel (10/16/17): Total Cholesterol 147; LDL 66; HDL 25 8.) History of Alzheimer's Dementia - Aricept 10mg PO QHS 9.) History of BPH - Hx of TURP (1996) 10.) History of Urinary Incontinence - Nursing communication: To place patient on diapers 11.) Prophylaxis - Heparin 5,000 SC Q8H - Pepcid 20 mg PO 1x/day - Florastor 250 mg PO 2x/day - Colace 100 mg PO 2x/day Per Amara's note: Family meeting tomorrow 11/01/17 From previous admission: Patient is DNR/DNI POLST completed on 10/16/17. Nurse Gilda has been reconsulted. Case discussed with Dr. Denisse Canales PGY-1
[2017-10-31] MEDS ORDERED: Pneumococcal 23-Valent Vaccine IM ONE (08:00)
[2017-10-31] MEDS: (Novolin R) Insulin Human Regular 100 units/ml vial SC SCH ×4 (08:29→21:32)
[2017-10-31 08:32] LABS: ANISOCYTOSIS SLIGHT; LYMPHOCYTE 4 % (20-40); MONOCYTE 8 % (0-10); NEUTROPHIL 88 % (50-75); PLATELET ESTIMATE NORMAL (NORMAL); TOTAL CELLS COUNTED 100
[2017-10-31 08:33] LABS: HYPOCHROMIC SLIGHT; OVALOCYTES SLIGHT
[2017-10-31] MEDS: Moxifloxacin IV 400mg/250ml NS 400 MG/250 ML BAG IVPB SCH (10:00)
[2017-10-31] MEDS: Saccharomyces Boulardi 250 mg Cap PO SCH ×2 (10:01→17:15)
[2017-10-31] MEDS: Vancomycin 1 GM in Sodium Chloride 0.9% 200 ML IVPB SCH (14:08)
--- NOTE | 2017-10-31 15:43 | CP.PCM.PCO ---
Physician Communication Note - Physician Communication Note Physician Communication Note: Family meeting tomorrow at 11 30 am
--- NOTE | 2017-10-31 16:31 | CP.PCM.PN ---
Subjective - Date & Time of Evaluation Date of Evaluation: 10/31/17 Time of Evaluation: 13:00 - Subjective Subjective: Patient seen and examined at bedside. Patient is resting comfortably. 20 mL of serosanguinous fluid was collected from chest tube since yesterday. Patients condition is stable and he remains on BiPap. Objective - Vital Signs/Intake and Output Vital Signs (last 24 hours): Temp Pulse Resp BP Pulse Ox 98.1 F 77 17 122/73 98 10/31/17 15:35 10/31/17 16:12 10/31/17 15:35 10/31/17 15:35 10/31/17 15:35 Intake and Output: 10/31/17 10/31/17 06:59 18:59 Intake Total 630 Output Total 0 Balance 630 - Medications Medications: Current Medications Acetaminophen (Tylenol 325mg Tab) 650 mg PO Q6 PRN PRN Reason: Pain, Mild (1-3) Last Admin: 10/30/17 02:48 Dose: 650 mg Dextrose (Dextrose 50% Inj) 0 ml IV STAT PRN; Protocol PRN Reason: Hypoglycemia Protocol Dextrose (Glutose 15) 0 gm PO ONCE PRN; Protocol PRN Reason: Hypoglycemia Protocol Docusate Sodium (Colace) 100 mg PO BID [facility] Last Admin: 10/31/17 10:01 Dose: 100 mg Donepezil HCl (Aricept) 10 mg PO HS [facility] Last Admin: 10/30/17 21:46 Dose: 10 mg Famotidine (Pepcid) 20 mg PO DAILY [facility] Last Admin: 10/31/17 10:01 Dose: 20 mg Glucagon (Glucagen Diagnostic Kit) 0 mg IM STAT PRN; Protocol PRN Reason: Hypoglycemia Protocol Heparin Sodium (Porcine) (Heparin) 5,000 units SC Q8 [facility] Last Admin: 10/31/17 14:50 Dose: 5,000 units Piperacillin Sod/Tazobactam Sod (Zosyn 2.25 Gm Iv Premix) 2.25 gm in 50 mls @ 100 mls/hr IVPB Q6H [facility] Last Admin: 10/31/17 13:30 Dose: 100 mls/hr Moxifloxacin HCl (Avelox Iv 400mg/250ml Ns) 400 mg in 250 mls @ 167 mls/hr IVPB DAILY [facility] Last Admin: 10/31/17 10:00 Dose: 167 mls/hr Vancomycin HCl 1 gm/ Sodium (Chloride) 200 mls @ 133.333 mls/hr IVPB Q24H [facility] Last Admin: 10/31/17 14:08 Dose: 133.333 mls/hr Sodium Chloride (Sodium Chloride 0.9%) 1,000 mls @ 75 mls/hr IV .[id number] [facility] Last Admin: 10/29/17 00:39 Dose: 75 mls/hr Sodium Chloride (Sodium Chloride 0.9%) 1,000 mls @ 80 mls/hr IV .[id number] [facility] Last Admin: 10/31/17 06:39 Dose: 80 mls/hr Insulin Human Regular (Novolin R) 0 unit SC ACHS [facility] PRN Reason: Protocol Last Admin: 10/31/17 08:29 Dose: 2 unit Saccharomyces Boulardii (Florastor) 250 mg PO BID [facility] Last Admin: 10/31/17 10:01 Dose: 250 mg - Labs Labs: 10/31/17 06:25 10/31/17 06:25 PT 15.9 SECONDS (9.7-12.2) H 10/27/17 22:08 INR 1.4 10/27/17 22:08 APTT 27 SECONDS (21-34) 10/27/17 22:08 - Head Exam Head Exam: ATRAUMATIC, NORMOCEPHALIC - ENT Exam ENT Exam: Mucous Membranes Moist - Respiratory Exam Respiratory Exam: Decreased Breath Sounds - Cardiovascular Exam Cardiovascular Exam: REGULAR RHYTHM - GI/Abdominal Exam GI & Abdominal Exam: Soft, Normal Bowel Sounds Assessment and Plan (1) Pleural effusion Assessment & Plan: -continue with chest tube - Consider discontinuing suction - continue IV antibiotics - BIPAP 2. Small cell lung CA -hospice consultation Status: Acute
--- NOTE | 2017-10-31 21:26 | CP.PCM.PN ---
Subjective - Date & Time of Evaluation Date of Evaluation: 10/31/17 Time of Evaluation: 19:15 - Subjective Subjective: Patient breathing better with BIPAP; not eating much; still with abd pain; reports urinating well; Objective - Vital Signs/Intake and Output Vital Signs (last 24 hours): Temp Pulse Resp BP Pulse Ox 98.1 F 100 H 17 122/73 98 10/31/17 15:35 10/31/17 19:25 10/31/17 15:35 10/31/17 15:35 10/31/17 15:35 Intake and Output: 10/31/17 11/01/17 18:59 06:59 Intake Total 1260 Output Total 0 Balance 1260 - Medications Medications: Current Medications Acetaminophen (Tylenol 325mg Tab) 650 mg PO Q6 PRN PRN Reason: Pain, Mild (1-3) Last Admin: 10/30/17 02:48 Dose: 650 mg Dextrose (Dextrose 50% Inj) 0 ml IV STAT PRN; Protocol PRN Reason: Hypoglycemia Protocol Dextrose (Glutose 15) 0 gm PO ONCE PRN; Protocol PRN Reason: Hypoglycemia Protocol Docusate Sodium (Colace) 100 mg PO BID [facility] Last Admin: 10/31/17 17:15 Dose: 100 mg Donepezil HCl (Aricept) 10 mg PO HS [facility] Last Admin: 10/30/17 21:46 Dose: 10 mg Famotidine (Pepcid) 20 mg PO DAILY [facility] Last Admin: 10/31/17 10:01 Dose: 20 mg Glucagon (Glucagen Diagnostic Kit) 0 mg IM STAT PRN; Protocol PRN Reason: Hypoglycemia Protocol Heparin Sodium (Porcine) (Heparin) 5,000 units SC Q8 [facility] Last Admin: 10/31/17 14:50 Dose: 5,000 units Piperacillin Sod/Tazobactam Sod (Zosyn 2.25 Gm Iv Premix) 2.25 gm in 50 mls @ 100 mls/hr IVPB Q6H [facility] Last Admin: 10/31/17 19:57 Dose: 100 mls/hr Moxifloxacin HCl (Avelox Iv 400mg/250ml Ns) 400 mg in 250 mls @ 167 mls/hr IVPB DAILY [facility] Last Admin: 10/31/17 10:00 Dose: 167 mls/hr Vancomycin HCl 1 gm/ Sodium (Chloride) 200 mls @ 133.333 mls/hr IVPB Q24H [facility] Last Admin: 10/31/17 14:08 Dose: 133.333 mls/hr Sodium Chloride (Sodium Chloride 0.9%) 1,000 mls @ 75 mls/hr IV .[id number] [facility] Last Admin: 10/29/17 00:39 Dose: 75 mls/hr Sodium Chloride (Sodium Chloride 0.9%) 1,000 mls @ 80 mls/hr IV .[id number] [facility] Last Admin: 10/31/17 06:39 Dose: 80 mls/hr Insulin Human Regular (Novolin R) 0 unit SC ACHS [facility] PRN Reason: Protocol Last Admin: 10/31/17 17:15 Dose: 2 unit Saccharomyces Boulardii (Florastor) 250 mg PO BID [facility] Last Admin: 10/31/17 17:15 Dose: 250 mg - Labs Labs: 10/31/17 06:25 10/31/17 06:25 PT 15.9 SECONDS (9.7-12.2) H 10/27/17 22:08 INR 1.4 10/27/17 22:08 APTT 27 SECONDS (21-34) 10/27/17 22:08 - Constitutional Appears: Non-toxic, No Acute Distress - Eye Exam Eye Exam: Normal appearance. absent: Scleral icterus - ENT Exam ENT Exam: Mucous Membranes Moist - Respiratory Exam Respiratory Exam: absent: Respiratory Distress Additional comments: somewhat decreased breath sounds on R; - Cardiovascular Exam Cardiovascular Exam: RRR, +S1, +S2 - GI/Abdominal Exam GI & Abdominal Exam: Soft, Tenderness - Extremities Exam Additional comments: no leg edema; - Neurological Exam Neurological Exam: Alert, Awake - Psychiatric Exam Psychiatric exam: Normal Affect, Normal Mood. absent: Agitated - Skin Skin Exam: Warm. absent: Cyanosis Assessment and Plan (1) KIMBERLEE (acute kidney injury) Assessment & Plan: Pre-renal etiology, improving with IVF, continue NS at 80 cc/hr; Status: Acute (2) Hyponatremia Assessment & Plan: Stable, continue 1L PO fluid restriction, encourage adequate diet for solute intake; Status: Acute (3) Urinary retention Assessment & Plan: Renal function improving but may still have urinary retention; check bladder scan after voiding; Status: Chronic (4) SIRS (systemic inflammatory response syndrome) Assessment & Plan: On vanco, zosyn and avelox; being dosed for CrCl < 40 but may need to increase dose as renal function improves; Status: Acute
--- NOTE | 2017-10-31 22:11 | CP.PCM.PN ---
Subjective - Date & Time of Evaluation Date of Evaluation: 10/31/17 Time of Evaluation: 19:00 - Subjective Subjective: Appears comfortable Objective - Vital Signs/Intake and Output Vital Signs (last 24 hours): Temp Pulse Resp BP Pulse Ox 98.1 F 100 H 17 122/73 98 10/31/17 15:35 10/31/17 19:25 10/31/17 15:35 10/31/17 15:35 10/31/17 15:35 Intake and Output: 10/31/17 11/01/17 18:59 06:59 Intake Total 1260 Output Total 0 Balance 1260 - Medications Medications: Current Medications Acetaminophen (Tylenol 325mg Tab) 650 mg PO Q6 PRN PRN Reason: Pain, Mild (1-3) Last Admin: 10/30/17 02:48 Dose: 650 mg Dextrose (Dextrose 50% Inj) 0 ml IV STAT PRN; Protocol PRN Reason: Hypoglycemia Protocol Dextrose (Glutose 15) 0 gm PO ONCE PRN; Protocol PRN Reason: Hypoglycemia Protocol Docusate Sodium (Colace) 100 mg PO BID [facility] Last Admin: 10/31/17 17:15 Dose: 100 mg Donepezil HCl (Aricept) 10 mg PO HS [facility] Last Admin: 10/31/17 21:49 Dose: 10 mg Famotidine (Pepcid) 20 mg PO DAILY [facility] Last Admin: 10/31/17 10:01 Dose: 20 mg Glucagon (Glucagen Diagnostic Kit) 0 mg IM STAT PRN; Protocol PRN Reason: Hypoglycemia Protocol Heparin Sodium (Porcine) (Heparin) 5,000 units SC Q8 [facility] Last Admin: 10/31/17 21:49 Dose: 5,000 units Piperacillin Sod/Tazobactam Sod (Zosyn 2.25 Gm Iv Premix) 2.25 gm in 50 mls @ 100 mls/hr IVPB Q6H [facility] Last Admin: 10/31/17 19:57 Dose: 100 mls/hr Moxifloxacin HCl (Avelox Iv 400mg/250ml Ns) 400 mg in 250 mls @ 167 mls/hr IVPB DAILY [facility] Last Admin: 10/31/17 10:00 Dose: 167 mls/hr Vancomycin HCl 1 gm/ Sodium (Chloride) 200 mls @ 133.333 mls/hr IVPB Q24H [facility] Last Admin: 10/31/17 14:08 Dose: 133.333 mls/hr Sodium Chloride (Sodium Chloride 0.9%) 1,000 mls @ 75 mls/hr IV .[id number] [facility] Last Admin: 10/29/17 00:39 Dose: 75 mls/hr Sodium Chloride (Sodium Chloride 0.9%) 1,000 mls @ 80 mls/hr IV .[id number] [facility] Last Admin: 10/31/17 06:39 Dose: 80 mls/hr Insulin Human Regular (Novolin R) 0 unit SC ACHS [facility] PRN Reason: Protocol Last Admin: 10/31/17 21:32 Dose: Not Given Saccharomyces Boulardii (Florastor) 250 mg PO BID [facility] Last Admin: 10/31/17 17:15 Dose: 250 mg - Labs Labs: 10/31/17 06:25 10/31/17 06:25 PT 15.9 SECONDS (9.7-12.2) H 10/27/17 22:08 INR 1.4 10/27/17 22:08 APTT 27 SECONDS (21-34) 10/27/17 22:08 - Head Exam Head Exam: ATRAUMATIC - Eye Exam Eye Exam: Normal appearance - ENT Exam ENT Exam: Mucous Membranes Dry - Respiratory Exam Respiratory Exam: Decreased Breath Sounds - GI/Abdominal Exam GI & Abdominal Exam: Normal Bowel Sounds Assessment and Plan (1) Small cell lung cancer Assessment & Plan: extensive stage palliative care evaluation supportive care Status: Acute (2) Anemia Assessment & Plan: chronic disease Status: Acute (3) Leukocytosis Status: Acute
[2017-11-01] MEDS: Piperacill/Tazo 2.25gm in Dex 2.25 GM/50 ML BAG IVPB SCH ×4 (01:23→19:28)
[2017-11-01] MEDS: Sodium Chloride 0.9% 1,000 ML IV SCH ×2 (02:00→19:28)
[2017-11-01 07:18] LABS: ALB/GLOB RATIO 0.9 (1.0-2.1); ALBUMIN 2.4 g/dL (3.5-5.0); CALCIUM 8.2 mg/dl (8.6-10.4); MAGNESIUM 1.7 mg/dL (1.6-2.3)
[2017-11-01 07:35] LABS: BASO % 0.3 % (0.0-2.0); EOS # 0.2 K/uL (0.0-0.7); EOS % 1.1 % (0.0-4.0); HEMOGLOBIN 9.9 g/dL (12.0-18.0); LYMPH # 0.8 K/uL (1.0-4.3); LYMPH % 5.9 % (20.0-40.0); MEAN CORPUSCULAR HEMOGLOBIN 29.5 pg (27.0-31.0); MEAN CORPUSCULAR HGB CONC 34.7 g/dL (33.0-37.0); MEAN PLATELET VOLUME 7.4 fL (7.2-11.7); MONO # 1.2 K/uL (0.0-0.8); NEUT # 11.3 K/uL (1.8-7.0); NEUT % 83.7 % (50.0-75.0); PLATELET COUNT 285 K/uL (130-400); RBC 3.34 Mil/uL (4.40-5.90); RED CELL DISTRIBUTION WIDTH 14.8 % (11.5-14.5); WHITE BLOOD COUNT 13.5 K/uL (4.8-10.8)
[2017-11-01] MEDS: (Novolin R) Insulin Human Regular 100 units/ml vial SC SCH ×4 (08:04→21:58)
--- NOTE | 2017-11-01 09:20 | CP.PCM.PN ---
Subjective - Date & Time of Evaluation Date of Evaluation: 11/01/17 Time of Evaluation: 07:00 - Subjective Subjective: Medicine Progress Note: Patient was seen and examined at bedside in the AM. Per nurse no acute events. Patient denies chest pain, shortness of breath, nausea, or vomiting. Objective - Vital Signs/Intake and Output Vital Signs (last 24 hours): Temp Pulse Resp BP Pulse Ox 98.6 F 88 20 126/69 97 10/31/17 23:10 11/01/17 08:09 10/31/17 23:10 10/31/17 23:10 10/31/17 23:10 Intake and Output: 11/01/17 11/01/17 06:59 18:59 Intake Total 790 Output Total 0 Balance 790 - Medications Medications: Current Medications Acetaminophen (Tylenol 325mg Tab) 650 mg PO Q6 PRN PRN Reason: Pain, Mild (1-3) Last Admin: 10/30/17 02:48 Dose: 650 mg Dextrose (Dextrose 50% Inj) 0 ml IV STAT PRN; Protocol PRN Reason: Hypoglycemia Protocol Dextrose (Glutose 15) 0 gm PO ONCE PRN; Protocol PRN Reason: Hypoglycemia Protocol Docusate Sodium (Colace) 100 mg PO BID [facility] Last Admin: 10/31/17 17:15 Dose: 100 mg Donepezil HCl (Aricept) 10 mg PO HS [facility] Last Admin: 10/31/17 21:49 Dose: 10 mg Famotidine (Pepcid) 20 mg PO DAILY [facility] Last Admin: 10/31/17 10:01 Dose: 20 mg Glucagon (Glucagen Diagnostic Kit) 0 mg IM STAT PRN; Protocol PRN Reason: Hypoglycemia Protocol Heparin Sodium (Porcine) (Heparin) 5,000 units SC Q8 [facility] Last Admin: 11/01/17 06:39 Dose: 5,000 units Piperacillin Sod/Tazobactam Sod (Zosyn 2.25 Gm Iv Premix) 2.25 gm in 50 mls @ 100 mls/hr IVPB Q6H [facility] Last Admin: 11/01/17 06:38 Dose: 100 mls/hr Moxifloxacin HCl (Avelox Iv 400mg/250ml Ns) 400 mg in 250 mls @ 167 mls/hr IVPB DAILY [facility] Last Admin: 10/31/17 10:00 Dose: 167 mls/hr Vancomycin HCl 1 gm/ Sodium (Chloride) 200 mls @ 133.333 mls/hr IVPB Q24H [facility] Last Admin: 10/31/17 14:08 Dose: 133.333 mls/hr Sodium Chloride (Sodium Chloride 0.9%) 1,000 mls @ 75 mls/hr IV .[id number] [facility] Last Admin: 10/29/17 00:39 Dose: 75 mls/hr Sodium Chloride (Sodium Chloride 0.9%) 1,000 mls @ 80 mls/hr IV .[id number] [facility] Last Admin: 11/01/17 02:00 Dose: Not Given Insulin Human Regular (Novolin R) 0 unit SC ACHS [facility] PRN Reason: Protocol Last Admin: 11/01/17 08:04 Dose: 2 unit Saccharomyces Boulardii (Florastor) 250 mg PO BID [facility] Last Admin: 10/31/17 17:15 Dose: 250 mg - Labs Labs: 11/01/17 06:43 11/01/17 06:43 PT 15.9 SECONDS (9.7-12.2) H 10/27/17 22:08 INR 1.4 10/27/17 22:08 APTT 27 SECONDS (21-34) 10/27/17 22:08 - Constitutional Appears: No Acute Distress, Chronically Ill - Head Exam Head Exam: ATRAUMATIC, NORMAL INSPECTION - Eye Exam Eye Exam: EOMI, Normal appearance - ENT Exam ENT Exam: Mucous Membranes Moist - Respiratory Exam Respiratory Exam: Clear to Ausculation Bilateral, NORMAL BREATHING PATTERN - Cardiovascular Exam Cardiovascular Exam: REGULAR RHYTHM, +S1, +S2 - GI/Abdominal Exam GI & Abdominal Exam: Soft, Normal Bowel Sounds. absent: Tenderness - Extremities Exam Extremities Exam: Normal Inspection - Neurological Exam Neurological Exam: Alert, Awake - Psychiatric Exam Psychiatric exam: Normal Affect, Normal Mood - Skin Skin Exam: Normal Color, Warm Assessment and Plan - Assessment and Plan (Free Text) Assessment: 87 yo M with PMHx of HTN, T2DM, HLD, Alzheimer's Dementia, CKD ( baseline creatine 2.0s), BPH, and urinary incontinence (wears diapers), RLL lung mass who presented to the ED for worsening dyspnea. 1.) Small Cell Lung Cancer/Pleural Effusion - History of Tobacco Use - Pulmonology consulted- Dr. Deutsch --> help appreciated - Chest Tube in place - Bipap - Hem/Onc Consult: Dr. Green --> help appreciated - CT guided core biopsy of right lung pleural-based mass - pathology results: Small Cell Carcinoma - Full Report in the Chart - Imaging from previous admission (10/15/17): * CT Chest w/o Contrast: Multiple right lung masses, multiple right-sided pleural-based masses, and probable malignant effusion. Mediastinal adenopathy. Thick walled cavitary lesion right upper lobe measuring 5.5 x 5.3 CM. * MRI of brain with contrast: Diffuse cerebral atrophy and chronic microangiopathy are identified which appear age-appropriate. The lack images contrast limits the evaluation however the patient's GFR precludes administering gadolinium to this patient intravenously. No large intracranial mass is appreciable at this time. - Current Imaging * Chest X-ray 10/27/17: Complete Opacification of Right Lung/Large Pleural Effusion * CT Chest/Abdomen/Pelvis 10/28/17: interval increase in size of the right effusion with right chest tube, multiple pleural based masses throughout the right hemithorax, right lung mass and adenopathy consistent with malignancy, emphysema, new right lobe infiltrate, NO acute solid visceral or bowel abnormality, NO appendicitis, NO diverticulitis, Mandujano catheter balloon and catheter tip in prosthetic urethra 2.) Leukocystosis - WBC: 17.2 --> 10.3 --> 12.4 --> 16.4 --> 13.5 - ID consult: Dr. 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 Martínez --> help appreciated - Continue to monitor 4.) History of UTI - Patient was being treated as outpatient with Bactrim 7 day course - urine culture: no growth 5.) History of Hypertension - Coreg 6.25mg PO BID - held due to low blood pressure - Norvasc 5mg PO daily - held due to low blood pressure 6.) History of Type 2 Diabetes - Accuchecks - ISS - Consistent Carb Diet - A1C (10/16/17): 7.5 - Hypoglycemic protocol 7.) History of Hyperlipidemia - Lipid Panel (10/16/17): Total Cholesterol 147; LDL 66; HDL 25 8.) History of Alzheimer's Dementia - Aricept 10mg PO QHS 9.) History of BPH - Hx of TURP (1996) 10.) History of Urinary Incontinence - [place] Catheter 11.) Prophylaxis - Heparin 5,000 SC Q8H - Pepcid 20 mg PO 1x/day - Florastor 250 mg PO 2x/day - Colace 100 mg PO 2x/day From previous admission: Patient is DNR/DNI POLST completed on 10/16/17. Nurse Gilda has been reconsulted. Per Amara's note: Family meeting 11/01/17:Discussed with Amara, daughter and granddaughter for home care. Patient's daughter stated she will speak with her sister this evening and speak with us tomorrow. Discussed with Dr. Deutsch in reference to chest tube. Dr. Deutsch stated if patient is for home care they can continue the chest tube at home and will show family how to use. Case discussed with Dr. Denisse Canales PGY-1
[2017-11-01 10:22] LABS: EOSINOPHIL 2 % (0-4); LYMPHOCYTE 6 % (20-40); MONOCYTE 7 % (0-10); NEUTROPHIL 85 % (50-75); PLATELET ESTIMATE NORMAL (NORMAL); TOTAL CELLS COUNTED 100
[2017-11-01] MEDS: Moxifloxacin IV 400mg/250ml NS 400 MG/250 ML BAG IVPB SCH (10:48)
[2017-11-01] MEDS: Saccharomyces Boulardi 250 mg Cap PO SCH ×2 (10:49→17:28)
--- NOTE | 2017-11-01 13:37 | CP.PCM.CON ---
History of Present Illness - History of Present Illness History of Present Illness: Palliative consult requested for goals of care discussion Patient is a 87 yo male diagnosed with metastatic small cell carcinoma on last admission and discharged to [facility]. After about a month at the [facility], patient developed progressively worse SOB with O2Sat of 86% RA. At ED the CT chest confirmed lungs malignancy and mediastinal adenopahy. patient placed on C pap for respiratory distress. Doctor Norma on boar. Malignant pleural effusion diagnosed and Empirical IV antibiotics initiated. Patient was given right chest ube for evacuation of ascites. Patient's overall condition has worsened despite all prudent measures taken. Family meeting today for comfort care discussion. PMH: metastatic lung disease, mlignant pleural effusion, anemia, Alzheimer's, BPH, DM, HTN Soc. Hx: single, lives with marian. Fam. Hx; Per daughter, patients parents both had HTN Review of Systems - Review of Systems All systems: reviewed and no additional remarkable complaints except Review of Systems: ROS obtained from nursing due to patient's high need or o2. There were no acute overnight events Past Patient History - Infectious Disease Hx of Infectious Diseases: None - Past Medical History & Family History Past Medical History?: Yes - Past Social History Smoking Status: Former Smoker - CARDIAC Hx Hypercholesterolemia: Yes Hx Hypertension: Yes Hx Peripheral Edema: Yes - PULMONARY Hx Respiratory Disorders: Yes Other/Comment: HX: LUNG MASS(RIGHT) - NEUROLOGICAL Hx Alzheimer's Disease: Yes Hx Dementia: Yes - HEENT Hx HEENT Problems: Yes Hx Cataracts: Yes (bilateral) - RENAL Hx Chronic Kidney Disease: Yes (PER MD'S NOTES(BASELINE CREAT.2.0'S)) - ENDOCRINE/METABOLIC Hx Endocrine Disorders: Yes Hx Diabetes Mellitus Type 2: Yes - HEMATOLOGICAL/ONCOLOGICAL Hx Anemia: Yes Hx Human Immunodeficiency Virus (HIV): No - INTEGUMENTARY Hx Dermatological Problems: No - MUSCULOSKELETAL/RHEUMATOLOGICAL Hx Arthritis: Yes - GASTROINTESTINAL Hx Gastrointestinal Disorders: No - GENITOURINARY/GYNECOLOGICAL Hx Genitourinary Disorders: Yes Hx Incontinence: Yes ((PT. WEARS A DIAPER)) Hx Prostate Problems: Yes (TURP 1996) - PSYCHIATRIC Hx Substance Use: No - SURGICAL HISTORY Hx Surgeries: Yes Hx Amputation: Yes (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- work related) Hx Arthroscopy: Yes (left knee) Hx Cataract Extraction: Yes (bilat) Hx Herniorrhaphy: Yes (LEFT INGUINAL HERNIA REPAIR 06/2014) Other/Comment: HX:LEFT HAND 3 DIGIT AMPUTATION( ACCIDENT ). HX: CYSTOSCOPY INTERNAL OPTICAL URETROTOMY 11/02/16. HX: RIGHT LUNG BIOPSY AND THORACENTISIS 10/15/17 - ANESTHESIA Hx Anesthesia: Yes Hx Anesthesia Reactions: No Hx Malignant Hyperthermia: No Meds Allergies/Adverse Reactions: Allergies Allergy/AdvReac Type Severity Reaction Status Date / Time No Known Allergies Allergy Verified 10/15/17 14:30 - Medications Medications: Current Medications Acetaminophen (Tylenol 325mg Tab) 650 mg PO Q6 PRN PRN Reason: Pain, Mild (1-3) Last Admin: 10/30/17 02:48 Dose: 650 mg Dextrose (Dextrose 50% Inj) 0 ml IV STAT PRN; Protocol PRN Reason: Hypoglycemia Protocol Dextrose (Glutose 15) 0 gm PO ONCE PRN; Protocol PRN Reason: Hypoglycemia Protocol Docusate Sodium (Colace) 100 mg PO BID [facility] Last Admin: 11/01/17 10:49 Dose: Not Given Donepezil HCl (Aricept) 10 mg PO HS [facility] Last Admin: 10/31/17 21:49 Dose: 10 mg Famotidine (Pepcid) 20 mg PO DAILY [facility] Last Admin: 11/01/17 10:49 Dose: 20 mg Glucagon (Glucagen Diagnostic Kit) 0 mg IM STAT PRN; Protocol PRN Reason: Hypoglycemia Protocol Heparin Sodium (Porcine) (Heparin) 5,000 units SC Q8 [facility] Last Admin: 11/01/17 06:39 Dose: 5,000 units Piperacillin Sod/Tazobactam Sod (Zosyn 2.25 Gm Iv Premix) 2.25 gm in 50 mls @ 100 mls/hr IVPB Q6H [facility] Last Admin: 11/01/17 06:38 Dose: 100 mls/hr Moxifloxacin HCl (Avelox Iv 400mg/250ml Ns) 400 mg in 250 mls @ 167 mls/hr IVPB DAILY [facility] Last Admin: 11/01/17 10:48 Dose: 167 mls/hr Vancomycin HCl 1 gm/ Sodium (Chloride) 200 mls @ 133.333 mls/hr IVPB Q24H [facility] Last Admin: 10/31/17 14:08 Dose: 133.333 mls/hr Sodium Chloride (Sodium Chloride 0.9%) 1,000 mls @ 75 mls/hr IV .[id number] [facility] Last Admin: 10/29/17 00:39 Dose: 75 mls/hr Insulin Human Regular (Novolin R) 0 unit SC ACHS [facility] PRN Reason: Protocol Last Admin: 11/01/17 08:04 Dose: 2 unit Saccharomyces Boulardii (Florastor) 250 mg PO BID [facility] Last Admin: 11/01/17 10:49 Dose: 250 mg Physical Exam - Constitutional Appears: In Acute Distress, Chronically Ill - Head Exam Head Exam: ATRAUMATIC, NORMAL INSPECTION, NORMOCEPHALIC - Eye Exam Eye Exam: EOMI, Normal appearance, PERRL Pupil Exam: NORMAL ACCOMODATION, PERRL - ENT Exam ENT Exam: Mucous Membranes Dry - Neck Exam Neck exam: Positive for: Normal Inspection - Respiratory Exam Respiratory Exam: Accessory Muscle Use, Decreased Breath Sounds, Rhonchi - Cardiovascular Exam Cardiovascular Exam: Tachycardia, REGULAR RHYTHM - GI/Abdominal Exam GI & Abdominal Exam: Normal Bowel Sounds - Rectal Exam Rectal Exam: Deferred - Exam Exam: NORMAL INSPECTION Additional comments: Incontinent - Extremities Exam Extremities exam: Positive for: pedal edema - Back Exam Back exam: NORMAL INSPECTION - Psychiatric Exam Psychiatric exam: Flat Affect - Skin Skin Exam: Pallor Results - Vital Signs Recent Vital Signs: Last Vital Signs Temp 97.5 F L 11/01/17 07:00 Pulse 84 11/01/17 11:41 Resp 20 11/01/17 07:00 BP 127/72 11/01/17 07:00 Pulse Ox 98 11/01/17 07:00 - Labs Result Diagrams: 11/01/17 06:43 11/01/17 06:43 Labs: Laboratory Results - last 24 hr 10/28/17 10/28/17 10/31/17 11:42 17:01 14:22 WBC RBC Hgb Hct MCV MCH MCHC RDW Plt Count MPV Neut % (Auto) Lymph % (Auto) [place] % (Auto) Eos % (Auto) Baso % (Auto) Neut # (Auto) Lymph # (Auto) [place] # (Auto) Eos # (Auto) Baso # (Auto) Neutrophils % (Manual) Lymphocytes % (Manual) Monocytes % (Manual) Eosinophils % (Manual) Platelet Estimate RBC Morphology Sodium Potassium Chloride Carbon Dioxide Anion Gap BUN Creatinine Est GFR ( Amer) Est GFR (Non-Af Amer) POC Glucose (mg/dL) Random Glucose Calcium Phosphorus Magnesium Total Bilirubin AST ALT Alkaline Phosphatase Total Protein Albumin Globulin Albumin/Globulin Ratio Vancomycin Trough 9.5 Mycoplasma pneumon IgM 53 Ur Strep pneumoniae Ag Not detected 10/31/17 10/31/17 11/01/17 16:23 21:05 06:34 WBC RBC Hgb Hct MCV MCH MCHC RDW Plt Count MPV Neut % (Auto) Lymph % (Auto) [place] % (Auto) Eos % (Auto) Baso % (Auto) Neut # (Auto) Lymph # (Auto) [place] # (Auto) Eos # (Auto) Baso # (Auto) Neutrophils % (Manual) Lymphocytes % (Manual) Monocytes % (Manual) Eosinophils % (Manual) Platelet Estimate RBC Morphology Sodium Potassium Chloride Carbon Dioxide Anion Gap BUN Creatinine Est GFR ( Amer) Est GFR (Non-Af Amer) POC Glucose (mg/dL) 151 H 194 H 155 H Random Glucose Calcium Phosphorus Magnesium Total Bilirubin AST ALT Alkaline Phosphatase Total Protein Albumin Globulin Albumin/Globulin Ratio Vancomycin Trough Mycoplasma pneumon IgM Ur Strep pneumoniae Ag 11/01/17 11/01/17 11/01/17 06:43 06:43 11:21 WBC 13.5 H RBC 3.34 L Hgb 9.9 L Hct 28.4 L MCV 85.0 MCH 29.5 MCHC 34.7 RDW 14.8 H Plt Count 285 MPV 7.4 Neut % (Auto) 83.7 H Lymph % (Auto) 5.9 L [place] % (Auto) 9.0 Eos % (Auto) 1.1 Baso % (Auto) 0.3 Neut # (Auto) 11.3 H Lymph # (Auto) 0.8 L [place] # (Auto) 1.2 H Eos # (Auto) 0.2 Baso # (Auto) 0.0 Neutrophils % (Manual) 85 H Lymphocytes % (Manual) 6 L Monocytes % (Manual) 7 Eosinophils % (Manual) 2 Platelet Estimate Normal RBC Morphology Normal Sodium 131 L Potassium 4.0 Chloride 100 Carbon Dioxide 25 Anion Gap 10 BUN 21 H Creatinine 1.6 H Est GFR ( Amer) 50 Est GFR (Non-Af Amer) 41 POC Glucose (mg/dL) 214 H Random Glucose 146 H Calcium 8.2 L Phosphorus 2.3 L Magnesium 1.7 Total Bilirubin 0.5 AST 42 ALT 39 Alkaline Phosphatase 98 Total Protein 5.2 L Albumin 2.4 L Globulin 2.8 Albumin/Globulin Ratio 0.9 L Vancomycin Trough Mycoplasma pneumon IgM Ur Strep pneumoniae Ag Assessment & Plan - Assessment and Plan (Free Text) Assessment: palliative consult Code status DNR/DNI, POLST on chart, PPS 10% I reviewed medical recors, all diagnostic studies, examined patient in the bed and discussed goals of care with daughter and granddaughter. Patient is alert, lethargic with o2 on via mask. Breath sounds diminished, shallow breathing, a lot of ronchi . Neck supple, no JVD, no masses. heart in ST rhythm of 92 BPM. Abdomen softly distended, active bowel sounds, BM X 1 yesterday, incontinent of. Mild pedal edema, limited ROM to upper and lower extremities. BP 125/72, afebrile. WBC 16.4, Hb 10.2, BUN 30, [employer] 1.6. Before meeting with family today, I spoke to Doctor green who did not suggest further aggressive treatments in the way of chemo Tx due to patient's age and over all condition. Doctor Green suggested Palliation of symptoms. Family meeting held attended by patient's daughter, grand daughter, Doctor Canales and my self. Patient's clinical presentation reviewed in light of his main diagnosis. The granddaughter, who is a [employer] MACHINE OPERATOR HELPER stated, being aware of poor prognosis and had prepared her mother for today's discussion. I shared with them Doctor Green's suggestion. Family agreed saying that they would like to focus on patient's comfort at this stage of his life. I offered more information on Comfort care. The daughter wanted to talk to her sister before making the final decision. I supported her. Impression * This is a chronically ill man , diagnosed with metastatic lung cancer , and with acute symptoms of respiratory distress * Family aware and advocates for comfort care only * Doctor Green supports the idea of comfort care * Family is considering Home Hospice care Suggestion * Comfort care would be the best level of care for this patient at this stage of his life * Would discuss with Doctor Deutsch the status of chest tube and possibility of attaching it to negative pressure container upon discharge home * Family given the contact info to call in tomorrow with their decision Time spent in Advance care planning, 45 min Thank you for consulting Palliative Care
[2017-11-01] MEDS: Vancomycin 1 GM in Sodium Chloride 0.9% 200 ML IVPB SCH (13:49)
--- NOTE | 2017-11-01 14:59 | CP.PCM.PN ---
Subjective - Date & Time of Evaluation Date of Evaluation: 11/01/17 Time of Evaluation: 14:00 - Subjective Subjective: Patient seen and examined at bedside. Patient is resting comfortably, and reports that his breathing has slightly improved. 35 mL of serosanguinous fluid was collected from chest tube since yesterday. Patients condition is stable and he remains on BiPap. ? Assessment/Plan: 1. Pleural effusion - Consider discontinuing suction - continue IV antibiotics - BiPap 2. Small cell lung CA -hospice consultation Objective - Vital Signs/Intake and Output Vital Signs (last 24 hours): Temp Pulse Resp BP Pulse Ox 97.5 F L 84 20 127/72 98 11/01/17 07:00 11/01/17 11:41 11/01/17 07:00 11/01/17 07:00 11/01/17 07:00 Intake and Output: 11/01/17 11/01/17 06:59 18:59 Intake Total 790 Output Total 0 Balance 790 - Medications Medications: Current Medications Acetaminophen (Tylenol 325mg Tab) 650 mg PO Q6 PRN PRN Reason: Pain, Mild (1-3) Last Admin: 10/30/17 02:48 Dose: 650 mg Dextrose (Dextrose 50% Inj) 0 ml IV STAT PRN; Protocol PRN Reason: Hypoglycemia Protocol Dextrose (Glutose 15) 0 gm PO ONCE PRN; Protocol PRN Reason: Hypoglycemia Protocol Docusate Sodium (Colace) 100 mg PO BID [facility] Last Admin: 11/01/17 10:49 Dose: Not Given Donepezil HCl (Aricept) 10 mg PO HS [facility] Last Admin: 10/31/17 21:49 Dose: 10 mg Famotidine (Pepcid) 20 mg PO DAILY [facility] Last Admin: 11/01/17 10:49 Dose: 20 mg Glucagon (Glucagen Diagnostic Kit) 0 mg IM STAT PRN; Protocol PRN Reason: Hypoglycemia Protocol Heparin Sodium (Porcine) (Heparin) 5,000 units SC Q8 [facility] Last Admin: 11/01/17 13:49 Dose: 5,000 units Piperacillin Sod/Tazobactam Sod (Zosyn 2.25 Gm Iv Premix) 2.25 gm in 50 mls @ 100 mls/hr IVPB Q6H [facility] Last Admin: 11/01/17 13:24 Dose: 100 mls/hr Moxifloxacin HCl (Avelox Iv 400mg/250ml Ns) 400 mg in 250 mls @ 167 mls/hr IVPB DAILY [facility] Last Admin: 11/01/17 10:48 Dose: 167 mls/hr Vancomycin HCl 1 gm/ Sodium (Chloride) 200 mls @ 133.333 mls/hr IVPB Q24H [facility] Last Admin: 11/01/17 13:49 Dose: 133.333 mls/hr Sodium Chloride (Sodium Chloride 0.9%) 1,000 mls @ 75 mls/hr IV .[id number] [facility] Last Admin: 10/29/17 00:39 Dose: 75 mls/hr Insulin Human Regular (Novolin R) 0 unit SC ACHS [facility] PRN Reason: Protocol Last Admin: 11/01/17 08:04 Dose: 2 unit Saccharomyces Boulardii (Florastor) 250 mg PO BID [facility] Last Admin: 11/01/17 10:49 Dose: 250 mg - Labs Labs: 11/01/17 06:43 11/01/17 06:43 PT 15.9 SECONDS (9.7-12.2) H 10/27/17 22:08 INR 1.4 10/27/17 22:08 APTT 27 SECONDS (21-34) 10/27/17 22:08 Assessment and Plan (1) Pleural effusion Status: Acute
--- NOTE | 2017-11-01 15:53 | CARD ---
APPROVED REPORT EKG Measurement Heart [id number] <Conclusion> Normal sinus rhythm Normal ECG
--- NOTE | 2017-11-01 20:46 | US ---
EXAM: US Pelvis Ltd Non-Ob EXAM DATE/TIME: Exam ordered 11/01/2017 8:33 AM CLINICAL HISTORY: 87 years old, male; Signs and symptoms; Bladder; Urine retention; Additional info: Urinary retention; Check residual and prostate TECHNIQUE: Real-time ultrasound of the pelvis ltd non-ob with image documentation. COMPARISON: CT - CHEST,ABDOMEN,PELVIS W/O CONT 2017-10-28 23:35 FINDINGS: The bladder measures 8.5 x 2.8 x 3.9 cm. for a volume of 64 cc.. The patient was unable to void. The prostate could not be visualized due to bowel gas IMPRESSION: Low bladder volumes. The patient was unable to void. 2. Prostate could not be seen due to shadowing from bowel gas
--- NOTE | 2017-11-01 22:11 | CP.PCM.PN ---
Subjective - Date & Time of Evaluation Date of Evaluation: 11/01/17 Time of Evaluation: 19:15 - Subjective Subjective: Patient tolerating diet well; using BIPAP prn; still with abd pain, reports having gas; Objective - Vital Signs/Intake and Output Vital Signs (last 24 hours): Temp Pulse Resp BP Pulse Ox 97.5 F L 96 H 20 121/73 97 11/01/17 15:20 11/01/17 16:18 11/01/17 15:20 11/01/17 15:20 11/01/17 15:20 Intake and Output: 11/01/17 11/02/17 18:59 06:59 Intake Total 720 Balance 720 - Medications Medications: Current Medications Acetaminophen (Tylenol 325mg Tab) 650 mg PO Q6 PRN PRN Reason: Pain, Mild (1-3) Last Admin: 10/30/17 02:48 Dose: 650 mg Dextrose (Dextrose 50% Inj) 0 ml IV STAT PRN; Protocol PRN Reason: Hypoglycemia Protocol Dextrose (Glutose 15) 0 gm PO ONCE PRN; Protocol PRN Reason: Hypoglycemia Protocol Docusate Sodium (Colace) 100 mg PO BID [facility] Last Admin: 11/01/17 17:28 Dose: 100 mg Donepezil HCl (Aricept) 10 mg PO HS [facility] Last Admin: 10/31/17 21:49 Dose: 10 mg Famotidine (Pepcid) 20 mg PO DAILY [facility] Last Admin: 11/01/17 10:49 Dose: 20 mg Glucagon (Glucagen Diagnostic Kit) 0 mg IM STAT PRN; Protocol PRN Reason: Hypoglycemia Protocol Heparin Sodium (Porcine) (Heparin) 5,000 units SC Q8 [facility] Last Admin: 11/01/17 13:49 Dose: 5,000 units Piperacillin Sod/Tazobactam Sod (Zosyn 2.25 Gm Iv Premix) 2.25 gm in 50 mls @ 100 mls/hr IVPB Q6H [facility] Last Admin: 11/01/17 19:28 Dose: 100 mls/hr Moxifloxacin HCl (Avelox Iv 400mg/250ml Ns) 400 mg in 250 mls @ 167 mls/hr IVPB DAILY [facility] Last Admin: 11/01/17 10:48 Dose: 167 mls/hr Vancomycin HCl 1 gm/ Sodium (Chloride) 200 mls @ 133.333 mls/hr IVPB Q24H [facility] Last Admin: 11/01/17 13:49 Dose: 133.333 mls/hr Sodium Chloride (Sodium Chloride 0.9%) 1,000 mls @ 75 mls/hr IV .[id number] [facility] Last Admin: 10/29/17 00:39 Dose: 75 mls/hr Insulin Human Regular (Novolin R) 0 unit SC ACHS [facility] PRN Reason: Protocol Last Admin: 11/01/17 21:58 Dose: Not Given Saccharomyces Boulardii (Florastor) 250 mg PO BID [facility] Last Admin: 11/01/17 17:28 Dose: 250 mg - Labs Labs: 11/01/17 06:43 11/01/17 06:43 PT 15.9 SECONDS (9.7-12.2) H 10/27/17 22:08 INR 1.4 10/27/17 22:08 APTT 27 SECONDS (21-34) 10/27/17 22:08 - Constitutional Appears: Non-toxic, No Acute Distress - Eye Exam Eye Exam: absent: Scleral icterus - ENT Exam ENT Exam: Mucous Membranes Moist - Respiratory Exam Respiratory Exam: absent: Rales, Rhonchi, Respiratory Distress - Cardiovascular Exam Cardiovascular Exam: RRR, +S1, +S2 - GI/Abdominal Exam GI & Abdominal Exam: Soft, Tenderness - Extremities Exam Additional comments: mild lower leg edema; - Neurological Exam Neurological Exam: Alert, Awake - Psychiatric Exam Psychiatric exam: Normal Affect, Normal Mood. absent: Agitated - Skin Skin Exam: Warm. absent: Cyanosis Assessment and Plan (1) KIMBERLEE (acute kidney injury) Assessment & Plan: Likely pre-renal etiology, resolving slowly with IVF; serum creat at plateau since yesterday but BUN continues to decrease; continue NS at 80 cc/hr; Status: Acute (2) Hyponatremia Assessment & Plan: Stable, continue 1L PO fluid restriction daily; Status: Acute (3) Urinary retention Assessment & Plan: Bladder scan showing 117 cc earlier today but unclear done how long after voiding; nevertheless, not causing overt hydronephrosis; continue to monitor periodically with bladder scans; Status: Chronic (4) SIRS (systemic inflammatory response syndrome) Status: Acute
--- NOTE | 2017-11-01 22:22 | CP.PCM.PN ---
Subjective - Date & Time of Evaluation Date of Evaluation: 11/01/17 Time of Evaluation: 20:00 - Subjective Subjective: On bipap, family at bedside Objective - Vital Signs/Intake and Output Vital Signs (last 24 hours): Temp Pulse Resp BP Pulse Ox 97.5 F L 96 H 20 121/73 97 11/01/17 15:20 11/01/17 16:18 11/01/17 15:20 11/01/17 15:20 11/01/17 15:20 Intake and Output: 11/01/17 11/02/17 18:59 06:59 Intake Total 720 Balance 720 - Medications Medications: Current Medications Acetaminophen (Tylenol 325mg Tab) 650 mg PO Q6 PRN PRN Reason: Pain, Mild (1-3) Last Admin: 10/30/17 02:48 Dose: 650 mg Dextrose (Dextrose 50% Inj) 0 ml IV STAT PRN; Protocol PRN Reason: Hypoglycemia Protocol Dextrose (Glutose 15) 0 gm PO ONCE PRN; Protocol PRN Reason: Hypoglycemia Protocol Docusate Sodium (Colace) 100 mg PO BID [facility] Last Admin: 11/01/17 17:28 Dose: 100 mg Donepezil HCl (Aricept) 10 mg PO HS [facility] Last Admin: 10/31/17 21:49 Dose: 10 mg Famotidine (Pepcid) 20 mg PO DAILY [facility] Last Admin: 11/01/17 10:49 Dose: 20 mg Glucagon (Glucagen Diagnostic Kit) 0 mg IM STAT PRN; Protocol PRN Reason: Hypoglycemia Protocol Heparin Sodium (Porcine) (Heparin) 5,000 units SC Q8 [facility] Last Admin: 11/01/17 13:49 Dose: 5,000 units Piperacillin Sod/Tazobactam Sod (Zosyn 2.25 Gm Iv Premix) 2.25 gm in 50 mls @ 100 mls/hr IVPB Q6H [facility] Last Admin: 11/01/17 19:28 Dose: 100 mls/hr Moxifloxacin HCl (Avelox Iv 400mg/250ml Ns) 400 mg in 250 mls @ 167 mls/hr IVPB DAILY [facility] Last Admin: 11/01/17 10:48 Dose: 167 mls/hr Vancomycin HCl 1 gm/ Sodium (Chloride) 200 mls @ 133.333 mls/hr IVPB Q24H [facility] Last Admin: 11/01/17 13:49 Dose: 133.333 mls/hr Sodium Chloride (Sodium Chloride 0.9%) 1,000 mls @ 75 mls/hr IV .[id number] [facility] Last Admin: 10/29/17 00:39 Dose: 75 mls/hr Insulin Human Regular (Novolin R) 0 unit SC ACHS [facility] PRN Reason: Protocol Last Admin: 11/01/17 21:58 Dose: Not Given Saccharomyces Boulardii (Florastor) 250 mg PO BID [facility] Last Admin: 11/01/17 17:28 Dose: 250 mg - Labs Labs: 11/01/17 06:43 11/01/17 06:43 PT 15.9 SECONDS (9.7-12.2) H 10/27/17 22:08 INR 1.4 10/27/17 22:08 APTT 27 SECONDS (21-34) 10/27/17 22:08 - Head Exam Head Exam: ATRAUMATIC - Eye Exam Eye Exam: Normal appearance - ENT Exam ENT Exam: Mucous Membranes Dry - Respiratory Exam Respiratory Exam: Decreased Breath Sounds - Cardiovascular Exam Cardiovascular Exam: +S1, +S2 - GI/Abdominal Exam GI & Abdominal Exam: Normal Bowel Sounds Assessment and Plan (1) Small cell lung cancer Assessment & Plan: extensive stage hospice evaluation DNR/DNI Status: Acute (2) Anemia Assessment & Plan: chronic disease and renal disease Status: Acute (3) Leukocytosis Status: Acute
[2017-11-02] MEDS: Piperacill/Tazo 2.25gm in Dex 2.25 GM/50 ML BAG IVPB SCH ×4 (01:25→20:07)
[2017-11-02] MEDS ORDERED: Digoxin 500 mcg/2ml (0.5 mg/2ml) Inj IVP ONE (04:11)
[2017-11-02 04:25] VITALS: PULSE 136
[2017-11-02 04:39] LABS: BASO # 0.1 K/uL (0.0-0.2); BASO % 0.6 % (0.0-2.0); EOS # 0.1 K/uL (0.0-0.7); HEMOGLOBIN 9.4 g/dL (12.0-18.0); LYMPH # 0.8 K/uL (1.0-4.3); LYMPH % 5.2 % (20.0-40.0); MEAN CELL VOLUME 84.7 fL (80.0-94.0); MEAN CORPUSCULAR HEMOGLOBIN 28.8 pg (27.0-31.0); MEAN PLATELET VOLUME 7.1 fL (7.2-11.7); MONO # 1.5 K/uL (0.0-0.8); MONO % 9.9 % (0.0-10.0); NEUT # 12.7 K/uL (1.8-7.0); NEUT % 83.3 % (50.0-75.0); PLATELET COUNT 298 K/uL (130-400); RBC 3.27 Mil/uL (4.40-5.90); WHITE BLOOD COUNT 15.3 K/uL (4.8-10.8)
[2017-11-02 04:59] LABS: ALB/GLOB RATIO 0.8 (1.0-2.1); ALBUMIN 2.4 g/dL (3.5-5.0); CALCIUM 8.2 mg/dl (8.6-10.4); MAGNESIUM 1.6 mg/dL (1.6-2.3)
[2017-11-02 05:19] LABS: CK-MB 4.91 ng/mL (0.0-3.38); TROPONIN I 0.667 ng/mL (0.00-0.120)
[2017-11-02 05:40] LABS: LYMPHOCYTE 3 % (20-40); MONOCYTE 10 % (0-10); NEUTROPHIL 87 % (50-75); PLATELET ESTIMATE NORMAL (NORMAL); TOTAL CELLS COUNTED 100
[2017-11-02 05:41] LABS: ANISOCYTOSIS SLIGHT; POLYCHROMIC SLIGHT; ROULEAUX FORMATION SLIGHT
[2017-11-02] MEDS: (Novolin R) Insulin Human Regular 100 units/ml vial SC SCH ×4 (08:30→21:38)
--- NOTE | 2017-11-02 09:18 | CP.PCM.PN ---
Subjective - Date & Time of Evaluation Date of Evaluation: 11/02/17 Time of Evaluation: 07:00 - Subjective Subjective: Medicine Progress Note: Patient was seen and examined at bedside in the AM. Per nurse and the night resident Dr. Jordan patient had afib overnight and was given Lopressor followed by Digoxin and patient then went back into NSR. Patient denies chest pain, shortness of breath, nausea, or vomiting. Objective - Vital Signs/Intake and Output Vital Signs (last 24 hours): Temp Pulse Resp BP Pulse Ox 98.1 F 131 H 25 H 107/64 97 11/02/17 04:10 11/02/17 05:04 11/02/17 04:37 11/02/17 05:04 11/02/17 04:10 Intake and Output: 11/02/17 11/02/17 06:59 18:59 Intake Total 890 740 Output Total 0 Balance 890 740 - Medications Medications: Current Medications Acetaminophen (Tylenol 325mg Tab) 650 mg PO Q6 PRN PRN Reason: Pain, Mild (1-3) Last Admin: 10/30/17 02:48 Dose: 650 mg Dextrose (Dextrose 50% Inj) 0 ml IV STAT PRN; Protocol PRN Reason: Hypoglycemia Protocol Dextrose (Glutose 15) 0 gm PO ONCE PRN; Protocol PRN Reason: Hypoglycemia Protocol Docusate Sodium (Colace) 100 mg PO BID [facility] Last Admin: 11/01/17 17:28 Dose: 100 mg Donepezil HCl (Aricept) 10 mg PO HS [facility] Last Admin: 11/01/17 23:20 Dose: 10 mg Famotidine (Pepcid) 20 mg PO DAILY [facility] Last Admin: 11/01/17 10:49 Dose: 20 mg Glucagon (Glucagen Diagnostic Kit) 0 mg IM STAT PRN; Protocol PRN Reason: Hypoglycemia Protocol Heparin Sodium (Porcine) (Heparin) 5,000 units SC Q8 [facility] Last Admin: 11/02/17 05:31 Dose: 5,000 units Piperacillin Sod/Tazobactam Sod (Zosyn 2.25 Gm Iv Premix) 2.25 gm in 50 mls @ 100 mls/hr IVPB Q6H [facility] Last Admin: 11/02/17 01:25 Dose: 100 mls/hr Moxifloxacin HCl (Avelox Iv 400mg/250ml Ns) 400 mg in 250 mls @ 167 mls/hr IVPB DAILY [facility] Last Admin: 11/01/17 10:48 Dose: 167 mls/hr Vancomycin HCl 1 gm/ Sodium (Chloride) 200 mls @ 133.333 mls/hr IVPB Q24H [facility] Last Admin: 11/01/17 13:49 Dose: 133.333 mls/hr Sodium Chloride (Sodium Chloride 0.9%) 1,000 mls @ 75 mls/hr IV .[id number] [facility] Last Admin: 10/29/17 00:39 Dose: 75 mls/hr Insulin Human Regular (Novolin R) 0 unit SC ACHS [facility] PRN Reason: Protocol Last Admin: 11/01/17 21:58 Dose: Not Given Saccharomyces Boulardii (Florastor) 250 mg PO BID [facility] Last Admin: 11/01/17 17:28 Dose: 250 mg - Labs Labs: 11/02/17 04:32 11/02/17 04:32 PT 15.9 SECONDS (9.7-12.2) H 10/27/17 22:08 INR 1.4 10/27/17 22:08 APTT 27 SECONDS (21-34) 10/27/17 22:08 - Constitutional Appears: No Acute Distress, Chronically Ill - Head Exam Head Exam: ATRAUMATIC, NORMAL INSPECTION - Eye Exam Eye Exam: EOMI, Normal appearance - ENT Exam ENT Exam: Mucous Membranes Moist - Respiratory Exam Respiratory Exam: Clear to Ausculation Bilateral, NORMAL BREATHING PATTERN Additional comments: bipap machine in place chest Tube in place - Cardiovascular Exam Cardiovascular Exam: REGULAR RHYTHM, +S1, +S2 - GI/Abdominal Exam GI & Abdominal Exam: Soft, Normal Bowel Sounds. absent: Tenderness - Extremities Exam Extremities Exam: Normal Inspection - Neurological Exam Neurological Exam: Alert, Awake - Psychiatric Exam Psychiatric exam: Normal Affect, Normal Mood - Skin Skin Exam: Normal Color, Warm Assessment and Plan - Assessment and Plan (Free Text) Assessment: 87 yo M with PMHx of HTN, T2DM, HLD, Alzheimer's Dementia, CKD ( baseline creatine 2.0s), BPH, and urinary incontinence (wears diapers), RLL lung mass who presented to the ED for worsening dyspnea. 1.) Small Cell Lung Cancer/Pleural Effusion - History of Tobacco Use - Pulmonology consulted- Dr. Deutsch --> help appreciated - Chest Tube in place - Bipap - Hem/Onc Consult: Dr. Green --> help appreciated - CT guided core biopsy of right lung pleural-based mass - pathology results: Small Cell Carcinoma - Full Report in the Chart - Imaging from previous admission (10/15/17): * CT Chest w/o Contrast: Multiple right lung masses, multiple right-sided pleural-based masses, and probable malignant effusion. Mediastinal adenopathy. Thick walled cavitary lesion right upper lobe measuring 5.5 x 5.3 CM. * MRI of brain with contrast: Diffuse cerebral atrophy and chronic microangiopathy are identified which appear age-appropriate. The lack images contrast limits the evaluation however the patient's GFR precludes administering gadolinium to this patient intravenously. No large intracranial mass is appreciable at this time. - Current Imaging * Chest X-ray 10/27/17: Complete Opacification of Right Lung/Large Pleural Effusion * CT Chest/Abdomen/Pelvis 10/28/17: interval increase in size of the right effusion with right chest tube, multiple pleural based masses throughout the right hemithorax, right lung mass and adenopathy consistent with malignancy, emphysema, new right lobe infiltrate, NO acute solid visceral or bowel abnormality, NO appendicitis, NO diverticulitis, Mandujano catheter balloon and catheter tip in prosthetic urethra 2.) Leukocystosis - WBC: 17.2 --> 10.3 --> 12.4 --> 16.4 --> 13.5 - ID consult: Dr. 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 Martínez --> help appreciated - Continue to monitor 4.) New Onset Afib - per nurse and the night resident Dr. Jordan patient had afib overnight and was given Lopressor followed by Digoxin - Patient went back into NSR 5.) History of UTI - Patient was being treated as outpatient with Bactrim 7 day course - urine culture: no growth 6.) History of Hypertension - Coreg 6.25mg PO BID - held due to low blood pressure - Norvasc 5mg PO daily - held due to low blood pressure 7.) History of Type 2 Diabetes - Accuchecks - ISS - Consistent Carb Diet - A1C (10/16/17): 7.5 - Hypoglycemic protocol 8.) History of Hyperlipidemia - Lipid Panel (10/16/17): Total Cholesterol 147; LDL 66; HDL 25 9.) History of Alzheimer's Dementia - Aricept 10mg PO QHS 10.) History of BPH - Hx of TURP (1996) 11.) History of Urinary Incontinence - [place] Catheter 12.) Prophylaxis - Heparin 5,000 SC Q8H - Pepcid 20 mg PO 1x/day - Florastor 250 mg PO 2x/day - Colace 100 mg PO 2x/day From previous admission: Patient is DNR/DNI POLST completed on 10/16/17. Nurse Gilda has been reconsulted. Per Amara's note: Family meeting 11/01/17:Discussed with Amara, daughter and granddaughter for home care. Discussed with Dr. Deutsch in reference to chest tube. Dr. Deutsch stated if patient is for home care they can continue the chest tube at home and will show family how to use. Disposition: Per Amara Resendez's daughter agreed for home hospice. Hospice Evaluation was placed 11/02/17. Case discussed with Dr. Denisse Canales PGY-1
[2017-11-02] MEDS: Sodium Chloride 0.9% 1,000 ML IV SCH ×2 (09:55→10:00)
[2017-11-02] MEDS: Saccharomyces Boulardi 250 mg Cap PO SCH ×2 (10:10→17:56)
[2017-11-02] MEDS: Moxifloxacin IV 400mg/250ml NS 400 MG/250 ML BAG IVPB SCH (10:11)
[2017-11-02 11:47] LABS: CK-MB 5.54 ng/mL (0.0-3.38)
[2017-11-02 12:06] LABS: TROPONIN I 0.833 ng/mL (0.00-0.120)
[2017-11-02] MEDS: Vancomycin 1 GM in Sodium Chloride 0.9% 200 ML IVPB SCH (13:52)
--- NOTE | 2017-11-02 16:03 | CP.PCM.PN ---
Subjective - Date & Time of Evaluation Date of Evaluation: 11/02/17 Time of Evaluation: 16:00 - Subjective Subjective: Appears comfortable Objective - Vital Signs/Intake and Output Vital Signs (last 24 hours): Temp Pulse Resp BP Pulse Ox 97.4 F L 85 20 129/73 98 11/02/17 15:19 11/02/17 15:19 11/02/17 15:19 11/02/17 15:19 11/02/17 15:19 Intake and Output: 11/02/17 11/02/17 06:59 18:59 Intake Total 890 740 Output Total 0 Balance 890 740 - Medications Medications: Current Medications Acetaminophen (Tylenol 325mg Tab) 650 mg PO Q6 PRN PRN Reason: Pain, Mild (1-3) Last Admin: 10/30/17 02:48 Dose: 650 mg Dextrose (Dextrose 50% Inj) 0 ml IV STAT PRN; Protocol PRN Reason: Hypoglycemia Protocol Dextrose (Glutose 15) 0 gm PO ONCE PRN; Protocol PRN Reason: Hypoglycemia Protocol Docusate Sodium (Colace) 100 mg PO BID [facility] Last Admin: 11/02/17 10:10 Dose: 100 mg Donepezil HCl (Aricept) 10 mg PO HS [facility] Last Admin: 11/01/17 23:20 Dose: 10 mg Famotidine (Pepcid) 20 mg PO DAILY [facility] Last Admin: 11/02/17 10:10 Dose: 20 mg Glucagon (Glucagen Diagnostic Kit) 0 mg IM STAT PRN; Protocol PRN Reason: Hypoglycemia Protocol Heparin Sodium (Porcine) (Heparin) 5,000 units SC Q8 [facility] Last Admin: 11/02/17 13:54 Dose: 5,000 units Piperacillin Sod/Tazobactam Sod (Zosyn 2.25 Gm Iv Premix) 2.25 gm in 50 mls @ 100 mls/hr IVPB Q6H [facility] Last Admin: 11/02/17 13:52 Dose: 100 mls/hr Moxifloxacin HCl (Avelox Iv 400mg/250ml Ns) 400 mg in 250 mls @ 167 mls/hr IVPB DAILY [facility] Last Admin: 11/02/17 10:11 Dose: 167 mls/hr Vancomycin HCl 1 gm/ Sodium (Chloride) 200 mls @ 133.333 mls/hr IVPB Q24H [facility] Last Admin: 11/02/17 13:52 Dose: 133.333 mls/hr Sodium Chloride (Sodium Chloride 0.9%) 1,000 mls @ 75 mls/hr IV .[id number] [facility] Last Admin: 10/29/17 00:39 Dose: 75 mls/hr Insulin Human Regular (Novolin R) 0 unit SC ACHS [facility] PRN Reason: Protocol Last Admin: 11/02/17 12:54 Dose: 2 unit Saccharomyces Boulardii (Florastor) 250 mg PO BID [facility] Last Admin: 11/02/17 10:10 Dose: 250 mg - Labs Labs: 11/02/17 04:32 11/02/17 04:32 PT 15.9 SECONDS (9.7-12.2) H 10/27/17 22:08 INR 1.4 10/27/17 22:08 APTT 27 SECONDS (21-34) 10/27/17 22:08 - Head Exam Head Exam: ATRAUMATIC - Eye Exam Eye Exam: Normal appearance - ENT Exam ENT Exam: Mucous Membranes Dry - Respiratory Exam Respiratory Exam: NORMAL BREATHING PATTERN - Cardiovascular Exam Cardiovascular Exam: +S1, +S2 - GI/Abdominal Exam GI & Abdominal Exam: Normal Bowel Sounds Assessment and Plan (1) Small cell lung cancer Assessment & Plan: extensive stage likely malignant effusion DNR/DNI agreeable to home hospice Status: Acute (2) Anemia Assessment & Plan: chronic disease, CKD Status: Acute (3) Leukocytosis Status: Acute
--- NOTE | 2017-11-02 16:06 | CP.PCM.PN ---
Subjective - Date & Time of Evaluation Date of Evaluation: 11/02/17 Time of Evaluation: 11:00 - Subjective Subjective: Patient seen and examined at bedside. Patient is resting comfortably, but reports that he has pain in his chest. Patient had an episode of rapid AFib overnight. A family meeting was held yesterday regarding the decision to start home hospice; still waiting on the decision of one family member. 10 mL of serosanguinous fluid was collected from chest tube since yesterday. Patients condition is stable and has been removed from BiPap. Assessment/Plan: 1. Pleural effusion - suction discontinued - continue IV antibiotics - BiPap discontinued 2. Small cell lung CA -follow up with family meeting for discharge Objective - Vital Signs/Intake and Output Vital Signs (last 24 hours): Temp Pulse Resp BP Pulse Ox 97.4 F L 85 20 129/73 98 11/02/17 15:19 11/02/17 15:19 11/02/17 15:19 11/02/17 15:19 11/02/17 15:19 Intake and Output: 11/02/17 11/02/17 06:59 18:59 Intake Total 890 740 Output Total 0 Balance 890 740 - Medications Medications: Current Medications Acetaminophen (Tylenol 325mg Tab) 650 mg PO Q6 PRN PRN Reason: Pain, Mild (1-3) Last Admin: 10/30/17 02:48 Dose: 650 mg Dextrose (Dextrose 50% Inj) 0 ml IV STAT PRN; Protocol PRN Reason: Hypoglycemia Protocol Dextrose (Glutose 15) 0 gm PO ONCE PRN; Protocol PRN Reason: Hypoglycemia Protocol Docusate Sodium (Colace) 100 mg PO BID [facility] Last Admin: 11/02/17 10:10 Dose: 100 mg Donepezil HCl (Aricept) 10 mg PO HS [facility] Last Admin: 11/01/17 23:20 Dose: 10 mg Famotidine (Pepcid) 20 mg PO DAILY [facility] Last Admin: 11/02/17 10:10 Dose: 20 mg Glucagon (Glucagen Diagnostic Kit) 0 mg IM STAT PRN; Protocol PRN Reason: Hypoglycemia Protocol Heparin Sodium (Porcine) (Heparin) 5,000 units SC Q8 [facility] Last Admin: 11/02/17 13:54 Dose: 5,000 units Piperacillin Sod/Tazobactam Sod (Zosyn 2.25 Gm Iv Premix) 2.25 gm in 50 mls @ 100 mls/hr IVPB Q6H [facility] Last Admin: 11/02/17 13:52 Dose: 100 mls/hr Moxifloxacin HCl (Avelox Iv 400mg/250ml Ns) 400 mg in 250 mls @ 167 mls/hr IVPB DAILY [facility] Last Admin: 11/02/17 10:11 Dose: 167 mls/hr Vancomycin HCl 1 gm/ Sodium (Chloride) 200 mls @ 133.333 mls/hr IVPB Q24H [facility] Last Admin: 11/02/17 13:52 Dose: 133.333 mls/hr Sodium Chloride (Sodium Chloride 0.9%) 1,000 mls @ 75 mls/hr IV .[id number] [facility] Last Admin: 10/29/17 00:39 Dose: 75 mls/hr Insulin Human Regular (Novolin R) 0 unit SC ACHS [facility] PRN Reason: Protocol Last Admin: 11/02/17 12:54 Dose: 2 unit Saccharomyces Boulardii (Florastor) 250 mg PO BID [facility] Last Admin: 11/02/17 10:10 Dose: 250 mg - Labs Labs: 11/02/17 04:32 11/02/17 04:32 PT 15.9 SECONDS (9.7-12.2) H 10/27/17 22:08 INR 1.4 10/27/17 22:08 APTT 27 SECONDS (21-34) 10/27/17 22:08 Assessment and Plan (1) Pleural effusion Status: Acute
[2017-11-02 18:03] LABS: CK-MB 4.44 ng/mL (0.0-3.38); TROPONIN I 0.983 ng/mL (0.00-0.120)
--- NOTE | 2017-11-02 20:41 | CARD ---
APPROVED REPORT EKG Measurement Heart [id number] <Conclusion> Narrow complex tachycardia, SVT, Probable A fib Low voltage QRS Nonspecific ST and T wave abnormality Abnormal ECG
--- NOTE | 2017-11-02 20:42 | CARD ---
APPROVED REPORT EKG Measurement Heart [id number] <Conclusion> Atrial fibrillation with rapid ventricular response Low voltage QRS Nonspecific ST and T wave abnormality Abnormal ECG
--- NOTE | 2017-11-02 23:19 | CP.PCM.PN ---
Subjective - Date & Time of Evaluation Date of Evaluation: 11/02/17 Time of Evaluation: 23:00 - Subjective Subjective: Patient tolerating diet; tolerating BIPAP prn; abd pain improved; Objective - Vital Signs/Intake and Output Vital Signs (last 24 hours): Temp Pulse Resp BP Pulse Ox 97.4 F L 85 20 129/73 98 11/02/17 15:19 11/02/17 21:58 11/02/17 15:19 11/02/17 15:19 11/02/17 15:19 Intake and Output: 11/02/17 11/03/17 18:59 06:59 Intake Total 1885 Output Total 0 Balance 1885 - Medications Medications: Current Medications Acetaminophen (Tylenol 325mg Tab) 650 mg PO Q6 PRN PRN Reason: Pain, Mild (1-3) Last Admin: 10/30/17 02:48 Dose: 650 mg Dextrose (Dextrose 50% Inj) 0 ml IV STAT PRN; Protocol PRN Reason: Hypoglycemia Protocol Dextrose (Glutose 15) 0 gm PO ONCE PRN; Protocol PRN Reason: Hypoglycemia Protocol Docusate Sodium (Colace) 100 mg PO BID [facility] Last Admin: 11/02/17 17:56 Dose: 100 mg Donepezil HCl (Aricept) 10 mg PO HS [facility] Last Admin: 11/02/17 22:05 Dose: 10 mg Famotidine (Pepcid) 20 mg PO DAILY [facility] Last Admin: 11/02/17 10:10 Dose: 20 mg Glucagon (Glucagen Diagnostic Kit) 0 mg IM STAT PRN; Protocol PRN Reason: Hypoglycemia Protocol Piperacillin Sod/Tazobactam Sod (Zosyn 2.25 Gm Iv Premix) 2.25 gm in 50 mls @ 100 mls/hr IVPB Q6H [facility] Last Admin: 11/02/17 20:07 Dose: 100 mls/hr Moxifloxacin HCl (Avelox Iv 400mg/250ml Ns) 400 mg in 250 mls @ 167 mls/hr IVPB DAILY [facility] Last Admin: 11/02/17 10:11 Dose: 167 mls/hr Vancomycin HCl 1 gm/ Sodium (Chloride) 200 mls @ 133.333 mls/hr IVPB Q24H [facility] Last Admin: 11/02/17 13:52 Dose: 133.333 mls/hr Sodium Chloride (Sodium Chloride 0.9%) 1,000 mls @ 75 mls/hr IV .[id number] [facility] Last Admin: 10/29/17 00:39 Dose: 75 mls/hr Insulin Human Regular (Novolin R) 0 unit SC ACHS [facility] PRN Reason: Protocol Last Admin: 11/02/17 21:38 Dose: Not Given Saccharomyces Boulardii (Florastor) 250 mg PO BID [facility] Last Admin: 11/02/17 17:56 Dose: 250 mg - Labs Labs: 11/02/17 04:32 11/02/17 04:32 PT 15.9 SECONDS (9.7-12.2) H 10/27/17 22:08 INR 1.4 10/27/17 22:08 APTT 27 SECONDS (21-34) 10/27/17 22:08 - Constitutional Appears: Non-toxic, No Acute Distress - Respiratory Exam Respiratory Exam: absent: Respiratory Distress Additional comments: decreased breath sounds on R; - Cardiovascular Exam Cardiovascular Exam: RRR, +S1, +S2 - GI/Abdominal Exam GI & Abdominal Exam: Soft. absent: Distended, Tenderness - Extremities Exam Additional comments: mild lower leg edema; - Neurological Exam Neurological Exam: Alert, Awake - Psychiatric Exam Psychiatric exam: Normal Affect, Normal Mood. absent: Agitated - Skin Skin Exam: Warm. absent: Cyanosis Assessment and Plan (1) KIMBERLEE (acute kidney injury) Assessment & Plan: Pre-renal etiology, resolving with IVF, can cut back to NS at 40 cc/hr by tomorrow for maintenance in the setting of decreased PO intake; Status: Acute (2) Hyponatremia Assessment & Plan: Had improved with volume repletion, slightly worsened today; continue as above; Status: Acute (3) Urinary retention Status: Chronic (4) SIRS (systemic inflammatory response syndrome) Status: Acute
[2017-11-03] MEDS: Sodium Chloride 0.9% 1,000 ML IV SCH (01:35)
[2017-11-03] MEDS: Piperacill/Tazo 2.25gm in Dex 2.25 GM/50 ML BAG IVPB SCH ×2 (01:35→08:12)
[2017-11-03] MEDS: (Novolin R) Insulin Human Regular 100 units/ml vial SC SCH ×4 (07:55→21:56)
[2017-11-03] MEDS: Saccharomyces Boulardi 250 mg Cap PO SCH ×2 (11:05→18:40)
[2017-11-03] MEDS: Moxifloxacin IV 400mg/250ml NS 400 MG/250 ML BAG IVPB SCH (11:06)
[2017-11-03] MEDS: Potassium & Sodium Phosphate PO SCH ×2 (11:23→18:41)
[2017-11-03] MEDS: Vancomycin 1 GM in Sodium Chloride 0.9% 200 ML IVPB SCH (12:39)
--- NOTE | 2017-11-03 13:06 | CP.PCM.PN ---
Subjective - Date & Time of Evaluation Date of Evaluation: 11/03/17 Time of Evaluation: 07:35 - Subjective Subjective: the patient seen and examined Off BiPAP Minimal drainage from chest tube No respiratory stress Objective - Vital Signs/Intake and Output Vital Signs (last 24 hours): Temp Pulse Resp BP Pulse Ox 98.0 F 104 H 18 141/79 98 11/03/17 07:20 11/03/17 07:20 11/03/17 07:20 11/03/17 07:20 11/03/17 07:20 Intake and Output: 11/03/17 11/03/17 06:59 18:59 Intake Total 640 Output Total 50 Balance 590 - Medications Medications: Current Medications Acetaminophen (Tylenol 325mg Tab) 650 mg PO Q6 PRN PRN Reason: Pain, Mild (1-3) Last Admin: 10/30/17 02:48 Dose: 650 mg Dextrose (Dextrose 50% Inj) 0 ml IV STAT PRN; Protocol PRN Reason: Hypoglycemia Protocol Dextrose (Glutose 15) 0 gm PO ONCE PRN; Protocol PRN Reason: Hypoglycemia Protocol Docusate Sodium (Colace) 100 mg PO BID [facility] Last Admin: 11/03/17 11:05 Dose: 100 mg Donepezil HCl (Aricept) 10 mg PO HS [facility] Last Admin: 11/02/17 22:05 Dose: 10 mg Famotidine (Pepcid) 20 mg PO DAILY [facility] Last Admin: 11/03/17 11:05 Dose: 20 mg Glucagon (Glucagen Diagnostic Kit) 0 mg IM STAT PRN; Protocol PRN Reason: Hypoglycemia Protocol Sodium Chloride (Sodium Chloride 0.9%) 1,000 mls @ 75 mls/hr IV .[id number] [facility] Last Admin: 10/29/17 00:39 Dose: 75 mls/hr Insulin Human Regular (Novolin R) 0 unit SC ACHS [facility] PRN Reason: Protocol Last Admin: 11/03/17 12:39 Dose: 2 unit Potassium Phos/Sodium Phos (Neutra-Phos) 1 pkt PO BID [facility] Stop: 11/03/17 18:01 Last Admin: 11/03/17 11:23 Dose: 1 pkt Saccharomyces Boulardii (Florastor) 250 mg PO BID [facility] Last Admin: 11/03/17 11:05 Dose: 250 mg - Labs Labs: 11/02/17 04:32 02/01/18 04:32 PT 15.9 SECONDS (9.7-12.2) H 10/27/17 22:08 INR 1.4 10/27/17 22:08 APTT 27 SECONDS (21-34) 10/27/17 22:08 - Head Exam Head Exam: ATRAUMATIC, NORMOCEPHALIC - ENT Exam ENT Exam: Mucous Membranes Moist - Respiratory Exam Respiratory Exam: Decreased Breath Sounds - Cardiovascular Exam Cardiovascular Exam: REGULAR RHYTHM - GI/Abdominal Exam GI & Abdominal Exam: Soft Assessment and Plan (1) Pleural effusion Assessment & Plan: Small cell carcinoma Malignant pleural effusion Pigtail catheter in place Followup chest x-ray Status: Acute
--- NOTE | 2017-11-03 14:15 | CP.PCM.DIS ---
Provider - Provider Date of Admission: 10/27/17 21:20 Attending physician: Chloe Salcedo DO Primary care physician: Dr. Holt Consults: Heme-Onc: Dr. Green Infectious Disease: Dr. Fallon Nephrology: Dr. Martínez Urology: Dr. Ortega Pulmonology: Dr. Deutsch Time Spent in preparation of Discharge (in minutes): 45 Hospital Course - Lab Results Lab Results: Micro Results 10/28/17 10:25 Blood-Venous Blood Culture - Final NO GROWTH AFTER 5 DAYS 10/28/17 10:25 Blood-Venous Gram Stain - Final TEST NOT PERFORMED 10/28/17 11:10 Blood-Venous Blood Culture - Final NO GROWTH AFTER 5 DAYS 10/28/17 11:10 Blood-Venous Gram Stain - Final TEST NOT PERFORMED 10/28/17 09:35 Urine,Mandujano Urine Culture - Final No Growth (<1,000 CFU/ML) Most Recent Lab Values WBC 15.3 K/uL (4.8-10.8) H 11/02/17 04:32 RBC 3.27 Mil/uL (4.40-5.90) L 11/02/17 04:32 Hgb 9.4 g/dL (12.0-18.0) L 11/02/17 04:32 Hct 27.7 % (35.0-51.0) L 11/02/17 04:32 MCV 84.7 fL (80.0-94.0) 11/02/17 04:32 MCH 28.8 pg (27.0-31.0) 11/02/17 04:32 MCHC 34.0 g/dL (33.0-37.0) 11/02/17 04:32 RDW 15.0 % (11.5-14.5) H 11/02/17 04:32 Plt Count 298 K/uL (130-400) 11/02/17 04:32 MPV 7.1 fL (7.2-11.7) L 11/02/17 04:32 Neut % (Auto) 83.3 % (50.0-75.0) H 11/02/17 04:32 Lymph % (Auto) 5.2 % (20.0-40.0) L 11/02/17 04:32 Curry % (Auto) 9.9 % (0.0-10.0) 11/02/17 04:32 Eos % (Auto) 1.0 % (0.0-4.0) 11/02/17 04:32 Baso % (Auto) 0.6 % (0.0-2.0) 11/02/17 04:32 Neut # (Auto) 12.7 K/uL (1.8-7.0) H 11/02/17 04:32 Lymph # (Auto) 0.8 K/uL (1.0-4.3) L 11/02/17 04:32 Curry # (Auto) 1.5 K/uL (0.0-0.8) H 11/02/17 04:32 Eos # (Auto) 0.1 K/uL (0.0-0.7) 11/02/17 04:32 Baso # (Auto) 0.1 K/uL (0.0-0.2) 11/02/17 04:32 Band Neutrophils % 2 % (0-2) 10/30/17 06:47 Neutrophils % (Manual) 87 % (50-75) H 11/02/17 04:32 Lymphocytes % (Manual) 3 % (20-40) L 11/02/17 04:32 Monocytes % (Manual) 10 % (0-10) 11/02/17 04:32 Eosinophils % (Manual) 2 % (0-4) 11/01/17 06:43 Toxic Granulation Present 10/29/17 08:43 Large Platelets Present 10/29/17 08:43 Platelet Estimate Normal (NORMAL) 11/02/17 04:32 Hypochromasia (manual) Slight 10/31/17 06:25 Poikilocytosis (manual Slight 10/29/17 08:43 Basophilic Stippling Slight 10/29/17 08:43 RBC Morphology Normal 11/01/17 06:43 Ovalocytes Slight 10/31/17 06:25 Polychromasia Slight 11/02/17 04:32 Anisocytosis (manual) Slight 11/02/17 04:32 Rouleaux Slight 11/02/17 04:32 PT 15.9 SECONDS (9.7-12.2) H 10/27/17 22:08 INR 1.4 10/27/17 22:08 APTT 27 SECONDS (21-34) 10/27/17 22:08 Puncture Site Rr 10/29/17 06:41 pCO2 43 mm/Hg (35-45) 10/29/17 06:41 pO2 140 mm/Hg (80-100) H 10/29/17 06:41 HCO3 27.2 mmol/L (21-28) 10/29/17 06:41 ABG pH 7.42 (7.35-7.45) 10/29/17 06:41 ABG Total CO2 29.2 mmol/L (22-28) H 10/29/17 06:41 ABG O2 Saturation 99.6 % (95-98) H 10/29/17 06:41 ABG Base Excess 2.9 mmol/L (-2.0-3.0) 10/29/17 06:41 Gregor Test Pos 10/29/17 06:41 ABG Potassium 4.3 mmol/L (3.6-5.2) 10/29/17 06:41 VBG pH 7.36 (7.32-7.43) 10/28/17 00:49 VBG pCO2 45 mmHg (40-60) 10/28/17 00:49 VBG HCO3 24.0 mmol/L 10/28/17 00:49 VBG Total CO2 19.0 mmol/L (22-28) L 10/27/17 22:05 VBG O2 Sat (Calc) 80.0 % (40-65) H 10/28/17 00:49 VBG Base Excess -0.4 mmol/L (0.0-2.0) L 10/28/17 00:49 A-a O2 Difference 305.0 mm/Hg 10/29/17 06:41 Respiratory Index 2.2 10/29/17 06:41 Sodium 136.0 mmol/l (132-148) 10/29/17 06:41 Chloride 102.0 mmol/L (98-107) 10/29/17 06:41 Glucose 141 mg/dl (75-110) H 10/29/17 06:41 Lactate 2.1 mmol/L (0.7-2.1) 10/29/17 06:41 FiO2 70.0 % 10/29/17 06:41 Crit Value Called To Dr hartman 10/28/17 00:49 Crit Value Called By Mikaela wang rt 10/28/17 00:49 Crit Value Read Back Y 10/28/17 00:49 Blood Gas Notified Time 54 10/28/17 00:49 Sodium 129 mmol/L (132-148) L 11/02/17 04:32 Potassium 4.1 mmol/L (3.6-5.2) 11/02/17 04:32 Chloride 103 mmol/L (98-107) 11/02/17 04:32 Carbon Dioxide 23 mmol/L (22-30) 11/02/17 04:32 Anion Gap 8 (10-20) L 11/02/17 04:32 BUN 18 mg/dL (9-20) 11/02/17 04:32 Creatinine 1.4 mg/dL (0.8-1.5) 11/02/17 04:32 Est GFR ( Amer) 58 11/02/17 04:32 Est GFR (Non-Af Amer) 48 11/02/17 04:32 POC Glucose (mg/dL) 157 mg/dL (65-110) H 11/03/17 11:44 Random Glucose 167 mg/dL (75-110) H 11/02/17 04:32 Lactic Acid 2.1 mmol/L (0.7-2.1) 10/30/17 06:49 Calcium 8.2 mg/dl (8.6-10.4) L 11/02/17 04:32 Phosphorus 2.1 mg/dL (2.5-4.5) L 11/02/17 04:32 Magnesium 1.6 mg/dL (1.6-2.3) 11/02/17 04:32 Total Bilirubin 0.5 mg/dL (0.2-1.3) 11/02/17 04:32 AST 39 U/L (17-59) 11/02/17 04:32 ALT 37 U/L (21-72) 11/02/17 04:32 Alkaline Phosphatase 103 U/L (38-126) 11/02/17 04:32 Total Creatine Kinase 45 U/L (55-170) L 11/02/17 17:24 CK-MB (Mass) 4.44 ng/mL (0.0-3.38) H 11/02/17 17:24 NT-Pro-B Natriuret Pep 1910 pg/mL (0-900) H 10/27/17 22:08 Troponin I 0.9830 ng/mL (0.00-0.120) H* 11/02/17 17:24 Total Protein 5.1 g/dL (6.3-8.3) L 11/02/17 04:32 Albumin 2.4 g/dL (3.5-5.0) L 11/02/17 04:32 Globulin 2.8 gm/dL (2.2-3.9) 11/02/17 04:32 Albumin/Globulin Ratio 0.8 (1.0-2.1) L 11/02/17 04:32 Procalcitonin 0.28 NG/ML (0.19-0.49) 10/30/17 06:47 Calcium (PTH Intact) 8.4 mg/dL (8.6-10.3) L 10/29/17 11:10 PTH w/Ion &Tot Calcium 72 pg/mL (14-64) H 10/29/17 11:10 Arterial Blood Potassium 4.3 mmol/L (3.6-5.2) 10/29/17 06:41 Urine Color Yellow (YELLOW) 10/28/17 17:24 Urine Clarity Clear (Clear) 10/28/17 17:24 Urine pH 5.0 (5.0-8.0) 10/28/17 17:24 Ur Specific [place] 1.017 (1.003-1.030) 10/28/17 17:24 Urine Protein 1+ mg/dL (NEGATIVE) H 10/28/17 17:24 Urine Glucose (UA) Normal mg/dL (Normal) 10/28/17 17:24 Urine Ketones Negative mg/dL (NEGATIVE) 10/28/17 17:24 Urine Blood Negative (NEGATIVE) 10/28/17 17:24 Urine Nitrate Negative (NEGATIVE) 10/28/17 17:24 Urine Bilirubin Negative (NEGATIVE) 10/28/17 17:24 Urine Urobilinogen Normal mg/dL (0.2-1.0) 10/28/17 17:24 Ur Leukocyte Esterase Negative Adrián/uL (Negative) 10/28/17 17:24 Urine WBC (Auto) 3 /hpf (0-5) 10/28/17 17:24 Urine RBC (Auto) 2 /hpf (0-3) 10/28/17 17:24 Ur Squamous Epith Cells < 1 /hpf (0-5) 10/28/17 17:24 Urine Bacteria Rare (<OCC) 10/28/17 17:24 Urine Osmolality 562 mosm/kg (300-1000) 10/28/17 17:01 Ur Random Creatinine 99.7 mg/dL 10/30/17 07:48 Ur Random Sodium 32 mmol/L 10/28/17 17:01 Urine Microalbumin 286.3 mg/L (0.0-16.6) H 10/30/17 07:46 Vancomycin Trough 9.5 ug/mL (5.0-10.0) 10/31/17 14:22 Random Vancomycin 8.12 ug/mL 10/29/17 08:43 Complement C3 101.0 mg/dL (88.0-165.0) 10/28/17 19:15 Complement C4 38.1 mg/dL (14.0-44.0) 10/28/17 19:15 Influenza Typ A,B (EIA) Negative for flu a/b (NEGATIVE) 10/28/17 09:12 Ur L.pneumophila Ag Negative (NEGATIVE) 10/28/17 09:12 Mycoplasma pneumon IgG <=0.90 (<=0.90) 10/28/17 11:42 Mycoplasma pneumon IgM 53 U/mL (<770) 10/28/17 11:42 Ur Strep pneumoniae Ag Not detected 10/28/17 17:01 - Hospital Course Hospital Course: CC: Dyspnea HPI: This is an 87 year old male with PMHx of HTN, DM, HLD, Alzheimer's Dementia , CKD (baseline creatine 2.0s), BPH, and urinary incontinence (wears diapers) presents to the ED for worsening dyspnea. This was first noticed by the daughter yesterday. Patient has known history of multiple lung and abdominal masses discovered on previous admission. Patient underwent a CT guided core bx of right lower lobe lung mass on 10/24/[address] Lin. We are awaiting the results. When questioned, patient states that he feels well at the moment on his non- rebreather mask. He denies shortness of breath despite witnessed labored breathing minutes earlier. Patient is a poor historian at baseline secondary to dementia. Further ROS unable to be ascertained. 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 Vinson Home meds: Per NOV Hospital Course: This patient was admitted to the service with shortness of breath on 10/27/17. In the ED, labs were drawn, imaging was done and medications were given. CT of chest without contrast showed multiple right lung masses, multiple right-sided pleural based masses and probable malignant effusion. Chest X-Ray showed complete opacification of the right lung and a large pleural effusion. CT of the chest/abdomen/pelvis showed a right lung mass and adenopathy consistent with malignancy. CT guided core biopsy of the mass showed small-cell carcinoma. Pulmonology was consulted and patient was started on BiPap and a chest tube was placed. Oncology was consulted and Dr. Green noted the small cell lung cancer was in extensive stage and did not recommended aggressive care. Patient also had leukocytosis on admission; Infectious Disease was consulted, Dr Fallon, and patient was started on vancomycin. Rapid influenza , urine Legionella, urine Strep Pneumo, and Mycoplasma were negative. Blood cultures, urinalysis and urine cultures were also negative. Patient had acute renal insufficiency superimposed on CKD on admission, BUN was 68 and Cr was 2.3. Baseline BUN is in the 30-40's and baseline Cr is 2-2.5. Nephrology was consulted, Dr. Martínez, and patient was started on IV fluids. Today, 11/03/17, BUN is 18 and Cr is 1.4. His chronic medical conditions of HTN, DM2, HLD, Alzheimer' s Dementia, and BPH were managed throughout hospital course. On 11/01/17, a family meeting was held with palliative care nurse, Amara Montague, and patient's daughter and granddaughter, to discuss goals of care. During the night of 11/01/17, patient experienced new onset atrial fibrillation and was given Lopressor followed by digoxin. Patient returned to normal sinus rhythm. Hospice evaluation was place on 11/02/17. Patient is stable for discharge to home for home hospice comfort care. This is a summary of the medical course, please see the medical records for a more detailed summary. Discharge Exam - Head Exam Head Exam: ATRAUMATIC, NORMOCEPHALIC - Eye Exam Eye Exam: EOMI, Normal appearance - ENT Exam ENT Exam: Mucous Membranes Dry - Respiratory Exam Respiratory Exam: absent: Rales, Rhonchi, Wheezes, Respiratory Distress Additional comments: BiPAP placed; chest tube in place. - Cardiovascular Exam Cardiovascular Exam: REGULAR RHYTHM, +S1, +S2 - GI/Abdominal Exam GI & Abdominal Exam: Normal Bowel Sounds, Soft, Tenderness (RUQ, epigastric). absent: Firm - Extremities Exam Extremities exam: normal inspection - Neurological Exam Neurological exam: Alert - Psychiatric Exam Psychiatric exam: Normal Affect, Normal Mood - Skin Skin Exam: Dry, Normal Color, Warm Discharge Plan - Follow Up Plan Condition: FAIR Disposition: HOME/ ROUTINE Additional Instructions: Patient is stable for discharge to home for home hospice comfort care.
--- NOTE | 2017-11-03 15:33 | RAD ---
HISTORY: pleural effusion COMPARISON: Comparison is made with FINDINGS: LUNGS: Heterogeneous opacities at the right lung likely represent atelectasis due to right pleural effusion PLEURA: Moderate to large right pleural effusion is again noted. Previously noted drainage catheter at the mid right chest in the previous study is not seen in the current exam CARDIOVASCULAR: Normal. OSSEOUS STRUCTURES: No significant abnormalities. VISUALIZED UPPER ABDOMEN: Normal. OTHER FINDINGS: None. IMPRESSION: Re- demonstration of right pleural effusion associated with right lower lung atelectasis.
[2017-11-03 15:58] VITALS: O2SAT 100
--- NOTE | 2017-11-03 19:01 | CP.PCM.PN ---
Subjective - Date & Time of Evaluation Date of Evaluation: 11/03/17 Time of Evaluation: 07:00 - Subjective Subjective: afebrile chest tube in place NAD all cultures neg Objective - Vital Signs/Intake and Output Vital Signs (last 24 hours): Temp Pulse Resp BP Pulse Ox 97.6 F 95 H 20 133/79 100 11/03/17 15:23 11/03/17 15:23 11/03/17 15:23 11/03/17 15:23 11/03/17 15:23 - Medications Medications: Current Medications Acetaminophen (Tylenol 325mg Tab) 650 mg PO Q6 PRN PRN Reason: Pain, Mild (1-3) Last Admin: 10/30/17 02:48 Dose: 650 mg Dextrose (Dextrose 50% Inj) 0 ml IV STAT PRN; Protocol PRN Reason: Hypoglycemia Protocol Dextrose (Glutose 15) 0 gm PO ONCE PRN; Protocol PRN Reason: Hypoglycemia Protocol Docusate Sodium (Colace) 100 mg PO BID [facility] Last Admin: 11/03/17 18:40 Dose: 100 mg Donepezil HCl (Aricept) 10 mg PO HS [facility] Last Admin: 11/02/17 22:05 Dose: 10 mg Famotidine (Pepcid) 20 mg PO DAILY [facility] Last Admin: 11/03/17 11:05 Dose: 20 mg Glucagon (Glucagen Diagnostic Kit) 0 mg IM STAT PRN; Protocol PRN Reason: Hypoglycemia Protocol Sodium Chloride (Sodium Chloride 0.9%) 1,000 mls @ 75 mls/hr IV .[id number] [facility] Last Admin: 10/29/17 00:39 Dose: 75 mls/hr Insulin Human Regular (Novolin R) 0 unit SC ACHS [facility]PL[facility] PRN Reason: Protocol Last Admin: 11/03/17 17:13 Dose: Not Given Saccharomyces Boulardii (Florastor) 250 mg PO BID [facility] Last Admin: 11/03/17 18:40 Dose: 250 mg - Labs Labs: 11/02/17 04:32 11/02/17 04:32 PT 15.9 SECONDS (9.7-12.2) H 10/27/17 22:08 INR 1.4 10/27/17 22:08 APTT 27 SECONDS (21-34) 10/27/17 22:08 - Constitutional Appears: Non-toxic, Chronically Ill - Head Exam Head Exam: NORMOCEPHALIC - Eye Exam Eye Exam: PERRL - ENT Exam ENT Exam: Mucous Membranes Dry - Neck Exam Neck Exam: absent: Lymphadenopathy - Respiratory Exam Respiratory Exam: Decreased Breath Sounds - Cardiovascular Exam Cardiovascular Exam: REGULAR RHYTHM - GI/Abdominal Exam GI & Abdominal Exam: Distended - Rectal Exam Rectal Exam: Deferred - Exam Exam: NORMAL INSPECTION Assessment and Plan (1) Dyspnea Status: Acute (2) Pleural effusion Status: Acute (3) Acute chest pain Status: Acute (4) Anemia Status: Acute (5) Chronic kidney disease (CKD), stage III (moderate) Status: Acute (6) Diabetes Status: Acute (7) Lung mass Status: Acute (8) Opacity of lung on imaging study Status: Acute (9) Pyelonephritis due to Escherichia coli Status: Acute (10) Renal insufficiency Status: Acute (11) Right lower lobe lung mass Status: Acute (12) Hypotonic bladder Status: Chronic (13) Urinary retention Status: Chronic
--- NOTE | 2017-11-03 19:18 | CP.PCM.PN ---
Subjective - Date & Time of Evaluation Date of Evaluation: 11/03/17 Time of Evaluation: 12:00 - Subjective Subjective: For home hospice appears comfortable Objective - Vital Signs/Intake and Output Vital Signs (last 24 hours): Temp Pulse Resp BP Pulse Ox 97.6 F 98 H 20 133/79 100 11/03/17 15:23 11/03/17 19:14 11/03/17 15:23 11/03/17 15:23 11/03/17 15:23 - Medications Medications: Current Medications Acetaminophen (Tylenol 325mg Tab) 650 mg PO Q6 PRN PRN Reason: Pain, Mild (1-3) Last Admin: 10/30/17 02:48 Dose: 650 mg Dextrose (Dextrose 50% Inj) 0 ml IV STAT PRN; Protocol PRN Reason: Hypoglycemia Protocol Dextrose (Glutose 15) 0 gm PO ONCE PRN; Protocol PRN Reason: Hypoglycemia Protocol Docusate Sodium (Colace) 100 mg PO BID [facility] Last Admin: 11/03/17 18:40 Dose: 100 mg Donepezil HCl (Aricept) 10 mg PO HS [facility] Last Admin: 11/02/17 22:05 Dose: 10 mg Famotidine (Pepcid) 20 mg PO DAILY [facility] Last Admin: 11/03/17 11:05 Dose: 20 mg Glucagon (Glucagen Diagnostic Kit) 0 mg IM STAT PRN; Protocol PRN Reason: Hypoglycemia Protocol Sodium Chloride (Sodium Chloride 0.9%) 1,000 mls @ 75 mls/hr IV .[id number] [facility] Last Admin: 10/29/17 00:39 Dose: 75 mls/hr Insulin Human Regular (Novolin R) 0 unit SC ACHS [facility] PRN Reason: Protocol Last Admin: 11/03/17 17:13 Dose: Not Given Saccharomyces Boulardii (Florastor) 250 mg PO BID [facility] Last Admin: 11/03/17 18:40 Dose: 250 mg - Labs Labs: 11/02/17 04:32 11/02/17 04:32 PT 15.9 SECONDS (9.7-12.2) H 10/27/17 22:08 INR 1.4 10/27/17 22:08 APTT 27 SECONDS (21-34) 10/27/17 22:08 - Head Exam Head Exam: ATRAUMATIC - Eye Exam Eye Exam: Normal appearance - ENT Exam ENT Exam: Mucous Membranes Dry - Respiratory Exam Respiratory Exam: Decreased Breath Sounds - Cardiovascular Exam Cardiovascular Exam: +S1, +S2 - GI/Abdominal Exam GI & Abdominal Exam: Normal Bowel Sounds Assessment and Plan (1) Small cell lung cancer Assessment & Plan: extensive stage DNR/DNI for home hospice Status: Acute (2) Anemia Status: Acute (3) Leukocytosis Status: Acute
--- NOTE | 2017-11-03 19:22 | CP.PCM.PN ---
Subjective - Date & Time of Evaluation Date of Evaluation: 11/03/17 Time of Evaluation: 11:00 - Subjective Subjective: Patient not eating much; breathing stable; made comfort care, no more blood draws being done; Objective - Vital Signs/Intake and Output Vital Signs (last 24 hours): Temp Pulse Resp BP Pulse Ox 97.6 F 98 H 20 133/79 100 11/03/17 15:23 11/03/17 19:14 11/03/17 15:23 11/03/17 15:23 11/03/17 15:23 - Medications Medications: Current Medications Acetaminophen (Tylenol 325mg Tab) 650 mg PO Q6 PRN PRN Reason: Pain, Mild (1-3) Last Admin: 10/30/17 02:48 Dose: 650 mg Dextrose (Dextrose 50% Inj) 0 ml IV STAT PRN; Protocol PRN Reason: Hypoglycemia Protocol Dextrose (Glutose 15) 0 gm PO ONCE PRN; Protocol PRN Reason: Hypoglycemia Protocol Docusate Sodium (Colace) 100 mg PO BID [facility] Last Admin: 11/03/17 18:40 Dose: 100 mg Donepezil HCl (Aricept) 10 mg PO HS [facility] Last Admin: 11/02/17 22:05 Dose: 10 mg Famotidine (Pepcid) 20 mg PO DAILY [facility] Last Admin: 11/03/17 11:05 Dose: 20 mg Glucagon (Glucagen Diagnostic Kit) 0 mg IM STAT PRN; Protocol PRN Reason: Hypoglycemia Protocol Sodium Chloride (Sodium Chloride 0.9%) 1,000 mls @ 75 mls/hr IV .[id number] [facility] Last Admin: 10/29/17 00:39 Dose: 75 mls/hr Insulin Human Regular (Novolin R) 0 unit SC ACHS [facility] PRN Reason: Protocol Last Admin: 11/03/17 17:13 Dose: Not Given Saccharomyces Boulardii (Florastor) 250 mg PO BID [facility] Last Admin: 11/03/17 18:40 Dose: 250 mg - Labs Labs: 11/02/17 04:32 11/02/17 04:32 PT 15.9 SECONDS (9.7-12.2) H 10/27/17 22:08 INR 1.4 10/27/17 22:08 APTT 27 SECONDS (21-34) 10/27/17 22:08 - Constitutional Appears: Non-toxic, No Acute Distress - Eye Exam Eye Exam: absent: Scleral icterus - Respiratory Exam Respiratory Exam: Clear to Ausculation Bilateral. absent: Respiratory Distress Additional comments: decreased sounds on R; - Cardiovascular Exam Cardiovascular Exam: RRR, +S1, +S2 - GI/Abdominal Exam GI & Abdominal Exam: Soft. absent: Distended - Neurological Exam Neurological Exam: Alert, Awake - Psychiatric Exam Psychiatric exam: absent: Agitated - Skin Skin Exam: Warm. absent: Cyanosis Assessment and Plan (1) KIMBERLEE (acute kidney injury) Assessment & Plan: Improved with IVF; should try to consume adequate PO diet, advised to eat higher salt foods to maintain intravascular volume; Status: Acute (2) Hyponatremia Assessment & Plan: Had improved, advised to eat higher salt foods; Status: Acute (3) Urinary retention Status: Chronic (4) SIRS (systemic inflammatory response syndrome) Status: Acute - Assessment and Plan (Free Text) Assessment: Thank you for this referral, we will be signing off; please call us back at any time;
[2017-11-04 08:08] VITALS: BP 136/75; RESP 18; TEMP 98.4
[2017-11-04] MEDS: (Novolin R) Insulin Human Regular 100 units/ml vial SC SCH (08:30)
[2017-11-04] MEDS: Saccharomyces Boulardi 250 mg Cap PO SCH (11:20)
--- NOTE | 2017-11-04 13:37 | CP.PCM.PN ---
Subjective - Date & Time of Evaluation Date of Evaluation: 11/04/17 Time of Evaluation: 13:00 - Subjective Subjective: The patient seen and examined No drainage from chest tube Being discharged home with hospice care Continue supportive treatment Objective - Vital Signs/Intake and Output Vital Signs (last 24 hours): Temp Pulse Resp BP Pulse Ox 98.4 F 93 H 18 136/75 100 11/04/17 08:06 11/04/17 11:32 11/04/17 08:06 11/04/17 08:06 11/04/17 08:06 Intake and Output: 11/04/17 11/04/17 06:59 18:59 Intake Total 1520 Output Total 5 Balance 1515 - Medications Medications: Current Medications Acetaminophen (Tylenol 325mg Tab) 650 mg PO Q6 PRN PRN Reason: Pain, Mild (1-3) Last Admin: 10/30/17 02:48 Dose: 650 mg Dextrose (Dextrose 50% Inj) 0 ml IV STAT PRN; Protocol PRN Reason: Hypoglycemia Protocol Dextrose (Glutose 15) 0 gm PO ONCE PRN; Protocol PRN Reason: Hypoglycemia Protocol Docusate Sodium (Colace) 100 mg PO BID [facility] Last Admin: 11/04/17 11:20 Dose: 100 mg Donepezil HCl (Aricept) 10 mg PO HS [facility] Last Admin: 11/03/17 22:15 Dose: 10 mg Famotidine (Pepcid) 20 mg PO DAILY [facility] Last Admin: 11/04/17 11:20 Dose: 20 mg Glucagon (Glucagen Diagnostic Kit) 0 mg IM STAT PRN; Protocol PRN Reason: Hypoglycemia Protocol Sodium Chloride (Sodium Chloride 0.9%) 1,000 mls @ 75 mls/hr IV .[id number] [facility] Last Admin: 10/29/17 00:39 Dose: 75 mls/hr Insulin Human Regular (Novolin R) 0 unit SC ACHS HERB PRN Reason: Protocol Last Admin: 11/04/17 08:30 Dose: Not Given Saccharomyces Boulardii (Florastor) 250 mg PO BID [facility] Last Admin: 11/04/17 11:20 Dose: 250 mg - Labs Labs: 11/02/17 04:32 11/02/17 04:32 PT 15.9 SECONDS (9.7-12.2) H 10/27/17 22:08 INR 1.4 10/27/17 22:08 APTT 27 SECONDS (21-34) 10/27/17 22:08 Assessment and Plan (1) Pleural effusion Status: Acute
[2017-11-04 16:23] VITALS: PULSE 104
== END 2017-11-04 17:45 | disposition hospice, home (50) | DRG 871 ==
LOC: C.ER 19:04 → C.9E 21:20 → C.6T 22:00
PROVIDERS: ADMIT Internal Medicine; ATTEND Hospitalist
PROC: 5A09457 Assistance with Respiratory Ventilation, 24-96 Consecutive Hours, Continuous Positive Airway Pressure (ICD-10-PCS; principal; 2017-10-27)
PROC: 0W9900Z Drainage of Right Pleural Cavity with Drainage Device, Open Approach (ICD-10-PCS; 2017-10-27)
DX: A41.9 Sepsis, unspecified organism (principal); J18.9 Pneumonia, unspecified organism; J91.0 Malignant pleural effusion; N17.9 Acute kidney failure, unspecified; E11.22 Type 2 diabetes mellitus with diabetic chronic kidney disease; E87.2 Acidosis; R18.8 Other ascites; E83.52 Hypercalcemia; E87.5 Hyperkalemia; C34.31 Malignant neoplasm of lower lobe, right bronchus or lung; N12 Tubulo-interstitial nephritis, not specified as acute or chronic; E87.1 Hypo-osmolality and hyponatremia; J98.11 Atelectasis; N18.3 Chronic kidney disease, stage 3 (moderate); N31.2 Flaccid neuropathic bladder, not elsewhere classified; B96.20 Unspecified Escherichia coli [E. coli] as the cause of diseases classified elsewhere; N40.1 Benign prostatic hyperplasia with lower urinary tract symptoms; Z51.5 Encounter for palliative care; Z66 Do not resuscitate; I12.9 Hypertensive chronic kidney disease with stage 1 through stage 4 chronic kidney disease, or unspecified chronic kidney disease; E78.00 Pure hypercholesterolemia, unspecified; F02.80 Dementia in other diseases classified elsewhere, unspecified severity, without behavioral disturbance, psychotic disturbance, mood disturbance, and anxiety; G30.9 Alzheimer's disease, unspecified; I48.91 Unspecified atrial fibrillation; J43.9 Emphysema, unspecified; N39.498 Other specified urinary incontinence; R19.00 Intra-abdominal and pelvic swelling, mass and lump, unspecified site; D64.9 Anemia, unspecified; Z87.891 Personal history of nicotine dependence; Z87.440 Personal history of urinary (tract) infections